=== PATIENT | female | born 1940 | race Caucasian/White ===

== ENCOUNTER 2016-03-12 21:42 | Inpatient (IN) | payer OTHER ==
[2016-03-12] MEDS ORDERED: NS 1,000 ML IV ONE ×2 (22:01→23:28)
[2016-03-12 22:11] LABS: % IMMATURE GRANULYOCYTES 0.3 % (0.0-1.1); ABSOLUTE IMMATURE GRANULOCYTES 0.02 10^3/uL (0.00-0.10); ADD DIFF? NO; ADD MORPH? NO; ADD SCAN? YES; ATYPICAL LYMPHOCYTE FLAG 0 (0-99); FRAGMENT RBC FLAG 0 (0-99); HEMATOCRIT 40.3 % (38.0-47.0); LIPEMIA HEMOLYSIS FLAG 90 (0-99); MEAN CELL HEMOGLOBIN 32.8 pg (27.9-34.1); MEAN CELL HEMOGLOBIN CONCENTR. 34.7 g/dL (32.4-36.7); MEAN CELL VOLUME 94.4 fL (81.5-99.8); MEAN PLATELET VOLUME 10.5 fL (8.7-11.7); PLATELET CLUMPS FLAG 0 (0-99); PLATELET COUNT 136 10^3/uL (150-400); RED BLOOD CELL COUNT 4.27 10^6/uL (4.18-5.33); RED CELL DISTRIBUTION WIDTH 13.3 % (11.5-15.2)
[2016-03-12 22:12] LABS: LEFT SHIFT FLG 300 (0-99)
--- NOTE | 2016-03-12 22:12 | CPEKG ---
Heart Rate: 101 RR Interval: 594 P-R Interval: 168 QRSD Interval: 134 QT Interval: 380 QTC Interval: 493 P [place]: 24 QRS [place]: 1 T Wave [place]: -22 EKG Severity - ABNORMAL ECG - EKG Impression: SINUS TACHYCARDIA EKG Impression: RIGHT BUNDLE BRANCH BLOCK Electronically Signed By: Juarez Sibley 13-Mar-2016 06:00:29
[2016-03-12 22:25] LABS: ANION GAP 18 mEq/L (8-16); CALCIUM 8.1 mg/dL (8.5-10.4); CARBON DIOXIDE 19 mEq/l (22-31); CHLORIDE 93 mEq/L (97-110); CREATININE 1.1 mg/dL (0.6-1.0); GLOMERULAR FILTRATION RATE 48; GLUCOSE 351 mg/dL (70-100); POTASSIUM 4.4 mEq/L (3.5-5.2); SODIUM 130 mEq/L (134-144)
[2016-03-12 22:39] LABS: SCAN POSITIVE
[2016-03-12 22:43] LABS: PLATELET ESTIMATE DECREASED (ADEQ)
--- NOTE | 2016-03-12 23:24 | EDPHY ---
HPI/HX/ROS/PE/MDM Narrative: Chief complaint: Diarrhea, falls HPI: 75-year-old patient with a history of type 2 diabetes presenting with 2-3 days of multiple episodes of profuse watery diarrhea, nausea and vomiting. She had a fall earlier today when she became dizzy after standing up. She also states that she fell about a week ago. states she has been having falls increasing repeat recently. She denies loss of consciousness. States she feels very dehydrated but everything she did drinks goes right through her. No abdominal pain. No fevers or chills. No blood or melena. She has not been on antibiotics recently. She does state that her stool is very foul smelling. No recent travel. Does not have any known sick contacts. Patient states she has not been eating today and has not been able to take her medications. ROS: 10 point Review of Systems is negative except as noted in the HPI. Physical exam: Gen: Awake, Alert, uncomfortable appearing HEENT: Nose: no rhinorrhea Eyes: PERRLA, EOMI Mouth: Dry mucosa Neck: Supple, no JVD Chest: nontender, lungs clear to auscultation Heart: S1, S2 normal, no murmur Abd: Soft, non-tender, no guarding Back: no CVA tenderness, no midline tenderness Ext: no edema, non-tender Skin: no rash Neuro: CN II-XII intact, Sensation grossly intact, Strength 5/5 in bilateral upper and lower extremities ED Course: 75-year-old diabetic with dehydration secondary to 2 days of nausea vomiting and profuse foul-smelling diarrhea. No recent antibiotics to ext suggest C diff however does smell like possible C diff to me. She is mildly tachycardic and very clinically dehydrated. She remains tachycardic after 1 L fluid. She has not been able to keep her medications down. She is hyperglycemic mildly acidotic which I think is secondary mostly to her dehydration. She will require admission. I have paged the hospitalist. - Data Points Laboratory Results: Laboratory Results 03/12/16 21:50 03/12/16 21:50 03/12/16 21:50 WBC 6.74 10^3/uL (3.80-9.50) RBC 4.27 10^6/uL (4.18-5.33) Hgb 14.0 g/dL (12.6-16.3) Hct 40.3 % (38.0-47.0) MCV 94.4 fL (81.5-99.8) MCH 32.8 pg (27.9-34.1) MCHC 34.7 g/dL (32.4-36.7) RDW 13.3 % (11.5-15.2) Plt Count 136 L 10^3/uL (150-400) MPV 10.5 fL (8.7-11.7) Neut % (Auto) 92.9 H % (39.3-74.2) Lymph % (Auto) 2.8 L % (15.0-45.0) [place] % (Auto) 3.4 L % (4.5-13.0) Eos % (Auto) 0.0 L % (0.6-7.6) Baso % (Auto) 0.6 % (0.3-1.7) Nucleat RBC Rel Count 0.0 % (0.0-0.2) Absolute Neuts (auto) 6.26 10^3/uL (1.70-6.50) Absolute Lymphs (auto) 0.19 L 10^3/uL (1.00-3.00) Absolute Monos (auto) 0.23 L 10^3/uL (0.30-0.80) Absolute Eos (auto) 0.00 L 10^3/uL (0.03-0.40) Absolute Basos (auto) 0.04 10^3/uL (0.02-0.10) Absolute Nucleated RBC 0.00 10^3/uL (0-0.01) Immature Gran % 0.3 % (0.0-1.1) Seg Neutrophils % 11 % Band Neutrophils % 79 % Lymphocytes % 3 % Monocytes % 3 % Metamyelocytes % 4 % Immature Gran # 0.02 10^3/uL (0.00-0.10) Absolute Seg Neuts 0.74 L 10^/uL (1.70-6.50) Absolute Band Neuts 5.32 H 10^3/uL (0.00-0.70) Absolute Lymphocytes 0.20 L 10^3/uL (1.00-3.00) Absolute Monocytes 0.20 L 10^3/uL (0.30-0.80) Absolute Metamyelocyte 0.27 H 10^3/mL (0.00-0.00) RBC/WBC/PLT Morphology NORMAL (NORMAL) Platelet Estimate DECREASED L (ADEQ) Sodium 130 L mEq/L (134-144) Potassium 4.4 mEq/L (3.5-5.2) Chloride 93 L mEq/L (97-110) Carbon Dioxide 19 L mEq/l (22-31) Anion Gap 18 mEq/L (8-16) BUN 25 H mg/dL (7-23) Creatinine 1.1 H mg/dL (0.6-1.0) Estimated GFR 48 Glucose 351 H mg/dL (70-100) Calcium 8.1 L mg/dL (8.5-10.4) Medications Given: Discontinued Medications Sodium Chloride (Ns) 1,000 mls @ 0 mls/hr IV ONCE ONE PRN Reason: Wide Open Stop: 03/12/16 22:02 Last Admin: 03/12/16 22:02 Dose: 1,000 mls General Time Seen by Provider: 03/12/16 22:49 Initial Vital Signs: Initial Vital Signs Temperature (C) 37 C 03/12/16 22:00 Heart Rate 104 H 03/12/16 22:00 Respiratory Rate 18 03/12/16 22:00 Blood Pressure 109/57 L 03/12/16 22:00 O2 Sat (%) 92 03/12/16 22:00 O2 Delivery Mode Room Air Allergies/Adverse Reactions: morphine Allergy (Verified 03/26/14 21:51) Vomiting Home Medications: Medication Instructions Recorded Aspirin [Aspir 81] 81 mg PO DAILY 02/07/12 Lisinopril/Hydrochlorothiazide 1 ea PO DAILY 02/07/12 [Lisinopril-Hctz 10-12.5 mg Tab] Acetaminophen [Tylenol ES 500 mg 500 mg PO BID PRN 03/27/14 (*)] Alendronate Sodium [Fosamax 70 MG 70 mg PO MO@0700 03/27/14 (*)] Allopurinol [Allopurinol 300 MG 450 mg PO DAILY 03/27/14 (RX)] Cholecalciferol Vit D3 [Vitamin D3 1,000 units PO BID 03/27/14 (*)] Glimepiride [Amaryl 1 MG (*)] 0.5 mg PO DAILY 03/27/14 Levothyroxine [Synthroid 50 mcg 50 mcg PO DAILY06 03/27/14 (*)] Omeprazole [Prilosec] 40 mg PO DAILY 03/27/14 Sitagliptin Phos/Metformin HCl 1 each PO BIDMEAL 03/27/14 [Janumet 50-500 mg Tablet] Cyanocobalamin [Vitamin B12 (OTC)] 1,000 mcg PO DAILY #0 tab 03/29/14 Departure - Departure Disposition: [facility] Acute Clinical Impression: Dehydration, Gastroenteritis, Diabetes mellitus Condition: Fair
[2016-03-12 23:59] LABS: ALBUMIN 3.5 g/dL (3.5-5.0); BILIRUBIN,TOTAL 1.3 mg/dL (0.1-1.4); BILIRUBIN-CONJUGATED 0.6 mg/dL (0.0-0.5); BILIRUBIN-UNCONJUGATED 0.7 mg/dL (0.0-1.1); TOTAL PROTEIN 6.5 g/dL (6.3-8.2)
--- NOTE | 2016-03-13 00:11 | CT ---
CT Head (Without Contrast) March 12, 2016 Indication: Fall. Facial contusion. Technique: Standard noncontrast head CT protocol utilizing 5 mm thick collimated slices and field of view of 23 cm. Dose reduction techniques were utilized. Comparison: Head CT dated October 14, 2015 Findings: Minimal left periorbital soft tissue swelling. No hematoma. No intracranial hemorrhage, mas s lesion, swelling, or extraaxial fluid collection. The ventricles are normal caliber and midline. Th e sherman and white matter has normal attenuation. No acute skull or facial fracture. The paranasal sinu ses are well-aerated and clear. Impression: 1. Minimal left periorbital soft tissue swelling. 2. No acute fracture or intracranial hemorrhage. Comment: The case was discussed with Dr. Sibley and at 12:05 a.m. March 13, 2016.
[2016-03-13] MEDS ORDERED: ONDANSETRON 4 MG/2 ML VIAL IVP PRN (01:56)
[2016-03-13] MEDS ORDERED: ACETAMINOPHEN 325 MG TAB PO PRN (01:56)
[2016-03-13] MEDS ORDERED: ONDANSETRON DISINTEGRATING 4 MG TAB PO PRN (01:56)
[2016-03-13] MEDS ORDERED: HYDROCODONE/APAP 5/325 TAB PO PRN (01:56)
[2016-03-13] MEDS ORDERED: D50W 25 GM/50 ML SYR IVP PRN (01:59)
[2016-03-13 06:03] LABS: ANION GAP 10 mEq/L (8-16); CALCIUM 7.3 mg/dL (8.5-10.4); CARBON DIOXIDE 21 mEq/l (22-31); CHLORIDE 103 mEq/L (97-110); CREATININE 0.9 mg/dL (0.6-1.0); GLOMERULAR FILTRATION RATE > 60; GLUCOSE 195 mg/dL (70-100); MAGNESIUM 1.2 mg/dL (1.6-2.3); POTASSIUM 3.8 mEq/L (3.5-5.2); SODIUM 134 mEq/L (134-144)
[2016-03-13 06:11] LABS: % IMMATURE GRANULYOCYTES 0.3 % (0.0-1.1); ABSOLUTE IMMATURE GRANULOCYTES 0.01 10^3/uL (0.00-0.10); ADD DIFF? NO; ADD MORPH? NO; ADD SCAN? YES; ATYPICAL LYMPHOCYTE FLAG 0 (0-99); FRAGMENT RBC FLAG 0 (0-99); HEMATOCRIT 34.2 % (38.0-47.0); LIPEMIA HEMOLYSIS FLAG 90 (0-99); MEAN CELL HEMOGLOBIN 33.2 pg (27.9-34.1); MEAN CELL HEMOGLOBIN CONCENTR. 35.1 g/dL (32.4-36.7); MEAN CELL VOLUME 94.7 fL (81.5-99.8); MEAN PLATELET VOLUME 10.5 fL (8.7-11.7); PLATELET CLUMPS FLAG 0 (0-99); PLATELET COUNT 94 10^3/uL (150-400); RED BLOOD CELL COUNT 3.61 10^6/uL (4.18-5.33); RED CELL DISTRIBUTION WIDTH 13.2 % (11.5-15.2)
[2016-03-13 06:14] LABS: LEFT SHIFT FLG 300 (0-99)
[2016-03-13 06:34] LABS: INR 1.51 (0.83-1.16); PROTIME(PATIENT) 18.2 SEC (12.0-15.0)
[2016-03-13 06:35] LABS: APTT 32.6 SEC (23.0-38.0)
[2016-03-13 06:37] LABS: SCAN POSITIVE
[2016-03-13 06:43] LABS: PLATELET ESTIMATE DECREASED (ADEQ)
[2016-03-13 07:37] LABS: FECES RBC NONE SEEN (NONE SEEN); FECES WBC 1+ (NONE SEEN); O/P DESCRIPTION LIQUID BROWN STOOL; O/P DIRECT NONE SEEN (NONE SEEN)
--- NOTE | 2016-03-13 07:39 | PDGENHP ---
History and Physical - Chief Complaint diarrhea - History of Present Illness Pt is 75/F with DM2, HTN, HCV (from transfusion), HLD, gout who presents to the ED complaining of n/v/d x 5 days. She is also reporting frequent falls, reports at least 3 falls in past 2 weeks. One month ago she had a fall that resulted in head trauma, ecchymosis on her L face, but states she did not seek medical care at that time. She describes the falls as mechanical in nature, due to a generalized weakness, with out any focal numbness, weakness or tingling. Over these two weeks she has also had difficulty with memory and word finding. Regarding her GI complaints, she states it started about 5 days ago first with nausea, vomiting, at least 3 times daily, nonbilious/nonbloody. Then she developed diarrhea, which she describes as profuse watery, difficult to control with urgency. She has been having at least 6 BMs daily. She denies any associated abd pain, fevers, chills, sick contacts or recent travel. On arrival to the ED, pt was afebrile and hemodynamically stable. Labs revealed evidence of dehydration, but no significant leukocytosis. She was given IVF hydration and admitted to the hospitalist service for further management. CT head did not show any acute intracranial abnormalities. History Information - Allergies/Home Medication List Allergies/Adverse Reactions: morphine Allergy (Verified 03/26/14 21:51) Vomiting Home Medications: Aspirin [Aspir 81] 81 mg PO DAILY 02/07/12 [Last Taken 03/26/14] Lisinopril/Hydrochlorothiazide [Lisinopril-Hctz 10-12.5 mg Tab] 1 ea PO DAILY [Last Taken 03/26/14] Acetaminophen [Tylenol ES 500 mg (*)] 500 mg PO BID PRN 03/27/14 [Last Taken Unknown] Alendronate Sodium [Fosamax 70 MG (*)] 70 mg PO MO@0700 03/27/14 [Last Taken 02/20] Allopurinol [Allopurinol 300 MG (RX)] 450 mg PO DAILY 03/27/14 [Last Taken 03/26] Cholecalciferol Vit D3 [Vitamin D3 (*)] 1,000 units PO BID 03/27/14 [Last Taken Unknown] Glimepiride [Amaryl 1 MG (*)] 0.5 mg PO DAILY 03/27/14 [Last Taken 03/26/14] Levothyroxine [Synthroid 50 mcg (*)] 50 mcg PO DAILY06 03/27/14 [Last Taken ] Omeprazole [Prilosec] 40 mg PO DAILY 03/27/14 [Last Taken 03/26/14] Sitagliptin Phos/Metformin HCl [Janumet 50-500 mg Tablet] 1 each PO BIDMEAL [Last Taken 03/26/14] I have personally reviewed and updated: family history, medical history, social history, surgical history - Past Medical History Additional medical history: DM2. HTN. Gout. HCV (as reported in MR) - Surgical History Additional surgical history: several R leg orthopedic surgeries. Hysterectomy. multiple abd surgeries for fibroids/adhesions - Family History Positive for: non-pertinent - Social History Smoking Status: Never smoked Alcohol Use: Other (pt reports drinking at least 2 gin drinks daily; no h/o withdrawal) Drug Use: None Additional social history: Pt lives with her , and is his primary caregiver. Is usually independent in ADLs, does not use an assistive device with walking Review of Systems ROS: 10pt was reviewed & negative except for what was stated in HPI & below Physical Exam Temp Pulse Resp BP Pulse Ox 37.5 C 114 H 12 128/59 H 93 03/13/16 04:44 03/13/16 04:44 03/13/16 04:44 03/13/16 04:44 03/13/16 04:44 Constitutional: no apparent distress, not in pain, obese Eyes: PERRL, anicteric sclera, EOMI, other (ecchymosis over L orbit) Ears, Nose, Mouth, Throat: ears appear normal, no oral mucosal ulcers, dry mucous membranes Cardiovascular: regular rate and rhythym, no murmur, rub, or gallop, pulses symmetric bilaterally, No JVD, No edema Peripheral Pulses: 2+: dorsalis-pedis (R), dorsalis-pedis (L) Respiratory: no respiratory distress, no rales or rhonchi, clear to auscultation Gastrointestinal: normoactive bowel sounds, soft, non-tender abdomen, no palpable masses, No hepatosplenomegally, No guarding, No rebound Genitourinary: no bladder fullness, no bladder tenderness Skin: warm, normal color, no rashes or abrasions, no fluctuance, No mottled Musculoskeletal: full muscle strength, no muscle tenderness, normal joint ROM, no joint effusions Neurologic: AAOx3, sensation intact bilaterally, CN II-XII Intact, other ( having word finding difficulties; able to repeat, name, follow all commands without difficulty), No weakness, No numbness Psychiatric: interacting appropriately, not anxious, thought process linear Lab Data & Imaging Review 03/13/16 04:47 03/13/16 04:47 WBC 3.61 10^3/uL (3.80-9.50) L 03/13/16 04:47 RBC 3.61 10^6/uL (4.18-5.33) L 03/13/16 04:47 Hgb 12.0 g/dL (12.6-16.3) L 03/13/16 04:47 Hct 34.2 % (38.0-47.0) L 03/13/16 04:47 MCV 94.7 fL (81.5-99.8) 03/13/16 04:47 MCH 33.2 pg (27.9-34.1) 03/13/16 04:47 MCHC 35.1 g/dL (32.4-36.7) 03/13/16 04:47 RDW 13.2 % (11.5-15.2) 03/13/16 04:47 Plt Count 94 10^3/uL (150-400) L 03/13/16 04:47 MPV 10.5 fL (8.7-11.7) 03/13/16 04:47 Neut % (Auto) 82.2 % (39.3-74.2) H 03/13/16 04:47 Lymph % (Auto) 11.6 % (15.0-45.0) L 03/13/16 04:47 [place] % (Auto) 5.0 % (4.5-13.0) 03/13/16 04:47 Eos % (Auto) 0.3 % (0.6-7.6) L 03/13/16 04:47 Baso % (Auto) 0.6 % (0.3-1.7) 03/13/16 04:47 Nucleat RBC Rel Count 0.0 % (0.0-0.2) 03/13/16 04:47 Absolute Neuts (auto) 2.97 10^3/uL (1.70-6.50) 03/13/16 04:47 Absolute Lymphs (auto) 0.42 10^3/uL (1.00-3.00) L 03/13/16 04:47 Absolute Monos (auto) 0.18 10^3/uL (0.30-0.80) L 03/13/16 04:47 Absolute Eos (auto) 0.01 10^3/uL (0.03-0.40) L 03/13/16 04:47 Absolute Basos (auto) 0.02 10^3/uL (0.02-0.10) 03/13/16 04:47 Absolute Nucleated RBC 0.00 10^3/uL (0-0.01) 03/13/16 04:47 Immature Gran % 0.3 % (0.0-1.1) 03/13/16 04:47 Seg Neutrophils % 25 % 03/13/16 04:47 Band Neutrophils % 55 % 03/13/16 04:47 Lymphocytes % 10 % 03/13/16 04:47 Monocytes % 4 % 03/13/16 04:47 Eosinophils % 1 % 03/13/16 04:47 Metamyelocytes % 5 % 03/13/16 04:47 Immature Gran # 0.01 10^3/uL (0.00-0.10) 03/13/16 04:47 Absolute Seg Neuts 0.90 10^/uL (1.70-6.50) L 03/13/16 04:47 Absolute Band Neuts 1.99 10^3/uL (0.00-0.70) H 03/13/16 04:47 Absolute Lymphocytes 0.36 10^3/uL (1.00-3.00) L 03/13/16 04:47 Absolute Monocytes 0.14 10^3/uL (0.30-0.80) L 03/13/16 04:47 Absolute Eosinophils 0.04 10^3/uL (0.03-0.40) 03/13/16 04:47 Absolute Metamyelocyte 0.18 10^3/mL (0.00-0.00) H 03/13/16 04:47 RBC/WBC/PLT Morphology NORMAL (NORMAL) 03/13/16 04:47 Platelet Estimate DECREASED (ADEQ) L 03/13/16 04:47 PT 18.2 SEC (12.0-15.0) H 03/13/16 04:47 INR 1.51 (0.83-1.16) H 03/13/16 04:47 APTT 32.6 SEC (23.0-38.0) 03/13/16 04:47 Sodium 134 mEq/L (134-144) 03/13/16 04:47 Potassium 3.8 mEq/L (3.5-5.2) 03/13/16 04:47 Chloride 103 mEq/L (97-110) D 03/13/16 04:47 Carbon Dioxide 21 mEq/l (22-31) L 03/13/16 04:47 Anion Gap 10 mEq/L (8-16) 03/13/16 04:47 BUN 27 mg/dL (7-23) H 03/13/16 04:47 Creatinine 0.9 mg/dL (0.6-1.0) 03/13/16 04:47 Estimated GFR > 60 03/13/16 04:47 Glucose 195 mg/dL (70-100) H 03/13/16 04:47 Calcium 7.3 mg/dL (8.5-10.4) L 03/13/16 04:47 Phosphorus 2.6 mg/dL (2.5-4.5) 03/13/16 04:47 Magnesium 1.2 mg/dL (1.6-2.3) L 03/13/16 04:47 Total Bilirubin 1.3 mg/dL (0.1-1.4) 03/12/16 21:50 Conjugated Bilirubin 0.6 mg/dL (0.0-0.5) H 03/12/16 21:50 Unconjugated Bilirubin 0.7 mg/dL (0.0-1.1) 03/12/16 21:50 AST 42 IU/L (14-46) 03/12/16 21:50 ALT 45 IU/L (9-52) 03/12/16 21:50 Alkaline Phosphatase 67 IU/L (38-126) 03/12/16 21:50 Total Protein 6.5 g/dL (6.3-8.2) 03/12/16 21:50 Albumin 3.5 g/dL (3.5-5.0) 03/12/16 21:50 TSH 1.450 uIU/mL (0.465-4.680) 03/13/16 04:47 Visualized and Interpreted imaging results: Yes Interpretation: CT head: no acute intracranial infarct, hemorrhage or mass effect Visualized and Interpreted EKG results: Yes EKG Interpretation: Positive for: normal sinsus rhythm (with RBBB) Assessment & Plan Assessment: Pt is 75/F with HTN, DM2 who presents to the ED with recent frequent falls and new n/v/d x 5 days. ED w/u revealed evidence of acute dehydration. Plan: # nausea/vomiting/diarrhea Consistent with a gastroenteritis, likely viral in etiology, but will also need to r/o c diff, bacterial or parasitic causes. No significant leukocytosis. BMP does show electrolytes loses, likely due to volume loss. Abdomen soft, nontender or distended. - contact precautions - f/u c diff, o/p, stool culture - if above positive, start appropriate antibiotic regimen - monitor and replete electrolytes # falls Sound mechanical in nature due to generalized weakness, likely exacerbated by acute dehydration. CT head neg for acute bleed, infarct. - fall precautions - PT/OT eval # acute encephalopathy Pt aware of some word finding/memory difficulties, which she noticed over past [address] head neg, but will also check MRI brain. Rest of neuro exam is nonfocal. Will also give empiric thiamine as patient describes drinking about 2 gin drinks daily. - f/u MRI brain - thiamine 100 mg po daily - treat acute infection # DM2, uncontrolled Hyperglycemic on presentation, acute infection likely contributing. Will cover with sliding scale lispro and monitor FS. # hyponatremia, hypochloremia Likely related to profuse diarrhea. Pt given 2 L NS in ED and will cont maintenance fluid while diarrhea still present. - NS @ 100 cc/hr - trend BMP, Mg # dispo: admit to inpt service for > 2 mn stay # gen: diabetic diet DVT ppx: lovenox Full code
[2016-03-13] MEDS ORDERED: PROTOCOL POTASSIUM 1 DOSE MISC PRN (08:00)
[2016-03-13] MEDS ORDERED: PROTOCOL MAGNESIUM 1 DOSE IV PRN (08:00)
[2016-03-13] MEDS ORDERED: MAGNESIUM SULF 2 GM/WATER 50 ML IV ONE (08:36)
[2016-03-13] MEDS ORDERED: POTASSIUM CL 10 MEQ TAB PO ONE (08:37)
[2016-03-13] MEDS: INSULIN LISPRO 100 UNIT/ML SC SCH ×3 (08:45→18:38)
[2016-03-13] MEDS: THIAMINE HCL 100 MG TAB PO SCH (08:49)
[2016-03-13] MEDS ORDERED: THIAMINE HCL 100 MG in NS 100 ML IV SCH (09:00)
[2016-03-13] MEDS ORDERED: ENOXAPARIN 40 MG/0.4 ML SYR SC SCH (09:00)
--- NOTE | 2016-03-13 11:34 | MR ---
MRI brain without contrast dated March 13, 2016 Indication: Word finding difficulty. Confabulation. Technique: Sagittal and axial T1, axial T2, FLAIR, susceptibility weighted, and diffusion-weighted im aging. Comparison: CT head dated March 12, 2016. No previous brain MRI. Findings: Diffusion-weighted imaging is normal. No evidence of acute ischemia. No acute intracranial hemorrhage, amyloid, or hemosiderin deposition. FLAIR weighted imaging reveals mild periventricular a nd subcortical hyperintense white matter disease in the frontal, and to a lesser degree, the parietal lobes. No cerebellar or mid brain white matter disease. The ventricular system is normal caliber and midline. The sagittal sinus and distal basivertebral and internal carotid arteries have normal black flow-void on T2-weighted imaging. The pituitary gland is normal size. The cervicooccipital junction is normal. The paranasal sinuses are clear. Impression: 1. No evidence of acute ischemia or acute intracranial hemorrhage. 2. Mild nonspecific periventricular and subcortical white matter disease in the frontal and parietal lobes.
--- NOTE | 2016-03-13 14:14 | HOSPPROG ---
Hospitalist Progress Note Assessment/Plan: Patient is a 75-year-old female who presented the emergency room with frequent falls and now nausea vomiting diarrhea for approximately 5 days she was admitted for further evaluation. I discussed her care with Dr. Overton. Today is my 1st a caring for the patient. Chart reviewed. #. Gait instability with falls CT of head shows minimal left periorbital soft tissue swelling MRI shows nothing acute she may be falling due to dehydration #. nausea, vomiting and diarrhea Clostridium difficile was negative this morning per nursing staff is still having significant amounts of diarrhea/ will recheck again for C diff will continue hydration she was recently treated with 3 antibiotics for a persistent urinary tract infection #. hyponatremia improved with IV hydration #. diabetes type 2 on long acting insulin as well as sliding scale- will follow #. dehydration continue IV fluids #. acute encephalopathy poss r/t alcohol use and to dehydration when I met with the patient she was alert and oriented /conversant #. thrombocytopenia possibly related to alcohol use will hold Lovenox #. alcohol use patient admits to drinking a martini in the evening but does not feel she excessively drinks #. DVT prophylaxis patient ambulating well in the room, will hold Lovenox in the setting of low platelet count and recheck labs in the morning #. plan. Will repeat labs in the morning. Will follow up with 2nd C difficile that was sent. Subjective: Kati has no c/o pain. Objective: Vital Signs Temp Pulse Resp BP Pulse Ox 36.9 C 111 H 18 127/68 H 92 03/13/16 07:54 03/13/16 12:00 03/13/16 12:00 03/13/16 12:00 03/13/16 12:00 Laboratory Results 03/13/16 04:47 03/13/16 04:47 PT 18.2 SEC (12.0-15.0) H 03/13/16 04:47 INR 1.51 (0.83-1.16) H 03/13/16 04:47 - Physical Exam Constitutional: no apparent distress, appears nourished, not in pain Eyes: PERRL Ears, Nose, Mouth, Throat: hearing normal Cardiovascular: regular rate and rhythym Respiratory: no respiratory distress Gastrointestinal: normoactive bowel sounds, distension (slight) Skin: warm, other (left facial area with some ecchymosis) Musculoskeletal: full muscle strength Neurologic: AAOx3 Psychiatric: interacting appropriately, not anxious, not encephalopathic ICD10 Worksheet Patient Problems: Problems Problem Status Diagnosed Dehydration Acute Diabetes Acute Gastroenteritis Acute Fall at home Acute
[2016-03-13 14:43] LABS: O/P CONCENTRATION NONE SEEN (NONE SEEN)
[2016-03-13] MEDS ORDERED: ACETAMINOPHEN 500 MG TAB PO PRN (14:44)
[2016-03-13 18:46] LABS: POTASSIUM 4.3 mEq/L (3.5-5.2)
[2016-03-13] MEDS: CHOLECALCIFEROL VIT D3 1,000 UNITS TAB PO SCH (20:37)
[2016-03-13] MEDS: CHLORHEXIDINE GLUCONATE 15 ML UDL MM SCH (20:52)
[2016-03-13] MEDS ORDERED: INSULIN GLARGINE 100 UNITS/ML SYRINGE SC SCH (21:00)
[2016-03-14] MEDS: NS 1,000 ML IV SCH ×2 (02:05→20:51)
[2016-03-14] MEDS: LEVOTHYROXINE 75 MCG TAB PO SCH (05:03)
[2016-03-14 05:06] LABS: ADD MORPH? NO; ADD SCAN? YES; ATYPICAL LYMPHOCYTE FLAG 0 (0-99); FRAGMENT RBC FLAG 0 (0-99); HEMATOCRIT 34.5 % (38.0-47.0); LEFT SHIFT FLG 80 (0-99); LIPEMIA HEMOLYSIS FLAG 90 (0-99); MEAN CELL HEMOGLOBIN CONCENTR. 34.8 g/dL (32.4-36.7); MEAN CELL VOLUME 94.8 fL (81.5-99.8); PLATELET CLUMPS FLAG 0 (0-99); PLATELET COUNT 91 10^3/uL (150-400); RED BLOOD CELL COUNT 3.64 10^6/uL (4.18-5.33); RED CELL DISTRIBUTION WIDTH 13.3 % (11.5-15.2)
[2016-03-14 05:25] LABS: CALCIUM 7.8 mg/dL (8.5-10.4); CARBON DIOXIDE 17 mEq/l (22-31); CHLORIDE 110 mEq/L (97-110); CREATININE 0.6 mg/dL (0.6-1.0); GLOMERULAR FILTRATION RATE > 60; GLUCOSE 187 mg/dL (70-100); MAGNESIUM 1.6 mg/dL (1.6-2.3); SODIUM 138 mEq/L (134-144)
[2016-03-14 06:04] LABS: ADD DIFF? YES; SCAN POSITIVE
[2016-03-14 06:11] LABS: MACROCYTES 1+; PLATELET ESTIMATE DECREASED (ADEQ); POLYCHROMASIA 1+
[2016-03-14 06:49] LABS: ANION GAP 11 mEq/L (8-16); POTASSIUM 3.6 mEq/L (3.5-5.2)
[2016-03-14] MEDS: ALLOPURINOL 300 MG TAB PO SCH (08:52)
[2016-03-14] MEDS: GLIMEPIRIDE 2 MG TAB PO SCH (08:52)
[2016-03-14] MEDS: INSULIN LISPRO 100 UNIT/ML SC SCH ×3 (08:53→18:05)
[2016-03-14] MEDS: CHLORHEXIDINE GLUCONATE 15 ML UDL MM SCH ×2 (08:53→20:51)
[2016-03-14] MEDS: ASPIRIN 81 MG CHEWABLE TAB PO SCH (08:53)
[2016-03-14] MEDS: CHOLECALCIFEROL VIT D3 1,000 UNITS TAB PO SCH ×2 (08:53→20:50)
[2016-03-14] MEDS ORDERED: POTASSIUM CL 10 MEQ TAB PO ONE ×2 (10:42→20:16)
[2016-03-14] MEDS ORDERED: MAGNESIUM SULF 1 GM/DEXTROSE 100 ML IV ONE (10:43)
[2016-03-14] MEDS: THIAMINE HCL 100 MG TAB PO SCH (10:51)
[2016-03-14 11:02] LABS: O/P TRICHROME NONE SEEN (NONE SEEN)
[2016-03-14] MEDS ORDERED: DIPHENOXYLATE/ATROPINE LOMOTIL 1 TAB PO PRN (11:36)
--- NOTE | 2016-03-14 15:34 | HOSPPROG ---
Hospitalist Progress Note Assessment/Plan: Patient is a 75-year-old female who presented the emergency room with frequent falls and now nausea vomiting diarrhea for approximately 5 days she was admitted for further evaluation. #. Gait instability with falls CT of head shows minimal left periorbital soft tissue swelling MRI shows nothing acute she may be falling due to dehydration PT and OT evaluated/ she would benefit from a front wheeled walker #. nausea, vomiting and diarrhea Clostridium difficile was negative x 2 stool studies do not show any infection will do a trial of Imodium diarrhea continues but the nausea and vomiting have resolved #. hyponatremia improved with IV hydration #. diabetes type 2 on long acting insulin as well as sliding scale- will follow #. dehydration continue IV fluids #. acute encephalopathy poss r/t alcohol use and to dehydration when I met with the patient she was alert and oriented /conversant and appropriate/ reading a book ST noted she needs further treatment in OP setting/needs help with comprehension and attention #. thrombocytopenia possibly related to alcohol use will hold Lovenox #. alcohol use patient admits to drinking a martini in the evening but does not feel she excessively drinks #. DVT prophylaxis patient ambulating well in the room, will hold Lovenox in the setting of low platelet count #. plan. 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 Subjective: Terrence is feeling better today/ has no complaints except for the diarrhea Objective: Vital Signs Temp Pulse Resp BP Pulse Ox 37.1 C 96 16 171/80 H 96 03/14/16 15:17 03/14/16 15:17 03/14/16 15:17 03/14/16 15:17 03/14/16 15:17 Laboratory Results 03/14/16 04:39 03/14/16 04:39 03/13/16 03/14/16 03/15/16 05:59 05:59 05:59 Intake Total 400 Balance 400 PT 18.2 SEC (12.0-15.0) H 03/13/16 04:47 INR 1.51 (0.83-1.16) H 03/13/16 04:47 - Physical Exam Constitutional: no apparent distress Eyes: PERRL Ears, Nose, Mouth, Throat: hearing normal Cardiovascular: regular rate and rhythym Respiratory: no respiratory distress Gastrointestinal: normoactive bowel sounds Skin: warm Musculoskeletal: generalized weakness Neurologic: AAOx3 Psychiatric: interacting appropriately, poor insight ICD10 Worksheet Patient Problems: Problems Problem Status Diagnosed Dehydration Acute Diabetes Acute Gastroenteritis Acute Fall at home Acute
[2016-03-14 19:01] LABS: POTASSIUM 3.7 mEq/L (3.5-5.2)
[2016-03-14] MEDS: INSULIN GLARGINE 100 UNITS/ML SYRINGE SC SCH (20:51)
[2016-03-15 05:40] LABS: COLOR YELLOW; LEUKOCYTE ESTERASE,URINE 3+ (NEGATIVE); NITRITE,URINE POSITIVE (NEGATIVE)
[2016-03-15 05:46] LABS: MAGNESIUM 1.5 mg/dL (1.6-2.3); POTASSIUM 3.8 mEq/L (3.5-5.2)
[2016-03-15 05:53] LABS: BACTERIA 2+ /hpf (NONE SEEN); MUCUS TRACE /lpf (NONE-1+); RBC,URINE 50-182 /hpf (0-3); WBC,URINE 50-182 /hpf (0-3)
[2016-03-15] MEDS ORDERED: POTASSIUM CL 10 MEQ TAB PO ONE ×2 (07:40→21:16)
[2016-03-15] MEDS: INSULIN LISPRO 100 UNIT/ML SC SCH ×3 (09:31→18:40)
[2016-03-15] MEDS: CHLORHEXIDINE GLUCONATE 15 ML UDL MM SCH ×2 (09:33→21:25)
[2016-03-15] MEDS: GLIMEPIRIDE 2 MG TAB PO SCH (09:33)
[2016-03-15] MEDS: CHOLECALCIFEROL VIT D3 1,000 UNITS TAB PO SCH ×2 (09:35→21:20)
[2016-03-15] MEDS: ASPIRIN 81 MG CHEWABLE TAB PO SCH (09:35)
[2016-03-15] MEDS: ALLOPURINOL 300 MG TAB PO SCH (09:35)
[2016-03-15] MEDS: THIAMINE HCL 100 MG TAB PO SCH (09:35)
[2016-03-15] MEDS: LEVOTHYROXINE 75 MCG TAB PO SCH (10:48)
[2016-03-15] MEDS ORDERED: MAGNESIUM SULF 1 GM/DEXTROSE 100 ML IV ONE (11:37)
--- NOTE | 2016-03-15 14:11 | HOSPPROG ---
Hospitalist Progress Note Assessment/Plan: Hospitalist Progress Note Assessment/Plan: Patient is a 75-year-old female who presented the emergency room with frequent falls and now nausea vomiting diarrhea for approximately 5 days she was admitted for further evaluation. My 1st encounter with the patient, chart reviewed. #. Gait instability with falls CT of head shows minimal left periorbital soft tissue swelling MRI shows nothing acute she may be falling due to dehydration PT and OT evaluated/ she would benefit from a front wheeled walker #. nausea, vomiting and diarrhea Clostridium difficile was negative x 2 stool studies do not show any infection Continue Imodium diarrhea lessened and the nausea and vomiting have resolved # urinary tract infection Patient states she has had urinary tract infection within the last 3 months Treated with outpatient oral antibiotic Will initiate Rocephin Await culture sensitivities #. hyponatremia improved with IV hydration #. diabetes type 2 on long acting insulin as well as sliding scale- will follow Lantus increased #. dehydration continue IV fluids #. acute encephalopathy poss r/t alcohol use and to dehydration patient alert and oriented /conversant and appropriate/ reading a book ST noted she needs further treatment in OP setting/needs help with comprehension and attention #. thrombocytopenia possibly related to alcohol use will hold Lovenox #. alcohol use patient admits to drinking a martini in the evening but does not feel she excessively drinks #. DVT prophylaxis patient ambulating well in the room, will hold Lovenox in the setting of low platelet count #. plan. 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 Still having to urinate quite frequently. Still continues to feel weak with concerns of ambulating to the bathroom. Objective: Vital Signs Temp Pulse Resp BP Pulse Ox 36.9 C 81 16 156/77 H 96 03/15/16 11:30 03/15/16 11:30 03/15/16 11:30 03/15/16 11:30 03/15/16 11:30 Microbiology 03/13/16 07:00 Stool Culture - Final Stool Laboratory Results 03/14/16 04:39 03/15/16 04:43 03/14/16 03/15/16 03/16/16 05:59 05:59 05:59 Intake Total 400 3081 350 Balance 400 3081 350 PT 18.2 SEC (12.0-15.0) H 03/13/16 04:47 INR 1.51 (0.83-1.16) H 03/13/16 04:47 - Physical Exam Constitutional: no apparent distress, appears nourished, not in pain Eyes: PERRL, anicteric sclera, EOMI Ears, Nose, Mouth, Throat: moist mucous membranes, hearing normal, ears appear normal Cardiovascular: regular rate and rhythym, No JVD, No edema Respiratory: no respiratory distress, no rales or rhonchi, reduced air movement Gastrointestinal: normoactive bowel sounds, No tenderness, No ascites Skin: warm, normal color, No erythema Musculoskeletal: normal joint ROM, no joint effusions, generalized weakness Neurologic: AAOx3 Psychiatric: interacting appropriately, not anxious, not encephalopathic ICD10 Worksheet Patient Problems: Problems Problem Status Diagnosed Dehydration Acute Diabetes Acute Gastroenteritis Acute Fall at home Acute
[2016-03-15] MEDS ORDERED: POTASSIUM CL 10 MEQ TAB ONE (21:14)
[2016-03-15] MEDS: INSULIN GLARGINE 100 UNITS/ML SYRINGE SC SCH (21:25)
[2016-03-16 05:57] LABS: MAGNESIUM 1.5 mg/dL (1.6-2.3)
[2016-03-16 08:37] VITALS: TEMP 98.2
[2016-03-16] MEDS: GLIMEPIRIDE 2 MG TAB PO SCH (09:00)
[2016-03-16] MEDS: ASPIRIN 81 MG CHEWABLE TAB PO SCH (09:00)
[2016-03-16] MEDS: THIAMINE HCL 100 MG TAB PO SCH (09:00)
[2016-03-16] MEDS: CHOLECALCIFEROL VIT D3 1,000 UNITS TAB PO SCH (09:00)
[2016-03-16] MEDS: ALLOPURINOL 300 MG TAB PO SCH (09:00)
[2016-03-16] MEDS: CHLORHEXIDINE GLUCONATE 15 ML UDL MM SCH (09:01)
[2016-03-16] MEDS: LEVOTHYROXINE 75 MCG TAB PO SCH (09:03)
[2016-03-16] MEDS: INSULIN LISPRO 100 UNIT/ML SC SCH ×2 (09:23→11:47)
[2016-03-16 11:24] VITALS: BP 154/72; PULSE 81; RESP 18; O2SAT 97
[2016-03-16] MEDS ORDERED: MAGNESIUM SULF 1 GM/DEXTROSE 100 ML IV ONE (11:33)
--- NOTE | 2016-03-16 14:40 | GDS ---
[f rep st] DISCHARGE SUMMARY DISCHARGE DIAGNOSES: 1. Gram-negative raven urinary tract infection. 2. Gait instability with falls. 3. Nausea, vomiting and diarrhea. 4. Hyponatremia. 5. Diabetes mellitus type 2. 6. Dehydration. 7. Acute encephalopathy. 8. Thrombocytopenia. 9. Daily alcohol use. STUDIES AND PROCEDURES DONE: 1. CT of the head. 2. MRI of the brain. 3. Urine culture. PHYSICAL EXAM: GENERAL: The patient is alert and oriented, in no acute distress. VITAL SIGNS: Afe brile 36.8, pulse is 81, respiratory rate is 18, blood pressure is 154/72. She is saturating 97% on room air. I have seen and evaluated the patient on the day of discharge. HOSPITAL COURSE: The patient is a 75-year-old female who presented to the emergency room after suffe ring a fall. She was evaluated and diagnosed with. 1. Gait instability with falls. This is likely multifactorial in the setting of acute infectious pr ocess and dehydration. She has been cleared by Physical Therapy as well as Occupational Therapy nell hernandez this hospitalization. 2. Nausea, vomiting and diarrhea. During the hospital course, the patient's symptoms have completel y resolved. It is likely that she had a viral gastroenteritis that has dissipated. 3. Gram-negative raven urinary tract infection. Ms. Young has had multiple urinary tract infections recently. She was treated during this hospital course with Rocephin and is discharged home with Ana mora. She has been instructed to follow up in the outpatient setting with Dr. Liang, a urologist, f or further management and treatment of her urinary tract infection. She is aware that her urine cult ure sensitivities have not resulted yet and that she requires outpatient followup. She is in agreeme nt with this plan. 4. Hyponatremia. This is resolved with IV hydration and was likely secondary to the patient being d ehydrated. 5. Diabetes mellitus type 2. Continue outpatient support and management. 6. Acute encephalopathy. This has resolved. The patient's mentation has returned to baseline. 7. Thrombocytopenia. This is stable at the time of disposition. DISPOSITION: The patient will be discharged home independently. Home health care has been offered t o her at the time of disposition; however, she is refusing. Followup will be in the outpatient too hernandez with Dr. Liang as well as her primary care physician, Dr. Jenny Garcia. She has been instruct ed to follow up final results for her urine culture. DISCHARGE MEDICATIONS: Please refer to EMR form. Prescription for Keflex as well as Norvasc has bee n provided to the patient at the time of disposition. TIME SPENT: I spent greater than 35 minutes in the care, coordination, and management of this patien t's discharge. /[id number]/MODL
[2016-03-18] MEDS ORDERED: ALENDRONATE SODIUM 70 MG TAB PO SCH (07:00)
== END 2016-03-16 16:13 | disposition home or self-care (01) | DRG 391 ==
LOC: EDUNIT# → F3E 03-13 00:18 → OBSVTOIN 03-13 01:56 → F3E 03-15 17:01
PROVIDERS: ADMIT Internal Medicine; ATTEND Student in an Organized Health Care Education/Training Program
DX: A08.4 Viral intestinal infection, unspecified (principal); N39.0 Urinary tract infection, site not specified; G93.40 Encephalopathy, unspecified; E86.0 Dehydration; E87.1 Hypo-osmolality and hyponatremia; D69.6 Thrombocytopenia, unspecified; E11.65 Type 2 diabetes mellitus with hyperglycemia; R26.81 Unsteadiness on feet; R29.6 Repeated falls; Z79.4 Long term (current) use of insulin; Z87.440 Personal history of urinary (tract) infections
CPT/HCPCS: 92507-GN; 92523-GN; 97116-GP; 97161-GP; 97166-GO; 97535-GO; G8978-GP-CJ; G8979-GP-CI; G8980-GP-CI; G8987-GO-CJ; G8988-GO-CI; G8989-GO-CI; G9165-GN-CI; G9165-GN-CK; G9166-GN-CI; G9166-GN-CJ; G9167-GN-CI; J0696; J1650; J1815; J3475

== ENCOUNTER → 2016-05-21 | Outpatient (CLI) | payer OTHER | LOC: BMCIMAGING 08:57 | DX: Z12.31 Encounter for screening mammogram for malignant neoplasm of breast (principal); Z80.3 Family history of malignant neoplasm of breast | CPT/HCPCS: G0202 ==

== ENCOUNTER 2016-12-30 21:25 | Inpatient (IN) | payer OTHER ==
--- NOTE | 2016-12-30 21:26 | EDPHY ---
HPI/HX/ROS/PE/MDM Narrative: CHIEF COMPLAINT: Atrial fibrillation, hyperglycemia, hypertension HPI: The patient is a 76 y/o female with a history of bladder spasms, UTI, leaky bladder,diabetes mellitus type 2, hypertension, hepatitis C from a transfusion, hyperlipidemia, and gout arriving via EMS after falling in her home. She had Botox injections into the bladder last week to help treat her urinary issues. Today she got up to use the restroom and on her way back she tripped and fell and was unable to get up. The fire department originally showed up for a left assist but, on exam she was tachycardic, hypertensive, and hyperglycemic. EMS notes a new onset atrial fibrillation on the EKG in the ambulance. She reports to not taking her insulin shots for the past couple days. She denies loss of consciousness, pain, recent fever, or any other associated symptoms. REVIEW OF SYSTEMS: Aside from elements discussed in the HPI, a comprehensive 10-point review of systems was reviewed and is negative. PMH: Diabetes mellitus type 2, hypertension, hepatitis C from a transfusion, hyperlipidemia, gout SOCIAL HISTORY: Lives in [place], , Dr. Garcia PCP PHYSICAL EXAM: General:Patient is alert, in no acute distress. ENT:Eyes are normal to inspection. ENT inspection normal. Neck: Normal inspection. Full range of motion. Respiratory:No respiratory distress. Breath sounds normal bilaterally. Cardiovascular: Regular rate and rhythm. Strong peripheral pulses. Normal cap refill. Abdomen:The abdomen is nontender to palpation. There are no peritoneal signs. There are normal bowel sounds. Back: Normal to inspection. No tenderness to palpation. Skin: Normal color. No rash. Warm and dry. Extremities: Normal appearance. Full range of motion. Neuro: Oriented x3. Normal motor function. Normal sensory function. MDM: This patient presents with what sounds like mechanical fall, but exam reveals new onset Afib with RVR, hyperglycemia in setting of IDDM and possible lung infiltrate. Despite this, she appears quite well and I do not think she is in DKA. She also has a moderate troponin leak but no signs of ACS by symptoms or ECG. - Data Points Imaging Results: Imaging Impressions Chest X-Ray 12/30/16 21:42 Impression: 1. Mild consolidation of left lower lobe. 2. Mild cardiomegaly. 3. Numerous old fractures. EKG was ordered and interpreted by myself. Please see [employer] system for official reading. I note atrial fibrillation. Study: X-ray of the chest Indication: Hypertension, atrial fibrillation Results: X-ray of the chest was obtained. The results of the study are: Normal. The study was read by the radiologist, Dr. Tinooc. I viewed the images myself on the PACS system. Imaging: Discussed imaging studies w/ hand therapist Radiologist, I viewed and interpreted images myself Laboratory Results: Laboratory Results 12/30/16 21:29 12/30/16 21:29 12/30/16 12/30/16 21:29 21:29 WBC 7.60 10^3/uL 10^3/uL (3.80-9.50) RBC 4.01 10^6/uL L 10^6/uL (4.18-5.33) Hgb 13.3 g/dL g/dL (12.6-16.3) Hct 37.0 % L % (38.0-47.0) MCV 92.3 fL fL (81.5-99.8) MCH 33.2 pg pg (27.9-34.1) MCHC 35.9 g/dL g/dL (32.4-36.7) RDW 13.2 % % (11.5-15.2) Plt Count 179 10^3/uL 10^3/uL (150-400) MPV 10.7 fL fL (8.7-11.7) Neut % (Auto) 79.9 % H % (39.3-74.2) Lymph % (Auto) 9.3 % L % (15.0-45.0) Frederick % (Auto) 8.7 % % (4.5-13.0) Eos % (Auto) 1.2 % % (0.6-7.6) Baso % (Auto) 0.5 % % (0.3-1.7) Nucleat RBC Rel Count 0.0 % % (0.0-0.2) Absolute Neuts (auto) 6.07 10^3/uL 10^3/uL (1.70-6.50) Absolute Lymphs (auto) 0.71 10^3/uL L 10^3/uL (1.00-3.00) Absolute Monos (auto) 0.66 10^3/uL 10^3/uL (0.30-0.80) Absolute Eos (auto) 0.09 10^3/uL 10^3/uL (0.03-0.40) Absolute Basos (auto) 0.04 10^3/uL 10^3/uL (0.02-0.10) Absolute Nucleated RBC 0.00 10^3/uL 10^3/uL (0-0.01) Immature Gran % 0.4 % % (0.0-1.1) Immature Gran # 0.03 10^3/uL 10^3/uL (0.00-0.10) Sodium 126 mEq/L L mEq/L (134-144) Potassium 3.9 mEq/L mEq/L (3.5-5.2) Chloride 90 mEq/L L mEq/L (97-110) Carbon Dioxide 18 mEq/l L mEq/l (22-31) Anion Gap 18 mEq/L H mEq/L (8-16) BUN 18 mg/dL mg/dL (7-23) Creatinine 0.7 mg/dL mg/dL (0.6-1.0) Estimated GFR > 60 Glucose 473 mg/dL H mg/dL (70-100) Calcium 9.0 mg/dL mg/dL (8.5-10.4) Troponin I 0.606 ng/mL H ng/mL (0.000-0.034) Medications Given: Discontinued Medications Diltiazem HCl (Cardizem 25 Mg/5 Ml Vial) 10 mg IVP EDNOW ONE Stop: 12/30/16 22:05 Last Admin: 12/30/16 22:29 Dose: 10 mg Diltiazem HCl (Cardizem 25 Mg/5 Ml Vial) 10 mg IVP EDNOW ONE Stop: 12/30/16 22:50 Last Admin: 12/30/16 22:59 Dose: 10 mg Sodium Chloride (Ns) 500 mls @ 0 mls/hr IV EDNOW ONE; Wide Open PRN Reason: Protocol Stop: 12/30/16 21:43 Last Admin: 12/30/16 22:23 Dose: 500 mls General Initial Vital Signs: Initial Vital Signs Temperature (C) 37.4 C 12/30/16 21:42 Heart Rate 124 H 12/30/16 21:42 Respiratory Rate 18 12/30/16 21:42 Blood Pressure 145/87 H 12/30/16 21:42 O2 Sat (%) 94 12/30/16 21:42 O2 Delivery Mode Room Air Allergies/Adverse Reactions: morphine Allergy (Verified 03/26/14 21:51) Vomiting nitrofurantoin Allergy (Verified 12/30/16 22:17) Home Medications: Medication Instructions Recorded Acetaminophen [Tylenol ES 500 mg 500 mg PO BID PRN 03/27/14 (*)] Alendronate Sodium [Fosamax 70 MG 70 mg PO MO@0700 03/27/14 (*)] Allopurinol [Allopurinol 300 MG 450 mg PO DAILY 03/27/14 (RX)] Cholecalciferol Vit D3 [Vitamin D3 1,000 units PO BID 03/27/14 (*)] Omeprazole [Prilosec] 40 mg PO DAILY PRN 03/27/14 Sitagliptin Phos/Metformin HCl 1 each PO BIDMEAL 03/27/14 [Janumet 50-500 mg Tablet] Aspirin [Aspirin 81mg (*)] 81 mg PO DAILY 03/13/16 Insulin Detemir [Levemir] 30 unit SQ HS 03/13/16 Levothyroxine [Synthroid 75 mcg 75 mcg PO DAILY06 03/13/16 (*)] Lisinopril/Hctz 10/12.5 mg 1 ea PO DAILY 03/13/16 [Zestoretic/Prinzide 10/12.5MG (*)] Glimepiride [Amaryl 1 MG (*)] 0.5 mg PO DAILY 12/31/16 Mirabegron [Myrbetriq] 25 mg PO DAILY 12/31/16 Departure - Departure Disposition: [facility] Inpatient Acute Clinical Impression: Hyperglycemia, Elevated troponin, Fall at home, Hyponatremia Atrial fibrillation Qualifiers: Atrial fibrillation type: unspecified Qualified Code(s): I48.91 - Unspecified atrial fibrillation Hypertension Qualifiers: Hypertension type: unspecified Qualified Code(s): I10 - Essential (primary) hypertension Condition: Fair Report Scribed for: Trenton Genao Report Scribed by: Tianna Aburto Date of Report: 12/30/16 Time of Report: 21:39 Physician Review and Approval Statement: Portions of this note were transcribed by an ED scribe. I personally performed the history, physical exam, and medical decision making; and confirm the accuracy of the information in the transcribed note.
[2016-12-30] MEDS ORDERED: NS 500 ML IV ONE (21:42)
--- NOTE | 2016-12-30 21:58 | CPEKG ---
Heart Rate: 132 RR Interval: 455 QRSD Interval: 146 QT Interval: 356 QTC Interval: 528 QRS [place]: 7 T Wave [place]: -13 EKG Severity - ABNORMAL ECG - EKG Impression: ATRIAL FIBRILLATION, V-RATE 82-179 EKG Impression: RIGHT BUNDLE BRANCH BLOCK Electronically Signed By: Celeste Larson 31-Dec-2016 06:52:26
[2016-12-30 21:59] LABS: CARBON DIOXIDE 18 mEq/l (22-31); CREATININE 0.7 mg/dL (0.6-1.0); GLOMERULAR FILTRATION RATE > 60; GLUCOSE 473 mg/dL (70-100); POTASSIUM 3.9 mEq/L (3.5-5.2); SODIUM 126 mEq/L (134-144)
[2016-12-30 22:00] LABS: % IMMATURE GRANULYOCYTES 0.4 % (0.0-1.1); ABSOLUTE IMMATURE GRANULOCYTES 0.03 10^3/uL (0.00-0.10); ADD DIFF? NO; ADD MORPH? NO; ADD SCAN? NO; ATYPICAL LYMPHOCYTE FLAG 0 (0-99); FRAGMENT RBC FLAG 0 (0-99); HEMOGLOBIN 13.3 g/dL (12.6-16.3); LEFT SHIFT FLG 0 (0-99); LIPEMIA HEMOLYSIS FLAG 90 (0-99); MEAN CELL HEMOGLOBIN 33.2 pg (27.9-34.1); MEAN CELL HEMOGLOBIN CONCENTR. 35.9 g/dL (32.4-36.7); MEAN CELL VOLUME 92.3 fL (81.5-99.8); MEAN PLATELET VOLUME 10.7 fL (8.7-11.7); PLATELET CLUMPS FLAG 30 (0-99); PLATELET COUNT 179 10^3/uL (150-400); RED BLOOD CELL COUNT 4.01 10^6/uL (4.18-5.33); RED CELL DISTRIBUTION WIDTH 13.2 % (11.5-15.2)
[2016-12-30] MEDS ORDERED: DILTIAZEM 25 MG/5 ML VIAL IVP ONE ×2 (22:04→22:49)
[2016-12-30 22:10] LABS: TROPONIN I 0.606 ng/mL (0.000-0.034)
[2016-12-30 23:07] LABS: ANION GAP 18 mEq/L (8-16); CHLORIDE 90 mEq/L (97-110)
[2016-12-30] MEDS ORDERED: diphenhydrAMINE 25 MG CAP PO PRN (23:28)
[2016-12-30] MEDS ORDERED: ONDANSETRON 4 MG/2 ML VIAL IVP PRN (23:28)
[2016-12-30] MEDS ORDERED: LORazepam 0.5 MG TAB PO PRN (23:28)
[2016-12-30] MEDS ORDERED: ENOXAPARIN 80 MG/0.8 ML SYR SC ONE (23:33)
[2016-12-30] MEDS ORDERED: NS 1,000 ML IV ONE (23:40)
[2016-12-30] MEDS ORDERED: DILTIAZEM 125 MG in D5W 125 ML IV SCH (23:45)
[2016-12-31] MEDS ORDERED: D50W 25 GM/50 ML SYR IVP PRN (00:19)
[2016-12-31] MEDS ORDERED: D10W 250 ML PRN HYPOGLYCEMIA IV (00:30)
[2016-12-31 01:13] LABS: PCO2 VENOUS 34 mmHg (40-44); PH VENOUS BLOOD 7.37 (7.31-7.42); PO2 VENOUS 58 mmHg (35-40); TCO2 VENOUS 20 mEq/L (23-27); VEN MEASURED OXYGEN SATURATION 89 % (65-75)
[2016-12-31 01:23] LABS: ANION GAP 17 mEq/L (8-16); CALCIUM 8.4 mg/dL (8.5-10.4); CARBON DIOXIDE 18 mEq/l (22-31); CHLORIDE 94 mEq/L (97-110); CREATININE 0.7 mg/dL (0.6-1.0); GLOMERULAR FILTRATION RATE > 60; GLUCOSE 436 mg/dL (70-100); MAGNESIUM 1.5 mg/dL (1.6-2.3); POTASSIUM 3.8 mEq/L (3.5-5.2); SODIUM 129 mEq/L (134-144)
[2016-12-31] MEDS ORDERED: PROTOCOL MAGNESIUM 1 DOSE IV PRN (01:26)
[2016-12-31] MEDS ORDERED: PROTOCOL POTASSIUM 1 DOSE MISC PRN (01:26)
[2016-12-31 01:35] LABS: TROPONIN I 0.149 ng/mL (0.000-0.034)
[2016-12-31 01:51] LABS: COLOR YELLOW; LEUKOCYTE ESTERASE,URINE 2+ (NEGATIVE); NITRITE,URINE POSITIVE (NEGATIVE)
[2016-12-31 02:00] LABS: BACTERIA 3+ /hpf (NONE SEEN); RBC,URINE 50-182 /hpf (0-3); WBC,URINE 50-182 /hpf (0-3)
[2016-12-31] MEDS: NS 1,000 ML IV SCH ×3 (02:08→17:37)
[2016-12-31 02:24] LABS: B-HYDROXYBUTYRATE 3.99 mmol/L (0.02-0.27)
--- NOTE | 2016-12-31 03:33 | GHP ---
[f rep st] HISTORY AND PHYSICAL DATE OF ADMISSION: 12/30/2016 CHIEF COMPLAINT: Fall. HISTORY OF PRESENT ILLNESS: This is a pleasant 76-year-old female with past medical history signific ant for diabetes (type 2, uncontrolled), hypertension, hyperlipidemia, GERD, hypothyroidism, gout, os teoporosis, and recurrent falls with last hospitalization in 03/2016 following a fall with a viral GI syndrome, who presents to the emergency department today after she had a fall at home. Emergency se rvices were requested to assist patient up. Evaluation noted the patient had an elevated heart rate in the 130s. She was found to be in atrial fibrillation with RVR. Patient was completely asymptomat ic, and she was brought to the emergency department for further evaluation. Patient has a history of falls. She states this is related to feeling slightly unsteady. She does have a history of neuropa thy, does not use a walker or cane. She denies any associated lightheadedness, chest pain, shortness of breath, or palpitations. Patient states that she did fall forward, hitting her head softly on a carpeted floor. She had no loss of consciousness. She denies any acute changes in vision. Denies a ny headache. On Friday, patient states that she fell backwards, hitting her head on the floor. Did not have any s ymptoms. Did not present to the emergency department for evaluation. She denies any recent orthopne a, PND, or lower extremity edema. REVIEW OF SYSTEMS: GENERAL: Patient denies any fevers, chills, or sweats. ENT: No congestion, sor e throat. EYES: Patient denies any acute changes in vision or ocular pain. SKIN: No rashes, or so res. Some bruising on her lower extremities from falls. CV: Patient denies any chest pain palpitat ions. RESPIRATORY: Patient reports that 3 weeks ago, she came back from her travels and developed c ongestion, cough, cold-type symptoms that have since resolved. She denies any shortness of breath, a nd no current cough. GI: No nausea, vomiting, abdominal pain, diarrhea. : No dysuria, but patie elodia does have a history of occasional hematuria, for which she has been evaluated by Urology. Patient reports that she had a Botox injection recently. Has a history of incontinence. More recently, she has been having increased thirst and increased frequency, but denies any dysuria. MUSCULOSKELETAL: Patient denies any joint pain or myalgias. NEURO: Patient does report neuropathy in the balls of h er feet. She is chronically unsteady, but denies any focal weakness. PSYCH: Patient denies anxiety or depression. ALLERGIES: Morphine; patient develops GI upset. Nitrofurantoin; patient cannot recall reaction. HOME MEDICATIONS: As available per MAR. Amlodipine 2.5 mg p.o. daily, thiamine 100 mg p.o. daily, J anumet 50/500 one tab p.o. b.i.d. with meals, omeprazole 40 mg p.o. daily, lisinopril/HCTZ 10/12.5 on e tab p.o. daily, levothyroxine 75 mcg p.o. daily, insulin Levemir 30 units subcu h.s., Amaryl 2 mg p .o. daily, vitamin D3 1000 units p.o. b.i.d., aspirin 81 mg p.o. daily, allopurinol 450 mg p.o. daily , alendronate 70 mg p.o. weekly on Mondays, and Tylenol 500 p.o. b.i.d. p.r.n. PAST MEDICAL HISTORY: Diabetes (type 2), hypertension, hyperlipidemia, GERD, hypothyroidism, gout, o steoporosis, remote history of hepatitis B virus from transfusion, history of falls, hospitalization 03/2016 for GI related issues and dehydration and generalized weakness following a fall. Patient also reports that she has had Botox to her bladder for unclear reasons to her. PAST SURGICAL HISTORY: Significant for right leg surgery with multiple revisions; patient reports 4- 5 surgeries total, hysterectomy with bilateral salpingo-oophorectomy, multiple abdominal and pelvic s urgeries for fibroids and adhesions. FAMILY HISTORY: Significant for grandfather with diabetes (type 2). No family history of hypertensi on. A sister with history of breast cancer. SOCIAL HISTORY: Patient lives with her . They do not have any children. She has a previous history of drinking 2 gin drinks on a daily basis, but at this time, patient reports she denies any a lcohol intake. She denies any history of withdrawals. No tobacco. No alcohol. No drugs. CODE STATUS: DNR/DNI. Patient's is MDPOA with advanced directives in place. PHYSICAL EXAMINATION: VITAL SIGNS: Upon arrival to the emergency department, blood pressure 145/87, heart rate 124, respiratory rate 18, O2 sat 94% on room air with temperature of 37.4. Vitals at florin e of interview: Blood pressure 137/78, heart rate 100, O2 sat 93% on room air with a respiratory rat e of 18 and temperature 36.6. GENERAL: No acute distress. Very pleasant, obese female is lying com fortably in bed. She is awake, alert, and oriented x3. HEAD: Normocephalic, atraumatic. EYES: Ex traocular muscles are intact. Pupils equal, round, slightly decreased reactivity to light bilaterall y but symmetric. No scleral icterus or conjunctival injection. ENT: Mucous membranes appear slight ly dry. No oropharyngeal erythema or exudates. Dentures in place. NECK: Supple. Trachea midline. CV: Tachycardia in the 100s with an irregularly irregular rhythm. No murmur appreciated. RESPIRA TORY: Lungs are clear to auscultation bilaterally. No wheezes, rales, or rhonchi. Breathing is unl abored. ABDOMEN: Obese, soft, nontender to palpation. No rebound, guarding, or masses appreciated. : No Cheng in place. No suprapubic tenderness to palpation. EXTREMITIES: Patient with some tr abelino pretibial edema just above the ankles. She has 1 to 2+ pedal pulses bilaterally. NEURO: Crania l nerves 2-12 are intact, symmetric bilaterally. Patient is awake, alert, and oriented x3. Strength 5/5 in upper and lower extremities bilaterally and symmetric. Grossly nonfocal exam. PSYCHIATRIC: Patient's thought process, content, and questions are appropriate. She is pleasant and cooperative. LABORATORY DATA: WBC 7.6, H and H 13.3 and 37.0, MCV 92.3, platelet count is 179. Initial BMP shows sodium 126, potas sium 3.9, chloride 190, CO2 is 18, BUN 18, creatinine 0.7, GFR greater than 60, glucose 473, calcium 9.0. Troponin 0.606. Repeated labs show sodium 129, potassium 3.8, chloride 94, CO2 is 18, BUN 18, creatinine is 0.7, glucose 436, calcium 8.4, magnesium 1.5. CK is 41, troponin 0.149. Beta hydroxyb utyrate and TSH are still pending. Chest x-ray image report reviewed myself: Mild consolidation of the left lower lobe. Mild cardiomeg harper. Numerous old fractures. EKG reviewed myself: Atrial fibrillation with heart rate in the 130s. QTc is 528. Right bundle bra nch block is present. ASSESSMENT AND PLAN: This is a pleasant 76-year-old female who presents following a fall, found to h ave tachycardia. 1. Atrial fibrillation with rapid ventricular response. Patient is status post Cardizem bolus x2 in the emergency department with improvement in rate to the 1-teens. Patient will be started on Cardiz em drip for improved rate control, as well as given Lovenox therapeutic dosing for now. Echocardiogr am will be ordered for the morning. Patient without previous history of atrial fibrillation. 2. Diabetes, type 2, uncontrolled with hyperglycemia. Patient admits to holding her home medication s including her 30 units of Levemir for the past 3, maybe 4 days. She has had decreased oral intake, but reports that she has been drinking a lot a water and having to urinate often. She denies any po lyphagia. Repeat BMP with a slight decline in patient's anion gap. VBG is negative for any evidence of acidosis with a pH 7.37, bicarb 19, CO2 is 20, O2 saturation 89% with base excess -5.1. Await se rum ketones, and at that point, will make decision regarding insulin. Aggressive IV fluid hydration also ordered. 3. Elevated troponin. Patient is completely asymptomatic. This likely represents some troponin matty k in setting of atrial fibrillation with rapid ventricular response. Plan to continue to monitor. E chocardiogram has been ordered for above problem. 4. Fall. Patient with history of recurrent falls. PT/OT will be consulted for evaluation. Patient may have had a history of multiple falls. May benefit from some assistive devices, which she does n ot use now. 5. Hyponatremia with hyperglycemia. Continue to monitor. IV fluids. 6. Hypochloremia, in the setting of hyponatremia. Continue with plan as above and monitor BMP in th e morning. 7. Benign essential hypertension. Patient's blood pressures are, at this time, acceptable but down- trending status post Cardizem. Will continue to monitor while patient is on the drip for now and nabil n to resume once patient has been transitioned. 8. Hyperlipidemia. Patient is not currently on any statin therapy. 9. Hypothyroidism. Patient reports this was previously well controlled. Continue 75 mcg levothyrox ine in the morning and follow up on TSH. 10. Gastroesophageal reflux disease. Continue PPI. 11. Gout. Continue allopurinol. 12. Fluid, electrolyte, nutrition. Electrolyte replacement protocol has been ordered. ADA diet in place and continue with aggressive IV fluid hydration as noted above. 13. Prophylaxis. SCDs. Patient has received therapeutic Lovenox. 14. Code status is DNR/DNI. Patient desires her to act as proxy if needed. Patient has been admitted to inpatient status, given new onset of atrial fibrillation with RVR with r equirement for drip and further evaluation of patient's hyperglycemia with electrolyte abnormalities. /[id number]/MODL
[2016-12-31 04:41] LABS: % IMMATURE GRANULYOCYTES 0.3 % (0.0-1.1); ABSOLUTE IMMATURE GRANULOCYTES 0.02 10^3/uL (0.00-0.10); ADD DIFF? NO; ADD MORPH? NO; ADD SCAN? NO; ATYPICAL LYMPHOCYTE FLAG 0 (0-99); FRAGMENT RBC FLAG 0 (0-99); HEMATOCRIT 34.2 % (38.0-47.0); HEMOGLOBIN 12.1 g/dL (12.6-16.3); LEFT SHIFT FLG 0 (0-99); LIPEMIA HEMOLYSIS FLAG 90 (0-99); MEAN CELL HEMOGLOBIN 32.4 pg (27.9-34.1); MEAN CELL HEMOGLOBIN CONCENTR. 35.4 g/dL (32.4-36.7); MEAN CELL VOLUME 91.7 fL (81.5-99.8); MEAN PLATELET VOLUME 10.4 fL (8.7-11.7); PLATELET CLUMPS FLAG 0 (0-99); PLATELET COUNT 186 10^3/uL (150-400); RED BLOOD CELL COUNT 3.73 10^6/uL (4.18-5.33); RED CELL DISTRIBUTION WIDTH 13.4 % (11.5-15.2)
[2016-12-31 04:49] LABS: INR 1.28 (0.83-1.16)
[2016-12-31 04:50] LABS: APTT 31.1 SEC (23.0-38.0)
[2016-12-31 04:55] LABS: MAGNESIUM 1.5 mg/dL (1.6-2.3); POTASSIUM 3.9 mEq/L (3.5-5.2)
[2016-12-31 05:06] LABS: TROPONIN I 0.153 ng/mL (0.000-0.034)
[2016-12-31 05:20] LABS: ANION GAP 19 mEq/L (8-16); CALCIUM 8.4 mg/dL (8.5-10.4); CARBON DIOXIDE 18 mEq/l (22-31); CHLORIDE 93 mEq/L (97-110); CREATININE 0.7 mg/dL (0.6-1.0); GLOMERULAR FILTRATION RATE > 60; GLUCOSE 400 mg/dL (70-100); SODIUM 130 mEq/L (134-144)
[2016-12-31] MEDS ORDERED: MAGNESIUM SULF 1 GM/DEXTROSE 100 ML IV ONE (05:29)
[2016-12-31] MEDS ORDERED: POTASSIUM CL 10 MEQ TAB PO ONE (05:30)
[2016-12-31] MEDS ORDERED: INSULIN LISPRO 100 UNIT/ML SC ONE (06:43)
[2016-12-31] MEDS ORDERED: INSULIN LISPRO 100 UNIT/ML SC SCH (08:00)
[2016-12-31] MEDS ORDERED: NON-FORMULARY NEW DRUG (Omeprazole [Prilosec] 40 MG) PO PRN (08:38)
[2016-12-31] MEDS ORDERED: PANTOPRAZOLE SODIUM 40 MG TAB PO PRN (08:42)
[2016-12-31] MEDS ORDERED: NON-FORMULARY NEW DRUG (Mirabegron [Myrbetriq] 25 MG) PO SCH (09:00)
--- NOTE | 2016-12-31 09:54 | PDMN ---
Medical Necessity Medical necessity: est los>2mn for new onset afib with RVR, on Cardizem gtt, uncontrolled DM, elevated troponin, fall, hyponatremia, and hypochloremia; admit for IVF, Cardizem gtt, monitor and replace electrolytes, eval hyperglycemia; multiple comorbidities include HTN, recurrent falls, hx hep B; per order and H&P 12/30/16
[2016-12-31] MEDS: ALLOPURINOL 300 MG TAB PO SCH (10:24)
[2016-12-31] MEDS: DILTIAZEM 30 MG TAB PO SCH ×3 (10:24→17:37)
[2016-12-31] MEDS: ASPIRIN 81 MG CHEWABLE TAB PO SCH (10:24)
[2016-12-31] MEDS: CHOLECALCIFEROL VIT D3 1,000 UNITS TAB PO SCH ×2 (10:24→20:12)
[2016-12-31] MEDS: LEVOTHYROXINE 75 MCG TAB PO SCH (10:37)
[2016-12-31] MEDS: Mirabegron [Myrbetriq] 25 MG PO SCH (10:38)
[2016-12-31 10:39] LABS: ANION GAP 17 mEq/L (8-16); CALCIUM 8.1 mg/dL (8.5-10.4); CARBON DIOXIDE 21 mEq/l (22-31); CHLORIDE 95 mEq/L (97-110); CREATININE 0.6 mg/dL (0.6-1.0); GLOMERULAR FILTRATION RATE > 60; GLUCOSE 375 mg/dL (70-100); POTASSIUM 3.5 mEq/L (3.5-5.2); SODIUM 133 mEq/L (134-144)
[2016-12-31] MEDS: INSULIN LISPRO 100 UNIT/ML SC SCH ×4 (12:27→22:13)
[2016-12-31 14:34] LABS: ANION GAP 16 mEq/L (8-16); CARBON DIOXIDE 22 mEq/l (22-31); CHLORIDE 94 mEq/L (97-110); CREATININE 0.7 mg/dL (0.6-1.0); GLOMERULAR FILTRATION RATE > 60; GLUCOSE 338 mg/dL (70-100); POTASSIUM 3.4 mEq/L (3.5-5.2); SODIUM 132 mEq/L (134-144)
--- NOTE | 2016-12-31 15:13 | ECHO ---
[email or web address] [address] [address] Main: [phone] Fax: Transthoracic Echocardiogram Name: LUPILLO POLANCO MR#: [id number] Study Date: 12/31/2016 Study Time: 08:50 AM Date of : 1940 Age: 76 year(s) Height: 175.3 cm (69 in.) Weight: 87.54 kg (193 lb.) BSA: 2.03 m2 Gender: Female Examination: Echo Indication: arrhythmia Image Quality: Technically Difficult Contrast: Requested by: Sandra Sanchez BP: 131 mmHg/64 mmHg Heart Rate: Rhythm: Normal sinus rhythm with ectopy Indication: arrhythmia Procedure Staff [employer]ior Cutter: Evon Bledsoe Reading Physician: Eliud Garcia Requesting Provider: Conclusions: Mild concentric LV hypertrophy. Normal global systolic LV function. EF is 75 %. The left atrium is moderately dilated. Mild-moderate mitral annular cacification. Mild aortic cusp calcification is noted. Mild tricuspid regurgitation is present. Measurements: Chambers Valvular Assessment AV/MV Valvular Assessment TV/PV Normal Normal Normal Name Value Range Name Value Range Name Value Range Ao Jemma (MM): 3.2 cm (2.2 cm-3.7 AV Vmax: 1.66 m/s (1 m/s-1.7 TR Vmax: 2.73 mm/s ( - ) cm) m/s) TR PGmax: 30 mmHg ( - ) IVSd (2D): 1.1 cm (0.6 cm-1.1 AV maxP mmHg ( - ) syst. PAP: 35 mmHg ( - ) cm) LVOT Vmax: 1.21 m/s (0.7 m/s-1.1 PV Vmax: 1.30 m/s (0.6 m/s-0.9 LVDd (2D): 4.3 cm (3.9 cm-5.3 m/s) m/s) cm) DAQUAN (Vmax): 2.3 cm2 ( - ) PV PGmax: 7 mmHg ( - ) LVDs (2D): 2.6 cm (2.1 cm-4 MV E Vmax: 1.22 m/s ( - ) cm) MV A Vmax: 0.82 m/s ( - ) LVPWd (2D): 1.2 cm ( - ) MV E/A: 1.49 ( - ) LVOTd 2.0 cm 2.0 cm mm LVEF (MOD4): 75 % (>=55 %) RVDd(2D): 3.4 cm (1.9 cm-3.8 cmmm) Continued Measurements: Chambers Valvular Assessment AV/MV Valvular Assessment TV/PV Name Value Name Value Name Value Patient: LUPILLO POLANCO Study Date: 12/31/2016 Page 1 of 2 08:50 AM LADs Lon.4 cm MV DecTime: 236 m/s CVP (est.): 5 mmHg LA Area: 27.0 cm2 MV E' Septal: 0.05 m/s LA Volume: 95 ml MV E/E' Septal: 24.40 LA Volume Index: 46.8 ml/m2 MV E/E' Lateral: 27.00 RA Area: 14.8 cm2 Additional Vessels Name Value Ao Ascendin.1 cm Findings: Left Ventricle: Normal size left ventricle. Mild concentric LV hypertrophy. Normal global systolic LV function. EF is 75 %. No regional wall motion abnormality. Right Ventricle: Normal size right ventricle. Normal RV function. Left Atrium: The left atrium is moderately dilated. Right Atrium: The right atrium is normal in size. Mitral Valve: There is mild thickening of the mitral valve leaflets. Mild-moderate mitral annular cacification. Trivial mitral valve regurgitation. Aortic Valve: The aortic valve is tri-leaflet. Mild aortic cusp calcification is noted. There is no aortic valve regurgitation. No aortic valve stenosis is present. Tricuspid Valve: The tricuspid valve appears normal. Mild tricuspid regurgitation is present. Borderline elevated pumonary artery pressure. Pulmonic Valve: Pulmonary valve not well visualized. Aorta: Normal size aortic root measuring 3.2 cm. Normal size ascending aorta measuring 3.1 cm. Pericardium: No pericardial effusion. (No Signature Object) Patient: LUPILLO POLANCO Study Date: 12/31/2016 Page 2 of 2 08:50 AM [id number]
[2016-12-31] MEDS: ACETAMINOPHEN 325 MG TAB PO PRN (16:14)
--- NOTE | 2016-12-31 16:28 | ASMTCMCOM ---
CM Note CM Note Notes: 12/31/2016 Case Management Note Met w/pt. Pt is to Jeevan ([phone]) who is blind. Family friend staying w/Jeevan while pt in hospital. Son Eliud can be reached at [phone] Pt is retired and still drives. Able to make meals independently and is primary caregiver for . Discussed PT recommendations SNF. Pt in agreement. Pt has prior stay at [facility] and requested referral to [facility] only at this point. Case Management faxed referral, waiting to hear on placement. Case Management d/c poc: To [facility] pending acceptance when medically stable. Case Management to follow. Date Signed: 12/31/2016 04:28 PM Electronically Signed By:Jenny Rodriguez RN
[2016-12-31] MEDS ORDERED: POTASSIUM CL 20 MEQ TAB PO ONE (19:17)
--- NOTE | 2016-12-31 19:28 | HOSPPROG ---
Hospitalist Progress Note Assessment/Plan: Prolonged service in addition to the original time spent by Dr. Sanchez for the H& P, direct patient care, face to face w/ patient, at bedside, from 9:30 - 10:15 a.m. (45 minutes), addressing the following: - patient p/w acute DKA in setting of type I DM, 2/2 non-adherence to home insulin (she has been "focusing" on her urinary issues recently, and not taking home insulin), evidenced by positive betahydroxybutarate, ketones in urine, VBG pH less than expected, anion gap 18 w/ low serum bicarb level, gluc > 400 - stabilized w/ aggressive IVF and SC insulin (high doses), frequent lab monitoring indicating improving gap (16) and normalizing serum bicarb level - repeat BMP at 8 p.m. to ensure gap closing, cont NS w/ K (give some PO K now) , check gluc level o/n and given insulin per ISS - if worsening, transfer to SDU for insulin gtt and DKA protocol - paroxysmal AFib w/ RVR likely provoked by DKA and metabolic acidosis - chemically cardioverted w/ dilt gtt, transitioned to PO 30 q6, transition to daily dosing tomorrow depending on response - discussed systemic anticoagulation w/ patient given her CHADS2-VAsc score, and she has elected for pradaxa, begin tonight - transient myocardial ischemia likely 2/2 supply/demand mismatch from AFib RVR , but may have underlying coronary disease w/ her poorly controlled DM1, and would rec nuc stress test in short-term f/u as outpt, once above stabilized - Echo w/o significant valvular abnl, normal EF - urinary symptoms (urgency, incontinence/dribbling/hematuria) are chronic x at least 1 year, and I suspect that they are not entirely due to UTIs, but rather sphincter or detrusor muscle abnormalities, and her primary urologist (Dr. Liang) has recently trialed botox - that said, patient has extensive Abx exposure due to potential misinterpretation of sx at UTIs, and will order records from PCP (Dr. Garcia) as well as urologist (Dr. Liang) to help further clarify - at this time, patient's only urinary symptoms are her chronic ones, and, in the absence of more objective infxn markers, will not continue Abx, as her UA/ UCx may simply be indicative of normal bacturia Objective: Vital Signs Temp Pulse Resp BP Pulse Ox 36.6 C 85 10 L 128/66 H 88 L 12/31/16 16:00 12/31/16 16:00 12/31/16 16:00 12/31/16 16:00 12/31/16 16:00 Laboratory Results 12/31/16 04:12 12/31/16 13:34 12/30/16 12/31/16 01/01/17 05:59 05:59 05:59 Intake Total 1768 2200 Output Total 100 530 Balance 1668 1670 PT 16.0 SEC (12.0-15.0) H 12/31/16 04:12 INR 1.28 (0.83-1.16) H 12/31/16 04:12 - Physical Exam Constitutional: no apparent distress, appears nourished, not in pain, obese Cardiovascular: systolic murmur (III/ at sternum), diastolic murmur (II/ at sternum), No irregularly irregular, No tachycardia, No edema Respiratory: no respiratory distress, no rales or rhonchi, clear to auscultation Gastrointestinal: normoactive bowel sounds, soft, non-tender abdomen, no palpable masses Neurologic: AAOx3 Psychiatric: interacting appropriately, not anxious, not encephalopathic, thought process linear ICD10 Worksheet Patient Problems: Problems Problem Status Onset Fall at home Acute Diabetes Acute Gastroenteritis Acute Dehydration Acute Atrial fibrillation Acute Hyperglycemia Acute Hypertension Acute Elevated troponin Acute Hyponatremia Acute
[2016-12-31] MEDS ORDERED: NS W/ 20 KCl/L 1,000 ML IV SCH (19:30)
[2016-12-31] MEDS: DABIGATRAN ETEXILATE MESYL 150 MG CAP PO SCH (20:12)
[2016-12-31 20:33] LABS: ANION GAP 12 mEq/L (8-16); CARBON DIOXIDE 21 mEq/l (22-31); CHLORIDE 97 mEq/L (97-110); CREATININE 0.7 mg/dL (0.6-1.0); GLOMERULAR FILTRATION RATE > 60; GLUCOSE 363 mg/dL (70-100); POTASSIUM 3.6 mEq/L (3.5-5.2); SODIUM 130 mEq/L (134-144)
[2016-12-31] MEDS ORDERED: NON-FORMULARY NEW DRUG (Insulin Detemir [Levemir] 30 UNIT) SQ SCH (21:00)
[2016-12-31] MEDS ORDERED: INSULIN GLARGINE 100 UNITS/ML SYRINGE SC SCH (21:00)
[2017-01-01] MEDS: DILTIAZEM 30 MG TAB PO SCH ×5 (00:26→23:05)
[2017-01-01] MEDS ORDERED: INSULIN LISPRO 100 UNIT/ML SC ONE ×2 (00:52→11:48)
[2017-01-01 01:16] LABS: GLUCOSE 352 mg/dL (70-100)
[2017-01-01] MEDS: LEVOTHYROXINE 75 MCG TAB PO SCH (05:48)
[2017-01-01 06:17] LABS: % IMMATURE GRANULYOCYTES 0.2 % (0.0-1.1); ABSOLUTE IMMATURE GRANULOCYTES 0.01 10^3/uL (0.00-0.10); ADD DIFF? NO; ADD MORPH? NO; ADD SCAN? NO; ATYPICAL LYMPHOCYTE FLAG 0 (0-99); FRAGMENT RBC FLAG 0 (0-99); HEMATOCRIT 33.8 % (38.0-47.0); HEMOGLOBIN 11.7 g/dL (12.6-16.3); LEFT SHIFT FLG 0 (0-99); LIPEMIA HEMOLYSIS FLAG 90 (0-99); MEAN CELL HEMOGLOBIN 32.4 pg (27.9-34.1); MEAN CELL HEMOGLOBIN CONCENTR. 34.6 g/dL (32.4-36.7); MEAN CELL VOLUME 93.6 fL (81.5-99.8); MEAN PLATELET VOLUME 10.1 fL (8.7-11.7); PLATELET CLUMPS FLAG 0 (0-99); PLATELET COUNT 177 10^3/uL (150-400); RED BLOOD CELL COUNT 3.61 10^6/uL (4.18-5.33); RED CELL DISTRIBUTION WIDTH 13.4 % (11.5-15.2)
[2017-01-01 06:32] LABS: ANION GAP 9 mEq/L (8-16); CALCIUM 8.1 mg/dL (8.5-10.4); CARBON DIOXIDE 20 mEq/l (22-31); CHLORIDE 105 mEq/L (97-110); CREATININE 0.6 mg/dL (0.6-1.0); GLOMERULAR FILTRATION RATE > 60; GLUCOSE 295 mg/dL (70-100); MAGNESIUM 1.6 mg/dL (1.6-2.3); POTASSIUM 4.3 mEq/L (3.5-5.2); SODIUM 134 mEq/L (134-144)
[2017-01-01 06:44] LABS: TROPONIN I 0.115 ng/mL (0.000-0.034)
[2017-01-01] MEDS: ASPIRIN 81 MG CHEWABLE TAB PO SCH (09:15)
[2017-01-01] MEDS: DABIGATRAN ETEXILATE MESYL 150 MG CAP PO SCH ×2 (09:15→22:17)
[2017-01-01] MEDS: INSULIN LISPRO 100 UNIT/ML SC SCH ×4 (09:15→22:18)
[2017-01-01] MEDS: ALLOPURINOL 300 MG TAB PO SCH (09:16)
[2017-01-01] MEDS: CHOLECALCIFEROL VIT D3 1,000 UNITS TAB PO SCH ×2 (09:16→22:17)
[2017-01-01] MEDS: Mirabegron [Myrbetriq] 25 MG PO SCH (09:16)
--- NOTE | 2017-01-01 12:37 | CPEKG ---
Heart Rate: 125 RR Interval: 480 QRSD Interval: 134 QT Interval: 356 QTC Interval: 514 QRS [place]: 21 T Wave [place]: 5 EKG Severity - ABNORMAL ECG - EKG Impression: ATRIAL FIBRILLATION EKG Impression: RIGHT BUNDLE BRANCH BLOCK EKG Impression: No significant change from December 30, 2016 Electronically Signed By: Ye Montanez 01-Jan-2017 18:05:19
[2017-01-01 13:34] LABS: HEMOGLOBIN A1C 11.8 % (4.0-6.0)
--- NOTE | 2017-01-01 14:05 | HOSPPROG ---
Hospitalist Progress Note Assessment/Plan: Medically complex First encounter 76 yo female with hx of DM p/w Afib, DKA, UTI. #Afib: -She had initially converted but it appears that she is back in Afib per EKG that i ordered and interpreted -Will continue Diltiazem 30mg Q6hrs -Telemetry -Pradaxa -Overall her rate is well controlled. Cards has not seen as she converted back to NSR. Will follow for now. if she is in and out of Afib, may not be a candidate for cardioversion. Should expect some improvement with fluid management and infection mgmt #DKA, resolved. #Hyperglycemia and IDDM. -I ordered her A1C today and it is 11.8 -will increase her Lantus and changed to BID dosing #Slight volume overload. Stop IVF and provide Lasix 20mg PO x 1 #Obesity Dispo: cont inpatient. Subjective: back in Afib. No CP or SOB. + Cough. Trace edema Objective: Vital Signs Temp Pulse Resp BP Pulse Ox 36.6 C 104 H 20 152/95 H 92 01/01/17 11:39 01/01/17 11:39 01/01/17 11:39 01/01/17 11:39 01/01/17 11:39 Laboratory Results 01/01/17 06:05 01/01/17 06:05 12/31/16 01/01/17 01/02/17 05:59 05:59 05:59 Intake Total 1768 6100 Output Total 100 530 Balance 1668 5570 PT 16.0 SEC (12.0-15.0) H 12/31/16 04:12 INR 1.28 (0.83-1.16) H 12/31/16 04:12 - Physical Exam Constitutional: no apparent distress, appears nourished Eyes: PERRL, EOMI Ears, Nose, Mouth, Throat: moist mucous membranes, hearing normal Cardiovascular: regular rate and rhythym, irregularly irregular, edema (trace) Respiratory: reduced air movement Gastrointestinal: normoactive bowel sounds Skin: warm Neurologic: AAOx3 Psychiatric: interacting appropriately, not anxious, not encephalopathic ICD10 Worksheet Patient Problems: Problems Problem Status Onset Atrial fibrillation Acute Elevated troponin Acute Fall at home Acute Hyperglycemia Acute Hypertension Acute Hyponatremia Acute Dehydration Acute Diabetes Acute Gastroenteritis Acute
[2017-01-01] MEDS ORDERED: FUROSEMIDE 20 MG TAB PO ONE (14:07)
[2017-01-01] MEDS: INSULIN GLARGINE 100 UNITS/ML SYRINGE SC SCH (22:21)
[2017-01-01 22:52] LABS: GLUCOSE 422 mg/dL (70-100)
[2017-01-02] MEDS ORDERED: INSULIN LISPRO 100 UNIT/ML SC ONE (00:45)
[2017-01-02 01:43] LABS: ANION GAP 11 mEq/L (8-16); CALCIUM 8.3 mg/dL (8.5-10.4); CARBON DIOXIDE 17 mEq/l (22-31); CHLORIDE 107 mEq/L (97-110); CREATININE 0.6 mg/dL (0.6-1.0); GLOMERULAR FILTRATION RATE > 60; GLUCOSE 346 mg/dL (70-100); POTASSIUM 4.2 mEq/L (3.5-5.2); SODIUM 135 mEq/L (134-144)
[2017-01-02 05:28] LABS: ANION GAP 11 mEq/L (8-16); CALCIUM 8.2 mg/dL (8.5-10.4); CARBON DIOXIDE 17 mEq/l (22-31); CHLORIDE 108 mEq/L (97-110); CREATININE 0.6 mg/dL (0.6-1.0); GLOMERULAR FILTRATION RATE > 60; GLUCOSE 229 mg/dL (70-100); MAGNESIUM 1.5 mg/dL (1.6-2.3); POTASSIUM 4.1 mEq/L (3.5-5.2); SODIUM 136 mEq/L (134-144)
[2017-01-02] MEDS: DILTIAZEM 30 MG TAB PO SCH ×2 (06:31→11:32)
[2017-01-02] MEDS: LEVOTHYROXINE 75 MCG TAB PO SCH (06:32)
[2017-01-02] MEDS: INSULIN LISPRO 100 UNIT/ML SC SCH ×2 (08:08→12:42)
[2017-01-02] MEDS: INSULIN GLARGINE 100 UNITS/ML SYRINGE SC SCH ×2 (09:31→21:10)
[2017-01-02] MEDS: DABIGATRAN ETEXILATE MESYL 150 MG CAP PO SCH ×2 (09:33→20:32)
[2017-01-02] MEDS: ALLOPURINOL 300 MG TAB PO SCH (09:33)
[2017-01-02] MEDS: CHOLECALCIFEROL VIT D3 1,000 UNITS TAB PO SCH ×2 (09:35→20:32)
[2017-01-02] MEDS: ASPIRIN 81 MG CHEWABLE TAB PO SCH (09:36)
[2017-01-02] MEDS: ACETAMINOPHEN 325 MG TAB PO PRN (09:36)
[2017-01-02] MEDS: Mirabegron [Myrbetriq] 25 MG PO SCH (09:37)
[2017-01-02] MEDS ORDERED: NS 1,000 ML IV SCH (11:45)
[2017-01-02] MEDS: METOPROLOL TARTRATE 25 MG TAB PO SCH ×2 (12:40→20:31)
[2017-01-02] MEDS: INSULIN LISPRO 100 UNIT/1 ML VIAL HIGH SC SCH ×3 (12:40→21:10)
--- NOTE | 2017-01-02 12:45 | HOSPPROG ---
Hospitalist Progress Note Assessment/Plan: Medically complex 76 yo female with hx of DM p/w Afib, DKA, UTI. #Afib: -She had initially converted but it appears that she is back in Afib per EKG that i ordered and interpreted -Start Metoprolol 25mg BID. -Hold Diltiazem for now, although may need in addition. -Telemetry -Pradaxa #Volume overload in setting of recent DKA and e/o of slight met acidosis -Will provide Lasix 20g IV x 1, and monitor. Will avoid aggressive diuresis -cont with glucose mgt -expect some self diuresis #DKA, with recurrent met acidosis since stopping IVF. #Hyperglycemia and IDDM. -A1C is 11.8 -Increase lantus today -Restart home meds #Obesity #weakness and deconditioning: PT/OT. Per the pt they are recommending inpatient rehab #Hypomagnesemia: replace per protocol Dispo: cont inpatient. Subjective: Still feels weak. Cough has decreased since stopping IVF. No CP. + leg swelling Objective: Vital Signs Temp Pulse Resp BP Pulse Ox 36.7 C 91 21 H 106/93 H 94 01/02/17 11:48 01/02/17 11:48 01/02/17 11:48 01/02/17 11:48 01/02/17 11:48 Laboratory Results 01/01/17 06:05 01/02/17 04:13 01/01/17 01/02/17 01/03/17 05:59 05:59 05:59 Intake Total 6100 650 Output Total 530 Balance 5570 650 PT 16.0 SEC (12.0-15.0) H 12/31/16 04:12 INR 1.28 (0.83-1.16) H 12/31/16 04:12 - Physical Exam Constitutional: no apparent distress, appears nourished, chronically ill appearing Eyes: PERRL Ears, Nose, Mouth, Throat: moist mucous membranes Cardiovascular: irregularly irregular Respiratory: rhonchi Gastrointestinal: normoactive bowel sounds, soft, non-tender abdomen Skin: warm Neurologic: AAOx3 Psychiatric: interacting appropriately, not anxious, not encephalopathic ICD10 Worksheet Patient Problems: Problems Problem Status Onset Atrial fibrillation Acute Elevated troponin Acute Fall at home Acute Hyperglycemia Acute Hypertension Acute Hyponatremia Acute Dehydration Acute Diabetes Acute Gastroenteritis Acute
[2017-01-02] MEDS ORDERED: PROTOCOL POTASSIUM 1 DOSE MISC PRN (12:47)
[2017-01-02] MEDS ORDERED: PROTOCOL MAGNESIUM 1 DOSE IV PRN (12:47)
--- NOTE | 2017-01-02 13:10 | ASMTCMCOM ---
CM Note CM Note Notes: After eval today, PT recommended that patient may be able to go home with homecare (vs SNF). I spoke with patient who feels that she still might benefit from a short time at [facility]. She is going to speak with her and the hospitalist before making a decision. Patient has been accepted at [facility]. CM to follow. Date Signed: 01/02/2017 01:09 PM Electronically Signed By:Destiny Huber RN
[2017-01-02] MEDS ORDERED: MAGNESIUM SULF 1 GM/DEXTROSE 100 ML IV ONE (16:00)
[2017-01-02] MEDS: metFORMIN HCL 500 MG TAB PO SCH (17:07)
[2017-01-02] MEDS ORDERED: METFORMIN HCL PO SCH (18:00)
[2017-01-02] MEDS ORDERED: SITAGLIPTIN PHOS PO SCH (18:00)
[2017-01-02] MEDS ORDERED: [UNRECOGNIZED DRUG - OTHER] PO SCH (18:00)
[2017-01-02 19:02] LABS: POTASSIUM 4.5 mEq/L (3.5-5.2)
[2017-01-03] MEDS: LEVOTHYROXINE 75 MCG TAB PO SCH (06:39)
[2017-01-03 08:28] LABS: % IMMATURE GRANULYOCYTES 0.4 % (0.0-1.1); ABSOLUTE IMMATURE GRANULOCYTES 0.03 10^3/uL (0.00-0.10); ADD DIFF? NO; ADD MORPH? NO; ADD SCAN? NO; ATYPICAL LYMPHOCYTE FLAG 20 (0-99); FRAGMENT RBC FLAG 0 (0-99); HEMATOCRIT 35.7 % (38.0-47.0); HEMOGLOBIN 12.1 g/dL (12.6-16.3); LEFT SHIFT FLG 0 (0-99); LIPEMIA HEMOLYSIS FLAG 90 (0-99); MEAN CELL HEMOGLOBIN 31.8 pg (27.9-34.1); MEAN CELL HEMOGLOBIN CONCENTR. 33.9 g/dL (32.4-36.7); MEAN CELL VOLUME 93.7 fL (81.5-99.8); MEAN PLATELET VOLUME 10.1 fL (8.7-11.7); PLATELET CLUMPS FLAG 10 (0-99); PLATELET COUNT 226 10^3/uL (150-400); RED BLOOD CELL COUNT 3.81 10^6/uL (4.18-5.33); RED CELL DISTRIBUTION WIDTH 13.7 % (11.5-15.2)
[2017-01-03 08:57] LABS: ANION GAP 12 mEq/L (8-16); CALCIUM 8.8 mg/dL (8.5-10.4); CARBON DIOXIDE 21 mEq/l (22-31); CHLORIDE 105 mEq/L (97-110); CREATININE 0.7 mg/dL (0.6-1.0); GLOMERULAR FILTRATION RATE > 60; GLUCOSE 187 mg/dL (70-100); MAGNESIUM 1.7 mg/dL (1.6-2.3); POTASSIUM 4.6 mEq/L (3.5-5.2); SODIUM 138 mEq/L (134-144)
[2017-01-03] MEDS ORDERED: Mirabegron [Myrbetriq] 25 MG PO SCH (09:00)
[2017-01-03] MEDS: INSULIN LISPRO 100 UNIT/1 ML VIAL HIGH SC SCH ×2 (09:12→12:01)
[2017-01-03] MEDS ORDERED: MAGNESIUM SULF 1 GM/DEXTROSE 100 ML IV ONE (09:13)
[2017-01-03] MEDS: DABIGATRAN ETEXILATE MESYL 150 MG CAP PO SCH (09:20)
[2017-01-03] MEDS: metFORMIN HCL 500 MG TAB PO SCH (09:20)
[2017-01-03] MEDS: ASPIRIN 81 MG CHEWABLE TAB PO SCH (09:21)
[2017-01-03] MEDS: ALLOPURINOL 300 MG TAB PO SCH (09:21)
[2017-01-03] MEDS: CHOLECALCIFEROL VIT D3 1,000 UNITS TAB PO SCH (09:21)
[2017-01-03] MEDS: METOPROLOL TARTRATE 25 MG TAB PO SCH (09:22)
[2017-01-03] MEDS: ACETAMINOPHEN 325 MG TAB PO PRN (09:23)
[2017-01-03] MEDS: INSULIN GLARGINE 100 UNITS/ML SYRINGE SC SCH (10:13)
[2017-01-03] MEDS ORDERED: FUROSEMIDE 20 MG TAB PO ONE (10:43)
--- NOTE | 2017-01-03 10:45 | PDDCSUM ---
Discharge Summary Discharge Summary: HPI and Hospital Course: 76 yo female with hx of DM admitted for Afib, DKA, UTI. #Afib: Rate is well controlled, but still in Afib. She is on Pradaxa. She understands the risk of falling. She will f/u with Cards in 2 weeks. -Started Metoprolol 25mg BID. #Volume overload in setting of recent DKA and e/o of slight met acidosis -improved with Lasix #DKA, resolved #Hyperglycemia and IDDM. -A1C is 11.8 -Lantus started inpatient -Restarted home meds #Obesity #weakness and deconditioning: PT/OT. Ok for home with PT #Hypomagnesemia: replaced per protocol Exam: NAD AAOX3 RRR CTA B S/NT/ND TRACE LE EDEMA MEDS: SEE MED REC F/U: WITH PCP IN ONE WEEK, CARDS 2 WEEKS TOTAL TIME SPENT ON DISCHARGE IS 35 MINUTES
[2017-01-03 11:58] VITALS: BP 121/64; PULSE 88; RESP 17; TEMP 98; O2SAT 98
--- NOTE | 2017-01-03 14:54 | PDIAF ---
- Diagnosis Diagnosis: DKA Code Status: Do Not Resuscitate - Medication Management Discharge Medications: Medications to Continue on Transfer Acetaminophen [Tylenol ES 500 mg (*)] 500 mg PO BID PRN 03/27/14 [Last Taken 3 Days Ago ~12/28/16] Alendronate Sodium [Fosamax 70 MG (*)] 70 mg PO MO@0700 03/27/14 [Last Taken ] Allopurinol [Allopurinol 300 MG (RX)] 450 mg PO DAILY 03/27/14 [Last Taken 12/30] Cholecalciferol Vit D3 [Vitamin D3 (*)] 1,000 units PO BID 03/27/14 [Last Taken 12/30/16 09:00] Omeprazole [Prilosec] 40 mg PO DAILY PRN 03/27/14 [Last Taken 03/12/16] Sitagliptin Phos/Metformin HCl [Janumet 50-500 mg Tablet] 1 each PO BIDMEAL [Last Taken 12/29/16 18:00] Levothyroxine [Synthroid 75 mcg (*)] 75 mcg PO DAILY06 03/13/16 [Last Taken ] Mirabegron [Myrbetriq] 25 mg PO DAILY 12/31/16 [Last Taken 12/29/16] Dabigatran Etexilate Mesyl [Pradaxa 150 MG (*)] 150 mg PO BID #60 cap 01/03/17 [ Last Taken Unknown] Insulin Glargine [Lantus 100 UNITS/ML (*)] 22 units SC BID 30 Days ml 01/03/17 [Last Taken Unknown] levOFLOXACIN [levAQUIN (*)] 500 mg PO DAILY #5 tab 01/03/17 [Last Taken Unknown] Discharge Medications: Refer to the Discharge Home Medication list for PRN reason. - Orders Services needed: Physical Therapy, Occupational Therapy Diet Recommendation: ADA 1800 consistent carb Diet Texture: Regular Texture Diet - Follow Up Care Current Providers and Referrals: Patient,NotPresent [Unknown] - As per Instructions
--- NOTE | 2017-01-03 15:53 | ASMTCMCOM ---
CM Note CM Note Notes: Pt is discharging today w/ [facility], PT and speech. Pt reports that her 's friend can pick her up. CM sent referral and d/c orders to [facility]. CM available for changes. Date Signed: 01/03/2017 03:52 PM Electronically Signed By:ELAYNE Mills
--- NOTE | 2017-01-03 16:54 | ASDISCHSUM ---
Discharge Information Plan Status:Home with Home Health Medically Cleared to Leave:01/03/2017 Discharge Date:01/03/2017 03:50 PM CM D/C Disposition:Retirement Facility ADT D/C [facility] Projected Discharge Date:01/03/2017 11:00 AM Transportation at D/C:Wheelchair Van Discharge Delay Reason: Follow-Up Date:01/03/2017 11:00 AM Discharge Slot: Final Diagnosis: Placement Information Referral Type:*Intermediate/SNF Referral ID:[id number] Provider Name: Address 1: Phone Number: Address 2: Fax Number: City: Selection Factors: State: Referral Type:*Home Health Care Services Referral ID:[id number] Provider Name:[facility] Address 1:[address] [address] Address 2: City:[place] Selection Factors: State:[place] Patient Contact Information Contact Name:KAJALCOLLIN Relationship: Address:[address] City:[place] Alternate Phone: State/Zip Code:[place] [address] Email: Financial Information Financial Class: Primary Plan Desc:MEDICARE INPATIENT Primary Plan Number:[id number] Secondary Plan Desc:[facility] Secondary Plan Number:[id number] Assessment Information [facility] CM Progress Note CM Note CM Note Notes: 12/31/2016 Case Management Note Met w/pt. Pt is to Kajal ([phone]) who is blind. Family friend staying w/Kajal while pt in hospital. Son Eliud can be reached at [phone] Pt is retired and still drives. Able to make meals independently and is primary caregiver for . Discussed PT recommendations SNF. Pt in agreement. Pt has prior stay at [facility] and requested referral to [facility] only at this point. Case Management faxed referral, waiting to hear on placement. Case Management d/c poc: To [facility] pending acceptance when medically stable. Case Management to follow. Date Signed: 12/31/2016 04:28 PM Electronically Signed By:Jenny Rodriguez RN [facility] Progress Note CM Note CM Note Notes: After eval today, PT recommended that patient may be able to go home with homecare (vs SNF). I spoke with patient who feels that she still might benefit from a short time at [facility]. She is going to speak with her and the hospitalist before making a decision. Patient has been accepted at [facility]. CM to follow. Date Signed: 01/02/2017 01:09 PM Electronically Signed By:Destiny Huber RN [facility] Progress Note CM Note CM Note Notes: Pt is discharging today w/ [facility], PT and speech. Pt reports that her 's friend can pick her up. CM sent referral and d/c orders to [facility]. CM available for changes. Date Signed: 01/03/2017 03:52 PM Electronically Signed By:ELAYNE Mills Intervention Information Intervention Type:*IM-Signed Date of Service:01/03/2017 11:19 AM Patient Type:Inpatient Staff Member:Anika Gilliland Hours: Discipline: Severity: Comment:
--- NOTE | 2017-01-03 20:44 | GCON ---
[f rep st] CONSULTATION CARDIAC CONSULTATION. DATE OF CONSULTATION: 01/03/2017 CHIEF COMPLAINT: Paroxysmal atrial fibrillation. HISTORY OF PRESENT ILLNESS: The patient is a 76-year-old female with a history of hypertension, hype rlipidemia, and diabetes who was admitted with a UTI, DKA and paroxysmal atrial fibrillation. She de veloped a urinary tract infection 2 weeks ago and since that time she has not been as compliant with treating her diabetes. On admission to the hospital her blood glucose was 473. She also has a history of frequent falls which have become more frequent over the last 2 weeks. She feels like she takes a step off balance and then is unable to catch herself. The day of admission ida garcia lost her balance and fell. EMS was activated and at that time her heart rate was elevated at 130 be ats per minute. She was found to be in atrial fibrillation and started on diltiazem which converted her to normal sinus rhythm. Unfortunately, she went back into atrial fibrillation during her hospita lization. Diltiazem was discontinued and she was started on metoprolol and her heart rates are curre ntly between 80 and 100 beats per minute. She is currently asymptomatic with atrial fibrillation. W hen her rates are elevated she does note some symptoms including some mild shortness of breath and po unding in her chest when she exerts herself. An echocardiogram revealed normal LV function without any significant wall motion or valvular abnorma lities. On admission, her troponin was slightly elevated at 0.6. She denies any chest discomfort. PAST MEDICAL HISTORY: Diabetes, hypertension, hyperlipidemia, reflux, hypothyroidism, gout, osteoart hritis. FAMILY HISTORY: Noncontributory. SOCIAL HISTORY: She currently lives at home with her who is blind. She leads a very sedenta ry lifestyle. She denies any tobacco or current alcohol or drug use. HOME MEDICATIONS: Allopurinol 450 mg daily, Tylenol p.r.n., vitamin D3 daily, Prilosec 40 mg p.r.n., Janumet 50/500 mg twice daily, Fosamax 70 mg on Mondays, Levemir 30 units at bedtime, aspirin 81 mg daily, lisinopril/HCTZ 10/12.5 mg daily, Synthroid 75 mcg daily, Glimepiride 0.5 mg daily, mirabegron 25 mg daily. ALLERGIES: Morphine and nitrofurantoin. REVIEW OF SYSTEMS: Negative except for what is stated in the H and P. PHYSICAL EXAMINATION: GENERAL: The patient appears in no acute distress. VITALS: Blood pressure 12 1/64, heart rate 88, oxygen saturation of 98% on room air. Afebrile. NECK: No carotid bruits or JV D present. LUNGS: Clear to auscultation. No wheezes, rhonchi, or crackles auscultated. CARDIAC: Regular rate and rhythm without any significant murmurs, rubs or gallops appreciated. ABDOMEN: Soft , nontender. Nondistended. EXTREMITIES: Mild edema bilaterally, right greater than left, with palp able pulses. SKIN: No obvious rashes or ecchymosis identified. NEUROLOGIC: Nonfocal. PSYCHIATRIC : Mood and affect appropriate. LABORATORY: Troponin 0.606, 0.149, 0.153, 0.151. TSH 3.15. Blood glucose 277 but have ranged from 473 to 198. CBC: Hemoglobin 12.1, hematocrit 35.7. REPORTS: Echocardiogram: Normal systolic function with an ejection fraction of 75%. There are no s ignificant valvular or wall motion abnormalities. EKG: Atrial fibrillation at a rate of 125 with a right bundle branch block and diffuse ST-T wave raul nges. Telemetry: Atrial fibrillation with rates of 80 to 100 beats per minute. ASSESSMENT: The patient is a 76-year-old female with a history of diabetes, hypertension, hyperlipid emia, admitted with persistent urinary tract infection, diabetic ketoacidosis, paroxysmal atrial fibr illation and frequent falls. PLAN: The patient has newly diagnosed paroxysmal atrial fibrillation. She is currently under a lot of stress with a persistent urinary tract infection and also being admitted with DKA. Her blood suga rs are improving but still poorly controlled. I suspect that her underlying medical issues are contr ibuting to her atrial fibrillation. I agree with rate control and anticoagulation at this time. Her rates are currently well controlled on metoprolol, ranging from 80 to 100 beats per minute. She is asymptomatic when her rates are adequately controlled. She has a CHADS-VASc score of 5 and therefore should be fully anticoagulated. Of course, there are concerns given her frequent falls. We discuss ed the risks versus benefits of full-dose anticoagulation in the form of Pradaxa. She would like to remain on Pradaxa even with the increased risk with her frequent falls. She understands that she nee ds to slow down and be more careful with ambulation. We will plan to see her in the office in 2 weeks . If she continues to feel unsteady on her feet despite better control of her urinary tract infectio n and diabetes, I would like to place a Holter monitor at that time. It is possible that she is havi ng compensatory pauses or rapid ventricular response contributing to her falls. Her troponin was mildly elevated at 0.6. She has been chest pain free. She does have multiple risk factors for coronary disease and therefore a consideration into a nuclear stress test will be done as an outpatient. I think her mildly elevated troponin can be attributed to atrial fibrillation with a rapid ventricular response but further assessment is warranted. /[id number]/MODL
[2017-01-06] MEDS ORDERED: ALENDRONATE SODIUM 70 MG TAB PO SCH (07:00)
== END 2017-01-03 15:50 | disposition home health service (06) | DRG 638 ==
LOC: EDUNIT# → OBSVTOIN 23:17 → F2W 23:57
PROVIDERS: ADMIT Family Medicine; ATTEND Family Medicine
DX: E11.10 Type 2 diabetes mellitus with ketoacidosis without coma (principal); Z79.4 Long term (current) use of insulin; I48.0 Paroxysmal atrial fibrillation; I24.8 Other forms of acute ischemic heart disease; E87.70 Fluid overload, unspecified; E83.42 Hypomagnesemia; N39.0 Urinary tract infection, site not specified; R35.0 Frequency of micturition; N39.41 Urge incontinence; R39.15 Urgency of urination; I10 Essential (primary) hypertension; E66.09 Other obesity due to excess calories; K21.9 Gastro-esophageal reflux disease without esophagitis; E03.9 Hypothyroidism, unspecified; M10.9 Gout, unspecified; M81.0 Age-related osteoporosis without current pathological fracture
CPT/HCPCS: 82947-QW; 92507-GN; 92523-GN; 96374; 97110-GP; 97116-GP; 97161-GP; 97165-GO; 97530-GO; 97535-GO; G8978-GP-CJ; G8979-GP-CI; G8987-GO-CJ; G8988-GO-CI; G9165-GN-CJ; G9166-GN-CI; J0696; J1650; J1815; J3475

== ENCOUNTER 2017-01-05 08:30 | Inpatient (IN) | payer OTHER ==
[2017-01-05 08:51] LABS: PLATELET COUNT 199 10^3/uL (150-400)
--- NOTE | 2017-01-05 09:08 | CPEKG ---
Heart Rate: 101 RR Interval: 594 P-R Interval: 184 QRSD Interval: 136 QT Interval: 376 QTC Interval: 488 P [place]: 65 QRS [place]: 23 T Wave [place]: -15 EKG Severity - ABNORMAL ECG - EKG Impression: SINUS TACHYCARDIA EKG Impression: ATRIAL PREMATURE COMPLEX EKG Impression: RIGHT BUNDLE BRANCH BLOCK Electronically Signed By: Yo Casanova 13-Jan-2017 12:35:20
--- NOTE | 2017-01-05 09:08 | CPEKG ---
Heart Rate: 101 RR Interval: 594 P-R Interval: 184 QRSD Interval: 136 QT Interval: 376 QTC Interval: 488 P [place]: 65 QRS [place]: 23 T Wave [place]: -15 EKG Severity - ABNORMAL ECG - EKG Impression: SINUS TACHYCARDIA EKG Impression: ATRIAL PREMATURE COMPLEX EKG Impression: RIGHT BUNDLE BRANCH BLOCK Electronically Signed By: Yo Casanova 13-Jan-2017 12:35:20
--- NOTE | 2017-01-05 09:38 | EDPHY ---
H & P Stated Complaint: Mechanical fall. Fell today at home this morning. Time Seen by Provider: 01/05/17 08:31 HPI/ROS: Chief Complaint: Fall HPI: 76-year-old woman with a history of diabetes, atrial fibrillation, on Pradaxa. Patient was discharged from the hospital 2 days ago after an admission for uncontrolled atrial fibrillation and DKA. She had her medications changed. She states she got up this morning over the bathroom. Immediately for sending a bed she fell on her back. States she got dizzy. She did hit her head but had no loss of consciousness. Denies any headache right now. Initially had some back pain but this is improved. Has been taking her medications as prescribed. She was unable to get off the floor. Her is blind was unable to sister to her feet. They called 911. On EMS arrival they noted a blood sugar in the 300. They gave her normal miles of IV fluid. She is currently complaining of some mild back pain. She did not lose consciousness. No palpitations. No chest pain or shortness of breath. She is also currently being treated for a chronic urinary tract infection for the past year and has chronic hematuria. ROS: 10 point Review of Systems is negative except as noted in the HPI. PMH: Chronic urine infection, diabetes, atrial fibrillation Social History: No smoking, no alcohol, no recreational drug use Family History: non-contributory Physical Exam: Gen: Awake, Alert, No Distress HEENT: Nose: no rhinorrhea Eyes: PERRLA, EOMI Mouth: Moist mucosa Neck: Supple, no JVD Chest: nontender, lungs clear to auscultation Heart: S1, S2 normal, no murmur Abd: Soft, non-tender, no guarding Back: no CVA tenderness, no midline tenderness mild right paraspinal tenderness in the lower thoracic without any bony deformity Ext: no edema, non-tender Skin: no rash Neuro: CN II-XII intact, Sensation grossly intact, Strength 5/5 in bilateral upper and lower extremities - Personal History Current Tetanus Diphtheria and Acellular Pertussis (TDAP): Yes Tetanus Vaccine Date: <5 YRS - Medical/Surgical History Hx Asthma: No Hx Chronic Respiratory Disease: No Hx Diabetes: Yes Hx Cardiac Disease: No Hx Renal Disease: No Hx Cirrhosis: No Hx Alcoholism: No Hx HIV/AIDS: No Hx Splenectomy or Spleen Trauma: No Other PMH: DM2, hypothyroid, pelvic fx, 5 surgeries on right leg, broken hand x2 , broken collar bones, Hepatitis C from blood transfusion, urinary leakage- bladder botox to treat. - Social History Smoking Status: Never smoked Constitutional: Initial Vital Signs Temperature (C) 36.7 C 01/05/17 08:33 Heart Rate 103 H 01/05/17 08:33 Respiratory Rate 18 01/05/17 08:33 Blood Pressure 133/76 H 01/05/17 08:33 O2 Sat (%) 92 01/05/17 08:33 O2 Delivery Mode Room Air Allergies/Adverse Reactions: morphine Allergy (Verified 03/26/14 21:51) Vomiting nitrofurantoin Allergy (Verified 12/30/16 22:17) Home Medications: Medication Instructions Recorded Acetaminophen [Tylenol ES 500 mg 500 mg PO BID PRN 03/27/14 (*)] Alendronate Sodium [Fosamax 70 MG 70 mg PO MO@0700 03/27/14 (*)] Allopurinol [Allopurinol 300 MG 450 mg PO DAILY 03/27/14 (RX)] Cholecalciferol Vit D3 [Vitamin D3 1,000 units PO BID 03/27/14 (*)] Omeprazole [Prilosec] 40 mg PO DAILY PRN 03/27/14 Sitagliptin Phos/Metformin HCl 1 each PO BIDMEAL 03/27/14 [Janumet 50-500 mg Tablet] Levothyroxine [Synthroid 75 mcg 75 mcg PO DAILY06 03/13/16 (*)] Mirabegron [Myrbetriq] 25 mg PO DAILY 12/31/16 Dabigatran Etexilate Mesyl 150 mg PO BID #60 cap 01/03/17 [Pradaxa 150 MG (*)] Insulin Detemir [Levemir] 22 unit SQ BID #100 ml 01/03/17 Metoprolol Tartrate [Lopressor 25 25 mg PO BID #0 tab 01/03/17 mg (*)] levOFLOXACIN [levAQUIN (*)] 500 mg PO DAILY #5 tab 01/03/17 Medical Decision Making - Diagnostics EKG Interpretation: ECG time 9:05 a.m.. She has a sinus tachycardia with a rate of 101, normal axis , right bundle branch block, no acute ST or T-wave changes. ED Course/Re-evaluation: 76-year-old woman with recurrent mechanical falls, atrial fibrillation on Pradaxa, diabetes with blood sugars in the 300. Patient's symptoms are certainly not controlled. She is continuing to have falls and unable to get up. She is in extreme risk given her Pradaxa. I have discussed with Dr. Vanessa , hospitalist. [facility] Patient be admitted under Dr. Hansen. - Data Points Laboratory Results: Laboratory Results 01/05/17 08:40 01/05/17 08:40 01/05/17 01/05/17 08:40 08:40 WBC 5.15 10^3/uL 10^3/uL (3.80-9.50) RBC 3.36 10^6/uL L 10^6/uL (4.18-5.33) Hgb 10.6 g/dL L g/dL (12.6-16.3) Hct 31.7 % L % (38.0-47.0) MCV 94.3 fL fL (81.5-99.8) MCH 31.5 pg pg (27.9-34.1) MCHC 33.4 g/dL g/dL (32.4-36.7) RDW 13.5 % % (11.5-15.2) Plt Count 199 10^3/uL 10^3/uL (150-400) MPV 10.0 fL fL (8.7-11.7) Neut % (Auto) 71.2 % % (39.3-74.2) Lymph % (Auto) 15.0 % % (15.0-45.0) [place] % (Auto) 10.3 % % (4.5-13.0) Eos % (Auto) 2.5 % % (0.6-7.6) Baso % (Auto) 0.6 % % (0.3-1.7) Nucleat RBC Rel Count 0.0 % % (0.0-0.2) Absolute Neuts (auto) 3.67 10^3/uL 10^3/uL (1.70-6.50) Absolute Lymphs (auto) 0.77 10^3/uL L 10^3/uL (1.00-3.00) Absolute Monos (auto) 0.53 10^3/uL 10^3/uL (0.30-0.80) Absolute Eos (auto) 0.13 10^3/uL 10^3/uL (0.03-0.40) Absolute Basos (auto) 0.03 10^3/uL 10^3/uL (0.02-0.10) Absolute Nucleated RBC 0.00 10^3/uL 10^3/uL (0-0.01) Immature Gran % 0.4 % % (0.0-1.1) Immature Gran # 0.02 10^3/uL 10^3/uL (0.00-0.10) Sodium 137 mEq/L mEq/L (134-144) Potassium 4.0 mEq/L mEq/L (3.5-5.2) Chloride 105 mEq/L mEq/L (97-110) Carbon Dioxide 22 mEq/l mEq/l (22-31) Anion Gap 10 mEq/L mEq/L (8-16) BUN 16 mg/dL mg/dL (7-23) Creatinine 0.6 mg/dL mg/dL (0.6-1.0) Estimated GFR > 60 Glucose 234 mg/dL H mg/dL (70-100) Calcium 8.6 mg/dL mg/dL (8.5-10.4) Departure - Departure Referrals: Jenny Garcia MD [Primary Care Provider] - As per Instructions
[2017-01-05] MEDS ORDERED: NON-FORMULARY NEW DRUG (Omeprazole [Omeprazole] 40 MG) PO PRN (12:09)
[2017-01-05] MEDS ORDERED: ONDANSETRON 4 MG/2 ML VIAL IVP PRN (12:12)
[2017-01-05] MEDS ORDERED: PANTOPRAZOLE SODIUM 40 MG TAB PO PRN (12:14)
[2017-01-05] MEDS ORDERED: NS 1,000 ML IV SCH (12:15)
[2017-01-05] MEDS: NS 1,000 ML IV SCH ×2 (12:57→23:31)
[2017-01-05] MEDS ORDERED: IOPAMIDOL (ISOVUE-300) 100 ML BTL ONE (13:22)
--- NOTE | 2017-01-05 13:51 | GHP ---
[f rep st] HISTORY AND PHYSICAL DATE OF ADMISSION: 01/05/2017 CHIEF COMPLAINT: Fall. HISTORY: The patient is a 76-year-old female, who was just discharged from the hospital 2 days ago. During that hospitalization, she had a fall as well and was incidentally noted to be in a rapid AFib with a heart rate of 130. She was admitted to telemetry and started on metoprolol and Pradaxa. She was also diagnosed with an Enterobacter urinary tract infection and discharged on Levaquin. She was cleared by Physical Therapy to go home, but has not done well and has been very weak since returning home. She states upon arriving home, she was just extremely tired and fatigued, and could barely stay awake . The home health nurse came out and did a home medication review, and she was there for 3 hours goi ng through her meds. While the nurse was there, she just could not stay awake, fell asleep, and slep t all the way through the night. In the middle of the night, she got up to go to the bathroom in the dark and does not really remember what caused her fall other than she was weak. She had some very m inimal dizziness. She did hit her head a little bit on the back and has a little bit of a residual h eadache. Her is blind. They were unable to get her off the floor, and they called 911. She also complains of significant hematuria, and she has been seeing Dr. Liang at [facility]. She has been getting Botox injections to her bladder. She was promised that these Botox in jections would resolve the hematuria, but instead it has worsened. She has a followup appoint with Neil Liang tomorrow afternoon at which time, she planned to tell him that her Botox treatments were n ot working in terms of resolving the hematuria. She denies ever having a CT of her urinary tract and only has only had an ultrasound. She is unclear whether or not the Pradaxa made her hematuria worse because she does not think she was home long enough to give it a chance. PAST MEDICAL HISTORY: 1. Diabetes type 2. 2. AFib. 3. Hypertension. 4. Hyperlipidemia. 5. Neuropathy. 6. Hepatitis C from a blood transfusion. 7. Gout. 8. Recurrent UTIs. 9. Bladder Botox for unclear indication. PAST SURGICAL HISTORY: 1. Right leg surgery. 2. Hysterectomy. 3. Pelvic adhesions. MEDICATIONS: Please see the computer record for the full detailed list. ALLERGIES: To morphine and nitrofurantoin. SOCIAL HISTORY: No smoking. No alcohol. She lives with her . Her is blind. REVIEW OF SYSTEMS: A complete review of systems was obtained. The review of systems was negative re garding constitutional, HEENT, GI, pulmonary, cardiovascular, , hematology, skin, muscular, endocri ne, and psych except for positives and negatives as otherwise noted in the HPI. FAMILY HISTORY: Reviewed and noncontributory to the presenting complaint. PHYSICAL EXAMINATION: GENERAL: Well-developed, well-nourished female in no acute distress. VITAL S IGNS: Temperature 36.7, pulse 98, blood pressure 141/89, satting 91% on room air. HEENT: Eyes: No rmal conjunctivae. Pupils react to light. ENT: Normal ears and nose. Hearing intact. Normal teet h. Oropharynx moist. Neck: Trachea midline. No thyromegaly. CHEST: Normal respiratory effort. Lungs clear to auscultation bilaterally. CARDIOVASCULAR: Regular rhythm. No murmur. No lower extr emity edema. ABDOMEN: Soft and nontender. No hepatosplenomegaly. SKIN: Warm, dry, and intact, wi thout rash. MUSCULOSKELETAL: No cyanosis or clubbing. Strength 5/5 in the upper and lower extremit ies. NEURO: Cranial nerves intact. Normal sensation to light touch. PSYCH: Alert and oriented x3 . Normal affect. Normal judgment. Normal memory. LABORATORY DATA: White count 5.15, hematocrit 31.7, platelets 199. Sodium 137, potassium 4.0, chlor magda 105, bicarb 22, BUN 16, creatinine 0.6, glucose 234. EKG was reviewed by me. My personal interp retation is sinus rhythm, with a right bundle branch block. MEDICAL RECORD REVIEW: I reviewed the medical records from her recent hospitalization. Her urine cu lture grew Enterobacter, which is sensitive to Levaquin although resistant to quite a few other antib iotics. ASSESSMENT AND PLAN: 1. Hematuria. She is getting Botox injections as an outpatient with Urology, but her hematuria is w orsening. I will hold Pradaxa. We will continue treatment for the urinary tract infection, Levaquin based on recent Enterobacter culture positivity. We will check a CT scan for better evaluation of h er urinary tract. We will continue to follow her H and H. if she has a large amount hematuria, she may need CBI. 2. Atrial fibrillation. We will continue metoprolol and watch on telemetry. Potentially, arrhythmi a could be contributing to her falls. We will hold her anticoagulation. 3. Acute blood loss anemia. We will follow the H and H serially after hydration with IV fluids. 4. Diabetes type 2. Continue insulin and metformin. 5. Hepatitis C by report. We will do not have serologies in the computer to confirm. We will check in the a.m. 6. Code status is DNR. 7. Admission status. We will admit to inpatient, as she is medically complex and has failed recent discharge. Anticipate greater than 2 midnights required for stabilization. 8. DVT prophylaxis. She is low risk, given her recent treatment with Pradaxa. Could start Lovenox if hematuria is minimal. /[id number]/MODL
--- NOTE | 2017-01-05 14:22 | PDMN ---
Medical Necessity Medical necessity: C/M review: est. > 2 MN LOS for eval and TX of acute and persistent hematuria, acute blood loss anemia, generalized weakness requiring ongoing IV fluids, cardiac monitoring, serial Hgb / Hct lab monitoring, acute inpt PT/OT, comorbid -17-01/03/2017 hospitalization for rapid atrial fibrillation, UTI, Pradaxa initiated, patient discharged on Levaquin, failed outpatient therapy, fall just prior to this admission, type 2 diabetes, atrial fibrillation, hypertension, hyperlipidemia, neuropathy, gout, hx hepatitis C from a a blood transfusion, recurrent UTIs, Botox bladder injections per H/P.
--- NOTE | 2017-01-05 17:04 | ASMTCMCOM ---
CM Note CM Note Notes: Pt was admitted after a fall at home with afib and hematuria. She was discharged home 2 days ago with [facility] after hospitalization for a fall. Her is blind. CM will follow for any d/c needs. Date Signed: 01/05/2017 05:04 PM Electronically Signed By:STARR Christensen
[2017-01-05] MEDS: metFORMIN HCL 500 MG TAB PO SCH (17:49)
[2017-01-05] MEDS ORDERED: [UNRECOGNIZED DRUG - OTHER] PO SCH (18:00)
[2017-01-05] MEDS ORDERED: SITAGLIPTIN PHOS PO SCH (18:00)
[2017-01-05] MEDS ORDERED: METFORMIN HCL PO SCH (18:00)
[2017-01-05] MEDS ORDERED: D50W 25 GM/50 ML SYR IVP PRN (18:19)
[2017-01-05] MEDS: INSULIN LISPRO 100 UNIT/ML SC SCH (18:44)
[2017-01-05] MEDS: METOPROLOL TARTRATE 50 MG TAB PO SCH (20:44)
[2017-01-05] MEDS: INSULIN GLARGINE 100 UNITS/ML SYRINGE SC SCH (20:44)
[2017-01-05] MEDS ORDERED: DABIGATRAN ETEXILATE MESYL 150 MG CAP PO SCH (21:00)
[2017-01-05] MEDS ORDERED: INSULIN DETEMIR 22 UNIT SQ SCH (21:00)
[2017-01-06 04:43] LABS: PLATELET COUNT 199 10^3/uL (150-400)
[2017-01-06] MEDS: LEVOTHYROXINE 75 MCG TAB PO SCH (05:27)
[2017-01-06 06:36] LABS: HEPATITIS B SURFACE ANTIGEN NEGATIVE (NEGATIVE)
[2017-01-06 06:42] LABS: HEPATITIS A ANTIBODY IGM (BCH) NEGATIVE (NEGATIVE); HEPATITIS B CORE AB IGM NEGATIVE (NEGATIVE)
[2017-01-06 06:54] LABS: HEPATITIS C ANTIBODY TOTAL REACTIVE (NEGATIVE)
[2017-01-06] MEDS: INSULIN LISPRO 100 UNIT/ML SC SCH ×3 (08:00→17:48)
[2017-01-06] MEDS ORDERED: INSULIN LISPRO 100 UNIT/ML SC SCH (08:00)
[2017-01-06] MEDS: metFORMIN HCL 500 MG TAB PO SCH ×2 (08:01→17:49)
[2017-01-06] MEDS: INSULIN GLARGINE 100 UNITS/ML SYRINGE SC SCH ×2 (08:02→21:14)
[2017-01-06] MEDS: ALLOPURINOL 300 MG TAB PO SCH (08:05)
[2017-01-06] MEDS: METOPROLOL TARTRATE 50 MG TAB PO SCH ×2 (08:06→21:14)
[2017-01-06] MEDS ORDERED: NON-FORMULARY NEW DRUG (Mirabegron [Myrbetriq] 25 MG) PO SCH (09:00)
[2017-01-06] MEDS: (Mirabegron [Myrbetriq] 25 MG) PO SCH (09:10)
[2017-01-06] MEDS: NS 1,000 ML IV SCH (09:50)
[2017-01-06] MEDS ORDERED: D10W 250 ML PRN HYPOGLYCEMIA IV (10:30)
--- NOTE | 2017-01-06 11:07 | ECHO ---
[email or web address] [address] [address] Main: [phone] Fax: Transthoracic Echocardiogram Name: LUPILLO POLANCO MR#: [id number] Study Date: 01/06/2017 Study Time: 09:47 AM Date of : 1940 Age: 76 year(s) Height: 175.3 cm (69 in.) Weight: 89.81 kg (198 lb.) BSA: 2.06 m2 Gender: Female Examination: Limited Echo Indication: pericardial effusion seen on CT; recent echo no effusion; eval pericardial effusion Image Quality: Adequate Contrast: Requested by: Eva Hansen BP: 137 mmHg/83 mmHg Heart Rate: 93 bpm Rhythm: Indication: pericardial effusion seen on CT; recent echo no effusion; eval pericardial effusion Procedure Staff Manager Reporting: Evon Bledsoe Reading Physician: Solo Nunez Requesting Provider: Conclusions: Normal size left ventricle. Normal global systolic LV function. Moderate pericardial effusion (Circumferential). Shaggy echo density noted along the RV free wall and RA. No evidence of tamponade. Consider malignancy as the etiology for the pericardial effusion in light of the organized appearance. Measurements: Chambers Valvular Assessment AV/MV Valvular Assessment TV/PV Normal Normal Normal Name Value Range Name Value Range Name Value Range Continued Measurements: Findings: Left Ventricle: Normal size left ventricle. Normal global systolic LV function. Right Ventricle: Normal size right ventricle. No diastolic RV free wall collapse. Left Atrium: The left atrium is moderately dilated. Right Atrium: The right atrium is normal in size. Mitral Valve: Moderate mitral valve leaflet calcification is present. Mild mitral valve regurgitation is present. IVC: The IVC is dilated. There is no inspiratory collapse of the IVC. Patient: LUPILLO POLANCO Study Date: 01/06/2017 Page 1 of 2 09:47 AM Pericardium: Moderate pericardial effusion (Circumferential). Shaggy echo density noted along the RV free wall and RA. (No Signature Object) Patient: LUPILLO POLANCO Study Date: 01/06/2017 Page 2 of 2 09:47 AM [id number]
--- NOTE | 2017-01-06 11:07 | ECHO ---
[email or web address] [address] [address] Main: [phone] Fax: Transthoracic Echocardiogram Name: LUPILLO POLANCO MR#: [id number] Study Date: 01/06/2017 Study Time: 09:47 AM Date of : 1940 Age: 76 year(s) Height: 175.3 cm (69 in.) Weight: 89.81 kg (198 lb.) BSA: 2.06 m2 Gender: Female Examination: Limited Echo Indication: pericardial effusion seen on CT; recent echo no effusion; eval pericardial effusion Image Quality: Adequate Contrast: Requested by: Eva Hansen BP: 137 mmHg/83 mmHg Heart Rate: 93 bpm Rhythm: Indication: pericardial effusion seen on CT; recent echo no effusion; eval pericardial effusion Procedure Staff Derrick Follower: Evon Bledsoe Reading Physician: Solo Nunez Requesting Provider: Conclusions: Normal size left ventricle. Normal global systolic LV function. Moderate pericardial effusion (Circumferential). Shaggy echo density noted along the RV free wall and RA. No evidence of tamponade. Consider malignancy as the etiology for the pericardial effusion in light of the organized appearance. Measurements: Chambers Valvular Assessment AV/MV Valvular Assessment TV/PV Normal Normal Normal Name Value Range Name Value Range Name Value Range Continued Measurements: Findings: Left Ventricle: Normal size left ventricle. Normal global systolic LV function. Right Ventricle: Normal size right ventricle. No diastolic RV free wall collapse. Left Atrium: The left atrium is moderately dilated. Right Atrium: The right atrium is normal in size. Mitral Valve: Moderate mitral valve leaflet calcification is present. Mild mitral valve regurgitation is present. IVC: The IVC is dilated. There is no inspiratory collapse of the IVC. Patient: LUPILLO POLANCO Study Date: 01/06/2017 Page 1 of 2 09:47 AM Pericardium: Moderate pericardial effusion (Circumferential). Shaggy echo density noted along the RV free wall and RA. (No Signature Object) Patient: LUPILLO POLANCO Study Date: 01/06/2017 Page 2 of 2 09:47 AM [id number]
--- NOTE | 2017-01-06 11:07 | ECHO ---
[email or web address] [address] [address] Main: [phone] Fax: Transthoracic Echocardiogram Name: LUPILLO POLANCO MR#: [id number] Study Date: 01/06/2017 Study Time: 09:47 AM Date of : 1940 Age: 76 year(s) Height: 175.3 cm (69 in.) Weight: 89.81 kg (198 lb.) BSA: 2.06 m2 Gender: Female Examination: Limited Echo Indication: pericardial effusion seen on CT; recent echo no effusion; eval pericardial effusion Image Quality: Adequate Contrast: Requested by: Eva Hansen BP: 137 mmHg/83 mmHg Heart Rate: 93 bpm Rhythm: Indication: pericardial effusion seen on CT; recent echo no effusion; eval pericardial effusion Procedure Staff Netezza Architect: Evon Bledsoe Reading Physician: Solo Nunez Requesting Provider: Conclusions: Normal size left ventricle. Normal global systolic LV function. Moderate pericardial effusion (Circumferential). Shaggy echo density noted along the RV free wall and RA. No evidence of tamponade. Consider malignancy as the etiology for the pericardial effusion in light of the organized appearance. Measurements: Chambers Valvular Assessment AV/MV Valvular Assessment TV/PV Normal Normal Normal Name Value Range Name Value Range Name Value Range Continued Measurements: Findings: Left Ventricle: Normal size left ventricle. Normal global systolic LV function. Right Ventricle: Normal size right ventricle. No diastolic RV free wall collapse. Left Atrium: The left atrium is moderately dilated. Right Atrium: The right atrium is normal in size. Mitral Valve: Moderate mitral valve leaflet calcification is present. Mild mitral valve regurgitation is present. IVC: The IVC is dilated. There is no inspiratory collapse of the IVC. Patient: LUPILLO POLANCO Study Date: 01/06/2017 Page 1 of 2 09:47 AM Pericardium: Moderate pericardial effusion (Circumferential). Shaggy echo density noted along the RV free wall and RA. (No Signature Object) Patient: LUPILLO POLANCO Study Date: 01/06/2017 Page 2 of 2 09:47 AM [id number]
[2017-01-06 15:06] LABS: INR 1.31 (0.83-1.16); PROTIME(PATIENT) 16.3 SEC (12.0-15.0)
[2017-01-06] MEDS ORDERED: LIDOCAINE 1% 300 MG/30 ML SDV ONE (15:20)
--- NOTE | 2017-01-06 16:51 | HOSPPROG ---
Hospitalist Progress Note Assessment/Plan: * Hematuria - d/w Dr. Liang - urology -had cystoscopy as outpatient just 2 weeks ago - no bladder tumor -check MRI kidneys to eval mass seen on CT * New pericardial effusion -d/w Dr. Nunez - suspects inflammatory, with possible conversion to hemorrhagic on Pradaxa -check ESR, CRP, JUANPABLO * New afib, now back NSR -continue metoprolol -DC Pradaxa given bleeding complications * New pleural effusion -thoracentesis today - ? also hemorrhagic * Abnormal sigmoid/bladder connection by CT -? fistula - patient with recurrent UTI -consider surgery consult * UTI - Enterobacter -continue Levaquin * Hep C with evidence of cirrhosis by CT * Urinary incontinence - recent Botox injection with Dr. Liang * Dm II -insulin, metformin Subjective: Hematuria off and on, currently off Objective: Vital Signs Temp Pulse Resp BP Pulse Ox 36.9 C 77 20 135/58 H 94 01/06/17 15:14 01/06/17 15:14 01/06/17 15:14 01/06/17 15:14 01/06/17 15:14 Laboratory Results 01/06/17 04:32 01/06/17 04:32 01/05/17 01/06/17 01/07/17 05:59 05:59 05:59 Intake Total 2422 Output Total 200 420 Balance 2222 -420 PT 16.3 SEC (12.0-15.0) H 01/06/17 14:45 INR 1.31 (0.83-1.16) H 01/06/17 14:45 d/w Dr. Nunez and Dr. Liang ECHO - complicated pleural effusion CXR viewed, my personal interpretation is - moderate left effusion CT abd pelvis - bladder and sigmoid colon abnormally opposed - Physical Exam Constitutional: no apparent distress, appears nourished, not in pain Cardiovascular: regular rate and rhythym, no murmur, rub, or gallop Respiratory: no respiratory distress, no rales or rhonchi, clear to auscultation Gastrointestinal: normoactive bowel sounds, soft, non-tender abdomen, no palpable masses Skin: no rashes or abrasions, no fluctuance, no induration Neurologic: AAOx3, sensation intact bilaterally Psychiatric: interacting appropriately, not anxious, not encephalopathic, thought process linear ICD10 Worksheet Patient Problems: Problems Problem Status Onset Atrial fibrillation Acute Dehydration Acute Diabetes Acute Elevated troponin Acute Fall at home Acute Gastroenteritis Acute Hyperglycemia Acute Hypertension Acute Hyponatremia Acute
--- NOTE | 2017-01-06 17:41 | GCON ---
[f rep st] CONSULTATION CARDIOLOGY CONSULTATION DATE OF CONSULTATION: 01/06/2017 INDICATION: Pericardial effusion. HISTORY OF PRESENT ILLNESS: The patient is 76 years old. She was in the hospital last week after e experienced several falls. During that hospitalization, she was noted to be in atrial fibrillation with a rapid ventricular response, and was subsequently started on metoprolol and Pradaxa. I review ed an echocardiogram that she had done at that time. That demonstrated a trivial pericardial effusio n with evidence of some organization versus fat pad. She was readmitted yesterday afternoon after e once again experienced a mechanical fall. She states that she tripped and fell on a ladder that wa s in her bedroom. She had no loss of consciousness. She specifically states that she has not had an y dizzy spells or episodes of presyncope. She has also been noting episodes of hematuria. She has b een followed by Dr. Liang at [facility]. Apparently, recently had cystoscopy and Bot ox injection in her bladder. This has not resulted in improvement of her hematuria. Because of this condition, she underwent an abdominal CT scan, which incidentally noted the presence of a pericardia l effusion, and resulted in an echocardiogram that I read earlier today. That demonstrated a moderat e-sized circumferential pericardial effusion with evidence of some organization and thickening especi ally around the region of the right ventricle. There was no evidence of tamponade. In talking to e patient, she has not had any symptoms of chest pain or pressure. She denies orthopnea or PND. She has chronic mild pedal edema. She has noted very mild symptoms of exertional dyspnea. She notes no fever, chills or sweats. She has not had any weight loss. She notes no unusual rashes or arthritis . During this hospitalization, she had a chest x-ray. That demonstrates a new left pleural effusion that appears to be small and moderate. Additionally, she has had evidence of progressive anemia. S he has not been febrile since admission. PAST MEDICAL HISTORY: 1. Type 2 diabetes mellitus. 2. Paroxysmal atrial fibrillation as described above. 3. Hypertension. 4. Hyperlipidemia. 5. Peripheral neuropathy. 6. History of hepatitis C from blood transfusion. 7. History of gout. 8. Recurrent urinary tract infection. 9. Hematuria with recent bladder Botox injection. PAST SURGICAL HISTORY: She has had several right leg fractures. She had a hysterectomy and has had a history of pelvic adhesions. MEDICATIONS: Detailed medication list is noted on the chart and not repeated here. SOCIAL HISTORY: She is . Her and her live in [place]. She is the primary caregive r as her is blind. She drives and does most of the housework. Travel history is significant for recent cruise. Apparently, her and her traveled by cruise ship over to [place] and back last month. She developed a slight cough after that cruise. FAMILY HISTORY: At this point is noncontributory. REVIEW OF SYSTEMS: A full 10-point review of systems was performed. Otherwise, negative. PHYSICAL EXAMINATION: VITAL SIGNS: Blood pressure 139/80, with a mean of 99, heart rate is 92, room air saturation 95%. GENERAL: Healthy white female in no acute distress. HEENT: No jugular venous distention. RESPIRATORY: Scant rales in the left base, using no accessory muscles. Speaking in fu ll sentences. CARDIAC: Precordial inspection unremarkable. PMI is nondisplaced. On auscultation, she has a regular rate and rhythm. She has a loud 3 component pericardial friction rub. ABDOMEN: S oft, nontender with normoactive bowel sounds. She has no masses. Her abdominal aorta is nonpalpable . EXTREMITIES: Demonstrate trace by pedal edema. LABORATORY DATA: PERTINENT DIAGNOSTIC TESTS: Her electrocardiogram demonstrates sinus rhythm. She has a right bundle branch block. She had a chest x-ray done yesterday afternoon that demonstrated ev idence of left pleural effusion. Comments were made that she may have associated left lower lobe pne umonia. Her head CT was negative for an acute process or previous stroke. CT scan of the abdomen an d pelvis demonstrated thickening of the sigmoid colon adjacent to the urinary bladder. The question was whether or not there might be adhesions in this distribution or potentially a malignancy. Additi onally, there was a 16 mm right renal lesion. They also noted presence of the pericardial effusion t hat I described previously. Her echocardiogram demonstrates evidence of a circumferential pericardia l effusion, which is moderate in size with evidence of organization. There is no tamponade. LV func tion is normal. Valvular anatomy is normal for age. Her white blood cell count has been 5.14. Her hematocrit today is 30.7. Previously, her hematocrit had been normal. Sodium 139, potassium 4.3, BU N 14, creatinine 0.9. Blood sugars have been in the 200 and 300 range. Liver function tests are nor mal. TSH is normal at 3.02. Albumin is low at 2.5, total protein 5.7. Troponin slightly elevated a t 0.037 and subsequently 0.034. Urinalysis is significant for multiple red and white blood cells, 3+ blood and 2+ protein. Hepatitis C is reactive. IMPRESSION: The patient is a 76-year-old female who was admitted last week after experiencing severa l falls. She was found to be in atrial fibrillation with a rapid ventricular response, and started o n rate control, and placed on Pradaxa for thromboprophylaxis in the setting of an elevated CHADS VASC score of at least 5. She is readmitted now after another mechanical fall, and as part of her workup has been incidentally found to have a moderate-sized pericardial effusion, which has developed since her previous hospitalization. Her pericardial effusion has developed in the setting of a worsening anemia, and an associated left pleural effusion. By exam she has a very loud pericardial friction ru b, indicating active pericardial inflammation. The differential diagnosis currently is fairly broad. First time my differential would be diffuse serositis with associated bleeding in the setting of th e recent addition of Pradaxa. It may be that she had low-grade pericarditis to start with, and subse quently this transformed to hemorrhagic pericarditis in the setting of Pradaxa use. Additionally, sh radha may have had some form of malignant process effecting the pericardium that could of transformed hem orrhagically as described above. It may be that she has both pericardial and pleural effusions that are not hemorrhagic in nature also related to pericarditis. Certainly chronic inflammatory condition s such as lupus are on the differential diagnosis. RECOMMENDATIONS: 1. I did stop her Pradaxa. I think it would be advantageous to hold this medicine pending diagnosti c testing to prove that she is not actively bleeding into her pericardium or pleural space. 2. I have ordered an JUANPABLO, and erythrocyte sedimentation rate, and C-reactive protein. Given her rec ent travel, I think it would be reasonable to place a PPD as well. 3. The case was discussed with Eva Hansen from the hospitalist service. I think we should begin our workup with, in addition to the above tests, a diagnostic thoracentesis. This can be scheduled for later today or tomorrow. 4. We can continue rate controlling agents in light of her history of atrial arrhythmias. /[id number]/MODL
[2017-01-06] MEDS ORDERED: GADOBUTROL 10 ML VIAL IVP ONE (18:25)
[2017-01-07] MEDS: ACETAMINOPHEN 325 MG TAB PO PRN (01:55)
[2017-01-07] MEDS: LEVOTHYROXINE 75 MCG TAB PO SCH (04:35)
[2017-01-07 04:56] LABS: PLATELET COUNT 190 10^3/uL (150-400)
[2017-01-07 05:10] LABS: INR 1.28 (0.83-1.16)
[2017-01-07] MEDS: metFORMIN HCL 500 MG TAB PO SCH ×2 (09:54→18:28)
[2017-01-07] MEDS: INSULIN LISPRO 100 UNIT/ML SC SCH ×3 (09:54→18:28)
[2017-01-07] MEDS: ALLOPURINOL 300 MG TAB PO SCH (09:55)
[2017-01-07] MEDS: METOPROLOL TARTRATE 50 MG TAB PO SCH ×2 (09:55→21:31)
[2017-01-07] MEDS: INSULIN GLARGINE 100 UNITS/ML SYRINGE SC SCH ×2 (09:56→21:31)
[2017-01-07] MEDS: (Mirabegron [Myrbetriq] 25 MG) PO SCH (10:00)
--- NOTE | 2017-01-07 10:09 | ASMTCMCOM ---
CM Note CM Note Notes: CM met w/ pt for dispo planning. PT is recommending HC and OT is recommending home independent. Pt is agreeable to having HC services through [facility]. CM sent updates to [facility]. CM available for changes. Date Signed: 01/07/2017 10:08 AM Electronically Signed By:ELAYNE Mills
--- NOTE | 2017-01-07 11:42 | SOAPPROG ---
SOAP Progress Note Assessment/Plan: Assessment: At this point, she appears to have pericarditis and pleuritis. She has an elevated sed rate associated with both pericardial and pleural effusions. There is no indication of diffuse bleeding. I still think that malignancy is on the differential diagnosis as his tuberculosis. The case was discussed with Dr. Laird. I would recommend a chest CT to evaluate for occult malignancy as well as placement of a PPD. I am not sure if AFB staining is done typically on the pleural fluid although this might be advantageous. Barring any abnormal findings on the studies I think we can treat her conservatively with anti- inflammatory medications. I would recommend colchicine 0.6 mg twice daily. She can take this for 3-6 months. For the 1st 1-2 weeks I would recommend ibuprofen 600 mg 3 times daily with food and a proton pump inhibitor. She can follow up with me as an outpatient. I will plan to repeat her echocardiogram within the next 1-2 weeks. Depending further assessment of her pericardial effusion and clinical course I would hold her systemic anticoagulation. 01/07/17 11:42 Subjective: She underwent a left-sided thoracentesis yesterday. The pleural fluid was noted to be straw-colored. Cytology is currently pending as are cultures. Based on the chemical analysis it is difficult to know whether this is a transudate or exudate. Certainly the color of the fluid and description of fluid suggests more of a transient date. She states she feels well. She is not experiencing any dyspnea or chest discomfort. Her erythrocyte sedimentation rate was noted to be elevated. Objective: Vital Signs Temp Pulse Resp BP Pulse Ox 36.7 C 91 20 112/54 L 91 L 01/07/17 11:32 01/07/17 11:32 01/07/17 11:32 01/07/17 11:32 01/07/17 11:32 Microbiology 01/06/17 14:10 Gram Stain - Final Thoracic Fluid - Aspirate Laboratory Results 01/07/17 04:30 01/07/17 04:30 01/06/17 01/07/17 01/08/17 05:59 05:59 05:59 Intake Total 2422 1100 Output Total 200 420 Balance 2222 680 PT 16.0 SEC (12.0-15.0) H 01/07/17 04:30 INR 1.28 (0.83-1.16) H 01/07/17 04:30 Laboratory Tests 01/06/17 04:32 ESR 53 H Physical Exam - Physical Exam General Appearance: WD/WN, no apparent distress Neck: non-tender, full range of motion Respiratory: lungs clear Cardiac/Chest: regular rate, rhythm, other (3 component pericardial friction rub ) Peripheral Pulses: 2+: carotid (R), carotid (L) ICD10 Worksheet Patient Problems: Problems Problem Status Onset Atrial fibrillation Acute Dehydration Acute Diabetes Acute Elevated troponin Acute Fall at home Acute Gastroenteritis Acute Hyperglycemia Acute Hypertension Acute Hyponatremia Acute
--- NOTE | 2017-01-07 17:14 | HOSPPROG ---
Hospitalist Progress Note Assessment/Plan: # New pericardial and pleural effusion- CXR (personally reviewed and interpreted) with small bilateral effusions -thoracentesis yesterday -d/w Dr. Nunze - agree inflammatory likely (with possible conversion to hemorrhagic on Pradaxa) - oxygen saturations 92% on RA ESR, CRP elevated - JUANPABLO and RF and pleural cytology pending - ordering CT chest to rule out malignancy # Hematuria - Dr. Liang - urology -had cystoscopy as outpatient just 2 weeks ago - no bladder tumor -check MRI kidneys to eval mass seen on CT # New afib, now back NSR -continue metoprolol -DC Pradaxa given bleeding complications # Abnormal sigmoid/bladder connection by CT -? fistula - patient with recurrent UTI -consider surgery consult # UTI - Enterobacter -continue Levaquin * Hep C with evidence of cirrhosis by CT * Urinary incontinence - recent Botox injection with Dr. Liang * Dm II -insulin, metformin # proph - holding Pradaxa - SCDs # dispo - > 2MN as work up underway I have discussed the case with Cardiology and suspicion for underlying inflammatory process high - work up pending CT chest today Subjective: feeling ok Objective: Vital Signs Temp Pulse Resp BP Pulse Ox 36.7 C 93 14 116/66 92 01/07/17 16:00 01/07/17 16:00 01/07/17 16:00 01/07/17 16:00 01/07/17 16:00 Microbiology 01/05/17 14:28 Urine Culture - Final Urine,Clean Catch Two [place] Types 01/06/17 14:10 Gram Stain - Final Thoracic Fluid - Aspirate Laboratory Results 01/07/17 04:30 01/07/17 04:30 01/06/17 01/07/17 01/08/17 05:59 05:59 05:59 Intake Total 2422 1100 Output Total 200 420 Balance 2222 680 PT 16.0 SEC (12.0-15.0) H 01/07/17 04:30 INR 1.28 (0.83-1.16) H 01/07/17 04:30 - Physical Exam Constitutional: appears nourished Eyes: anicteric sclera Ears, Nose, Mouth, Throat: moist mucous membranes Cardiovascular: regular rate and rhythym Respiratory: no respiratory distress, no rales or rhonchi Gastrointestinal: normoactive bowel sounds Genitourinary: no bladder fullness Skin: warm Musculoskeletal: No asymmetric calves Neurologic: AAOx3 Psychiatric: interacting appropriately, not anxious Lymph, Heme, Immunologic: no cervical LAD ICD10 Worksheet Patient Problems: Problems Problem Status Onset Atrial fibrillation Acute Dehydration Acute Diabetes Acute Elevated troponin Acute Fall at home Acute Gastroenteritis Acute Hyperglycemia Acute Hypertension Acute Hyponatremia Acute
[2017-01-07] MEDS ORDERED: IOPAMIDOL (ISOVUE-300) 100 ML BTL ONE (17:18)
[2017-01-08] MEDS: LEVOTHYROXINE 75 MCG TAB PO SCH (05:08)
[2017-01-08] MEDS: INSULIN LISPRO 100 UNIT/ML SC SCH ×3 (08:32→17:58)
[2017-01-08] MEDS: ALLOPURINOL 300 MG TAB PO SCH (08:39)
[2017-01-08] MEDS: METOPROLOL TARTRATE 50 MG TAB PO SCH ×2 (08:40→20:13)
[2017-01-08] MEDS: metFORMIN HCL 500 MG TAB PO SCH ×2 (08:41→18:18)
[2017-01-08] MEDS: INSULIN GLARGINE 100 UNITS/ML SYRINGE SC SCH ×2 (08:43→21:10)
[2017-01-08] MEDS: (Mirabegron [Myrbetriq] 25 MG) PO SCH (08:46)
[2017-01-08] MEDS ORDERED: FUROSEMIDE 20 MG/2 ML VIAL IVP ONE ×2 (09:17→12:30)
--- NOTE | 2017-01-08 09:40 | SOAPPROG ---
KARMA Progress Note Assessment/Plan: Assessment: 76-year-old female with a recent diagnosis of paroxysmal atrial fibrillation. She now has evidence of pericarditis. She has a moderate-sized pericardial effusion associated with an obvious friction rub and elevated inflammatory markers. Additionally, she has small bilateral pleural effusions and a P recently drained moderate size left pleural effusion. Based on the fluid analysis these are consistent with exudates. The appearance is more consistent with a transudate therefore I think it is difficult to really know. There is no indication of bleeding either in the pericardium or in the pleural space. This was initially a concern given the fact that she was started on systemic anticoagulation. Plan: 1. At this point, I do not think she requires any further cardiac workup. 2. I did write for her to start colchicine 0.6 mg twice daily. 3. I also gave her a dose of IV Lasix today. She can start on oral Lasix 20 mg daily tomorrow. 4. I would like to hold her systemic anticoagulation for the short term, likely for another week. At that time, I would like to repeat her echocardiogram to assure that her pericardial effusion is resolving. 5. I would like her to follow up with me in clinic in the next week to 2 weeks. I would like her to have an echocardiogram immediately prior to that office visit. 6. At this point we will sign off. Please re-consult if there are questions. Subjective: She states that she is feeling well. She denies symptoms of dyspnea. She has not had any chest discomfort. She does have moderate lower extremity edema. On telemetry she looks like she is back in atrial fibrillation with controlled heart rate of about 70 beats per minute. She had a chest CT done yesterday. There was no indication of malignancy. She did have small bilateral pleural effusions. I reviewed this with radiology. Based on the Hounsfield units there is no indication of intrapericardial blood. Objective: Vital Signs Temp Pulse Resp BP Pulse Ox 36.8 C 76 18 117/63 95 01/08/17 07:37 01/08/17 08:40 01/08/17 07:37 01/08/17 08:40 01/08/17 07:37 Microbiology 01/05/17 14:28 Urine Culture - Final Urine,Clean Catch Two [place] Types 01/06/17 14:10 Gram Stain - Final Thoracic Fluid - Aspirate Laboratory Results 01/07/17 04:30 01/07/17 04:30 01/07/17 01/08/17 01/09/17 05:59 05:59 05:59 Intake Total 1100 480 Output Total 420 Balance 680 480 PT 16.0 SEC (12.0-15.0) H 01/07/17 04:30 INR 1.28 (0.83-1.16) H 01/07/17 04:30 Physical Exam - Physical Exam General Appearance: WD/WN, no apparent distress Neck: non-tender, full range of motion Respiratory: rales (In the right base) Cardiac/Chest: edema (1/2 inch pitting edema to the mid-hill), irregularly irregular, No gallop, No JVD Peripheral Pulses: 2+: carotid (R), carotid (L) Abdomen: non-tender, soft Pelvic Exam: deferred Rectal: deferred Neuro/Psych: alert, oriented x 3 ICD10 Worksheet Patient Problems: Problems Problem Status Onset Fall at home Acute Diabetes Acute Gastroenteritis Acute Dehydration Acute Atrial fibrillation Acute Hyperglycemia Acute Hypertension Acute Elevated troponin Acute Hyponatremia Acute
--- NOTE | 2017-01-08 18:15 | HOSPPROG ---
Hospitalist Progress Note Assessment/Plan: Assessment: 76-year-old female presents with acute mechanical fall in the setting of new onset pericardial effusion and pleural effusion Plan: # Acute pericardial and pleural effusions. Present on chest CT (personally interpreted), thoracentesis appeared transudative, but was exudative by Light's Criteria - elevated inflammatory markers, possibly reactive effusions, but no known underlying auto-immune process - pleural effusions certainly could be iatrogenic from most recent hospitalization, and will continue on IV diuretics - recommend outpt Cards and Rheum f/u, JUANPABLO pending - Echo w/o tamponade # Atelectasis. Acute, 2/2 above, cont IS # Hematuria. 2/2 systemic anticoagulation and hemorrhagic cyst on MRI, no malignancy - no bladder cancer on recent cysto # Paroxysmal afib. Maintaining NSR w/ metoprolol, off pradaxa given bleeding - recommend ASA, will d/w patient # Abnormal sigmoid/bladder connection by CT. Unclear if patient has fistula which could be causing either recurrent UTIs or bladder colonization w/ GI malaika - most recent colonoscopy 2 years ago, recommend repeat as outpt # Possible recurrent UTI. Positive UA, 100,000 Enterobacter on 12/31 UCx, complete 10 days Abx # Hep C with evidence of cirrhosis by CT. May be cause of underlying inflammation - get liver synthetic fxn labs in AM # Chronic Urinary incontinence. Unlikely that she is having recurrent UTIs, more likely sphincter or detrusor muscle issue, s/p botox inj w/o success - f/u as outpt w/ Dr. Liang # DM II. Cont lantus/ISS/metformin Diet. Diabetic PPx. High risk, lovenox 40 Code. DNR Dispo. ADD 01/09 w/ home care, d/w case mgmt regarding evals High level of medical complexity, high risk of worsening morbidity/mortality 2/ 2 issues outlined above. Subjective: reports SOB w/ exertion Objective: Vital Signs Temp Pulse Resp BP Pulse Ox 36.7 C 84 14 116/62 92 01/08/17 16:00 01/08/17 16:00 01/08/17 16:00 01/08/17 16:00 01/08/17 16:00 Microbiology 01/06/17 14:10 Gram Stain - Final Thoracic Fluid - Aspirate 01/05/17 14:28 Urine Culture - Final Urine,Clean Catch Two [place] Types Laboratory Results 01/07/17 04:30 01/07/17 04:30 01/07/17 01/08/17 01/09/17 05:59 05:59 05:59 Intake Total 1100 480 Output Total 420 Balance 680 480 PT 16.0 SEC (12.0-15.0) H 01/07/17 04:30 INR 1.28 (0.83-1.16) H 01/07/17 04:30 - Pending Discharge Pending Discharge Within 24 Hours: Yes Pending Discharge Date: 01/09/17 Pending Discharge Time: 11:00 - Physical Exam Constitutional: no apparent distress, not in pain, chronically ill appearing, No uncomfortable Cardiovascular: regular rate and rhythym, no murmur, rub, or gallop, edema ( trace bilat LE), No irregularly irregular Respiratory: reduced air movement (bilat bases), No expiratory wheeze, No inspiratory crackles, No bronchial breath sounds, No respiratory distress Gastrointestinal: normoactive bowel sounds, soft, non-tender abdomen, no palpable masses Neurologic: AAOx3, sensation intact bilaterally, No weakness Psychiatric: interacting appropriately, not anxious, not encephalopathic, thought process linear ICD10 Worksheet Patient Problems: Problems Problem Status Onset Fall at home Acute Diabetes Acute Gastroenteritis Acute Dehydration Acute Atrial fibrillation Acute Hyperglycemia Acute Hypertension Acute Elevated troponin Acute Hyponatremia Acute
[2017-01-08] MEDS: COLCHICINE 0.6 MG CAP/TAB PO SCH (20:12)
[2017-01-08] MEDS: ENOXAPARIN 40 MG/0.4 ML SYR SC SCH (20:14)
[2017-01-09] MEDS: ACETAMINOPHEN 325 MG TAB PO PRN (04:49)
[2017-01-09] MEDS: LEVOTHYROXINE 75 MCG TAB PO SCH (04:49)
[2017-01-09 06:01] LABS: PLATELET COUNT 268 10^3/uL (150-400)
[2017-01-09 06:05] LABS: INR 1.25 (0.83-1.16); PROTIME(PATIENT) 15.7 SEC (12.0-15.0)
[2017-01-09 07:46] VITALS: BP 120/70; RESP 18
[2017-01-09] MEDS: INSULIN LISPRO 100 UNIT/ML SC SCH ×2 (08:34→14:04)
[2017-01-09] MEDS: INSULIN GLARGINE 100 UNITS/ML SYRINGE SC SCH (08:53)
[2017-01-09] MEDS: ENOXAPARIN 40 MG/0.4 ML SYR SC SCH (08:54)
[2017-01-09] MEDS: metFORMIN HCL 500 MG TAB PO SCH (08:55)
[2017-01-09] MEDS: COLCHICINE 0.6 MG CAP/TAB PO SCH (08:56)
[2017-01-09] MEDS: METOPROLOL TARTRATE 50 MG TAB PO SCH (08:56)
[2017-01-09] MEDS: ALLOPURINOL 300 MG TAB PO SCH (08:57)
[2017-01-09] MEDS ORDERED: FUROSEMIDE 20 MG/2 ML VIAL IVP SCH (09:00)
[2017-01-09] MEDS: (Mirabegron [Myrbetriq] 25 MG) PO SCH (09:03)
[2017-01-09 12:16] VITALS: PULSE 71; TEMP 97.8; O2SAT 91
--- NOTE | 2017-01-09 13:08 | PDIAF ---
- Diagnosis Diagnosis: Acute pericardial/pleural effusions Code Status: Do Not Resuscitate - Medication Management Discharge Medications: Medications to Continue on Transfer Acetaminophen [Tylenol ES 500 mg (*)] 500 mg PO BID PRN 03/27/14 [Last Taken 3 Days Ago ~12/28/16] Alendronate Sodium [Fosamax 70 MG (*)] 70 mg PO MO@0700 03/27/14 [Last Taken ] Allopurinol [Allopurinol 300 MG (RX)] 450 mg PO DAILY 03/27/14 [Last Taken 12/30] Cholecalciferol Vit D3 [Vitamin D3 (*)] 1,000 units PO BID 03/27/14 [Last Taken 12/30/16 09:00] Sitagliptin Phos/Metformin HCl [Janumet 50-500 mg Tablet] 1 each PO BIDMEAL [Last Taken 12/29/16 18:00] Levothyroxine [Synthroid 75 mcg (*)] 75 mcg PO DAILY06 03/13/16 [Last Taken ] Insulin Detemir [Levemir] 22 unit SQ BID #100 ml 01/03/17 [Last Taken Unknown] Metoprolol Tartrate [Lopressor 50 mg (*)] 25 mg PO BID 01/05/17 [Last Taken Unknown] Mirabegron [Myrbetriq] 25 mg PO DAILY 01/05/17 [Last Taken Unknown] Omeprazole 40 mg PO DAILY PRN 01/05/17 [Last Taken Unknown] Colchicine [Colchicine (*)] 0.6 mg PO BID #60 ea 01/09/17 [Last Taken Unknown] Furosemide 20 mg PO DAILY #30 tablet 01/09/17 [Last Taken Unknown] Potassium Cl [Klor-Con 10 meq (RX)] 10 meq PO DAILY #30 tab 01/09/17 [Last Taken Unknown] metFORMIN HCL [Glucophage 500 mg (*)] 500 mg PO BIDMEAL #60 tab 01/09/17 [Last Taken Unknown] Cost Estimator Antibiotics: NA Discharge Medications: Refer to the Discharge Home Medication list for PRN reason. PICC Care - Routine: N/A - Orders Services needed: Home Care, Registered Nurse, Physical Therapy, Occupational Therapy Home Care Face to Face: I certify that this patient was under my care and that I had the required [id number] encounter meeting the encounter requirements on the discharge day. My findings support the fact that the patient is homebound as defined in Home Care Face to Face Continued: CMS Chapter 7 Medicare Benefits Manual 30.1.1 , The condition of the patient is such that there exists a normal inability to leave home and consequently, leaving home would require a considerable and taxing effort. Oxygen: NA Diet Recommendation: cardiac -low fat low salt Weigh Patient: daily Cheng: Not applicable Adelso Stockings Discontinue Date: while edema lasts - Labs/Radiology BMP Date: 01/13/17 Call or Fax Lab and Imaging Results to: Dr. Bola Nunez - Follow Up Care Current Providers and Referrals: Jenny Garcia MD [Primary Care Provider] - As per Instructions Eliud Liang MD [Medical Doctor] - (please follow-up as scheduled 01/23) Gurwinder Wiggins MD [[facility] Primary Care Provider] - (please schedule outpatient consultation in 1-2 weeks) Solo Nunez MD [Medical Doctor] - (please follow-up as scheduled 01/14)
--- NOTE | 2017-01-09 13:08 | PDIAF ---
- Diagnosis Diagnosis: Acute pericardial/pleural effusions Code Status: Do Not Resuscitate - Medication Management Discharge Medications: Medications to Continue on Transfer Acetaminophen [Tylenol ES 500 mg (*)] 500 mg PO BID PRN 03/27/14 [Last Taken 3 Days Ago ~12/28/16] Alendronate Sodium [Fosamax 70 MG (*)] 70 mg PO MO@0700 03/27/14 [Last Taken ] Allopurinol [Allopurinol 300 MG (RX)] 450 mg PO DAILY 03/27/14 [Last Taken 12/30] Cholecalciferol Vit D3 [Vitamin D3 (*)] 1,000 units PO BID 03/27/14 [Last Taken 12/30/16 09:00] Sitagliptin Phos/Metformin HCl [Janumet 50-500 mg Tablet] 1 each PO BIDMEAL [Last Taken 12/29/16 18:00] Levothyroxine [Synthroid 75 mcg (*)] 75 mcg PO DAILY06 03/13/16 [Last Taken ] Insulin Detemir [Levemir] 22 unit SQ BID #100 ml 01/03/17 [Last Taken Unknown] Metoprolol Tartrate [Lopressor 50 mg (*)] 25 mg PO BID 01/05/17 [Last Taken Unknown] Mirabegron [Myrbetriq] 25 mg PO DAILY 01/05/17 [Last Taken Unknown] Omeprazole 40 mg PO DAILY PRN 01/05/17 [Last Taken Unknown] Colchicine [Colchicine (*)] 0.6 mg PO BID #60 ea 01/09/17 [Last Taken Unknown] Furosemide 20 mg PO DAILY #30 tablet 01/09/17 [Last Taken Unknown] Potassium Cl [Klor-Con 10 meq (RX)] 10 meq PO DAILY #30 tab 01/09/17 [Last Taken Unknown] metFORMIN HCL [Glucophage 500 mg (*)] 500 mg PO BIDMEAL #60 tab 01/09/17 [Last Taken Unknown] Audience Development Manager Antibiotics: NA Discharge Medications: Refer to the Discharge Home Medication list for PRN reason. PICC Care - Routine: N/A - Orders Services needed: Home Care, Registered Nurse, Physical Therapy, Occupational Therapy Home Care Face to Face: I certify that this patient was under my care and that I had the required [id number] encounter meeting the encounter requirements on the discharge day. My findings support the fact that the patient is homebound as defined in Home Care Face to Face Continued: CMS Chapter 7 Medicare Benefits Manual 30.1.1 , The condition of the patient is such that there exists a normal inability to leave home and consequently, leaving home would require a considerable and taxing effort. Oxygen: NA Diet Recommendation: cardiac -low fat low salt Weigh Patient: daily Cheng: Not applicable Adelso Stockings Discontinue Date: while edema lasts - Labs/Radiology BMP Date: 01/13/17 Call or Fax Lab and Imaging Results to: Dr. Bola Nunez - Follow Up Care Current Providers and Referrals: Jenny Garcia MD [Primary Care Provider] - As per Instructions Eliud Liang MD [Medical Doctor] - (please follow-up as scheduled 01/23) Gurwinder Wiggins MD [[facility] Primary Care Provider] - (please schedule outpatient consultation in 1-2 weeks) Solo Nunez MD [Medical Doctor] - (please follow-up as scheduled 01/14)
--- NOTE | 2017-01-09 15:14 | PDIAF ---
- Diagnosis Diagnosis: Acute pericardial/pleural effusions Code Status: Do Not Resuscitate - Medication Management Discharge Medications: Medications to Continue on Transfer Acetaminophen [Tylenol ES 500 mg (*)] 500 mg PO BID PRN 03/27/14 [Last Taken 3 Days Ago ~12/28/16] Alendronate Sodium [Fosamax 70 MG (*)] 70 mg PO MO@0700 03/27/14 [Last Taken ] Allopurinol [Allopurinol 300 MG (RX)] 450 mg PO DAILY 03/27/14 [Last Taken 12/30] Cholecalciferol Vit D3 [Vitamin D3 (*)] 1,000 units PO BID 03/27/14 [Last Taken 12/30/16 09:00] Sitagliptin Phos/Metformin HCl [Janumet 50-500 mg Tablet] 1 each PO BIDMEAL [Last Taken 12/29/16 18:00] Levothyroxine [Synthroid 75 mcg (*)] 75 mcg PO DAILY06 03/13/16 [Last Taken ] Insulin Detemir [Levemir] 22 unit SQ BID #100 ml 01/03/17 [Last Taken Unknown] Metoprolol Tartrate [Lopressor 50 mg (*)] 25 mg PO BID 01/05/17 [Last Taken Unknown] Mirabegron [Myrbetriq] 25 mg PO DAILY 01/05/17 [Last Taken Unknown] Omeprazole 40 mg PO DAILY PRN 01/05/17 [Last Taken Unknown] Colchicine [Colchicine (*)] 0.6 mg PO BID #60 ea 01/09/17 [Last Taken Unknown] Furosemide 20 mg PO DAILY #30 tablet 01/09/17 [Last Taken Unknown] Potassium Cl [Klor-Con 10 meq (RX)] 10 meq PO DAILY #30 tab 01/09/17 [Last Taken Unknown] metFORMIN HCL [Glucophage 500 mg (*)] 500 mg PO BIDMEAL #60 tab 01/09/17 [Last Taken Unknown] Construction Technology Instructor Antibiotics: NA Discharge Medications: Refer to the Discharge Home Medication list for PRN reason. PICC Care - Routine: N/A - Orders Services needed: Home Care, Registered Nurse, Master System Software Developer, Physical Therapy, Occupational Therapy Home Care Face to Face: I certify that this patient was under my care and that I had the required [id number] encounter meeting the encounter requirements on the discharge day. My findings support the fact that the patient is homebound as defined in Home Care Face to Face Continued: CMS Chapter 7 Medicare Benefits Manual 30.1.1 , The condition of the patient is such that there exists a normal inability to leave home and consequently, leaving home would require a considerable and taxing effort. Oxygen: NA Diet Recommendation: cardiac -low fat low salt Weigh Patient: daily Cheng: Not applicable Adelso Stockings Discontinue Date: while edema lasts - Labs/Radiology BMP Date: 01/13/17 Call or Fax Lab and Imaging Results to: Dr. Bola Nunez - Follow Up Care Current Providers and Referrals: Jenny Garcia MD [Primary Care Provider] - As per Instructions Eliud Liang MD [Medical Doctor] - (please follow-up as scheduled 01/23) Gurwinder Wiggins MD [[facility] Primary Care Provider] - (please schedule outpatient consultation in 1-2 weeks) Solo Nunez MD [Medical Doctor] - (please follow-up as scheduled 01/14)
--- NOTE | 2017-01-09 15:14 | PDIAF ---
- Diagnosis Diagnosis: Acute pericardial/pleural effusions Code Status: Do Not Resuscitate - Medication Management Discharge Medications: Medications to Continue on Transfer Acetaminophen [Tylenol ES 500 mg (*)] 500 mg PO BID PRN 03/27/14 [Last Taken 3 Days Ago ~12/28/16] Alendronate Sodium [Fosamax 70 MG (*)] 70 mg PO MO@0700 03/27/14 [Last Taken ] Allopurinol [Allopurinol 300 MG (RX)] 450 mg PO DAILY 03/27/14 [Last Taken 12/30] Cholecalciferol Vit D3 [Vitamin D3 (*)] 1,000 units PO BID 03/27/14 [Last Taken 12/30/16 09:00] Sitagliptin Phos/Metformin HCl [Janumet 50-500 mg Tablet] 1 each PO BIDMEAL [Last Taken 12/29/16 18:00] Levothyroxine [Synthroid 75 mcg (*)] 75 mcg PO DAILY06 03/13/16 [Last Taken ] Insulin Detemir [Levemir] 22 unit SQ BID #100 ml 01/03/17 [Last Taken Unknown] Metoprolol Tartrate [Lopressor 50 mg (*)] 25 mg PO BID 01/05/17 [Last Taken Unknown] Mirabegron [Myrbetriq] 25 mg PO DAILY 01/05/17 [Last Taken Unknown] Omeprazole 40 mg PO DAILY PRN 01/05/17 [Last Taken Unknown] Colchicine [Colchicine (*)] 0.6 mg PO BID #60 ea 01/09/17 [Last Taken Unknown] Furosemide 20 mg PO DAILY #30 tablet 01/09/17 [Last Taken Unknown] Potassium Cl [Klor-Con 10 meq (RX)] 10 meq PO DAILY #30 tab 01/09/17 [Last Taken Unknown] metFORMIN HCL [Glucophage 500 mg (*)] 500 mg PO BIDMEAL #60 tab 01/09/17 [Last Taken Unknown] Entry Specialist Antibiotics: NA Discharge Medications: Refer to the Discharge Home Medication list for PRN reason. PICC Care - Routine: N/A - Orders Services needed: Home Care, Registered Nurse, Master Tracer Bullet Section Supervisor, Physical Therapy, Occupational Therapy Home Care Face to Face: I certify that this patient was under my care and that I had the required [id number] encounter meeting the encounter requirements on the discharge day. My findings support the fact that the patient is homebound as defined in Home Care Face to Face Continued: CMS Chapter 7 Medicare Benefits Manual 30.1.1 , The condition of the patient is such that there exists a normal inability to leave home and consequently, leaving home would require a considerable and taxing effort. Oxygen: NA Diet Recommendation: cardiac -low fat low salt Weigh Patient: daily Cheng: Not applicable Adelso Stockings Discontinue Date: while edema lasts - Labs/Radiology BMP Date: 01/13/17 Call or Fax Lab and Imaging Results to: Dr. Bola Nunez - Follow Up Care Current Providers and Referrals: Jenny Garcia MD [Primary Care Provider] - As per Instructions Eliud Liang MD [Medical Doctor] - (please follow-up as scheduled 01/23) Gurwinder Wiggins MD [[facility] [place] Primary Care Provider] - (please schedule outpatient consultation in 1-2 weeks) Solo Nunez MD [Medical Doctor] - (please follow-up as scheduled 01/14)
--- NOTE | 2017-01-09 15:28 | PDDCSUM ---
Discharge Summary Discharge Summary: DISCHARGE SUMMARY FOLLOW-UP ITEMS: 1. Creatinine BUN and lytes next Friday to be followed up by Dr. Solo Nunez 2. Outpatient echocardiogram next Friday to be followed up by Dr. Solo Nunez 3. Outpatient colonoscopy DATE OF ADMISSION: 01/05/2017 DATE OF DISCHARGE: 01/09/2017 DISCHARGE DIAGNOSES: 1. Acute pericardial effusion 2. Acute pleural effusion 3. Acute atelectasis 4. Acute hematuria 5. Paroxysmal atrial fibrillation 6. 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 Possible recurrent urinary tract infection with Enterobacter 8. 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 Chronic urinary incontinence 10. Diabetes mellitus type 2 with hyperglycemia 7. Acute mechanical fall CONSULTATIONS: Cardiology PROCEDURES / IMAGING: MRI of the abdomen demonstrating right-sided hemorrhagic renal cyst with possible cirrhosis, diagnostic thoracentesis, echocardiogram demonstrating pericardial effusion and pleural effusions comma chest CT demonstrating no evidence of malignancy CHIEF COMPLAINT: Acute mechanical fall SUBJECTIVE: Patient is feeling well at time of discharge, she has no complaints PHYSICAL EXAM ON DISCHARGE: Systolic blood pressure is 110, heart rate 70, afebrile overnight, satting well on room air, alert awake oriented x3, chronically ill-appearing, 1+ bilateral lower extremity edema, diffuse scattered ecchymoses, reduced air movement in the bilateral bases, without any inspiratory rhonchi, she has an audible rub on her sternum, reduced cardiac sounds laterally, no evidence of tachypnea LABS ON DISCHARGE: Liver panel unremarkable, INR 1.3, creatinine 0.9, potassium 3.7, white blood count 7000, hemoglobin 11.4, platelets 271009, an 8.8, rheumatoid factor 16, CRP 56, ESR 53 HOSPITAL COURSE BY PROBLEM: 1. Acute mechanical fall. The patient presented with acute mechanical fall potentially secondary to systemic weakness from the conditions which will be outlined below. The patient was ambulating safely time of discharge and she will resume home care with therapy services. 2. Acute pericardial and pleural effusions. The patient had notable bilateral pleural effusions as well as pericardial effusion, a evaluated on echocardiogram , a listing a cardiology consultation as well as a diagnostic thoracentesis. Patient's pleural fluid studies demonstrated an exudate of effusion by light's criteria, but the overall appearance was transudative, and I believe this likely cause of her pleural effusions are a combination of volume received during her most recent hospitalization for new onset atrial fibrillation and diabetic ketoacidosis, as well as reduced cardiac output in the setting of paroxysmal atrial fibrillation. Is unclear whether the pericardial effusion is related to either of these etiologies, or whether she experienced an isolated pericarditis resulting in the effusion. Her inflammatory markers are elevated, and she may warrant an outpatient rheumatologic evaluation, but she will follow up with Dr. Solo Nunez in the short term to repeat her echocardiogram and ensure that she is diuresing effectively. She did receive several doses of IV Lasix during this hospitalization, with good urine output, and she will be continued on 20 mg of oral Lasix daily as well as supplemental potassium, with follow-up labs on Friday. 3. Acute atelectasis. Secondary to compression from the above effusions, the patient had been weaned from supplemental oxygen at time of discharge. 4. Possible Enterobacter urinary tract infection. The patient has been experiencing which she believes has been recurrent urinary tract infections for at least the past year, with symptoms consisting of urinary frequency, incontinence, but very rarely has she experienced any dysuria or other systemic symptoms of infection. On 12/31, she did have a urinalysis which was interpreted as positive, and she was growing 100,000 Enterobacter, initiated on levofloxacin appropriately. She received 10 days of treatment for possible complicated urinary tract infection in the setting of frequent recurrence. She will not be continued on further antibiotics at this time. Abdominal imaging did demonstrate a possible sigmoid cystic fistula, and this could be the source of her current GI malaika in her urinary system. Consequently, I have recommended a repeat outpatient colonoscopy, which should be arranged the patient's primary care provider office after she has stabilized her cardiopulmonary and other genitourinary issues. 5. Paroxysmal atrial fibrillation. Patient has recently diagnosed paroxysmal atrial fibrillation and she fluctuated in out of sinus rhythm during this hospitalization. She has been maintained on metoprolol which seems to be providing adequate rate and rhythm control, but she should have an outpatient ZIO patch or linq recorder to gauge her total AFib burden. This can be arranged through Dr. Solo Nunez office. Her systemic anticoagulation was discontinued secondary to her gross hematuria, and Dr. Nunez will reassess her situation next week, and consider whether to initiate aspirin or systemic anticoagulation for CVA prevention. 6. Acute hematuria. Secondary to systemic anticoagulation, she had been on Pradaxa for approximately for 5 days, this was discontinued and her hematuria resolved. She will be following up with her primary urologist Dr. Surjit Liang on 01/23, to address her chronic urinary issues. 7. Hepatitis-C virus with possible cirrhosis. Based on imaging and hepatitis C virus lab result, would recommend that the patient's primary care provider perform quantitative evaluation of the virus, as well as regular hepatic function screening labs. 8. Diabetes mellitus type 2 with hyperglycemia. The patient has recently been lacks on her diabetic control, she has been focusing on her urologic issues. We encouraged the patient to utilize of a combination of long-acting insulin as well as Januvia and metformin. DISCHARGE MEDICATIONS: Please see official discharge medication reconciliation sheet in chart, continue all home medications with the discontinuation of levofloxacin, initiation of Lasix 20 mg daily, potassium chloride 10 mEq daily, discontinuation of Pradaxa. DISCHARGE INSTRUCTIONS: Please follow up with Dr. Solo Nunez on Friday next week, with echo and labs prior to that encounter; follow up with Dr. Surjit Liang on January 23 as scheduled; follow up with Dr. Roslyn Garcia thereafter. TIME SPENT: Greater than 30 minutes were spent on direct patient care, as well as discharge planning and preparation.
--- NOTE | 2017-01-09 15:42 | ASMTCMCOM ---
CM Note CM Note Notes: Spoke w/pt re; dc poc. Pt is current with [facility], will continue RN/PT/OT. CM received call from Eugenia at [facility], she had concerns for pt as is blind and pt has been falling at home. Requests home safety eval and addition of SW. CM notified [facility] at [facility] and she will have PT/OT safety evals done. Friend to pick pt up at 3:30, CM also offerred MOW but pt declined, CM available for any changes. Current dc Plan: Dc with [facility] RN/OT/PT/SW + home safety eval Date Signed: 01/09/2017 03:41 PM Electronically Signed By:Eve Fletcher RN
--- NOTE | 2017-01-09 15:42 | ASMTCMCOM ---
CM Note CM Note Notes: Spoke w/pt re; dc poc. Pt is current with [facility], will continue RN/PT/OT. CM received call from Eugenia at [facility], she had concerns for pt as is blind and pt has been falling at home. Requests home safety eval and addition of SW. CM notified [facility] at [facility] and she will have PT/OT safety evals done. Friend to pick pt up at 3:30, CM also offerred MOW but pt declined, CM available for any changes. Current dc Plan: Dc with [facility] RN/OT/PT/SW + home safety eval Date Signed: 01/09/2017 03:41 PM Electronically Signed By:Eve Fletcher RN
--- NOTE | 2017-01-09 15:42 | ASMTCMCOM ---
CM Note CM Note Notes: Spoke w/pt re; dc poc. Pt is current with [facility], will continue RN/PT/OT. CM received call from Eugenia at [facility], she had concerns for pt as is blind and pt has been falling at home. Requests home safety eval and addition of SW. CM notified [facility] at [facility] and she will have PT/OT safety evals done. Friend to pick pt up at 3:30, CM also offerred MOW but pt declined, CM available for any changes. Current dc Plan: Dc with [facility] RN/OT/PT/SW + home safety eval Date Signed: 01/09/2017 03:41 PM Electronically Signed By:Eve Fletcher RN
--- NOTE | 2017-01-10 09:38 | ASDISCHSUM ---
Discharge Information Plan Status:Home with Home Health Medically Cleared to Leave:01/08/2017 Discharge Date:01/09/2017 03:35 PM D/C Disposition:Home Health Service [facility] D/C Disposition:Home, Routine, Self-Care Projected Discharge Date:01/09/2017 12:00 AM Transportation at D/C:Friend Discharge Delay Reason: Follow-Up Date:01/09/2017 12:00 AM Discharge Slot: Final Diagnosis: Placement Information Referral Type:*Home Health Care Services Referral ID:[id number] Provider Name:[facility] Address 1:[address] [address] Address 2: City:[place] Selection Factors: State:[place] Patient Contact Information Contact Name:KAJALHILTONELOY Relationship: Address:[address] [facility] City:[place] Alternate Phone: State/Zip Code:[place] [address] Email: Financial Information Financial Class: Primary Plan Desc:MEDICARE INPATIENT Primary Plan Number:[id number] Secondary Plan Desc:[facility] Secondary Plan Number:[id number] Assessment Information [facility] CM Progress Note CM Stephanie LANDON Note Notes: Pt was admitted after a fall at home with afib and hematuria. She was discharged home 2 days ago with [facility] after hospitalization for a fall. Her is blind. CM will follow for any d/c needs. Date Signed: 01/05/2017 05:04 PM Electronically Signed By:STARR Christensen [facility] CM Progress Note CM Note CM Note Notes: CM met w/ pt for dispo planning. PT is recommending HC and OT is recommending home independent. Pt is agreeable to having HC services through [facility]. CM sent updates to [facility]. CM available for changes. Date Signed: 01/07/2017 10:08 AM Electronically Signed By:ELAYNE Mills [facility] Progress Note CM Note CM Note Notes: Spoke w/pt re; dc poc. Pt is current with [facility], will continue RN/PT/OT. CM received call from Eugenia at [facility], she had concerns for pt as is blind and pt has been falling at home. Requests home safety eval and addition of SW. CM notified Alexandra at [facility] and she will have PT/OT safety evals done. Friend to pick pt up at 3:30, CM also offerred MOW but pt declined, CM available for any changes. Current dc Plan: Dc with [facility] RN/OT/PT/SW + home safety eval Date Signed: 01/09/2017 03:41 PM Electronically Signed By:Eve Fletcher RN Intervention Information Intervention Type:*IM-Signed Date of Service:01/09/2017 02:19 PM Patient Type:Inpatient Staff Member:Anika Gilliland Hours: Discipline: Severity: Comment:
--- NOTE | 2017-01-10 09:38 | ASDISCHSUM ---
Discharge Information Plan Status:Home with Home Health Medically Cleared to Leave:01/08/2017 Discharge Date:01/09/2017 03:35 PM D/C Disposition:Home Health Service [facility] D/C Disposition:Home, Routine, Self-Care Projected Discharge Date:01/09/2017 12:00 AM Transportation at D/C:Friend Discharge Delay Reason: Follow-Up Date:01/09/2017 12:00 AM Discharge Slot: Final Diagnosis: Placement Information Referral Type:*Home Health Care Services Referral ID:[id number] Provider Name:[facility] Address 1:[address] [address] Address 2: City:[place] Selection Factors: State:[place] Patient Contact Information Contact Name:KAJALHILTONELOY Relationship: Address:[address] [facility] City:[place] Alternate Phone: State/Zip Code:[place] [address] Email: Financial Information Financial Class: Primary Plan Desc:MEDICARE INPATIENT Primary Plan Number:[id number] Secondary Plan Desc:[facility] Secondary Plan Number:[id number] Assessment Information [facility] CM Progress Note CM Stephanie LANDON Note Notes: Pt was admitted after a fall at home with afib and hematuria. She was discharged home 2 days ago with [facility] after hospitalization for a fall. Her is blind. CM will follow for any d/c needs. Date Signed: 01/05/2017 05:04 PM Electronically Signed By:STARR Christensen [facility] CM Progress Note CM Note CM Note Notes: CM met w/ pt for dispo planning. PT is recommending HC and OT is recommending home independent. Pt is agreeable to having HC services through [facility]. CM sent updates to [facility]. CM available for changes. Date Signed: 01/07/2017 10:08 AM Electronically Signed By:ELAYNE Mills [facility] Progress Note CM Note CM Note Notes: Spoke w/pt re; dc poc. Pt is current with [facility], will continue RN/PT/OT. CM received call from Eugenia at [facility], she had concerns for pt as is blind and pt has been falling at home. Requests home safety eval and addition of SW. CM notified Alexandra at [facility] and she will have PT/OT safety evals done. Friend to pick pt up at 3:30, CM also offerred MOW but pt declined, CM available for any changes. Current dc Plan: Dc with [facility] RN/OT/PT/SW + home safety eval Date Signed: 01/09/2017 03:41 PM Electronically Signed By:Eve Fletcher RN Intervention Information Intervention Type:*IM-Signed Date of Service:01/09/2017 02:19 PM Patient Type:Inpatient Staff Member:Anika Gilliland Hours: Discipline: Severity: Comment:
--- NOTE | 2017-01-10 09:38 | ASDISCHSUM ---
Discharge Information Plan Status:Home with Home Health Medically Cleared to Leave:01/08/2017 Discharge Date:01/09/2017 03:35 PM D/C Disposition:Home Health Service [facility] D/C Disposition:Home, Routine, Self-Care Projected Discharge Date:01/09/2017 12:00 AM Transportation at D/C:Friend Discharge Delay Reason: Follow-Up Date:01/09/2017 12:00 AM Discharge Slot: Final Diagnosis: Placement Information Referral Type:*Home Health Care Services Referral ID:[id number] Provider Name:[facility] Address 1:[address] [address] Address 2: City:[place] Selection Factors: State:[place] Patient Contact Information Contact Name:KAJALHILTONELYO Relationship: Address:[address] [facility] City:[place] Alternate Phone: State/Zip Code:[place] [address] Email: Financial Information Financial Class: Primary Plan Desc:MEDICARE INPATIENT Primary Plan Number:[id number] Secondary Plan Desc[facility] Secondary Plan Number:[id number] Assessment Information [facility] CM Progress Note CM Stephanie LANDON Note Notes: Pt was admitted after a fall at home with afib and hematuria. She was discharged home 2 days ago with [facility] after hospitalization for a fall. Her is blind. CM will follow for any d/c needs. Date Signed: 01/05/2017 05:04 PM Electronically Signed By:STARR Christensen [facility] CM Progress Note CM Note CM Note Notes: CM met w/ pt for dispo planning. PT is recommending HC and OT is recommending home independent. Pt is agreeable to having HC services through [facility]. CM sent updates to [facility]. CM available for changes. Date Signed: 01/07/2017 10:08 AM Electronically Signed By:ELAYNE Mills [facility] Progress Note CM Note CM Note Notes: Spoke w/pt re; dc poc. Pt is current with [facility], will continue RN/PT/OT. CM received call from Eugenia at [facility], she had concerns for pt as is blind and pt has been falling at home. Requests home safety eval and addition of SW. CM notified Alexandra at [facility] and she will have PT/OT safety evals done. Friend to pick pt up at 3:30, CM also offerred MOW but pt declined, CM available for any changes. Current dc Plan: Dc with [facility] RN/OT/PT/SW + home safety eval Date Signed: 01/09/2017 03:41 PM Electronically Signed By:Eve Fletcher RN Intervention Information Intervention Type:*IM-Signed Date of Service:01/09/2017 02:19 PM Patient Type:Inpatient Staff Member:Anika Gilliland Hours: Discipline: Severity: Comment:
== END 2017-01-09 15:35 | disposition home or self-care (01) | DRG 187 ==
LOC: EDUNIT# → F3E 11:23
PROVIDERS: ADMIT Internal Medicine; ATTEND Internal Medicine
DX: J90 Pleural effusion, not elsewhere classified (principal); I31.3 Pericardial effusion (noninflammatory); J98.11 Atelectasis; E11.65 Type 2 diabetes mellitus with hyperglycemia; K63.2 Fistula of intestine; I48.0 Paroxysmal atrial fibrillation; N39.0 Urinary tract infection, site not specified; B96.89 Other specified bacterial agents as the cause of diseases classified elsewhere; R31.9 Hematuria, unspecified; T45.515A Adverse effect of anticoagulants, initial encounter; R32 Unspecified urinary incontinence; M10.9 Gout, unspecified; E03.9 Hypothyroidism, unspecified; I10 Essential (primary) hypertension; E78.5 Hyperlipidemia, unspecified; Z86.19 Personal history of other infectious and parasitic diseases; Z79.01 Long term (current) use of anticoagulants; Z91.81 History of falling; Z79.4 Long term (current) use of insulin
CPT/HCPCS: 97116-GP; 97162-GP; 97165-GO; 97530-GP; A9585; G0472; G8978-GP-CJ; G8979-GP-CI; G8987-GO-CI; G8988-GO-CI; G8989-GO-CI; J1650; J1815; J1940; Q9967

== ENCOUNTER → 2017-01-14 | Outpatient (CLI) | payer OTHER | LOC: BHLMT 13:15 | PROVIDERS: ATTEND Internal Medicine Cardiovascular Disease | DX: I31.3 Pericardial effusion (noninflammatory) (principal) | CPT/HCPCS: 93306-PO ==

== ENCOUNTER 2017-02-10 17:37 | Inpatient (IN) | payer OTHER ==
--- NOTE | 2017-02-10 17:33 | EDPHY ---
HPI/HX/ROS/PE/MDM Narrative: CHIEF COMPLAINT: Fell down 4 stairs HPI: This patient is an anticoagulated 76 y/o female with history of diabetes, atrial fibrillation, hypertension arriving via EMS following a fall at home shortly prior to arrival. She was walking up a flight of stairs and lost her balance, falling backwards down four stairs. She sustained an injury to the back of her head and to her right hand. She denies loss of consciousness. She denies neck or back pain. Per EMS report, she has had several EMS calls recently , usually associated with high blood glucose and falls. BGL in transport today was 426. The patient was recently admitted 12/30/16 and 01/05/17 for a mechanical falls associated with UTI and hyperglycemia. She states she does not remember what anticoagulant she was switched to. She currently denies complaints other than her head injury. REVIEW OF SYSTEMS: Aside from elements discussed in the HPI, a comprehensive 10-point review of systems was reviewed and is negative. PMH: 1. Diabetes mellitus type II 2. Atrial fibrillation 3. Hypertension 4. Hyperlipidemia 5. Neuropathy 6. Hepatitis C from blood transfusion 7. Gout 8. Recurrent UTIs 9. Hysterectomy 10. Orthopedic surgery (right leg) 11. Pelvic adhesions. Past medical records reviewed including admission 01/05/17 for fall, UTI, atrial fibrillation. SOCIAL HISTORY: . at bedside who is blind. Nonsmoker. No alcohol use. PHYSICAL EXAM: General:Patient is alert, in no acute distress. Head: 2cm stellate laceration to right occiput. ENT:Eyes are normal to inspection. ENT inspection normal. Neck: Normal inspection. Full range of motion. Respiratory:No respiratory distress. Breath sounds normal bilaterally. Cardiovascular: Regular rate and rhythm. Strong peripheral pulses. Normal cap refill. Abdomen:The abdomen is nontender to palpation. There are no peritoneal signs. There are normal bowel sounds. Back: Normal to inspection. No tenderness to palpation. Skin: Normal color. No rash. Warm and dry. Extremities: Bandage is present on right hand, which was removed, revealing skin tear with mild bleeding - no suturable laceration. Normal appearance. Full range of motion. Neuro: Oriented x3. Normal motor function. Normal sensory function. ED Course: 17:35 Met EMS at bedside. Anticoagulated 76 year old female presents following a fall this afternoon. Exam reveals 2cm stellate laceration to right occiput. Plan for CT head. IV established. Plan for EKG, chest x-ray, labs including CBC, BMP, troponin, UA. 18:[address] Vela, radiologist. CT head negative for acute processes. 19:[address] Raymundo, radiologist. Chest x-ray positive for old rib fractures, no acute fractures. Verbal consent was obtained from the patient. The stellate, macerated 2cm laceration on the right occipital area was anesthetized using lidocaine. The wound was cleaned with standard ED protocol. The wound was repaired in single layer technique with Dermabond. The wound repair was simple. The procedure was performed by myself, Dr. Genao. UA positive for UTI. Plan to administer 1gm ceftriaxone. Patient is hyperglycemic, BGL 472. 20:[address] Sharp, hospitalist. She accepts admission. MDM: This is an elderly patient who presents with recurrent fall and weakness. The etiology of her fall is likely multi-factorial including some degree of deconditioning, but she also has a UTI and hyperglycemia which are no doubt contributing. Evaluation in the ED reveals no severe injuries - CTH and CXR are both negative for serious trauma. Saclp laceration was repaired. On re- evaluation, the patient is asymptomatic. I discussed options with the patient, who is reluctant to be admitted to the hospital as she helps take care of her . Ultimately, I explained that she is at high risk for yet another fall and given her co-morbidities and active UTI, that it would be unsafe to discharge her. She agrees to admission. - Data Points Imaging Results: Imaging Impressions Head CT 02/10/17 17:46 Impression: 1. Negative for hemorrhage or other acute posttraumatic sequela. 2. Elderly brain with atrophy and probable white matter small vessel disease. Results called and discussed with Trenton Genao MD on 02/10/2017 at 18:56 Chest X-Ray 02/10/17 17:47 Impression: Improvement of the atelectasis and pleural effusion seen at both lung bases previously, with some residual atelectasis at the left lung base. Heart size is now normal and the prior visualized pericardial effusion is resolved. Imaging: Discussed imaging studies w/ industrial machine assembler Radiologist Laboratory Results: Laboratory Results 02/10/17 18:00 02/10/17 18:00 02/10/17 02/10/1702/10/17 19:35 18:00 18:00 WBC 6.76 10^3/uL 10^3/uL (3.80-9.50) RBC 4.32 10^6/uL 10^6/uL (4.18-5.33) Hgb 13.3 g/dL g/dL (12.6-16.3) Hct 39.1 % % (38.0-47.0) MCV 90.5 fL fL (81.5-99.8) MCH 30.8 pg pg (27.9-34.1) MCHC 34.0 g/dL g/dL (32.4-36.7) RDW 12.7 % % (11.5-15.2) Plt Count 162 10^3/uL 10^3/uL (150-400) MPV 10.3 fL fL (8.7-11.7) Neut % (Auto) 81.4 % H % (39.3-74.2) Lymph % (Auto) 9.2 % L % (15.0-45.0) Warrick % (Auto) 6.2 % % (4.5-13.0) Eos % (Auto) 2.2 % % (0.6-7.6) Baso % (Auto) 0.6 % % (0.3-1.7) Nucleat RBC Rel Count 0.0 % % (0.0-0.2) Absolute Neuts (auto) 5.50 10^3/uL 10^3/uL (1.70-6.50) Absolute Lymphs (auto) 0.62 10^3/uL L 10^3/uL (1.00-3.00) Absolute Monos (auto) 0.42 10^3/uL 10^3/uL (0.30-0.80) Absolute Eos (auto) 0.15 10^3/uL 10^3/uL (0.03-0.40) Absolute Basos (auto) 0.04 10^3/uL 10^3/uL (0.02-0.10) Absolute Nucleated RBC 0.00 10^3/uL 10^3/uL (0-0.01) Immature Gran % 0.4 % % (0.0-1.1) Immature Gran # 0.03 10^3/uL 10^3/uL (0.00-0.10) Sodium 138 mEq/L mEq/L (134-144) Potassium 4.4 mEq/L mEq/L (3.5-5.2) Chloride 96 mEq/L L mEq/L (97-110) Carbon Dioxide 26 mEq/l mEq/l (22-31) Anion Gap 16 mEq/L mEq/L (8-16) BUN 26 mg/dL H mg/dL (7-23) Creatinine 1.1 mg/dL H mg/dL (0.6-1.0) Estimated GFR 48 Glucose 472 mg/dL H mg/dL (70-100) Calcium 10.0 mg/dL mg/dL (8.5-10.4) Troponin I < 0.012 ng/mL ng/mL (0.000-0.034) Urine Color YELLOW Urine Appearance MODERATELY TURBID Urine pH 6.0 (5.0-7.5) Ur Specific Benson 1.027 (1.002-1.030) Urine Protein 2+ H (NEGATIVE) Urine Ketones 1+ H (NEGATIVE) Urine Blood 2+ H (NEGATIVE) Urine Nitrate POSITIVE H (NEGATIVE) Urine Bilirubin NEGATIVE (NEGATIVE) Urine Urobilinogen NEGATIVE EU EU (0.2-1.0) Ur Leukocyte Esterase 3+ H (NEGATIVE) Urine RBC 25-50 /hpf H /hpf (0-3) Urine WBC 50-182 /hpf H /hpf (0-3) Ur Epithelial Cells NONE SEEN /lpf /lpf (NONE-1+) Urine Bacteria 1+ /hpf H /hpf (NONE SEEN) Urine Glucose 3+ H (NEGATIVE) Medications Given: Discontinued Medications Ceftriaxone Sodium/Dextrose (Rocephin 1 Gm (Premix)) 50 mls @ 100 mls/hr IV EDNOW ONE PRN Reason: Protocol Stop: 02/10/17 20:46 Last Admin: 02/10/17 20:51 Dose: 50 mls General Initial Vital Signs: Initial Vital Signs Temperature (C) 36.5 C 02/10/17 17:47 Heart Rate 101 H 02/10/17 17:47 Respiratory Rate 16 02/10/17 17:47 Blood Pressure 137/73 H 02/10/17 17:47 O2 Sat (%) 94 02/10/17 17:47 O2 Delivery Mode Room Air Allergies/Adverse Reactions: morphine Allergy (Verified 03/26/14 21:51) Vomiting nitrofurantoin Allergy (Verified 12/30/16 22:17) Home Medications: Medication Instructions Recorded Acetaminophen [Tylenol ES 500 mg 500 mg PO BID PRN 03/27/14 (*)] Alendronate Sodium [Fosamax 70 MG 70 mg PO MO@0700 03/27/14 (*)] Allopurinol [Allopurinol 300 MG 450 mg PO DAILY 03/27/14 (RX)] Cholecalciferol Vit D3 [Vitamin D3 1,000 units PO BID 03/27/14 (*)] Sitagliptin Phos/Metformin HCl 1 each PO DAILY@1700 03/27/14 [Janumet 50-500 mg Tablet] Levothyroxine [Synthroid 75 mcg 75 mcg PO DAILY06 03/13/16 (*)] Insulin Detemir [Levemir] 22 unit SQ BID #100 ml 01/03/17 Metoprolol Tartrate [Lopressor 50 25 mg PO BID 01/05/17 mg (*)] Omeprazole 40 mg PO DAILY PRN 01/05/17 Colchicine [Colchicine (*)] 0.6 mg PO BID #60 ea 01/09/17 metFORMIN HCL [Glucophage 500 mg 500 mg PO DAILY@0800 02/10/17 (*)] Departure - Departure Disposition: [facility] Inpatient Acute Clinical Impression: Fall at home Qualifiers: Encounter type: initial encounter Qualified Code(s): W19.XXXA - Unspecified fall, initial encounter UTI (urinary tract infection) Qualifiers: Urinary tract infection type: acute cystitis Hematuria presence: with hematuria Qualified Code(s): N30.01 - Acute cystitis with hematuria Condition: Fair Report Scribed for: Trenton Genao Report Scribed by: Abbi Resendiz Date of Report: 02/10/17 Time of Report: 17:33 Physician Review and Approval Statement: Portions of this note were transcribed by an ED scribe. I personally performed the history, physical exam, and medical decision making; and confirm the accuracy of the information in the transcribed note.
[2017-02-10 18:37] LABS: % IMMATURE GRANULYOCYTES 0.4 % (0.0-1.1); ABSOLUTE IMMATURE GRANULOCYTES 0.03 10^3/uL (0.00-0.10); ADD DIFF? NO; ADD MORPH? NO; ADD SCAN? NO; ATYPICAL LYMPHOCYTE FLAG 10 (0-99); FRAGMENT RBC FLAG 0 (0-99); HEMATOCRIT 39.1 % (38.0-47.0); HEMOGLOBIN 13.3 g/dL (12.6-16.3); LEFT SHIFT FLG 0 (0-99); LIPEMIA HEMOLYSIS FLAG 90 (0-99); MEAN CELL HEMOGLOBIN 30.8 pg (27.9-34.1); MEAN CELL VOLUME 90.5 fL (81.5-99.8); MEAN PLATELET VOLUME 10.3 fL (8.7-11.7); PLATELET CLUMPS FLAG 10 (0-99); PLATELET COUNT 162 10^3/uL (150-400); RED BLOOD CELL COUNT 4.32 10^6/uL (4.18-5.33); RED CELL DISTRIBUTION WIDTH 12.7 % (11.5-15.2)
[2017-02-10 18:47] LABS: ANION GAP 16 mEq/L (8-16); CARBON DIOXIDE 26 mEq/l (22-31); CHLORIDE 96 mEq/L (97-110); CREATININE 1.1 mg/dL (0.6-1.0); GLOMERULAR FILTRATION RATE 48; GLUCOSE 472 mg/dL (70-100); POTASSIUM 4.4 mEq/L (3.5-5.2); SODIUM 138 mEq/L (134-144)
[2017-02-10 18:59] LABS: TROPONIN I < 0.012 ng/mL (0.000-0.034)
[2017-02-10 19:58] LABS: COLOR YELLOW; LEUKOCYTE ESTERASE,URINE 3+ (NEGATIVE); NITRITE,URINE POSITIVE (NEGATIVE)
[2017-02-10 20:15] LABS: BACTERIA 1+ /hpf (NONE SEEN); RBC,URINE 25-50 /hpf (0-3); WBC,URINE 50-182 /hpf (0-3)
[2017-02-10] MEDS ORDERED: SKIN ADHESIVE (DERMABOND) 1 EACH TP ONE (20:17)
[2017-02-10] MEDS ORDERED: ONDANSETRON 4 MG/2 ML VIAL IVP PRN (22:24)
[2017-02-10] MEDS ORDERED: D50W 25 GM/50 ML SYR IVP PRN (22:35)
[2017-02-10] MEDS ORDERED: NS 1,000 ML IV SCH (22:45)
[2017-02-11] MEDS: INSULIN GLARGINE 100 UNITS/ML SYRINGE SC SCH ×3 (00:40→21:00)
[2017-02-11] MEDS: COLCHICINE 0.6 MG CAP/TAB PO SCH ×3 (03:12→20:58)
[2017-02-11] MEDS: ACETAMINOPHEN 325 MG TAB PO PRN ×3 (03:12→18:23)
[2017-02-11] MEDS: LEVOTHYROXINE 75 MCG TAB PO SCH (04:55)
[2017-02-11 05:15] LABS: % IMMATURE GRANULYOCYTES 0.4 % (0.0-1.1); ABSOLUTE IMMATURE GRANULOCYTES 0.02 10^3/uL (0.00-0.10); ADD DIFF? NO; ADD MORPH? NO; ADD SCAN? NO; ATYPICAL LYMPHOCYTE FLAG 20 (0-99); FRAGMENT RBC FLAG 0 (0-99); HEMATOCRIT 34.3 % (38.0-47.0); HEMOGLOBIN 12.1 g/dL (12.6-16.3); LEFT SHIFT FLG 0 (0-99); LIPEMIA HEMOLYSIS FLAG 90 (0-99); MEAN CELL HEMOGLOBIN 31.8 pg (27.9-34.1); MEAN CELL HEMOGLOBIN CONCENTR. 35.3 g/dL (32.4-36.7); PLATELET CLUMPS FLAG 0 (0-99); PLATELET COUNT 133 10^3/uL (150-400); RED BLOOD CELL COUNT 3.81 10^6/uL (4.18-5.33); RED CELL DISTRIBUTION WIDTH 12.8 % (11.5-15.2)
[2017-02-11 05:45] LABS: ANION GAP 15 mEq/L (8-16); CALCIUM 8.8 mg/dL (8.5-10.4); CARBON DIOXIDE 21 mEq/l (22-31); CHLORIDE 101 mEq/L (97-110); CREATININE 0.7 mg/dL (0.6-1.0); GLOMERULAR FILTRATION RATE > 60; GLUCOSE 343 mg/dL (70-100); POTASSIUM 4.2 mEq/L (3.5-5.2); SODIUM 137 mEq/L (134-144)
[2017-02-11] MEDS ORDERED: INSULIN REGULAR HUMAN 100 UNIT/ML SC SCH (07:30)
--- NOTE | 2017-02-11 07:51 | GHP ---
[f rep st] HISTORY AND PHYSICAL DATE OF ADMISSION: 02/10/2017 SOURCE: Patient provides history, appears reliable. Her EMR was reviewed and case discussed with radha accepting provider. CHIEF COMPLAINT: Fall. HISTORY OF PRESENT ILLNESS: This is a very pleasant 76-year-old female with past medical history sig nificant for diabetes type 2 uncontrolled, benign essential hypertension, GERD, CKD stage 3, gout, os teoporosis, history of recurrent falls, history of recurrent UTI, history of urinary incontinence, he patitis C secondary to transfusion and lower extremity peripheral neuropathy who presents to the [facility] department today following a mechanical fall. The patient reports that she was going up stairs . She was using her cane, somehow lost balance. She is not able to provide any additional informati on as she reports the next thing she knew she was falling and on the ground. The patient did hit the back of her head. She denies any loss of consciousness. She did develop a scalp laceration with "b leeding everywhere." She does complain of a headache post fall but prior to the fall she denies any lightheadedness, changes in vision, neck or back pain, dyspnea, chest pain, or lower extremity weakne ss. The patient does report that during the daytime, she had been increasingly fatigued. She has cifuentes d increased frequency, which is relatively unchanged. She denies any dysuria. No gross hematuria re cently. The patient does live at home with her who is blind. She was recently admitted to [facility] for similarly fall and UTI. The patient did recently have home health assigned to assist patient with her medications, insulin and diabetes management which she reports she is increasingly having more difficulty doing so. The patient states that she is interested in consideration for [facility] or even independent living facilities. Following patient's fall, in the emergency department patient also reports that she has been having s ome right lateral chest wall pain, worse with movement or inspiration. She also is complaining that her right wrist is sore and that it has increasingly been swollen. In the emergency department, patient was noted to have a scalp laceration which was repaired. She cifuentes d a small abrasion to her right hand which was wrapped. REVIEW OF SYSTEMS: Negative except as noted above. ALLERGIES: Morphine and nitrofurantoin. HOME MEDICATIONS: 1. Omeprazole 40 mg p.o. daily p.r.n. 2. Metoprolol tartrate 25 mg p.o. b.i.d. 3. Levothyroxine 75 mcg p.o. daily. 4. Levemir 22 units subcu b.i.d. 5. Colchicine 0.6 mg p.o. b.i.d. 6. Vitamin D3 1000 units p.o. b.i.d. 7. Allopurinol 450 mg p.o. daily. 8. Fosamax 70 mg p.o. weekly on Mondays. 9. Tylenol 500 mg p.o. b.i.d. p.r.n. for pain. 10. Janumet 50/500 one tab p.o. daily at 5. 11. Metformin 500 mg p.o. daily at 8 in the morning. PAST MEDICAL HISTORY: Significant for diabetes type 2, hypertension, GERD, CKD stage 3, gout, osteop orosis, history of recurrent falls, history of UTI, hepatitis C from transfusion, neuropathy in both feet, atrial fibrillation, hematuria, and urinary incontinence. 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 FAMILY HISTORY: Significant for father with diabetes type 2. Sister with breast cancer. SOCIAL HISTORY: Patient lives in a home with her . She has been multiple years. Pauline beltrán's is legally blind. Patient does utilize a cane. She does not wear any home oxygen. Patient quit smoking approximately 30 years ago. She drinks 1 cocktail on a daily basis in the [employer] ng before dinner. CODE STATUS: DNR/DNI. PHYSICAL EXAMINATION: VITAL SIGNS: Upon arrival to the ED, blood pressure 137/73, heart rate is 101 , respiratory rate 16, O2 saturation 94% on room air with a temperature 36.5. Bedside blood pressure 199/100. GENERAL: No acute distress, pleasant, elderly, frail-appearing female who is lying quietl y in bed, awake, pleasant, oriented x4 and reactive. HEENT: Head normocephalic, anteriorly atraumat ic. Patient with closure on the posterior scalp. Eyes: Extraocular muscles are intact. Pupils equ al, round, slightly decreased reactivity to light bilaterally but symmetric. No scleral icterus or c onjunctival injection. ENT: Mucous membranes appear slightly dry. No oropharyngeal erythema or exu dates. Dentition is fair. NECK: Supple. Trachea midline. CV: Regular rate and rhythm. No murmu rs, rubs, or gallops. Slightly distant heart sounds. RESPIRATORY: Lungs are clear to auscultation bilaterally. No wheezes, rales, or rhonchi appreciated. Patient has slightly decreased movement in the bases, but also with decreased inspiratory effort. ABDOMEN: Positive bowel sounds. Soft, nonte nder to palpation. No rebound, guarding, or masses appreciated. : No suprapubic tenderness to pa lpation. No Cheng in place. EXTREMITIES: No cyanosis, clubbing, or edema appreciated. Strength gr ossly normal. The patient moves all extremities while lying in bed. NEURO: Cranial nerves 2-12 int act, symmetric bilaterally. Patient is awake, alert, and oriented x4. Moves all extremities. Sensa tion intact to upper and lower extremities. PSYCH: Does appear slightly anxious, but she is pleasan t and cooperative. Thought process, content, and questions are appropriate. LABORATORY STUDIES: WBC 6.76, H and H 13.3 and 39.1, MCV 90.5, platelet count is 162, neutrophil per cent 81.4, no bands. Sodium is 138, potassium 4.4, chloride 96, CO2 26, BUN is 26, creatinine 1.1, G FR of 48. Previous creatinine is 0.9. Glucose 472, calcium 10.0. Troponin less than 0.012. UA wit h a specific gravity 1.027, pH of 6.0, moderately turbid, 2+ protein, 1+ ketone, 2+ blood, positive n itrites, 3+ leukocyte esterase, rbc's 25-50, wbc's 50-182. Epithelial cells, none seen. Bacteria 1+ , glucose 3+. IMAGING STUDIES: CT head negative for hemorrhage or other acute posttraumatic sequelae. Elderly bra in with atrophy, probable white matter small-vessel disease. Chest x-ray: Improvement of atelectasis and pleural effusion seen in both lung bases previously with some residual atelectasis in the left base. Heart size now normal with prior visualized pericardial effusion resolved. Old humerus fracture. Diffuse demineralization. Old healed right lateral rib f racture, stable. ASSESSMENT AND PLAN: Pleasant 76-year-old female who presents with fall. 1. Patient with what she feels to be a mechanical fall versus related to generalized deconditioning or in setting of hyperglycemia or recurrent urinary tract infection. Patient is not septic at this t augustin. Heart rate is acceptable in the 90s to 100s. She has a previous history of admissions for atri al fibrillation with rapid ventricular response. She also appears to be slightly dehydrated with a m ild acute kidney injury. Patient will receive intravenous fluid hydration overnight. Physical Thera py, occupational Therapy will be consulted. Additionally, case management will also be consulted for resources of either assisted living or independent living facilities. 2. The patient's urinary tract infection with persistent symptoms of frequency and incontinence will be treated at this time with Rocephin. Patient's most recent UA in the system had multiple organism s on smear, but no growth. Prior to that, patient had a history of Enterobacter and was treated appr opriately with Levaquin. There were multiple resistances on that culture but previously Escherichia coli, additional Enterobacter, Proteus mirabilis organisms were sensitive to Rocephin. Patient is af ebrile. If she develops signs of sepsis or fever, will need to transition to Levaquin. The patient states that she has plans to follow up closely with Urology and would prefer not to have additional t reatment for any suspected urinary tract infection. Again, she did receive a single dose of Rocephin in the emergency department already. Will await cultures and then further discuss with the patient. 3. Right rib pain. The patient with an old rib fracture in place, but she is complaining of pain wi th recent fall and has history of osteoporosis. We will plan to obtain a rib series in the morning. 4. Diabetes type 2, uncontrolled with neuropathy. The patient currently with acute kidney injury, s o will hold her metformin pending repeat BMP after fluids. Will continue with Lantus 22 units twice daily for long-acting formulary option. Also, we will place patient on a regular insulin sliding sca le and be placed on ADA diet. 5. Scalp laceration status post closure. 6. Benign essential hypertension. Patient with some asymptomatic elevated blood pressures on the fl oor. Repeated have been slightly elevated into the 160s. Will plan to resume patient's home medicat ions and make hydralazine available as needed. We will need to hold her losartan until patient's brenda al function improves. 7. Gastroesophageal reflux disease. Continue proton pump inhibitor per formulary. 8. Chronic kidney disease, stage 3 with acute kidney injury. Intravenous fluids and repeat BMP as n oted above. 9. Gout. Continue colchicine and allopurinol. 10. Osteoporosis. The patient may resume her Fosamax once she is discharged. 11. Hepatitis C. 12. Neuropathy. 13. Atrial fibrillation. Rate is acceptable at this time. Resume patient's beta kimberly. 14. Anemia is improved from her last hospitalization at discharge 01/09/2017. She does have a histo ry of hematuria and was previously on Pradaxa, which was discontinued. The patient without any compl aints of symptoms of hematuria and so we will continue to monitor CBC. 15. Right wrist pain. The patient noting increasing swelling and stable pain in her right wrist. W e will plan for imaging to evaluate for any possible fracture. 16. Fluid, electrolyte, nutrition. Patient will be receiving intravenous fluids overnight as she do es appear dry and has acute kidney insufficiency. Electrolyte replacement as needed. 17. Prophylaxis: Sequential compression devices and Lovenox. 18. Disposition: Patient will be admitted observation at this time on the medical floor. Current p lans are to return home with home health, however, patient is in process of trying to create a plan w here she will be able to sell her home and move into an assisted or independent living style situatio n with her . Case Management has been consulted to assist. 19. Code status is do not resuscitate/do not intubate. /[id number]/MODL
[2017-02-11] MEDS: INSULIN REGULAR HUMAN 100 UNIT/ML SC SCH ×4 (08:32→20:59)
[2017-02-11] MEDS: ALLOPURINOL 300 MG TAB PO SCH (08:34)
[2017-02-11] MEDS: ENOXAPARIN 40 MG/0.4 ML SYR SC SCH (08:35)
[2017-02-11] MEDS ORDERED: PANTOPRAZOLE SODIUM 40 MG TAB PO PRN (09:00)
[2017-02-11] MEDS ORDERED: METOPROLOL TARTRATE 25 MG TAB PO SCH (09:00)
[2017-02-11] MEDS ORDERED: Insulin Detemir [Levemir] 22 UNIT SQ SCH (09:00)
[2017-02-11 10:24] LABS: HEMOGLOBIN A1C 11.2 % (4.0-6.0)
[2017-02-11] MEDS: metFORMIN HCL 500 MG TAB PO SCH (11:14)
--- NOTE | 2017-02-11 11:54 | ASMTCASEMG ---
Living Arrangements What is your living Answers: With Spouse arrangement? Who do you live with? Type Of Residence What kind of residence do Answers: House you live in? Discharge Plan Comments Coordination Status Comments Notes: Patient is a 76yo female who was admitted for a mechanical fall which left her with a scalp laceration. The patient also has a persistant UTI which was treated with Rocephin in the emergency room and Diabetes Type 2, with uncontrolled neuropathy. H and P states patient plans to return home with home health care but is also interested in exploring assisted living for the future. Patient is DNR. OT/PT have been ordered. D/C needs TBD. CM will follow. Date Signed: 02/11/2017 11:54 AM Electronically Signed By:Belen Rocha LCSW
[2017-02-11] MEDS ORDERED: BISACODYL 10 MG SUPP PR PRN (17:57)
[2017-02-11] MEDS ORDERED: MAGNESIUM HYDROXIDE 30 ML UDCUP PO PRN (17:57)
[2017-02-11] MEDS ORDERED: POLYETHYLENE GLYCOL 3350 17 GM PKT PO PRN (17:57)
[2017-02-11] MEDS ORDERED: LACTULOSE 20 GM/30 ML UDCUP PO PRN (17:57)
--- NOTE | 2017-02-11 18:12 | HOSPPROG ---
Hospitalist Progress Note Assessment/Plan: Assessment: 76-year-old female presents with acute mechanical fall resulting in right hip pain, right wrist pain, acute rib fracture Plan: 1. Rib fracture. Acute, right-sided, nondisplaced with possible hemo thorax on rib scan, resulting in atelectasis on chest x-ray, personally interpreted -pulmonary hygiene with respiratory therapy -pain control as needed with oxycodone immediate release -may significantly affect mobility, may require long term facility for safe discharge plan 2. Mechanical fall. Acute, new problem this provider, further workup indicated. Patient experienced a traumatic fall, with retropulsion down 4 stairs in her home, striking the posterior aspect of her right scalp, requiring laceration repair in the emergency department, with concomitant right leg pain, right wrist pain -x-ray of the right wrist demonstrates a healing cold fracture, likely exacerbated with the current fall, but no acute fracture, apply ice, pain control as needed -x-ray of the right hip demonstrates intact hardware, no dislocation, Lidoderm patch and heat pad as needed -discussed extensively with team coordinator, will hold on former trauma evaluation given that we have essentially performed a trauma evaluation at this time, and there did not appear to be any other issues warranting workup -patient remains a fall risk, physical therapy will continue to evaluate and reassess tomorrow 3. Scalp laceration. Treated with cecily, head CT without any intracranial hemorrhage 4. Paroxysmal atrial fibrillation. Currently under the care of Dr. Solo Nunez , continue metoprolol, systemic anticoagulation has previously been discontinued secondary to gross hematuria, will not continue systemic anticoagulation at this time given her recurrent falls and recent bleed -aspirin 81 mg for prophylaxis -up titrate metoprolol, monitor on telemetry 5. Acute kidney injury. Patient does not have a history of chronic kidney disease, her serum creatinine level has improved with IV fluids suggesting hypovolemic component prior to her presentation -continue monitor renal function and urine output 6. Atelectasis. Acute, secondary to rib fracture, present on chest x-ray, incentive spirometer and pulmonary hygiene 7. Pleural effusion. Left-sided, resolving from previous presentation, reviewed outside records including 01/09/[address] Eliud Weber, reporting the patient had a pericardial effusion and pleural effusion requiring aggressive diuresis -monitor volume status closely, hold on Lasix at this time given her acute kidney injury, but may reinitiate tomorrow depending on volume status 8. Diabetes mellitus type 2 with hyperglycemia. Patient has poorly controlled diabetes given her recent neglect while she focuses on her urologic issues, we have re-initiated her long acting insulin, metformin, insulin sliding scale, and will up titrate the long-acting insulin as needed -no evidence of DKA 9. Possible urinary tract infection. Evidenced by positive urinalysis, ongoing urinary symptoms, patient has long history of bacteriuria with question of recurrent urinary tract infections verses sigmoid vesicular fistula -patient sees Dr. Surjit Liang as an outpatient -reviewed outside records including organism sensitivities, patient's Enterobacter and E coli are sensitive to ceftriaxone, will give IV ceftriaxone x5 days and continue to reassess symptoms Diet. Diabetic Prophylaxis. High risk patient, Lovenox 40 Code. Do not resuscitate Disposition. Anticipated discharge uncertain this time, and upgraded to inpatient admission status given that anticipated length stay is greater than 48 hr for reasonable medical necessity including acute mechanical fall requiring further trauma workup, acute rib fractures requiring pulmonary hygiene , high risk comorbid conditions including acute kidney injury, pleural effusion , atelectasis, uncontrolled diabetes mellitus type 2 with hyperglycemia. Subjective: Patient with ongoing pain in her right lower extremity, right wrist Objective: Vital Signs Temp Pulse Resp BP Pulse Ox 36.7 C 97 18 142/79 H 93 02/11/17 16:19 02/11/17 16:19 02/11/17 16:19 02/11/17 16:19 02/11/17 16:19 Laboratory Results 02/11/17 04:54 02/11/17 04:54 02/10/17 02/11/17 02/12/17 05:59 05:59 05:59 Intake Total 50 Balance 50 - Physical Exam Constitutional: no apparent distress, chronically ill appearing, uncomfortable, No not in pain (Mild and right hand) Cardiovascular: irregularly irregular, tachycardia, No systolic murmur (Distant heart sounds), No edema Respiratory: inspiratory crackles, No reduced air movement, No expiratory wheeze , No bronchial breath sounds Gastrointestinal: normoactive bowel sounds, soft, non-tender abdomen, no palpable masses, No distension Genitourinary: no bladder fullness, no bladder tenderness Skin: other (Laceration right posterior scalp, soft tissue edema over the dorsum of the right hand with ecchymoses, mild tenderness, ecchymoses over the left knee without any tenderness) Musculoskeletal: other (Mild pain with external rotation of the right hip in the flexed position, tenderness over the right trochanteric bursa, full range of motion of the right wrist with flexion and extension, painful full flexion and extension of the right 5th digit) Neurologic: AAOx3, sensation intact bilaterally, No weakness Psychiatric: interacting appropriately, not anxious, not encephalopathic, thought process linear ICD10 Worksheet Patient Problems: Problems Problem Status Onset Fall at home Acute UTI (urinary tract infection) Acute Atrial fibrillation Acute Dehydration Acute Diabetes Acute Elevated troponin Acute Gastroenteritis Acute Hyperglycemia Acute Hypertension Acute Hyponatremia Acute
[2017-02-11] MEDS: LIDOCAINE 5% 1 EA PATCH TD SCH (18:47)
[2017-02-11] MEDS: METOPROLOL TARTRATE 25 MG TAB PO SCH (21:00)
[2017-02-11] MEDS: SENNOSIDES/DOCUSATE SODIUM TAB PO SCH (21:09)
[2017-02-11] MEDS: oxyCODONE IR 5 MG TAB PO PRN (22:29)
[2017-02-12] MEDS: oxyCODONE IR 5 MG TAB PO PRN ×3 (03:14→22:24)
[2017-02-12] MEDS: LEVOTHYROXINE 75 MCG TAB PO SCH (04:25)
[2017-02-12] MEDS: PATCH REMOVAL 1 EA PATCH TD SCH ×2 (04:32→22:22)
[2017-02-12 05:55] LABS: ANION GAP 15 mEq/L (8-16); CALCIUM 9.1 mg/dL (8.5-10.4); CARBON DIOXIDE 21 mEq/l (22-31); CHLORIDE 101 mEq/L (97-110); CREATININE 0.7 mg/dL (0.6-1.0); GLOMERULAR FILTRATION RATE > 60; GLUCOSE 241 mg/dL (70-100); POTASSIUM 3.9 mEq/L (3.5-5.2); SODIUM 137 mEq/L (134-144)
[2017-02-12] MEDS: INSULIN REGULAR HUMAN 100 UNIT/ML SC SCH ×4 (07:35→22:08)
[2017-02-12] MEDS: METOPROLOL TARTRATE 25 MG TAB PO SCH ×2 (08:14→22:05)
[2017-02-12] MEDS: COLCHICINE 0.6 MG CAP/TAB PO SCH ×2 (08:14→22:07)
[2017-02-12] MEDS: metFORMIN HCL 500 MG TAB PO SCH (08:14)
[2017-02-12] MEDS: LIDOCAINE 5% 1 EA PATCH TD SCH (08:15)
[2017-02-12] MEDS: INSULIN GLARGINE 100 UNITS/ML SYRINGE SC SCH ×2 (08:16→22:08)
[2017-02-12] MEDS: ALLOPURINOL 300 MG TAB PO SCH (08:16)
[2017-02-12] MEDS: ENOXAPARIN 40 MG/0.4 ML SYR SC SCH (08:17)
[2017-02-12] MEDS: SENNOSIDES/DOCUSATE SODIUM TAB PO SCH ×2 (08:17→22:17)
--- NOTE | 2017-02-12 09:04 | PDMN ---
Medical Necessity Medical necessity: change to IP; los>2mn for rib fx s/p mechanical fall, with possible hemothorax, possible UTI; requires further trauma w/u, pulmonary hygiene; high risk comorbid NICHELLE, pleural effusion, atelectasis, and uncontrolled DM2 with hyperglycemia; per order and progress note 02/11/17
--- NOTE | 2017-02-12 15:43 | ASMTCMCOM ---
CM Note CM Note Notes: Spoke w/MD, states pt is ammenable to snf and getting private pay care for . CM went to speak with pt but she was asleep, w/f in am. Date Signed: 02/12/2017 03:43 PM Electronically Signed By:Eve Fletcher RN
--- NOTE | 2017-02-12 16:43 | HOSPPROG ---
Hospitalist Progress Note Assessment/Plan: Assessment: 76-year-old female presents with acute mechanical fall resulting in right hip pain, right wrist pain, acute rib fracture Plan: 1. Rib fracture. Acute, right-sided, nondisplaced with possible small hemothorax on rib scan, resulting in atelectasis on chest x-ray -pulmonary hygiene with respiratory therapy -pain control as needed with oxycodone immediate release -significantly affects mobility, will require SNF 2. Mechanical fall. Acute, patient experienced a traumatic fall, with retropulsion down 4 stairs in her home, striking the posterior aspect of her right scalp, requiring laceration repair in the emergency department, with concomitant right leg pain, right wrist pain -counseled patient extensively regarding fall risk, she agrees that SNF is best short term option, she will attempt to arrange home 24/ care for , then transition into a safer home environment s/p SNF (sell house, then rent or buy single-level) 3. Scalp laceration. Treated with cecily, head CT without any intracranial hemorrhage 4. Paroxysmal atrial fibrillation. Currently under the care of Dr. Solo Nunez , continue metoprolol, systemic anticoagulation has previously been discontinued secondary to gross hematuria, will not continue systemic anticoagulation at this time given her recurrent falls and recent bleed -aspirin 81 mg for prophylaxis -up titrated metoprolol, monitor on telemetry, may increase to 50mg bid tomorrow 5. Acute kidney injury. Patient does not have a history of chronic kidney disease, her serum creatinine level has improved with IV fluids suggesting hypovolemic component prior to her presentation -continue monitor renal function and urine output 6. Atelectasis. Acute, secondary to rib fracture, present on chest x-ray, incentive spirometer and pulmonary hygiene 7. Pleural effusion. Left-sided, resolving from previous presentation -monitor volume status closely, reinitiate lasix tomorrow AM 8. Diabetes mellitus type 2 with hyperglycemia. Patient has poorly controlled diabetes given her recent neglect while she focuses on her urologic issues, we have re-initiated her long acting insulin, metformin, insulin sliding scale, and will up titrate the long-acting insulin as needed -no evidence of DKA 9. Possible urinary tract infection. Evidenced by positive urinalysis, ongoing urinary symptoms, patient has long history of bacteriuria with question of recurrent urinary tract infections verses sigmoid vesicular fistula -patient sees Dr. Surjit Liang as an outpatient -reviewed outside records including organism sensitivities, patient's Enterobacter and E coli are sensitive to ceftriaxone, will give IV ceftriaxone x5 days and continue to reassess symptoms Diet. Diabetic Prophylaxis. High risk patient, Lovenox 40 Code. Do not resuscitate Disposition. Anticipated discharge dependent on ambulatory abilities, SNF authorization, and ability to safely discharge to lower level of care. Subjective: ongoing pain right chest Objective: Vital Signs Temp Pulse Resp BP Pulse Ox 36.7 C 72 16 130/64 H 91 L 02/12/17 15:50 02/12/17 15:50 02/12/17 15:50 02/12/17 15:50 02/12/17 15:50 Laboratory Results 02/12/17 04:14 02/11/17 02/12/17 02/13/17 05:59 05:59 05:59 Intake Total 350 Balance 350 - Time Spent With Patient Time Spent with Patient: greater than 35 minutes Time Spent with Patient: Greater than 35 minutes spent on this patients care, greater than 50% of time spent counseling, educating, and coordinating care regarding the above mentioned plan. - Physical Exam Constitutional: no apparent distress, chronically ill appearing, uncomfortable, No not in pain (mild) Cardiovascular: irregularly irregular, No tachycardia, No edema Respiratory: reduced air movement (bilat bases), No expiratory wheeze, No inspiratory crackles, No bronchial breath sounds Neurologic: AAOx3 Psychiatric: interacting appropriately, not anxious, not encephalopathic, thought process linear ICD10 Worksheet Patient Problems: Problems Problem Status Onset Fall at home Acute Diabetes Acute Gastroenteritis Acute Dehydration Acute Atrial fibrillation Acute Hyperglycemia Acute Hypertension Acute Elevated troponin Acute Hyponatremia Acute UTI (urinary tract infection) Acute
[2017-02-13 05:09] LABS: ANION GAP 17 mEq/L (8-16); CALCIUM 9.4 mg/dL (8.5-10.4); CARBON DIOXIDE 19 mEq/l (22-31); CHLORIDE 101 mEq/L (97-110); CREATININE 0.8 mg/dL (0.6-1.0); GLOMERULAR FILTRATION RATE > 60; GLUCOSE 275 mg/dL (70-100); SODIUM 137 mEq/L (134-144)
[2017-02-13] MEDS: LEVOTHYROXINE 75 MCG TAB PO SCH (06:26)
[2017-02-13] MEDS: SENNOSIDES/DOCUSATE SODIUM TAB PO SCH ×2 (07:59→21:59)
[2017-02-13] MEDS: COLCHICINE 0.6 MG CAP/TAB PO SCH ×2 (07:59→21:57)
[2017-02-13] MEDS: ALLOPURINOL 300 MG TAB PO SCH (08:00)
[2017-02-13] MEDS: METOPROLOL TARTRATE 25 MG TAB PO SCH ×2 (08:01→21:54)
[2017-02-13] MEDS: metFORMIN HCL 500 MG TAB PO SCH (08:01)
[2017-02-13] MEDS: oxyCODONE IR 5 MG TAB PO PRN ×3 (08:02→23:32)
[2017-02-13] MEDS: INSULIN REGULAR HUMAN 100 UNIT/ML SC SCH ×4 (08:02→21:58)
[2017-02-13] MEDS: INSULIN GLARGINE 100 UNITS/ML SYRINGE SC SCH ×3 (08:03→21:58)
[2017-02-13] MEDS: ENOXAPARIN 40 MG/0.4 ML SYR SC SCH (08:03)
[2017-02-13] MEDS: LIDOCAINE 5% 1 EA PATCH TD SCH (08:04)
--- NOTE | 2017-02-13 16:40 | ASMTCMCOM ---
CM Note CM Note Notes: Spoke w/pt re; dc snf. Would like [facility], referral faxed and pt accepted. 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 There is some concern from family that pt and need more assistance as this is her fourth admission in a short period of time. CM spoke w/stepdaughter Joanne regarding pt's staying at with her (paying privately) while she is in rehab. CM did confirm with Omaira at , that they can accomodate . Omaira will call Joanne to discuss. Of note, there was a call put into [facility] about pt and prior to this admission. Nathaniel Kline from [facility] will come to see pt at 10:30 tomorrow. DC Plan: [facility] Date Signed: 02/13/2017 04:39 PM Electronically Signed By:Eve Fletcher RN
--- NOTE | 2017-02-13 18:07 | HOSPPROG ---
Hospitalist Progress Note Assessment/Plan: Assessment: 76-year-old female presents with acute mechanical fall resulting in right hip pain, right wrist pain, acute rib fracture Plan: 1. Rib fracture. Acute, right-sided, nondisplaced with possible small hemothorax on rib scan, resulting in atelectasis on chest x-ray -pulmonary hygiene with respiratory therapy -pain control as needed with oxycodone immediate release and lidoderm patch -significantly effects mobility, will require SNF 2. Mechanical fall. Acute, patient experienced a traumatic fall, with retropulsion down 4 stairs in her home, striking the posterior aspect of her right scalp, requiring laceration repair in the emergency department, with concomitant right leg pain, right wrist pain -continued to activities counselor patient extensively regarding fall risk, she agrees that SNF is best short term option, she will attempt to arrange home 24/7 care for , then transition into a safer home environment s/p SNF (sell house, then rent or buy single-level) 3. Scalp laceration. Treated with cecily, head CT without any intracranial hemorrhage 4. Paroxysmal atrial fibrillation. Currently under the care of Dr. Solo Nunez , systemic anticoagulation has previously been discontinued secondary to gross hematuria, will not continue systemic anticoagulation at this time given her recurrent falls and recent bleed -aspirin 81 mg for prophylaxis -cont metoprolol 37.5 bid, monitor on telemetry 5. Acute kidney injury. Patient does not have a history of chronic kidney disease, her serum creatinine level has improved with IV fluids suggesting hypovolemic component prior to her presentation -continue monitor renal function and urine output 6. Atelectasis. Acute, secondary to rib fracture, present on chest x-ray, counseled patient regarding incentive spirometer and pulmonary hygiene 7. Pleural effusion. Left-sided, resolving from previous presentation -monitor volume status closely, off lasix 8. Diabetes mellitus type 2 with hyperglycemia. Patient has poorly controlled diabetes given her recent neglect while she focuses on her urologic issues, we have re-initiated her long acting insulin, metformin, insulin sliding scale -no evidence of DKA -uptitrated lantus to 30u bid 9. Possible urinary tract infection. Evidenced by positive urinalysis, ongoing urinary symptoms, patient has long history of bacteriuria with question of recurrent urinary tract infections verses sigmoid vesicular fistula -patient sees Dr. Surjit Liang as an outpatient -reviewed outside records including organism sensitivities, patient's Enterobacter and E coli are sensitive to ceftriaxone, will give IV ceftriaxone x5 days and continue to reassess symptoms Diet. Diabetic Prophylaxis. High risk patient, Lovenox 40 Code. Do not resuscitate Disposition. Anticipated discharge 02/14, pending SNF authorization, and ability to safely discharge to lower level of care. Subjective: patient w/ ongoing R chest pain, poor mobility Objective: Vital Signs Temp Pulse Resp BP Pulse Ox 36.7 C 89 18 129/64 H 93 02/13/17 15:21 02/13/17 15:21 02/13/17 15:21 02/13/17 15:21 02/13/17 15:21 Laboratory Results 02/13/17 04:14 02/12/17 02/13/17 02/14/17 05:59 05:59 05:59 Intake Total 350 1065 Balance 350 1065 - Time Spent With Patient Time Spent with Patient: greater than 35 minutes Time Spent with Patient: Greater than 35 minutes spent on this patients care, greater than 50% of time spent counseling, educating, and coordinating care regarding the above mentioned plan. - Physical Exam Constitutional: chronically ill appearing, uncomfortable Cardiovascular: regular rate and rhythym, no murmur, rub, or gallop, No edema Respiratory: reduced air movement (bilat bases), inspiratory crackles (bilat bases), No expiratory wheeze, No bronchial breath sounds Gastrointestinal: normoactive bowel sounds, soft, non-tender abdomen, no palpable masses Musculoskeletal: other (R dorsum hand effusion w/ tenderness, full ROM R wrist, pain limiting flexion/ext R 5th digit) Neurologic: AAOx3 Psychiatric: interacting appropriately, not anxious, not encephalopathic, thought process linear ICD10 Worksheet Patient Problems: Problems Problem Status Onset Fall at home Acute Diabetes Acute Gastroenteritis Acute Dehydration Acute Atrial fibrillation Acute Hyperglycemia Acute Hypertension Acute Elevated troponin Acute Hyponatremia Acute UTI (urinary tract infection) Acute
[2017-02-13] MEDS: PATCH REMOVAL 1 EA PATCH TD SCH (21:59)
[2017-02-14 05:44] LABS: ANION GAP 14 mEq/L (8-16); CALCIUM 9.5 mg/dL (8.5-10.4); CARBON DIOXIDE 21 mEq/l (22-31); CHLORIDE 104 mEq/L (97-110); CREATININE 0.7 mg/dL (0.6-1.0); GLOMERULAR FILTRATION RATE > 60; GLUCOSE 152 mg/dL (70-100); POTASSIUM 3.8 mEq/L (3.5-5.2); SODIUM 139 mEq/L (134-144)
[2017-02-14] MEDS: LEVOTHYROXINE 75 MCG TAB PO SCH (05:57)
[2017-02-14 07:15] VITALS: RESP 20; TEMP 97.7
[2017-02-14] MEDS: metFORMIN HCL 500 MG TAB PO SCH (08:03)
[2017-02-14] MEDS: INSULIN REGULAR HUMAN 100 UNIT/ML SC SCH ×2 (08:03→11:57)
[2017-02-14] MEDS: LIDOCAINE 5% 1 EA PATCH TD SCH (09:50)
[2017-02-14] MEDS: ALLOPURINOL 300 MG TAB PO SCH (09:51)
[2017-02-14] MEDS: COLCHICINE 0.6 MG CAP/TAB PO SCH (09:52)
[2017-02-14] MEDS: METOPROLOL TARTRATE 25 MG TAB PO SCH (09:54)
[2017-02-14] MEDS: INSULIN GLARGINE 100 UNITS/ML SYRINGE SC SCH (09:55)
[2017-02-14] MEDS: SENNOSIDES/DOCUSATE SODIUM TAB PO SCH (09:55)
[2017-02-14] MEDS: ENOXAPARIN 40 MG/0.4 ML SYR SC SCH (09:55)
[2017-02-14 11:41] VITALS: BP 107/54; PULSE 64; O2SAT 93
--- NOTE | 2017-02-14 13:19 | ASMTCMCOM ---
DIPESH Note DIPESH Note Notes: DIPESH and met with pt re dc to [facility] today. Pt at times focusing on snf problems of selling the house and potentially moving to [place] or [place]. DIPESH and redirecting pt to focus on rehab and private pay care for while she's in rehab. Pt has scheduled an appt with a realator at 1pm today but MD stressed to pt she is medically ready for discharge. Pt states she farhan talk with when he comes at 1pm. CM did notice late yesterday that pt seemed to be more confused after , possible . Nathaniel Kline from [facility] here to speak with pt regarding pt and husbands ability to function at home. DIPESH also spoke with Omaira today, she did speak with step dtr Joanne that can stay with pt. Joanne to call [facility] for private pay care. DC Plan: [facility] Date Signed: 02/14/2017 01:19 PM Electronically Signed By:Eve Fletcher RN
--- NOTE | 2017-02-14 15:07 | PDIAF ---
- Diagnosis Diagnosis: Rib fracture, traumatic fall, uncontrolled DM2 Code Status: Do Not Resuscitate - Medication Management Discharge Medications: Medications to Continue on Transfer Acetaminophen [Tylenol ES 500 mg (*)] 500 mg PO BID PRN 03/27/14 [Last Taken 3 Days Ago ~12/28/16] Alendronate Sodium [Fosamax 70 MG (*)] 70 mg PO MO@0700 03/27/14 [Last Taken 06/24] Allopurinol [Allopurinol 300 MG (RX)] 450 mg PO DAILY 03/27/14 [Last Taken 02/10] Cholecalciferol Vit D3 [Vitamin D3 (*)] 1,000 units PO BID 03/27/14 [Last Taken 12/30/16 09:00] Sitagliptin Phos/Metformin HCl [Janumet 50-500 mg Tablet] 1 each PO DAILY@1700 03/27/14 [Last Taken 02/09/17] Levothyroxine [Synthroid 75 mcg (*)] 75 mcg PO DAILY06 03/13/16 [Last Taken 06/24] Omeprazole 40 mg PO DAILY PRN 01/05/17 [Last Taken Unknown] Colchicine [Colchicine (*)] 0.6 mg PO BID #60 ea 01/09/17 [Last Taken Unknown] metFORMIN HCL [Glucophage 500 mg (*)] 500 mg PO DAILY@0800 02/10/17 [Last Taken 02/10/17] Insulin Detemir [Levemir] 30 unit SQ BID #100 ml 02/14/17 [Last Taken 02/10/17 08:00] Lidocaine 5% [Lidoderm 5% Patch (*)] 1 ea TD DAILY patch 02/14/17 [Last Taken Unknown] Metoprolol Tartrate [Lopressor 25 mg (*)] 37.5 mg PO BID tab 02/14/17 [Last Taken Unknown] Patch Removal 1 ea TD DAILY21 patch 02/14/17 [Last Taken Unknown] Polyethylene Glycol 3350 [Miralax 17 gm (*)] 17 gm PO DAILY PRN pkt 02/14/17 [ Last Taken Unknown] Sennosides/Docusate Sodium [Senokot-S] 1 - 2 tab PO BID tab 02/14/17 [Last Taken Unknown] oxyCODONE IR [Oxycodone Ir (*)] 5 mg PO Q4HRS PRN tab 02/14/17 [Last Taken Unknown] Canine Service Instructor Trainer Antibiotics: NA Discharge Medications: Refer to the Discharge Home Medication list for PRN reason. PICC Care - Routine: N/A - Orders Services needed: Registered Nurse, Physical Therapy, Occupational Therapy Isolation Type: None Oxygen: NA Diet Recommendation: ADA 2000 consistent carb Weigh Patient: weekly Cheng: Not applicable Additional: use incentive spirometer regularly - Follow Up Care Current Providers and Referrals: Patient,NotPresent [Unknown] - As per Instructions Jenny Garcia MD [Primary Care Provider] - 3 days of d/c SNF/Rehab Eliud Liang MD [Medical Doctor] - follow up in 1 week Solo Nunez MD [Medical Doctor] -
--- NOTE | 2017-02-14 16:05 | PDIAF ---
- Diagnosis Diagnosis: Rib fracture, traumatic fall, uncontrolled DM2 Code Status: Do Not Resuscitate - Medication Management Discharge Medications: Medications to Continue on Transfer Acetaminophen [Tylenol ES 500 mg (*)] 500 mg PO BID PRN 03/27/14 [Last Taken 3 Days Ago ~12/28/16] Alendronate Sodium [Fosamax 70 MG (*)] 70 mg PO MO@0700 03/27/14 [Last Taken 06/24] Allopurinol [Allopurinol 300 MG (RX)] 450 mg PO DAILY 03/27/14 [Last Taken 02/10] Cholecalciferol Vit D3 [Vitamin D3 (*)] 1,000 units PO BID 03/27/14 [Last Taken 12/30/16 09:00] Sitagliptin Phos/Metformin HCl [Janumet 50-500 mg Tablet] 1 each PO DAILY@1700 03/27/14 [Last Taken 02/09/17] Levothyroxine [Synthroid 75 mcg (*)] 75 mcg PO DAILY06 03/13/16 [Last Taken 06/24] Omeprazole 40 mg PO DAILY PRN 01/05/17 [Last Taken Unknown] Colchicine [Colchicine (*)] 0.6 mg PO BID #60 ea 01/09/17 [Last Taken Unknown] metFORMIN HCL [Glucophage 500 mg (*)] 500 mg PO DAILY@0800 02/10/17 [Last Taken 02/10/17] Aspirin EC [Aspirin EC 81 mg (*)] 81 mg PO DAILY #30 tab 02/14/17 [Last Taken Unknown] Insulin Detemir [Levemir] 30 unit SQ BID #100 ml 02/14/17 [Last Taken 02/10/17 08:00] Lidocaine 5% [Lidoderm 5% Patch (*)] 1 ea TD DAILY patch 02/14/17 [Last Taken Unknown] Metoprolol Tartrate [Lopressor 25 mg (*)] 37.5 mg PO BID tab 02/14/17 [Last Taken Unknown] Patch Removal 1 ea TD DAILY21 patch 02/14/17 [Last Taken Unknown] Polyethylene Glycol 3350 [Miralax 17 gm (*)] 17 gm PO DAILY PRN pkt 02/14/17 [ Last Taken Unknown] Sennosides/Docusate Sodium [Senokot-S] 1 - 2 tab PO BID tab 02/14/17 [Last Taken Unknown] oxyCODONE IR [Oxycodone Ir (*)] 5 mg PO Q4HRS PRN tab 02/14/17 [Last Taken Unknown] Director Of Casino Antibiotics: NA Discharge Medications: Refer to the Discharge Home Medication list for PRN reason. PICC Care - Routine: N/A - Orders Services needed: Registered Nurse, Physical Therapy, Occupational Therapy Isolation Type: None Oxygen: NA Diet Recommendation: ADA 2000 consistent carb Weigh Patient: weekly Cheng: Not applicable Additional: use incentive spirometer regularly - Follow Up Care Current Providers and Referrals: Jenny Garcia MD [Primary Care Provider] - 3 days of d/c SNF/Rehab Patient,NotPresent [Unknown] - As per Instructions Eliud Liang MD [Medical Doctor] - follow up in 1 week Solo Nunez MD [Medical Doctor] -
--- NOTE | 2017-02-14 16:55 | ASMTCMCOM ---
CM Note CM Note Notes: Spoke w/pt, will dc to . Per friend, pt's husbad will not stay at tonight but will go tomorrow. CM notified pt's stepdaughter Joanne to let her know of plan and to encourage family to get more involved with pt and father regarding their ability to function at home alone as a couple. CM noitified Nathaniel Kline from [facility] ([phone]) that pt is discharging and she will f/u with them. Date Signed: 02/14/2017 04:55 PM Electronically Signed By:Eve Fletcher RN
--- NOTE | 2017-02-14 17:09 | PDDCSUM ---
Discharge Summary Discharge Summary: DISCHARGE SUMMARY FOLLOW-UP ITEMS: Reassess home needs for both patient and her DATE OF ADMISSION: 02/10/2017 DATE OF DISCHARGE: 02/14/2017 DISCHARGE DIAGNOSES: 1. Acute right-sided rib fracture 2. Acute mechanical fall 3. Acute scalp laceration 4. Paroxysmal atrial fibrillation 5. Acute kidney injury 6. Acute atelectasis 7. Chronic left-sided pleural effusion 8. Diabetes mellitus type 2 with hyperglycemia 9. Possible urinary tract infection CONSULTATIONS: None PROCEDURES / IMAGING: X-ray of ribs demonstrates right-sided rib fracture, x-ray of hip demonstrates no fracture, x-ray of right wrist demonstrates an old right 5th metacarpal fracture CHIEF COMPLAINT: Acute fall SUBJECTIVE: Patient continues to experience some right-sided chest discomfort time of discharge PHYSICAL EXAM ON DISCHARGE: Systolic blood pressure is 110-130, heart rate 70, afebrile overnight, satting well on room air, alert awake oriented x3, mild amount of distress and frustration, patient is aged and chronically ill-appearing LABS ON DISCHARGE: Creatinine 0.7, glucose 152, potassium 3.8 HOSPITAL COURSE BY PROBLEM: 1. Acute rib fracture. Right-sided, secondary to trauma, nondisplaced with possible small hemothorax on rib scan, resulting in atelectasis on chest x-ray. The patient was treated supportively with pulmonary hygiene and respiratory therapy, incentive spirometer, oxycodone immediate release and Lidoderm patch. Although the patient continued to experience some discomfort at discharge, her pain is well managed. The pain has limited her overall mobility and functional status, and she will require alf facility for additional rehab and healing. 2. Acute mechanical fall. The patient experienced an acute traumatic fall with retropulsion down 4 stairs at her home, striking the posterior aspect of her right scalp, requiring laceration repair in the emergency department. She received a trauma evaluation by this provider, with x-rays of her hips, legs, wrist, with demonstrating no acute fractures. The patient is a high fall risk at home, and she will continue to receive physical therapy at alf facility. The patient was evaluated by Adult protective Services secondary to an outpatient final in, and patient is safe to be discharged to alf facility at this time. 3. Acute scalp laceration. Treated with cecily, head CT without any intracranial hemorrhage, stable to be removed removed in the outpatient setting. 4. Paroxysmal atrial fibrillation. Patient is currently under the care of Dr. Solo Nunez, systemic anticoagulation has previously been discontinued secondary to gross hematuria and the patient was subsequently initiated on aspirin 81 mg for CVA prevention. Her metoprolol tartrate was up titrated during this hospitalization at 37.5 mg twice daily, and her heart rate was maintained between 70 and 100. 5. Acute kidney injury. Patient's serum creatinine level was elevated on presentation secondary to hypovolemia, and this has improved with IV fluids. 6. Acute atelectasis. Secondary to rib fracture, she will continue to receive incentive spirometer. 7. Chronic left-sided pleural effusion. Present during last hospitalization, patient's volume status was considered euvolemic, she is not currently on Lasix. 8. Diabetes mellitus type 2 with hyperglycemia, uncontrolled. Patient's diabetes is uncontrolled with a hemoglobin A1c around 11%, this is secondary to recent neglect while she had focused on her urologic issues. She had recently been re-initiated on long-acting insulin, metformin and received insulin sliding scale during this hospitalization. I up titrated her Levemir to 30 U twice daily, and her fasting blood glucose level was 152 at time of discharge. She should receive outpatient up titration of her Levemir, as tolerated. 9. Possible urinary tract infection. Evidenced by positive urinalysis, ongoing urinary symptoms, and long history of bacteriuria with question of recurrent urinary tract infections. The patient received a total 5 days of ceftriaxone therapy and she was symptom free at time of discharge. She should follow up with Dr. Surjit Liang in the outpatient setting DISCHARGE MEDICATIONS: Please see official discharge medication reconciliation sheet in chart , continue all home medications with the only adjustment being up titration of metoprolol tartrate to 37.5 mg twice daily, addition of aspirin 81 mg daily. DISCHARGE INSTRUCTIONS: Patient and her should receive ongoing social work assistance at alf facility to determine their best level of care moving forward. TIME SPENT: Greater than 30 minutes were spent on direct patient care, as well as discharge planning and preparation.
--- NOTE | 2017-02-15 13:46 | ASDISCHSUM ---
Discharge Information Plan Status:SNF Medically Cleared to Leave: Discharge Date:02/14/2017 04:29 PM D/C Disposition:Nursing Home Facility ADT D/C Disposition:Nursing Home Facility Projected Discharge Date:02/14/2017 11:00 AM Transportation at D/C:Wheelchair Van Discharge Delay Reason: Follow-Up Date:02/14/2017 11:00 AM Discharge Slot: Final Diagnosis: Placement Information Referral Type:*Mcc/SNF Referral ID:[id number] Provider Name:[facility] Address 1:[address] Address 2: City:[place] Selection Factors: State:[place] Patient Contact Information Contact Name:MANJEET Relationship: Address:[address] City:[place] Alternate Phone: State/Zip Code:[place] [address] Email: Financial Information Financial Class: Primary Plan Desc:MEDICARE INPATIENT Primary Plan Number:[id number] Secondary Plan Desc:[facility] Secondary Plan Number:[id number] Assessment Information [facility] Initial CM Assessment Living Arrangements What is your living Answers: With Spouse arrangement? Who do you live with? Type Of Residence What kind of residence do Answers: House you live in? Discharge Plan Comments Coordination Status Comments Notes: Patient is a 76yo female who was admitted for a mechanical fall which left her with a scalp laceration. The patient also has a persistant UTI which was treated with Rocephin in the emergency room and Diabetes Type 2, with uncontrolled neuropathy. H and P states patient plans to return home with home health care but is also interested in exploring assisted living for the future. Patient is DNR. OT/PT have been ordered. D/C needs TBD. CM will follow. Date Signed: 02/11/2017 11:54 AM Electronically Signed By:Belen Rocha LCSW [facility] DIPESH Progress Note CM Note CM Note Notes: Spoke w/, states pt is ammenable to snf and getting private pay care for . DIPESH went to speak with pt but she was asleep, w/f in am. Date Signed: 02/12/2017 03:43 PM Electronically Signed By:Eve Fletcher RN [facility] DIPESH Progress Note CM Note CM Note Notes: Spoke w/pt re; dc snf. Would like [facility], referral faxed and pt accepted. 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 There is some concern from family that pt and need more assistance as this is her fourth admission in a short period of time. DIPESH spoke w/obinna Joanne regarding pt's staying at with her (paying privately) while she is in rehab. DIPESH did confirm with Omaira at , that they can accomodate . Omaira will call Joanne to discuss. Of note, there was a call put into [facility] about pt and prior to this admission. Nathaniel Kline from [facility] will come to see pt at 10:30 tomorrow. DC Plan: [facility] Date Signed: 02/13/2017 04:39 PM Electronically Signed By:Eve Fletcher RN [facility] Progress Note CM Note DIPESH Note Notes: DIPESH and met with pt re dc to [facility] today. Pt at times focusing on long-term problems of selling the house and potentially moving to [place] or [place]. DIPESH and redirecting pt to focus on rehab and private pay care for while she's in rehab. Pt has scheduled an appt with a realator at 1pm today but MD stressed to pt she is medically ready for discharge. Pt states she farhan talk with when he comes at 1pm. CM did notice late yesterday that pt seemed to be more confused after , possible . Nathaniel Kline from [facility] here to speak with pt regarding pt and husbands ability to function at home. DIPESH also spoke with Omaira today, she did speak with step dtr Joanne that can stay with pt. Joanne to call [facility] for private pay care. DC Plan: [facility] Date Signed: 02/14/2017 01:19 PM Electronically Signed By:Eve Fletcher RN Case Management Discharge Plan Note Case Management Discharge Discharge Order Complete? Answers: Yes Patient to Obtain Answers: Other Notes: [facility] Medications Transportation Arranged Answers: Other Notes: [facility] Transport will Pick (Date 02/14/2017 04:30 AM & Time) Faxed Final Orders Answers: Yes Family Notified Answers: Yes Discharge Comments Notes: D/w , final orders faxed. Omaira from notified, RN to call report. Date Signed: 02/14/2017 04:39 PM Electronically Signed By:Eve Fletcher RN [facility] Progress Note CM Note CM Note Notes: Spoke w/pt, will dc to . Per friend, pt's husbad will not stay at [facility] but will go tomorrow. CM notified pt's stepdaughter Joanne to let her know of plan and to encourage family to get more involved with pt and father regarding their ability to function at home alone as a couple. DIPESH noitified Nathaniel Kline from [facility] ([phone]) that pt is discharging and she will f/u with them. Date Signed: 02/14/2017 04:55 PM Electronically Signed By:Eve Fletcher RN Intervention Information Intervention Type:*JANIE-Signed Date of Service:02/11/2017 09:44 AM Patient Type:Observation Staff Member:Anika Gilliland Hours: Discipline: Severity: Comment: Intervention Type:*IM-Signed Date of Service:02/14/2017 04:10 PM Patient Type:Inpatient Staff Member:Anika Gilliland Hours: Discipline: Severity: Comment:
== END 2017-02-14 16:29 | DRG 206 ==
LOC: EDUNIT# → F3E 22:50 → OBSVTOIN 02-11 17:35
PROVIDERS: ADMIT Internal Medicine; ATTEND Internal Medicine
PROC: 0HQ0XZZ Repair Scalp Skin, External Approach (ICD-10-PCS; principal; 2017-02-11)
DX: S22.31XA Fracture of one rib, right side, initial encounter for closed fracture (principal); J98.11 Atelectasis; S01.01XA Laceration without foreign body of scalp, initial encounter; W10.8XXA Fall (on) (from) other stairs and steps, initial encounter; Y92.018 Other place in single-family (private) house as the place of occurrence of the external cause; Y99.8 Other external cause status; I48.0 Paroxysmal atrial fibrillation; Z79.82 Long term (current) use of aspirin; N17.9 Acute kidney failure, unspecified; E86.1 Hypovolemia; E11.65 Type 2 diabetes mellitus with hyperglycemia; Z79.4 Long term (current) use of insulin; N39.0 Urinary tract infection, site not specified; J90 Pleural effusion, not elsewhere classified; I10 Essential (primary) hypertension; E78.5 Hyperlipidemia, unspecified
CPT/HCPCS: 92507-GN; 92523-GN; 96365; 97116-GP; 97162-GP; 97165-GO; 97530-GO; 97535-GO; G0378; G8978-GP-CL; G8979-GP-CI; G8987-GO-CK; G8988-GO-CI; G9168-GO-CI; G9169-GN-CH; J0696; J1650; J1815

== ENCOUNTER 2017-03-17 14:51 | Inpatient (IN) | payer OTHER ==
--- NOTE | 2017-03-17 15:12 | EDPHY ---
HPI/HX/ROS/PE/MDM Narrative: CHIEF COMPLAINT: Head injury secondary to fall HISTORY OF PRESENT ILLNESS: The patient is a 76 y/o female with a history of Type II Diabetes, atrial fibrillation, hypertension, and frequent falls arriving as an LTA+ with EMS, complaining of neck and rib pain, as well as a head injury secondary to a fall in her bathroom this afternoon. Patient reports being in the bathroom, and falling backwards. Sounds like it was a mechanical type fall. She denies having any chest pain, palpitations, lightheadedness, dizziness, or fainting. Unclear if the fall itself resulted in any loss of consciousness. Her family was unable to get the patient off of the floor, and so they called 911. While en route to the ED, the patient's BGL was in the 400's. Patient reports she did not take her insulin yesterday as she received the wrong medication from the pharmacy. Patient does take aspirin daily. That his her only anticoagulant. Of note, on 02/13/17 the patient had a similar fall which resulted in multiple rib fractures. No fever, chills, chest pain, shortness of breath, palpitations, vomiting, diarrhea, urinary complaints, lightheadedness. REVIEW OF SYSTEMS: Aside from elements discussed in the HPI, a comprehensive 10-point review of systems was reviewed and is negative. PAST MEDICAL HISTORY: Type II Diabetes, atrial fibrillation, hypertension, hyperlipidemia, neuropathy, hepatitis C, gout, hysterectomy, pelvic adhesions SOCIAL HISTORY: Daughter at bedside, lives at [facility] and uses a walker, . 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 VITAL SIGNS: HR: 119, BP: 184/106. Others reviewed by me GENERAL: Well-developed, well-nourished, resting comfortably in no respiratory distress. HEENT: Bleeding from posterior scalp, 2 abrasions, no laceration. Eyes: No icterus, no injection. Mouth: moist mucous membranes. No erythema or lesions. Neck: supple with no adenopathy. Midline tenderness to palpation. LUNGS: Clear to auscultation bilaterally, no wheezes, rhonchi or rales. Bilateral thoracic tenderness that is worse on the right, no crepitus. CARDIAC: Tachycardic, no rubs, murmurs or gallops. ABDOMEN: Soft, nontender, nondistended, bowel sounds normal. BACK: Midline thoracic tenderness, No CVA tenderness. EXTREMITIES: No trauma. No edema. Range of motion is normal throughout. NEURO: Alert and oriented, grossly nonfocal. SKIN: Warm and dry, no rash. PSYCHIATRIC: Normal mentation. Somewhat agitated and combative. Portions of this note were transcribed by a medical aides teacher. I personally performed a history, physical exam, medical decision making, and confirmed accuracy of information the transcribed note. ED Course: The patient is a 76 y/o female with a history of Type II Diabetes, atrial fibrillation, hypertension, and frequent falls arriving as an LTA+ with EMS presenting with a head injury. She is bleeding from her posterior scalp. On exam she has cervical spine and midline thoracic tenderness, bilateral rib tenderness that is worse on the right, but there is no crepitus. EKG, CBC, and BMP ordered. CT head, cervical spine, and chest also ordered. 1457: Patient placed in c-collar by emergency room tech. Head, c-spine and chest CT ordered. Chest x-ray ordered. 1500: Dr. Beaver, general surgeon, at bedside. 1513: 12-LEAD EKG: Please see the full report in [facility]. My interpretation: Sinus tachycardia with RBBB; There are no acute changes from prior EKG's. [address] reports: 1645: Spoke with radiologist, he reports there is a C5 facet non-displaced fracture 1704: Spoke with radiologist, he reports that the patient has many subacute rib fractures. There are no acute findings. 1715: Reassessed patient and discussed imaging findings. On exam she has 2 abrasions on her head that are not suturable. 1740: Consulted with Dr. Tam, neurosurgeon, regarding this patient. Patient will be placed in a [place] collar. 1748: Reassessed patient and discussed follow up with Dr. Tam. Patient is comfortable with this plan. Patient very anxious to be discharged. 1750: Patient fell while trying to use the bedside commode. Family members express serious concerns regarding her safety at home. Patient will be admitted for pain control, frequent falls, gait instability, and a cervical fracture. Patient and her family are comfortable with this plan. 0.5mg IV Ativan administered as patient is quite agitated regarding plan for admission. 1756: Consulted with Dr. Beaver regarding the patient's most recent fall. See his consultation note. 182: Patient admitted to hospitalist service; single system traumatic finding, seen by trauma surgery in ED. Consulted with neurosurgery as well. Dr. Ojeda accepts admission of this patient. Of note, patient remains tachycardic. 1933: While awaiting bed placement, patient seems more and more confused. Noted to have a temperature of 39 degrees axillary. Unable to obtain oral temperature due to patient confusion. Sepsis protocol started. 2030: Sepsis note: Severe Sepsis/Septic Shock Care NoteThe patient developed a fever with the emergency department. Urinary tract infection identified. No evidence of severe sepsis. Patient received tylenol and ceftriaxone prior to transfer to floor. MDM: Differential diagnosis of this patients fall was considered including but not limited to intracranial injury, long bone and pelvic bone fracture, spinal injury, intrathoracic injury, extremity injury, intra-abdominal injury, lacerations, abrasions, and contusions. Differential diagnosis for fever in adults was considered including but not limited to pneumonia, urinary tract infection, viral syndrome, and influenza. - Data Points Imaging Results: Imaging Impressions Cervical Spine CT 03/17/17 15:12 Impression: 1. Probable nondisplaced right C5 facet fracture. If symptoms persist and clinical suspicion warrants, consider MRI. 2. 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 Findings discussed with Hiwot Hamilton MD, on 03/17/2017 at 16:47. Chest CT 03/17/17 15:12 Impression: 1. No definite acute posttraumatic findings in the chest. 2. Multiple subacute right rib fractures, including multisite fractures involving the 5th through 8th ribs. 3. Nondisplaced subacute right T5 transverse process fracture. 4. Additional findings as above. Findings discussed with Hiwot Hamilton MD, on 03/17/2017 at 17:05. Chest X-Ray 03/17/17 15:12 Impression: 1. Chest negative for acute posttraumatic sequela. 2. Suspect bronchitis/airways disease. 3. See above report for additional findings. Head CT 03/17/17 15:12 Impression: 1. No acute intracranial findings. 2. Diffuse cerebral atrophy, with periventricular and subcortical low attenuation, consistent with chronic microvascular ischemic gliosis. Findings discussed with Hiwot Hamilton MD, on 03/17/2017 at 17:05. Imaging: Discussed imaging studies w/ call manager Radiologist, I viewed and interpreted images myself Laboratory Results: Laboratory Results 03/17/17 15:07 03/17/17 15:07 03/17/17 03/17/17 03/17/17 15:07 15:07 15:07 WBC RBC Hgb Hct MCV MCH MCHC RDW Plt Count MPV Neut % (Auto) Lymph % (Auto) [place] % (Auto) Eos % (Auto) Baso % (Auto) Nucleat RBC Rel Count Absolute Neuts (auto) Absolute Lymphs (auto) Absolute Monos (auto) Absolute Eos (auto) Absolute Basos (auto) Absolute Nucleated RBC Immature Gran % Immature Gran # PT 15.9 SEC H SEC (12.0-15.0) INR 1.25 H (0.83-1.16) APTT 25.8 SEC SEC (23.0-38.0) Sodium 132 mEq/L L mEq/L (134-144) Potassium 4.1 mEq/L mEq/L (3.5-5.2) Chloride 99 mEq/L mEq/L (97-110) Carbon Dioxide 20 mEq/l L mEq/l (22-31) Anion Gap 13 mEq/L mEq/L (8-16) BUN 15 mg/dL mg/dL (7-23) Creatinine 0.7 mg/dL mg/dL (0.6-1.0) Estimated GFR > 60 Glucose 459 mg/dL H mg/dL (70-100) Calcium 9.2 mg/dL mg/dL (8.5-10.4) Total Bilirubin 1.1 mg/dL mg/dL (0.1-1.4) 03/17/17 15:07 WBC 4.08 10^3/uL 10^3/uL (3.80-9.50) RBC 4.07 10^6/uL L 10^6/uL (4.18-5.33) Hgb 12.8 g/dL g/dL (12.6-16.3) Hct 36.2 % L % (38.0-47.0) MCV 88.9 fL fL (81.5-99.8) MCH 31.4 pg pg (27.9-34.1) MCHC 35.4 g/dL g/dL (32.4-36.7) RDW 13.6 % % (11.5-15.2) Plt Count 152 10^3/uL 10^3/uL (150-400) MPV 10.2 fL fL (8.7-11.7) Neut % (Auto) 76.8 % H % (39.3-74.2) Lymph % (Auto) 8.1 % L % (15.0-45.0) [place] % (Auto) 13.7 % H % (4.5-13.0) Eos % (Auto) 0.5 % L % (0.6-7.6) Baso % (Auto) 0.7 % % (0.3-1.7) Nucleat RBC Rel Count 0.0 % % (0.0-0.2) Absolute Neuts (auto) 3.13 10^3/uL 10^3/uL (1.70-6.50) Absolute Lymphs (auto) 0.33 10^3/uL L 10^3/uL (1.00-3.00) Absolute Monos (auto) 0.56 10^3/uL 10^3/uL (0.30-0.80) Absolute Eos (auto) 0.02 10^3/uL L 10^3/uL (0.03-0.40) Absolute Basos (auto) 0.03 10^3/uL 10^3/uL (0.02-0.10) Absolute Nucleated RBC 0.00 10^3/uL 10^3/uL (0-0.01) Immature Gran % 0.2 % % (0.0-1.1) Immature Gran # 0.01 10^3/uL 10^3/uL (0.00-0.10) PT INR APTT Sodium Potassium Chloride Carbon Dioxide Anion Gap BUN Creatinine Estimated GFR Glucose Calcium Total Bilirubin Medications Given: Acetaminophen (Tylenol Rectal) 650 mg OK Q4HRS PRN PRN Reason: Pain, Mild/Fever,Can't Take PO Stop: 09/13/17 20:27 Last Admin: 03/17/17 20:32 Dose: 650 mg Discontinued Medications Sodium Chloride (Ns) 2,500 mls @ 5,000 mls/hr 30 ml/kg infuse over 30 min ( 2500 ml) IV EDNOW ONE PRN Reason: Protocol Stop: 03/17/17 20:07 Last Admin: 03/17/17 20:05 Dose: 2,500 mls Ceftriaxone Sodium/Dextrose (Rocephin 1 Gm (Premix)) 50 mls @ 100 mls/hr IV EDNOW ONE PRN Reason: Protocol Stop: 03/17/17 20:51 Last Admin: 03/17/17 20:31 Dose: 50 mls Insulin Human Regular (Humulin R) 10 unit IVP EDNOW ONE Stop: 03/17/17 16:55 Last Admin: 03/17/17 17:24 Dose: 10 units Lorazepam (Ativan Injection) 0.5 mg IVP EDNOW ONE Stop: 03/17/17 18:20 Last Admin: 03/17/17 18:25 Dose: 0.5 mg General Time Seen by Provider: 03/17/17 14:58 Initial Vital Signs: Initial Vital Signs Temperature (C) 36.9 C 03/17/17 14:59 Heart Rate 119 H 03/17/17 14:59 Respiratory Rate 16 03/17/17 14:59 Blood Pressure 184/106 H 03/17/17 14:59 O2 Sat (%) 94 03/17/17 14:59 O2 Delivery Mode Nasal Cannula O2 (L/minute) 2 Allergies/Adverse Reactions: morphine Allergy (Verified 03/26/14 21:51) Vomiting nitrofurantoin Allergy (Verified 12/30/16 22:17) Home Medications: Medication Instructions Recorded Acetaminophen [Tylenol ES 500 mg 500 mg PO BID PRN 03/27/14 (*)] Alendronate Sodium [Fosamax 70 MG 70 mg PO MO@0700 03/27/14 (*)] Allopurinol [Allopurinol 300 MG 450 mg PO DAILY 03/27/14 (RX)] Cholecalciferol Vit D3 [Vitamin D3 1,000 units PO BID 03/27/14 (*)] Sitagliptin Phos/Metformin HCl 1 each PO DAILY@1700 03/27/14 [Janumet 50-500 mg Tablet] Levothyroxine [Synthroid 75 mcg 75 mcg PO DAILY06 03/13/16 (*)] Omeprazole 40 mg PO DAILY PRN 01/05/17 Colchicine [Colchicine (*)] 0.6 mg PO BID #60 ea 01/09/17 metFORMIN HCL [Glucophage 500 mg 500 mg PO DAILY@0800 02/10/17 (*)] Aspirin EC [Aspirin EC 81 mg (*)] 81 mg PO DAILY #30 tab 02/14/17 Insulin Detemir [Levemir] 30 unit SQ BID #100 ml 02/14/17 Metoprolol Tartrate [Lopressor 25 37.5 mg PO BID tab 02/14/17 mg (*)] Polyethylene Glycol 3350 [Miralax 17 gm PO DAILY PRN pkt 02/14/17 17 gm (*)] Sennosides/Docusate Sodium 1 - 2 tab PO BID tab 02/14/17 [Senokot-S] oxyCODONE IR [Oxycodone Ir (*)] 5 mg PO Q4HRS PRN tab 02/14/17 Departure - Departure Disposition: [facility] Inpatient Acute Clinical Impression: Frequent falls, Gait instability, Pain management, Sepsis secondary to UTI Cervical spine fracture Qualifiers: Encounter type: initial encounter Cervical vertebra fracture level: C5 Fracture type: closed Fracture morphology: other fracture Fracture alignment: nondisplaced Qualified Code(s): S12.491A - Other nondisplaced fracture of fifth cervical vertebra, initial encounter for closed fracture Condition: Fair Report Scribed for: Hiwot Hamilton Report Scribed by: Marisol Tirado Date of Report: 03/17/17 Time of Report: 15:15
--- NOTE | 2017-03-17 15:14 | CPEKG ---
Heart Rate: 124 RR Interval: 484 P-R Interval: 124 QRSD Interval: 134 QT Interval: 352 QTC Interval: 506 P [place]: 0 QRS [place]: 24 T Wave [place]: -3 EKG Severity - ABNORMAL ECG - EKG Impression: SINUS TACHYCARDIA EKG Impression: ATRIAL PREMATURE COMPLEX EKG Impression: RIGHT BUNDLE BRANCH BLOCK Electronically Signed By: Hiwot Hamilton 17-Mar-2017 22:39:15
[2017-03-17 15:20] LABS: PLATELET COUNT 152 10^3/uL (150-400)
[2017-03-17 15:49] LABS: INR 1.25 (0.83-1.16); PROTIME(PATIENT) 15.9 SEC (12.0-15.0)
[2017-03-17] MEDS ORDERED: IOPAMIDOL (ISOVUE-300) 100 ML BTL ONE (15:53)
[2017-03-17] MEDS ORDERED: INSULIN REGULAR HUMAN 100 UNIT/ML IVP ONE (16:54)
[2017-03-17] MEDS ORDERED: LORazepam 2 MG/ML INJ IVP ONE (18:19)
[2017-03-17] MEDS ORDERED: NS 2,500 ML IV ONE (19:38)
--- NOTE | 2017-03-17 19:43 | GHP ---
[f rep st] HISTORY AND PHYSICAL DATE OF ADMISSION: 03/17/2017 Asked to see the patient is part of a limited plus trauma activation. This 76-year-old female fell at home. She is accompanied by her [id number]. Most of the histor y obtained from the [id number] and the primary care physicians. She has had numerous falls. She was in the hospital February 13 with multiple right rib fractures, and in fact, initially the plan was to send her home from the emergency department, but she fell agai n. It is felt she will need either rehab placement or half-way placement because of multiple agnes quent falls. While in the emergency department, she had numerous diagnostic tests, including CT of the head showin g diffuse atrophy. No acute injury. CT of C-spine showing a probable C5 facet fracture. CT chest s howing healed right rib fractures, old femoral head fracture. A variety of laboratory tests were don e, which were fairly unremarkable. PAST MEDICAL HISTORY: Includes type 2 diabetes. She has been on insulin and metformin. She also cifuentes s atrial fibrillation, hypertension, and dementia. PHYSICAL EXAM: GENERAL: A somewhat somnolent elderly woman having recently received narcotic pain m edicine. She was alert and responsive on arrival, however. A C-collar is in place. LYMPHATICS: Th ere is no supraclavicular or axillary crepitance. CLAVICLES: Intact. LUNGS: Clear. ABDOMEN: Sof t, protuberant, benign, nontender. PELVIS: Stable to compression. UPPER EXTREMITIES AND LOWER EXTR EMITIES: Show no signs of trauma. I reviewed all of her scans and agree with the documented findings. ASSESS: Failure to thrive in a 76-year-old woman with multiple falls and some degree of dementia. She is admitted for assessment of her fall risk, consideration of rehab placement and consultation by Neurosurgery in regard to optimal management of the likely C5 facet fracture. The only anticoagulant she is on is aspirin. Other medications, which were unlikely to have contribu dang to this, include allopurinol, colchicine, insulin, levothyroxine, metformin, and Prilosec and sit agliptin. Given that this is an isolated cervical spine injury and her other issues are all medical, I feel she can be best managed by the Medical service with consultation by Neurosurgery, and the [facility] Trauma team has little to offer at this time. /[id number]/MODL
[2017-03-17] MEDS ORDERED: ACETAMINOPHEN 650 MG SUPP PR PRN (20:28)
[2017-03-17] MEDS ORDERED: ACETAMINOPHEN 650 MG SUPP PR ONE (20:30)
[2017-03-17] MEDS ORDERED: METOPROLOL TARTRATE 5 MG/5 ML INJ IVP ONE (21:39)
[2017-03-17] MEDS ORDERED: ONDANSETRON DISINTEGRATING 4 MG TAB PO PRN (21:55)
[2017-03-17] MEDS ORDERED: ONDANSETRON 4 MG/2 ML VIAL IVP PRN (21:55)
[2017-03-17] MEDS ORDERED: POLYETHYLENE GLYCOL 3350 17 GM PKT PO PRN (21:57)
[2017-03-17] MEDS ORDERED: ACETAMINOPHEN 500 MG TAB PO PRN (21:57)
[2017-03-17] MEDS ORDERED: oxyCODONE IR 5 MG TAB PO PRN (21:57)
--- NOTE | 2017-03-17 21:58 | CPEKG ---
Heart Rate: 153 RR Interval: 392 QRSD Interval: 138 QT Interval: 352 QTC Interval: 562 P [place]: 0 QRS [place]: 48 T Wave [place]: -15 EKG Severity - ABNORMAL ECG - EKG Impression: WIDE COMPLEX TACHYCARDIA - APPEARS TO BE AN SVT EKG Impression: RIGHT BUNDLE BRANCH BLOCK Electronically Signed By: Eliud Garcia 18-Mar-2017 14:33:36
[2017-03-17] MEDS ORDERED: NS 1,000 ML IV SCH (22:00)
--- NOTE | 2017-03-17 22:28 | GHP ---
[f rep st] HISTORY AND PHYSICAL DATE OF ADMISSION: 03/17/2017 CHIEF COMPLAINT: Fall. HISTORY OF PRESENT ILLNESS: This is a 76-year-old female with a history of type 2 diabetes, atrial f ibrillation, as well as frequent falls. She was admitted in early February with a fall that resulted in multiple rib fractures. She was in the bathroom and she fell backwards, which seemed to be a mec hanical fall. However this is unclear. Her blood sugars were noted to be 400 by the EMS. She came in as a limited trauma. General surgery has seen the patient. She was reassessed and she was quite unsteady and thus admitted. Patient is not really that cooperative with exam. She did receive some Ativan. She has a urinary tract infection. Appears confused. REVIEW OF SYSTEMS: Limited review of systems obtained and stated above was negative. PAST MEDICAL HISTORY: 1. Type 2 diabetes. 2. Atrial fibrillation. Appears to have been on anticoagulation several months ago but is now not o n anticoagulation. 3. Multiple falls. 4. Multiple urinary tract infections. 5. Hematuria for which she was getting Botox injections late last year. 6. Neuropathy. 7. Hepatitis C. 8. Chronic kidney disease stage III. 9. Gout. 10. Osteoporosis. FAMILY HISTORY: Father had type 2 diabetes, sister with breast cancer. SOCIAL HISTORY: Patient lives with her whom she is the crna for because he is blind. PHYSICAL EXAM: VITAL SIGNS: Afebrile. Blood pressure is 143/93, heart rate was in the 60s, has nikki e up to 120s-150s, temperature actually became 38.5 later this afternoon. GENERAL: Patient is well developed, no apparent distress. HEENT: Nonicteric sclerae. Slightly dry mucous membranes. NECK: Supple. LUNGS: Poor effort. Clear to auscultation anteriorly. CARDIOVASCULAR: Tachycardic. No m urmurs, rubs, or gallops. ABDOMEN: Positive bowel sounds. Soft, nontender, nondistended. No hepat osplenomegaly. EXTREMITIES: No clubbing, cyanosis, or edema. The right neck is in a [place] J collar . NEURO: Seems to be a little bit sedated. Does answer some questions, but not very consistent. LABS: White blood cell count 4, hemoglobin 12, INR is 1.25. Sodium 132, potassium 4.1, BUN 16, crea tinine 0.7, glucose is 459. UA shows urinary tract infection. Head CT is no acute findings. Chest CT, multiple rib fractures. Cervical spine CT, right C5 facet fracture. EKG on admission, personall y reviewed and interpreted, shows a sinus tachycardia, heart rate of 124. Tele at this point, shows alteration between sinus tach and SVT with a rate of 160. ASSESSMENT: A 76-year-old female, presenting with a history of multiple falls, presented with anothe r fall sustaining rib fractures and cervical facet fracture. PLAN: 1. Status post fall. This is probably multifactorial including urinary tract infection and possible atrial fibrillation and whatever chronic weakness that she may be having. We will treat the above i ssues and continue with physical therapy. She may need rehab. 2. C5 facet fracture. Neurosurgery has been consulted and she is in a [place] J collar. 3. Multiple rib fractures. Continue pain control. 4. Atrial fibrillation/probable atrial flutter/supraventricular tachycardia. The patient has been g amandang in and out of this while I am seeing her currently. We will give a dose of IV metoprolol right now as her pressure looks like she can handle it. She is on 37.5 mg of metoprolol twice daily. We w ill continue this. Also give a lot of fluid. 5. Urinary tract infection. We will treat with ceftriaxone and get a urine culture. 6. Type 2 diabetes, uncontrolled. We will use sliding scale insulin and restart her Lantus. CODE STATUS: The patient is a DNR. /[id number]/MODL
[2017-03-18] MEDS ORDERED: HALOPERIDOL 0.5 MG TAB PO PRN (00:25)
[2017-03-18] MEDS: INSULIN GLARGINE 100 UNITS/ML SYRINGE SC SCH ×4 (00:54→22:54)
[2017-03-18] MEDS: ACETAMINOPHEN 325 MG TAB PO PRN ×2 (00:55→11:56)
[2017-03-18 06:11] LABS: PLATELET COUNT 145 10^3/uL (150-400)
[2017-03-18] MEDS: LEVOTHYROXINE 75 MCG TAB PO SCH (06:59)
[2017-03-18] MEDS ORDERED: LIDOCAINE 5% 1 EA PATCH TD SCH (09:00)
[2017-03-18] MEDS: ENOXAPARIN 40 MG/0.4 ML SYR SC SCH (10:05)
[2017-03-18] MEDS: ALLOPURINOL 300 MG TAB PO SCH (10:07)
[2017-03-18] MEDS: PANTOPRAZOLE SODIUM 40 MG TAB PO SCH (10:08)
[2017-03-18] MEDS: METOPROLOL TARTRATE 25 MG TAB PO SCH ×2 (10:08→21:30)
[2017-03-18] MEDS: COLCHICINE 0.6 MG CAP/TAB PO SCH ×2 (10:10→21:31)
[2017-03-18] MEDS: ASPIRIN EC 81 MG TAB PO SCH (10:10)
[2017-03-18] MEDS: SENNOSIDES/DOCUSATE SODIUM TAB PO SCH ×2 (10:10→21:28)
--- NOTE | 2017-03-18 12:07 | PDMN ---
Medical Necessity Medical necessity: Pt meets IP criteria per MD; est los >2 mn for eval/tx s/p fall w/C5 facet fx, multiple rib fxs, UTI, AFIB/probable Aflutter/SVT, unsteady gait & confusion; admit for further workup/monitoring, cxs, IV abx, IVFs, pain management & therapies; hx diabetes, AFIB, frequent falls, hematuria, neuropathy & CKD; per H&P & order 03/17/17
[2017-03-18] MEDS ORDERED: D50W 25 GM/50 ML SYR IVP PRN (12:47)
--- NOTE | 2017-03-18 12:50 | HOSPPROG ---
Hospitalist Progress Note Assessment/Plan: 76 yo F w dm a/w fall, uti, gnr bacteremia, sepsis sepsis: fever, tachycardia, infection, bacteremia lactate OK not hypotensive UTI w bacteremia: ceftriaxone dc schroeder c5 transverse process fx : shaka calderon meurosurgery has seen, await note rib fx: ad IS encephalopathy: multifactorial limit pain meds dm: quite hyperglycemic add high dose lispro ss proph: lmwh dispo: inpt Subjective: case d/w dr foy. blood cx + for ecoli (04/13) Objective: Vital Signs Temp Pulse Resp BP Pulse Ox 37.8 C 86 20 130/75 H 99 03/18/17 12:37 03/18/17 11:37 03/18/17 11:37 03/18/17 11:37 03/18/17 11:37 Laboratory Results 03/18/17 05:38 03/18/17 05:38 03/17/17 03/18/17 03/19/17 05:59 05:59 05:59 Intake Total 800 Output Total 1450 350 Balance -1450 450 PT 15.9 SEC (12.0-15.0) H 03/17/17 15:07 INR 1.25 (0.83-1.16) H 03/17/17 15:07 - Physical Exam Constitutional: no apparent distress, appears nourished Eyes: PERRL, anicteric sclera Ears, Nose, Mouth, Throat: moist mucous membranes, hearing normal Cardiovascular: regular rate and rhythym, no murmur, rub, or gallop, No systolic murmur Respiratory: no respiratory distress, no rales or rhonchi Gastrointestinal: normoactive bowel sounds, soft, non-tender abdomen Genitourinary: no bladder fullness, schroeder in urethra Skin: warm, normal color Musculoskeletal: full muscle strength Neurologic: No AAOx3 Psychiatric: interacting appropriately ICD10 Worksheet Patient Problems: Problems Problem Status Onset Cervical spine fracture Acute Frequent falls Acute Gait instability Acute Pain management Acute Sepsis secondary to UTI Acute Atrial fibrillation Acute Dehydration Acute Diabetes Acute Elevated troponin Acute Fall at home Acute Gastroenteritis Acute Hyperglycemia Acute Hypertension Acute Hyponatremia Acute UTI (urinary tract infection) Acute
[2017-03-18] MEDS ORDERED: ACETAMINOPHEN 325 MG TAB PO SCH (14:00)
[2017-03-18] MEDS: ACETAMINOPHEN 500 MG TAB PO SCH ×2 (14:44→20:03)
--- NOTE | 2017-03-18 15:01 | ASMTCMCOM ---
CM Note CM Note Notes: 03/18/2017 Case Management Note Attempted to meet with pt who is febrile and not feeling well enough to have a lengthy conversation. Pt has no children of her own. Spoke w/step son Eliud [phone]. Juhi, her sister lives in [place]. There is a step daughter Joanne who is caring for of pt during this admission. Jeevan ([phone]) is blind. The couple have recently moved into the [facility]. Family is increasing services at the [facility] to include med reminders, meals, housekeeping and multiple well checks a day. Pt is well known to case management with muliple admissions in the last 6 months. Pt has a recent stay at [facility] in February for 14 days per Eliud. While at [facility], family contracted with [facility] to care for Jeevan. Pt has utilized [facility] in the past for home care services. In past records there is a notation that APS casework supervisor Nathaniel Kline ([phone]) is involved with pt and her . Case Management did not contact Nathaniel Kline to notify of admission. Case Management d/c poc: TBD Case Management to follow. Date Signed: 03/18/2017 03:01 PM Electronically Signed By:Jenny Rodriguez RN
--- NOTE | 2017-03-18 16:52 | GCON ---
[f rep st] CONSULTATION DATE OF CONSULTATION: 03/18/2017 REASON FOR CONSULTATION: New facet fracture, neck pain, status post fall. HOSPITAL COURSE/HISTORY/MAJOR MEDICAL FINDINGS: The patient is a 76-year-old female, who was standing in her bathroom at home where she fell backwards. She had pain at the time and was brought to the emergency room via EMS for further evaluation. She was noted to have blood sugars in the 400s by EMS on arrival. She did come in as a limited trauma activation and was seen by Trauma Surgery, as well as Medicine at that time. Upon discussion with the patient today, she is complaining of neck pain. She denies any arm numbness, tingling, pain, or weakness. Denies any leg numbness, tingling, pain, or weakness. Denies any loss of bowel or bladder control. REVIEW OF SYSTEMS: Review of systems is negative other than what is stated in the HPI. Please see pertinent negatives and pertinent positives. PAST MEDICAL HISTORY: Significant for type 2 diabetes, atrial fibrillation, multiple falls, multiple UTIs, history of hematuria, history of neuropathy, history of hepatitis C, chronic kidney disease, stage 3, history of gout, and history of osteoporosis. FAMILY HISTORY: She has a family history that is positive for type 2 diabetes and a sister with breast cancer. She denies any history of heart disease. SOCIAL HISTORY: Patient lives with her at home. She does primarily takes care of him because he is blind. ALLERGIES: Morphine and nitrofurantoin. HOME MEDICATIONS: Include alendronate 70 mg 1 p.o. q. day; vitamin D3, 1000 mg 1 p.o. q. day; acetaminophen 500 mg p.o. b.i.d. p.r.n.; allopurinol 300 mg 1 p.o. q. day; aspirin 81 mg 1 p.o. q. day; colchicine 0.6 mg 1 p.o. q. day; Levemir insulin 30 units subcu b.i.d.; levothyroxine 75 mcg 1 p.o. q. day; metformin 500 mg p.o. q. day; metoprolol 37.5 mg 1 p.o. q. day; omeprazole 40 mg 1 p.o. q. day; oxycodone 5 mg 1 p.o. q.4 hours p.r.n. pain; MiraLAX daily as needed; and Senokot as needed 1-2 tabs p.o. b.i.d. PHYSICAL EXAMINATION: VITAL SIGNS: BP 130/75, heart rate is 86. She is 99% on 2 L nasal cannula. Temp is 38.5. GENERAL: Patient is in no acute distress. NEUROLOGIC: She is alert and oriented but is unable to completely recall her full past medical history at this time. She is 5/5 and equal in bilateral upper and bilateral lower extremities, including her deltoids, triceps , biceps, wrist flexors, wrist extensors, interossei, intrinsic banana loader, iliopsoas , hamstrings, quadriceps, plantar flexion, dorsiflexion, and EHL. Sensation is intact in bilateral upper and bilateral lower extremities. IMAGING DATA: Patient underwent a cervical spine CT, which demonstrated a right -sided facet fracture at C5. There is associated spondylolisthesis with degeneration from C3-C7, and there are multiple levels with degeneration. Patient underwent a head CT, which demonstrated no acute intracranial abnormalities with diffuse cerebral atrophy. ASSESSMENT AND PLAN: The patient is a 76-year-old female, status post fall, who did sustain a unilateral C5 facet fracture. She is currently in a Sutter J cervical collar. We would recommend continuing this at this time. Optimize pain management. PT/OT as tolerated, and then she should follow up with our clinic in approximately 6 weeks with repeat x-rays of her cervical spine. Patient was seen both by Dr. Olsen and me. If there are any further questions or concerns regarding this patient, please do not hesitate to call our office, or if there is any change in neurologic or motor exam, please notify Neurosurgery. /[id number]/MODL MTDD
--- NOTE | 2017-03-18 17:03 | ASMTCMCOM ---
CM Note CM Note Notes: 03/18/2017 Case Management Note Met w/ Jeevan ([phone]) and stepdaughter Joanne ([phone]) who is visiting from [place] until Friday. Family requests a palliative care consult to discuss frequency of hospitalizations. Notified RN. Encouraged family to contact local agencies on the blind to help assist Jeevan with orientation to his new residence at the [facility]. Joanne reported that family has increased the services pt is utilizing at the [facility] in preparation for her return. Case Management d/c poc: TBD. Case Management to follow. Date Signed: 03/18/2017 05:03 PM Electronically Signed By:Jenny Rodriguez RN
[2017-03-18] MEDS: INSULIN LISPRO 100 UNIT/ML SC SCH (18:08)
[2017-03-19] MEDS: LEVOTHYROXINE 75 MCG TAB PO SCH (05:50)
[2017-03-19] MEDS: ACETAMINOPHEN 500 MG TAB PO SCH ×3 (05:50→21:10)
--- NOTE | 2017-03-19 07:16 | NEUSURGPN ---
Assessment/Plan: Assessment: 76 yo female admitted to with confusion and fall with a C5 facet fracture Plan: -C5 facet fracture: pt with collar in place and tolerating well -pt with baseline confusion-no acute changes -PT/OT -collar at all time -recommend collar and follow up in 6 weeks for a recheck -warning signs given -call with any questions or concerns Subjective: No new changes or issues. No new events Objective: awake and alert NAD KATJA x 4 +cms/nv intact x 4 Neuro Check Frequency: per routine Urinary Catheter in Place: No Catheter Insertion Date: 03/17/17 - Physician Discussed Patient with : [facility] Physical Exam - Vitals, I&O, Labs I and O 03/18/17 03/19/17 03/20/17 05:59 05:59 05:59 Intake Total 3400 Output Total 1450 525 Balance -1450 2875 Intake: Oral (ml) 1200 IV Infused (ml) 2200 Ns 1,000 ml @ 100 mls/hr 2200 IV CONT LB Rx#: [id number] Output: Urine (ml) 1450 525 Bedside Commode 25 Catheter 1450 500 Other: Number of Voids Incontinence 6 Number of Stools Incontinence 2 1 Vital Signs Temp Pulse Resp BP Pulse Ox 37.0 C 104 H 22 H 164/88 H 94 03/19/17 02:10 03/19/17 02:10 03/19/17 02:10 03/19/17 02:10 03/19/17 02:10 Laboratory Results 03/18/17 05:38 03/18/17 05:38 ICD10 Worksheet Patient Problems: Problems Problem Status Onset Cervical spine fracture Acute Frequent falls Acute Gait instability Acute Pain management Acute Sepsis secondary to UTI Acute Atrial fibrillation Acute Dehydration Acute Diabetes Acute Elevated troponin Acute Fall at home Acute Gastroenteritis Acute Hyperglycemia Acute Hypertension Acute Hyponatremia Acute UTI (urinary tract infection) Acute
[2017-03-19] MEDS: INSULIN LISPRO 100 UNIT/ML SC SCH ×3 (08:35→18:20)
[2017-03-19] MEDS: INSULIN GLARGINE 100 UNITS/ML SYRINGE SC SCH ×2 (08:54→21:10)
[2017-03-19] MEDS: SENNOSIDES/DOCUSATE SODIUM TAB PO SCH ×2 (09:54→21:11)
[2017-03-19] MEDS: ALLOPURINOL 300 MG TAB PO SCH (10:22)
[2017-03-19] MEDS: COLCHICINE 0.6 MG CAP/TAB PO SCH ×2 (10:23→21:09)
[2017-03-19] MEDS: ASPIRIN EC 81 MG TAB PO SCH (10:23)
[2017-03-19] MEDS: ENOXAPARIN 40 MG/0.4 ML SYR SC SCH (10:23)
[2017-03-19] MEDS: METOPROLOL TARTRATE 25 MG TAB PO SCH ×2 (10:23→21:13)
[2017-03-19] MEDS: PANTOPRAZOLE SODIUM 40 MG TAB PO SCH (10:24)
--- NOTE | 2017-03-19 15:42 | ASMTCMCOM ---
CM Note CM Note Notes: CM spoke w/ Anu, RN regarding d/c POC. Pt continues with confusion. Palliative meeting today at 1:30PM. CM spoke w/ Eleanor in palliative after meeting. Pt is agreeable to rehab. First choice is at [facility] and second choice is at [facility]. Referrals made to both faciltiies. CM completed non triggering PASRR. Pts Jeevan is currently being taken care of by [facility]. Pts step daughter, Joanne would be notified of acceptence to SNF and of date of d/c. CM to follow. Plan: SNF Date Signed: 03/19/2017 03:41 PM Electronically Signed By:ELAYNE Mills
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
--- NOTE | 2017-03-19 16:28 | HOSPPROG ---
Hospitalist Progress Note Assessment/Plan: 76 yo F w dm a/w fall, uti, gnr bacteremia, sepsis sepsis: fever, tachycardia, infection, bacteremia lactate OK not hypotensive UTI w bacteremia: ceftriaxone dc schroeder febrile overnight rec blood cx w next spike c5 transverse process fx : platinum J collar neurosurgery has seen, await note rib fx: ad IS encephalopathy: multifactorial limit pain meds considerably more alert today says she recalls meeting me yesterday although I suspect confabulation dm: quite hyperglycemic add high dose lispro ss improved today proph: lmwh dispo: inpt Subjective: case d/w palliative care CPR AMBULANCE DRIVER and neurosurgery PA. more alert Objective: Vital Signs Temp Pulse Resp BP Pulse Ox 37.4 C 81 20 123/63 H 96 03/19/17 12:00 03/19/17 12:00 03/19/17 12:00 03/19/17 12:00 03/19/17 12:00 Laboratory Results 03/18/17 05:38 03/18/17 05:38 03/18/17 03/19/17 03/20/17 05:59 05:59 05:59 Intake Total 3400 600 Output Total 1450 525 Balance -1450 2875 600 PT 15.9 SEC (12.0-15.0) H 03/17/17 15:07 INR 1.25 (0.83-1.16) H 03/17/17 15:07 - Physical Exam Constitutional: no apparent distress, appears nourished Eyes: PERRL, anicteric sclera Ears, Nose, Mouth, Throat: moist mucous membranes, hearing normal Cardiovascular: regular rate and rhythym, no murmur, rub, or gallop Respiratory: no respiratory distress, no rales or rhonchi Gastrointestinal: normoactive bowel sounds Genitourinary: no bladder fullness, No schroeder in urethra Skin: warm, normal color Musculoskeletal: full muscle strength, no muscle tenderness, other (neck hard collar) Neurologic: sensation intact bilaterally Psychiatric: interacting appropriately Lymph, Heme, Immunologic: no cervical LAD ICD10 Worksheet Patient Problems: Problems Problem Status Onset Cervical spine fracture Acute Frequent falls Acute Gait instability Acute Pain management Acute Palliative care encounter Acute Sepsis secondary to UTI Acute Atrial fibrillation Acute Dehydration Acute Diabetes Acute Elevated troponin Acute Fall at home Acute Gastroenteritis Acute Hyperglycemia Acute Hypertension Acute Hyponatremia Acute UTI (urinary tract infection) Acute
[2017-03-20] MEDS: ACETAMINOPHEN 500 MG TAB PO SCH ×3 (05:27→23:26)
[2017-03-20] MEDS: LEVOTHYROXINE 75 MCG TAB PO SCH (05:27)
[2017-03-20] MEDS ORDERED: metFORMIN HCL 500 MG TAB PO SCH (08:00)
[2017-03-20] MEDS: INSULIN GLARGINE 100 UNITS/ML SYRINGE SC SCH (09:09)
[2017-03-20] MEDS: ENOXAPARIN 40 MG/0.4 ML SYR SC SCH (09:10)
[2017-03-20] MEDS: INSULIN LISPRO 100 UNIT/ML SC SCH ×3 (09:10→18:13)
[2017-03-20] MEDS: ALLOPURINOL 300 MG TAB PO SCH (09:11)
[2017-03-20] MEDS: ASPIRIN EC 81 MG TAB PO SCH (09:11)
[2017-03-20] MEDS: PANTOPRAZOLE SODIUM 40 MG TAB PO SCH (09:12)
[2017-03-20] MEDS: METOPROLOL TARTRATE 25 MG TAB PO SCH ×2 (09:12→23:27)
[2017-03-20] MEDS: COLCHICINE 0.6 MG CAP/TAB PO SCH ×2 (09:12→23:28)
[2017-03-20] MEDS: SENNOSIDES/DOCUSATE SODIUM TAB PO SCH ×2 (09:12→23:27)
--- NOTE | 2017-03-20 15:30 | HOSPPROG ---
Hospitalist Progress Note Assessment/Plan: 76 yo F w dm a/w fall, uti, gnr bacteremia, sepsis sepsis: fever, tachycardia, infection, bacteremia lactate OK not hypotensive UTI w bacteremia: ceftriaxone dc schroeder afebrile overnight rec blood cx w next spike c5 transverse process fx : [facility] neurosurgery has seen, await note rib fx: ad IS encephalopathy: multifactorial limit pain meds considerably more alert today says she recalls meeting me yesterday although I suspect confabulation dm: quite hyperglycemic add high dose lispro ss improved today proph: lmwh dispo: inpt Subjective: more alert today Objective: Vital Signs Temp Pulse Resp BP Pulse Ox 36.9 C 75 16 135/70 H 95 03/20/17 13:32 03/20/17 13:32 03/20/17 13:32 03/20/17 13:32 03/20/17 13:32 Laboratory Results 03/18/17 05:38 03/18/17 05:38 03/19/17 03/20/17 03/21/17 05:59 05:59 05:59 Intake Total 3400 1600 430 Output Total 525 5 Balance 2875 1600 425 PT 15.9 SEC (12.0-15.0) H 03/17/17 15:07 INR 1.25 (0.83-1.16) H 03/17/17 15:07 - Physical Exam Constitutional: no apparent distress, appears nourished Eyes: PERRL, anicteric sclera Ears, Nose, Mouth, Throat: moist mucous membranes, hearing normal Cardiovascular: regular rate and rhythym, no murmur, rub, or gallop Respiratory: no respiratory distress, no rales or rhonchi Gastrointestinal: normoactive bowel sounds, soft, non-tender abdomen Genitourinary: no bladder fullness, No schroeder in urethra Skin: warm, normal color Musculoskeletal: full muscle strength, no muscle tenderness Neurologic: AAOx3 Psychiatric: interacting appropriately ICD10 Worksheet Patient Problems: Problems Problem Status Onset Cervical spine fracture Acute Frequent falls Acute Gait instability Acute Pain management Acute Palliative care encounter Acute Sepsis secondary to UTI Acute Atrial fibrillation Acute Dehydration Acute Diabetes Acute Elevated troponin Acute Fall at home Acute Gastroenteritis Acute Hyperglycemia Acute Hypertension Acute Hyponatremia Acute UTI (urinary tract infection) Acute
--- NOTE | 2017-03-20 16:17 | ASMTCMCOM ---
CM Note CM Note Notes: Pt and family chose [facility], likely d/c tomorrow if medically stable. Pt step-dghtr Joanne [phone] requests a call tomorrow w update. Joanne visiting from [place] and leaves Friday. Plan for pt while pt is in SNF is support of Kandis KANG CM to follow. Date Signed: 03/20/2017 04:16 PM Electronically Signed By:STARR Snell
--- NOTE | 2017-03-20 23:03 | HOSPPROG ---
Hospitalist Progress Note Assessment/Plan: Called to bedside after mechanical fall. Hit head. No LOC. On aspirin. PE: posterior scalp trauma [place] J collar in place CN 2-12 intact motor 5/5 UE and LE sensation to light touch intact UE and LE CTH neg no further diagnostic w/u at this time Objective: Vital Signs Temp Pulse Resp BP Pulse Ox 36.5 C 62 22 H 131/65 H 95 03/20/17 20:00 03/20/17 20:00 03/20/17 20:00 03/20/17 20:00 03/20/17 20:00 Laboratory Results 03/18/17 05:38 03/18/17 05:38 03/19/17 03/20/17 03/21/17 05:59 05:59 05:59 Intake Total 3400 1600 930 Output Total 525 5 Balance 2875 1600 925 PT 15.9 SEC (12.0-15.0) H 03/17/17 15:07 INR 1.25 (0.83-1.16) H 03/17/17 15:07 ICD10 Worksheet Patient Problems: Problems Problem Status Onset Fall at home Acute Diabetes Acute Gastroenteritis Acute Dehydration Acute Atrial fibrillation Acute Hyperglycemia Acute Hypertension Acute Elevated troponin Acute Hyponatremia Acute UTI (urinary tract infection) Acute Cervical spine fracture Acute Frequent falls Acute Gait instability Acute Pain management Acute Sepsis secondary to UTI Acute Palliative care encounter Acute
[2017-03-20] MEDS ORDERED: INSULIN GLARGINE 100 UNITS/ML SYRINGE SC ONE (23:45)
[2017-03-21] MEDS: ACETAMINOPHEN 500 MG TAB PO SCH ×2 (06:10→13:41)
[2017-03-21] MEDS: LEVOTHYROXINE 75 MCG TAB PO SCH (06:10)
[2017-03-21 07:45] VITALS: O2SAT 95
[2017-03-21] MEDS: INSULIN LISPRO 100 UNIT/ML SC SCH (08:49)
[2017-03-21] MEDS: ALLOPURINOL 300 MG TAB PO SCH (08:49)
[2017-03-21] MEDS: COLCHICINE 0.6 MG CAP/TAB PO SCH (08:50)
[2017-03-21] MEDS: ASPIRIN EC 81 MG TAB PO SCH (08:50)
[2017-03-21] MEDS: PANTOPRAZOLE SODIUM 40 MG TAB PO SCH (08:50)
[2017-03-21] MEDS: SENNOSIDES/DOCUSATE SODIUM TAB PO SCH (08:51)
[2017-03-21] MEDS: ENOXAPARIN 40 MG/0.4 ML SYR SC SCH (08:52)
[2017-03-21 11:25] VITALS: RESP 18; TEMP 98.4
--- NOTE | 2017-03-21 11:31 | PDIAF ---
- Diagnosis Diagnosis: UTI w bacteremia and sepsis Code Status: Do Not Resuscitate - Medication Management Discharge Medications: Medications to Continue on Transfer Acetaminophen [Tylenol ES 500 mg (*)] 500 mg PO BID PRN 03/27/14 [Last Taken 3 Days Ago ~12/28/16] Alendronate Sodium [Fosamax 70 MG (*)] 70 mg PO MO@0700 03/27/14 [Last Taken 06/24] Allopurinol [Allopurinol 300 MG (RX)] 450 mg PO DAILY 03/27/14 [Last Taken 02/10] Cholecalciferol Vit D3 [Vitamin D3 (*)] 1,000 units PO BID 03/27/14 [Last Taken 12/30/16 09:00] Sitagliptin Phos/Metformin HCl [Janumet 50-500 mg Tablet] 1 each PO DAILY@1700 03/27/14 [Last Taken 02/09/17] Levothyroxine [Synthroid 75 mcg (*)] 75 mcg PO DAILY06 03/13/16 [Last Taken 06/24] Omeprazole 40 mg PO DAILY PRN 01/05/17 [Last Taken Unknown] Colchicine [Colchicine (*)] 0.6 mg PO BID #60 ea 01/09/17 [Last Taken Unknown] metFORMIN HCL [Glucophage 500 mg (*)] 500 mg PO DAILY@0800 02/10/17 [Last Taken 02/10/17] Aspirin EC [Aspirin EC 81 mg (*)] 81 mg PO DAILY #30 tab 02/14/17 [Last Taken Unknown] Insulin Detemir [Levemir] 30 unit SQ BID #100 ml 02/14/17 [Last Taken 03/15/17] Metoprolol Tartrate [Lopressor 25 mg (*)] 37.5 mg PO BID tab 02/14/17 [Last Taken Unknown] Polyethylene Glycol 3350 [Miralax 17 gm (*)] 17 gm PO DAILY PRN pkt 02/14/17 [ Last Taken Unknown] Sennosides/Docusate Sodium [Senokot-S] 1 - 2 tab PO BID tab 02/14/17 [Last Taken Unknown] oxyCODONE IR [Oxycodone Ir (*)] 5 mg PO Q4HRS PRN tab 02/14/17 [Last Taken Unknown] Ondansetron HCl Pf [Zofran 4 mg Inj (*)] 4 mg IVP Q4HRS PRN vial 03/21/17 [ Last Taken Unknown] Ondansetron Odt [Zofran Odt 4 mg (*)] 4 mg PO Q4HRS PRN tab 03/21/17 [Last Taken Unknown] levOFLOXACIN [Levofloxacin] 750 mg PO DAILY #11 tablet 03/21/17 [Last Taken Unknown] Nursing Home Antibiotic Stop Date: 04/01/17 (levofloxacin 750 mg po daily) Discharge Medications: Refer to the Discharge Home Medication list for PRN reason. - Orders Services needed: Registered Nurse, Certified Pear Picker, Master Telephone Answerer , Physical Therapy, Occupational Therapy, Speech Language Pathologist Isolation Type: None - Follow Up Care Current Providers and Referrals: Alvina Tam DO [Doctor of Osteopathy] - As per Instructions Moises Olsen MD [Medical Doctor] - (follow up in 6 weeks with xrays-call the office for imaging rx)
--- NOTE | 2017-03-21 11:32 | HOSPPROG ---
Hospitalist Progress Note Assessment/Plan: 76 yo F w dm a/w fall, uti, gnr bacteremia, sepsis sepsis: fever, tachycardia, infection, bacteremia lactate OK not hypotensive UTI w bacteremia: ceftriaxone dc schroeder afebrile overnight rec blood cx w next spike c5 transverse process fx : [place] J collar neurosurgery has seen, await note rib fx: ad IS encephalopathy: multifactorial limit pain meds considerably more alert today says she recalls meeting me yesterday although I suspect confabulation dm: quite hyperglycemic add high dose lispro ss improved today proph: lmwh dispo: to snf today > 30 minutes on dc Subjective: fall overnight. head and neck CT unchanged. NEURO EXAM ok Objective: Vital Signs Temp Pulse Resp BP Pulse Ox 36.9 C 65 18 126/70 H 95 03/21/17 11:25 03/21/17 11:25 03/21/17 11:25 03/21/17 11:25 03/21/17 11:25 Laboratory Results 03/18/17 05:38 03/18/17 05:38 03/20/17 03/21/17 03/22/17 05:59 05:59 05:59 Intake Total 1600 930 Output Total 5 Balance 1600 925 PT 15.9 SEC (12.0-15.0) H 03/17/17 15:07 INR 1.25 (0.83-1.16) H 03/17/17 15:07 ICD10 Worksheet Patient Problems: Problems Problem Status Onset Cervical spine fracture Acute Frequent falls Acute Gait instability Acute Pain management Acute Palliative care encounter Acute Sepsis secondary to UTI Acute Atrial fibrillation Acute Dehydration Acute Diabetes Acute Elevated troponin Acute Fall at home Acute Gastroenteritis Acute Hyperglycemia Acute Hypertension Acute Hyponatremia Acute UTI (urinary tract infection) Acute
[2017-03-21] MEDS: METOPROLOL TARTRATE 25 MG TAB PO SCH (11:43)
[2017-03-21 11:44] VITALS: BP 106/71; PULSE 58
--- NOTE | 2017-03-21 15:04 | ASMTCMCOM ---
CM Note CM Note Notes: Pt medically stable for d/c to [facility] (First choice [facility] is full). Orders sent in Allscripts. [facility] set up wc transport for 13:45. Pt husb and dghtr in law updated. Date Signed: 03/21/2017 03:03 PM Electronically Signed By:STARR Snell
--- NOTE | 2017-03-21 15:07 | ASDISCHSUM ---
Discharge Information Plan Status:SNF Medically Cleared to Leave: Discharge Date:03/21/2017 01:44 PM D/C Disposition:Fdc Facility ADT D/C Disposition:Fdc Facility Projected Discharge Date:03/22/2017 11:00 AM Transportation at D/C:Wheelchair Van Discharge Delay Reason: Follow-Up Date:03/22/2017 11:00 AM Discharge Slot: Final Diagnosis: Placement Information Referral Type:*Fdc/SNF Referral ID:[id number] Provider Name:[facility] Address 1:[address] Address 2: City:[place] Selection Factors: State:[place] Patient Contact Information Contact Name:MANJEET Relationship: Address:[address] [facility] City:[place] Alternate Phone: State/Zip Code:[place] [address] Email: Financial Information Financial Class: Primary Plan Desc:MEDICARE INPATIENT Primary Plan Number:[id number] Secondary Plan Desc:[facility] Secondary Plan Number:[id number] Assessment Information [facility] Progress Note CM Note CM Note Notes: 03/18/2017 Case Management Note Attempted to meet with pt who is febrile and not feeling well enough to have a lengthy conversation. Pt has no children of her own. Spoke w/step son Eliud [phone]. Juhi, her sister lives in [place]. There is a step daughter Joanne who is caring for of pt during this admission. Jeevan ([phone]) is blind. The couple have recently moved into the [facility]. Family is increasing services at the [facility] to include med reminders, meals, housekeeping and multiple well checks a day. Pt is well known to case management with muliple admissions in the last 6 months. Pt has a recent stay at [facility] in February for 14 days per Eliud. While at [facility], family contracted with [facility] to care for Jeevan. Pt has utilized [facility] in the past for home care services. In past records there is a notation that [facility] case repairer Nathaniel Kline ([phone]) is involved with pt and her . Case Management did not contact Nathaniel Eliud to notify of admission. Case Management d/c poc: TBD Case Management to follow. Date Signed: 03/18/2017 03:01 PM Electronically Signed By:Jenny Rodriguez RN [facility] Progress Note CM Note CM Note Notes: 03/18/2017 Case Management Note Met w/ Jeevan ([phone]) and stepdadidier Rubio ([phone]) who is visiting from [place] until Friday. Family requests a palliative care consult to discuss frequency of hospitalizations. Notified RN. Encouraged family to contact local agencies on the [facility] to help assist Jeevan with orientation to his new residence at the [facility]. Joanne reported that family has increased the services pt is utilizing at the [facility] in preparation for her return. Case Management d/c poc: TBD. Case Management to follow. Date Signed: 03/18/2017 05:03 PM Electronically Signed By:Jenny Rodriguez RN [facility] Progress Note CM Note CM Note Notes: DIPESH spoke w/ SHYANN Brennan regarding d/c POC. Pt continues with confusion. Palliative meeting today at 1:30PM. CM spoke w/ Eleanor in palliative after meeting. Pt is agreeable to rehab. First choice is at [facility] and second choice is at [facility]. Referrals made to both faciltiies. CM completed non triggering PASRR. Pts Jeevan is currently being taken care of by [facility]. Pts step daughter, Joanne would be notified of acceptence to SNF and of date of d/c. CM to follow. Plan: SNF Date Signed: 03/19/2017 03:41 PM Electronically Signed By:ELAYNE Mills [facility] CM Progress Note CM Note CM Note Notes: Pt and family chose [facility], likely d/c tomorrow if medically stable. Pt step-dghtr Joanne [phone] requests a call tomorrow w update. Joanne visiting from [place] and leaves Friday. Plan for pt while pt is in SNF is support of [facility] VALERO. CM to follow. Date Signed: 03/20/2017 04:16 PM Electronically Signed By:STARR Snell [facility] CM Progress Note CM Note CM Note Notes: Pt medically stable for d/c to [facility] ([facility] choice [facility] is full). Orders sent in Allscripts. [facility] set up wc transport for 13:45. Pt husb and dghtr in law updated. Date Signed: 03/21/2017 03:03 PM Electronically Signed By:STARR Snell Intervention Information Intervention Type:*Incorrect Registration Date of Service:03/18/2017 11:57 AM Patient Type:Observation Staff Member:SHYANN Pyle Courtney Hours: Discipline: Severity: Comment: Intervention Type:*IM-Signed Date of Service:03/21/2017 12:01 PM Patient Type:Inpatient Staff Member:Anika Gilliland Hours: Discipline: Severity: Comment:
--- NOTE | 2017-03-21 17:34 | GDS ---
[f rep st] DISCHARGE SUMMARY DISCHARGE DIAGNOSES: 1. Frequent falls. 2. Sepsis, now resolved. 3. Urinary tract infection. 4. Gram-negative bacteremia. 5. Type 2 diabetes. 6. Atrial fibrillation, not on anticoagulation secondary to falls. 7. C5 facet fracture with hard collar recommended for 6 weeks. 8. Encephalopathy. 9. Palliative Care consult resulting in decision for rehabilitation. HOSPITAL COURSE: The patient presented with a fall. She was found to be tachycardic. She was febri le. Blood cultures were drawn, grew gram-negative rods. She had a positive UA, was started on ceftr iaxone, ultimately grew out pansensitive E coli. Her neck CT showed a C5 transverse fracture. She w as seen by Neurosurgery, placed in a hard collar which should be kept at all times. They followed he r during her hospital stay. She had no neurologic symptoms. Her hospital course was complicated by a 2nd fall. She had a negative head CT, negative C-spine film and again, no neurologic deficits. The patient was confused on the first hospital day, and steadily improved. She is discharged to [facility] for rehabilitation. I discussed the plan with her family. /[id number]/MODL
== END 2017-03-21 13:44 | DRG 871 ==
LOC: EDUNIT# → F3N 20:40 → OBSVTOIN 21:55 → F2W 23:29 → F3N 03-19 19:45
PROVIDERS: ADMIT Internal Medicine; ATTEND Internal Medicine
DX: A41.51 Sepsis due to Escherichia coli [E. coli] (principal); G93.49 Other encephalopathy; S12.491A Other nondisplaced fracture of fifth cervical vertebra, initial encounter for closed fracture; N39.0 Urinary tract infection, site not specified; S22.31XA Fracture of one rib, right side, initial encounter for closed fracture; W18.39XA Other fall on same level, initial encounter; Y92.012 Bathroom of single-family (private) house as the place of occurrence of the external cause; S09.90XA Unspecified injury of head, initial encounter; W19.XXXA Unspecified fall, initial encounter; Y92.230 Patient room in hospital as the place of occurrence of the external cause; I48.91 Unspecified atrial fibrillation; E11.65 Type 2 diabetes mellitus with hyperglycemia; E78.5 Hyperlipidemia, unspecified; I10 Essential (primary) hypertension; R29.6 Repeated falls; Z79.82 Long term (current) use of aspirin
CPT/HCPCS: 92507-GN; 92523-GN; 96365; 97116-GP; 97161-GP; 97166-GO; 97535-GO; G0390; G8978-GP-CK; G8979-GP-CI; G8987-GO-CL; G8988-GO-CJ; G9165-GN-CK; G9166-GN-CJ; J0696; J1650; J1815; J2060; L0174; Q9967

== ENCOUNTER → 2017-04-24 | Outpatient (CLI) | payer OTHER | LOC: FIMAGING 11:32 | PROVIDERS: ATTEND Nurse Practitioner | DX: M43.12 Spondylolisthesis, cervical region (principal) ==

== ENCOUNTER 2017-05-04 08:46 | Inpatient (IN) | payer OTHER ==
--- NOTE | 2017-05-04 09:13 | EDPHY ---
H & P Stated Complaint: Bleeding from vagina vs bladder Time Seen by Provider: 05/04/17 08:58 HPI/ROS: Chief Complaint: Possible vaginal bleeding HPI: 76-year-old woman with a history of chronic urinary tract infections started having bleeding from her vaginal area last night. Patient states she has been passing about a quarter-sized clot every couple hours and soaking multiple pads. No lightheadedness or fainting. She does have a history of a hysterectomy 40 years ago. Was having chronic urinary tract infections and had a which she is describing as a urethral Botox injection by Urology. Was admitted last month for urosepsis. No recent falls. No nausea or vomiting. No fevers or chills. Is having some low abdominal pain. ROS: 10 point Review of Systems is negative except as noted in the HPI. PMH: Diabetes, chronic UTI Social History: No smoking, no alcohol, no recreational drug use Family History: non-contributory Physical Exam: Gen: Awake, Alert, No Distress HEENT: Nose: no rhinorrhea Eyes: PERRLA, EOMI Mouth: Moist mucosa Neck: Supple, no JVD Chest: nontender, lungs clear to auscultation Heart: S1, S2 normal, no murmur Abd: Soft, non-tender, no guarding Back: no CVA tenderness, no midline tenderness Ext: no edema, non-tender Skin: no rash Neuro: CN II-XII intact, Sensation grossly intact, Strength 5/5 in bilateral upper and lower extremities - Personal History Current Tetanus Diphtheria and Acellular Pertussis (TDAP): Yes Tetanus Vaccine Date: 2011 - Medical/Surgical History Hx Asthma: No Hx Chronic Respiratory Disease: No Hx Diabetes: Yes Hx Cardiac Disease: No Hx Renal Disease: No Hx Cirrhosis: No Hx Alcoholism: No Hx HIV/AIDS: No Hx Splenectomy or Spleen Trauma: No Other PMH: DM2, hypothyroid, pelvic fx, 5 surgeries on right leg, broken hand x2 , broken collar bones, Hepatitis C from blood transfusion, urinary leakage, rib fx's, chronic hematuria - Social History Smoking Status: Never smoked Constitutional: Initial Vital Signs Temperature (C) 36.7 C 05/04/17 08:51 Heart Rate 96 05/04/17 08:51 Respiratory Rate 18 05/04/17 08:51 Blood Pressure 126/60 H 05/04/17 08:51 O2 Sat (%) 95 05/04/17 08:51 O2 Delivery Mode Room Air Allergies/Adverse Reactions: morphine Allergy (Mild, Verified 05/04/17 08:55) Vomiting nitrofurantoin Allergy (Mild, Verified 05/04/17 08:55) Rash Home Medications: Medication Instructions Recorded Alendronate Sodium [Fosamax 70 MG 70 mg PO MO@0700 03/27/14 (*)] Allopurinol [Allopurinol 300 MG 450 mg PO DAILY 03/27/14 (RX)] Levothyroxine [Synthroid 75 mcg 75 mcg PO DAILY06 03/13/16 (*)] Colchicine [Colchicine (*)] 0.6 mg PO BID #60 ea 01/09/17 metFORMIN HCL [Glucophage 500 mg 500 mg PO DAILY@0800 02/10/17 (*)] Aspirin EC [Aspirin EC 81 mg (*)] 81 mg PO DAILY #30 tab 02/14/17 Insulin Detemir [Levemir] 30 unit SQ BID #100 ml 02/14/17 oxyCODONE IR [Oxycodone Ir (*)] 5 mg PO Q4HRS PRN tab 02/14/17 levOFLOXACIN [Levofloxacin] 750 mg PO DAILY #11 tablet 03/21/17 Acetaminophen [Tylenol ES 500 mg 500 mg PO BID PRN 05/04/17 (*)] Cholecalciferol Vit D3 [Vitamin D3 1,000 units PO BID 05/04/17 (*)] Omeprazole 40 mg PO DAILY 05/04/17 Ondansetron Odt [Zofran Odt 4 mg 4 mg PO Q4 PRN 05/04/17 (*)] Polyethylene Glycol 3350 [Miralax 1 pkt PO DAILY 05/04/17 17 gm (*)] Polyethylene Glycol 3350 [Miralax 17 gm PO DAILY PRN 05/04/17 17 gm (*)] Sennosides/Docusate Sodium 1 - 2 tab PO BID PRN 05/04/17 [Senokot-S] Sitagliptin Phos/Metformin HCl 1 tab PO DAILY@1700 05/04/17 [Janumet 50-500 mg Tablet] Medical Decision Making ED Course/Re-evaluation: Patient has gross hematuria. Discussed with Dr. Magdaleno, urology. He is recommending placement of the [address] catheter irrigation. If he continues to have bleeding patient will be admitted for continuous irrigation further evaluation. Patient is continuing to have blood tinged urine after 2 L of irrigation with pain caring get. Occasional clots. Patient will be admitted per Dr. Magdaleno plan. I have discussed with Dr. Donaldson, hospitalist. She will admit to her service for further care. - Data Points Laboratory Results: Laboratory Results 05/04/17 09:20 05/04/17 09:20 05/04/17 05/04/17 05/04/17 09:20 09:20 09:20 WBC 7.18 10^3/uL 10^3/uL (3.80-9.50) RBC 3.62 10^6/uL L 10^6/uL (4.18-5.33) Hgb 11.2 g/dL L g/dL (12.6-16.3) Hct 32.9 % L % (38.0-47.0) MCV 90.9 fL fL (81.5-99.8) MCH 30.9 pg pg (27.9-34.1) MCHC 34.0 g/dL g/dL (32.4-36.7) RDW 14.2 % % (11.5-15.2) Plt Count 252 10^3/uL 10^3/uL (150-400) MPV 9.6 fL fL (8.7-11.7) Neut % (Auto) 79.0 % H % (39.3-74.2) Lymph % (Auto) 10.4 % L % (15.0-45.0) [place] % (Auto) 7.2 % % (4.5-13.0) Eos % (Auto) 2.5 % % (0.6-7.6) Baso % (Auto) 0.6 % % (0.3-1.7) Nucleat RBC Rel Count 0.0 % % (0.0-0.2) Absolute Neuts (auto) 5.67 10^3/uL 10^3/uL (1.70-6.50) Absolute Lymphs (auto) 0.75 10^3/uL L 10^3/uL (1.00-3.00) Absolute Monos (auto) 0.52 10^3/uL 10^3/uL (0.30-0.80) Absolute Eos (auto) 0.18 10^3/uL 10^3/uL (0.03-0.40) Absolute Basos (auto) 0.04 10^3/uL 10^3/uL (0.02-0.10) Absolute Nucleated RBC 0.00 10^3/uL 10^3/uL (0-0.01) Immature Gran % 0.3 % % (0.0-1.1) Immature Gran # 0.02 10^3/uL 10^3/uL (0.00-0.10) Sodium 133 mEq/L L mEq/L (135-145) Potassium 4.2 mEq/L mEq/L (3.5-5.2) Chloride 102 mEq/L mEq/L (97-110) Carbon Dioxide 19 mEq/l L mEq/l (22-31) Anion Gap 12 mEq/L mEq/L (8-16) BUN 33 mg/dL H mg/dL (7-23) Creatinine 1.0 mg/dL mg/dL (0.6-1.0) Estimated GFR 54 Glucose 374 mg/dL H mg/dL (70-100) Calcium 9.5 mg/dL mg/dL (8.5-10.4) Urine Color RED Urine Appearance CLOUDY Urine pH TNP Ur Specific [place] TNP Urine Protein TNP Urine Ketones TNP Urine Blood TNP Urine Nitrate TNP Urine Bilirubin TNP Urine Urobilinogen TNP Ur Leukocyte Esterase TNP Urine RBC 50-182 /hpf H /hpf (0-3) Urine WBC 50-182 /hpf H /hpf (0-3) Ur Epithelial Cells NONE SEEN /lpf /lpf (NONE-1+) Urine Glucose TNP Medications Given: Discontinued Medications Cefepime HCl 1 gm/ Sterile (Water) 11.3 mls @ 135.6 mls/hr IV EDNOW ONE PRN Reason: Protocol Stop: 05/04/17 13:27 Last Admin: 05/04/17 14:13 Dose: 11.3 mls Departure - Departure Disposition: [facility] Inpatient Acute Clinical Impression: UTI (urinary tract infection), Hematuria
[2017-05-04 09:30] LABS: PLATELET COUNT 252 10^3/uL (150-400)
[2017-05-04] MEDS ORDERED: CEFEPIME HCL 1 GM in STERILE WATER INJ 11.3 ML IV ONE (13:23)
[2017-05-04] MEDS ORDERED: ACETAMINOPHEN 325 MG TAB PO PRN (14:11)
[2017-05-04] MEDS ORDERED: ONDANSETRON 4 MG/2 ML VIAL IVP PRN (14:11)
[2017-05-04] MEDS ORDERED: ONDANSETRON DISINTEGRATING 4 MG TAB PO PRN (14:11)
[2017-05-04] MEDS ORDERED: D50W 25 GM/50 ML SYR IVP PRN (14:29)
--- NOTE | 2017-05-04 14:58 | GHP ---
[f rep st] HISTORY AND PHYSICAL DATE OF ADMISSION: 05/04/2017 CHIEF COMPLAINT: Hematuria. HISTORY OF PRESENT ILLNESS: Ms. Young is a 76-year-old female with history of recurrent urinary tract infections complicated by hematuria. She is followed by Urology and has recently been treated with Botox injections. Presents to the emergency department with recurrent hematuria. She denies fevers or chills. She has not complained of dysuria, but does note ongoing urinary frequency and urgency. She denies flank pain, nausea, or vomiting. She was recently hospitalized 1 month ago after a fall, which was thought to be provoked by yet another urinary tract infection. She has since moved to the [facility] with her . She had been doing fairly well until she awoke this morning noting the passage of golf ball-size clots when she tried to urinate. The bleeding persisted, and she states she was saturating a pad an hour. She denies dizziness or lightheadedness. In the emergency department, hemoglobin was 11.2. This is down from 12.8 six weeks ago. Urology consult was obtained in the ED. She was started on continuous bladder irrigation and given IV cefepime. She was admitted to the hospital for further management. PAST MEDICAL HISTORY: 1. Recurrent urinary tract infections with hematuria. 2. Type 2 diabetes mellitus. 3. Atrial fibrillation. 4. Multiple falls. 5. Neuropathy. 6. Hepatitis C. 7. Chronic kidney disease. 8. Gout. 9. Osteoporosis. PAST SURGICAL HISTORY: 1. Hysterectomy 40 years ago. 2. Multiple orthopedic surgeries on the right leg. MEDICATIONS: Please see [facility] for completed outpatient medication list. ALLERGIES: Morphine and nitrofurantoin. SOCIAL HISTORY: The patient is . She states her is blind and requires significant assistance. They have recently moved to the [facility]. She denies alcohol or tobacco use. FAMILY HISTORY: Her father had type 2 diabetes. Her sister had breast cancer. REVIEW OF SYSTEMS: A 10-point review of systems was performed and is negative except as per HPI. OBJECTIVE: VITAL SIGNS: Temperature is 36.4, blood pressure 119/58, heart rate 100, respiratory rate 16. She is 93% on room air. GENERAL: Patient is awake, alert, and oriented, in no acute distress. HEENT: Head is atraumatic, normocephalic. Pupils equal, round, and reactive to light. Extraocular muscles are intact. Oropharynx is clear. Mucous membranes are moist. NECK: Supple. There is no JVD. HEART: Regular rate and rhythm. LUNGS: Clear to auscultation bilaterally. ABDOMEN: Soft, obese, nondistended. She has suprapubic tenderness to palpation. EXTREMITIES: Without cyanosis, clubbing, or edema. NEUROLOGIC: Exam is grossly nonfocal. LABORATORY DATA: CBC reveals a white blood cell count of 7.18, hemoglobin 11.2 , down from 12.8, platelets 252. Basic metabolic panel showed sodium 133, CO2 19, BUN 33, creatinine 1.0, blood sugar 374. Urinalysis showed 50-182 red cells , 50-182 white cells. Nitrates and leukocyte esterase are not reported on this UA. A urine culture is pending. ASSESSMENT AND PLAN: Ms. Young is a 76-year-old female with history of recurrent urinary tract infections and hematuria, who presents to the emergency department with recurrent hematuria. 1. Hematuria. The case was discussed with Urology who suspects this is an ongoing recurrent urinary tract infection. She does have significant pyuria and hematuria on her urinalysis, as well as dysuria and frequency. I reviewed her prior culture data. She has had pansensitive Escherichia coli but has also had Escherichia coli resistant to ceftriaxone, as well as Zosyn. These recent cultures show organisms sensitive to cefepime, so will treat with cefepime for now while awaiting her urine culture and tailor antibiotics as indicated. Dr. Magdaleno will see the patient. She is currently on continuous bladder irrigation , which we will continue, as well as trend her hemoglobin and hematocrit. She currently has no clots in her Cheng bag and the urine is red tinged. 2. Type 2 diabetes mellitus. Her recent hemoglobin A1c was 10.2. She takes just Levemir at home without any mealtime coverage. Her presenting blood sugar is 374. I will continue her outpatient Levemir dose and add sliding scale insulin for mealtime coverage. May need to up titrate both her basal and bolus insulin for the glycemic control, especially in the setting of recurrent infection. 3. Hyponatremia. This is mild. I suspect there may be some hypovolemic component. We will give her some normal saline and recheck this in the morning. 4. Azotemia. She presents with BUN of 33, again suspected prerenal state. We will give some gentle IV fluids and follow. 5. History of atrial fibrillation. She is currently rate controlled. She is now on anticoagulation, which will continue to defer, given her active bleeding event. 6. Deep venous thrombosis prophylaxis. Patient is a medium risk, though will defer pharmacologic therapy, given bleeding and give SCDs for now. CODE STATUS: Patient is full code. DISPOSITION: Patient admitted to the hospital as inpatient. I anticipate greater than 48 hours of hospitalization for ongoing management of her hematuria and recurrent UTIs requiring inpatient urologic consultation. /[id number]/MODL MTDD
--- NOTE | 2017-05-04 15:12 | PDMN ---
Medical Necessity Medical necessity: C/M review: est. > 2 [place] LOS for eval and TX of acute and persistent hematuria, Urology suspects ongoing recurrent urinary tract infection , pyuria on urinalysis, dysuria and urinary frequency, hyponatremia, azotemia requiring Cheng catheter placement with continuous bladder irrigation initiated in ED, planned urology consult, ongoing IV Cefepime, IV fluids comorbid type2 diabetes, history of atrial fibrillation, recurrent urinary tract infections with hematuria, multiple falls, neuropathy, hepatitis C, chronic kidney disease , gout, osteoporosis per H/P.
[2017-05-04] MEDS ORDERED: SENNOSIDES/DOCUSATE SODIUM TAB PO PRN (16:02)
[2017-05-04] MEDS ORDERED: POLYETHYLENE GLYCOL 3350 17 GM PKT PO PRN (16:02)
[2017-05-04] MEDS ORDERED: NON-FORMULARY NEW DRUG (Omeprazole [Omeprazole] 40 MG) PO SCH (16:30)
[2017-05-04] MEDS: INSULIN LISPRO 100 UNIT/ML SC SCH ×2 (16:48→22:02)
[2017-05-04] MEDS: NS 1,000 ML IV SCH (16:49)
[2017-05-04] MEDS: PANTOPRAZOLE SODIUM 40 MG TAB PO SCH (16:56)
--- NOTE | 2017-05-04 17:42 | ASMTCMCOM ---
CM Note CM Note Notes: Pt presented to the ED for hematuria related to a recurrent UTI. Pt lives in Assisted Living at [facility] ([phone]) with her , Jeevan ([phone];c:[phone]), who is blind. The [facility] was notified and they said pt's Johnny danielle ([phone]) called [facility] and spoke with their nursing care team about increasing homecare assistance services for the while the pt is in the hospital. Please refer to CM Discharge Summary on 03/21/17 (pt's last admission related to a fall and UTI) for further information including homecare services ([facility]), other family members involved (stepdaughter, Joanne in [place]), and palliative care consult. Pt has been to [facility] and [facility] in the past. There is also mention of an [facility] hospice case manager Nathaniel Kline ([phone]) being involved with pt and her . Exact DC needs unknown, CM to follow. Date Signed: 05/04/2017 05:41 PM Electronically Signed By:Pepper Garcia RN
[2017-05-04] MEDS: CEFEPIME HCL 2 GM in STERILE WATER INJ 12.5 ML IV SCH (19:52)
[2017-05-04] MEDS: METOPROLOL TARTRATE 25 MG TAB PO SCH (19:54)
[2017-05-04] MEDS: COLCHICINE 0.6 MG CAP/TAB PO SCH (19:54)
[2017-05-04] MEDS: CHOLECALCIFEROL VIT D3 1,000 UNITS TAB PO SCH (19:54)
[2017-05-04] MEDS ORDERED: NON-FORMULARY NEW DRUG (Insulin Detemir [Levemir] 30 UNIT) SQ SCH (21:00)
[2017-05-04] MEDS: INSULIN GLARGINE 100 UNITS/ML UNIT SC SCH (22:01)
[2017-05-05] MEDS ORDERED: diphenhydrAMINE 25 MG CAP PO PRN (00:28)
[2017-05-05] MEDS ORDERED: MELATONIN 3 MG TAB PO PRN (00:29)
[2017-05-05] MEDS ORDERED: LEVOTHYROXINE 75 MCG TAB PO SCH (06:00)
[2017-05-05] MEDS: NS 1,000 ML IV SCH (08:43)
[2017-05-05] MEDS: CEFEPIME HCL 2 GM in STERILE WATER INJ 12.5 ML IV SCH (08:45)
[2017-05-05] MEDS: INSULIN LISPRO 100 UNIT/ML SC SCH ×2 (08:47→13:41)
[2017-05-05] MEDS: METOPROLOL TARTRATE 25 MG TAB PO SCH (08:48)
[2017-05-05] MEDS: INSULIN GLARGINE 100 UNITS/ML UNIT SC SCH (08:48)
[2017-05-05] MEDS: CHOLECALCIFEROL VIT D3 1,000 UNITS TAB PO SCH (08:49)
[2017-05-05] MEDS: COLCHICINE 0.6 MG CAP/TAB PO SCH (08:50)
[2017-05-05] MEDS: PANTOPRAZOLE SODIUM 40 MG TAB PO SCH (08:50)
[2017-05-05] MEDS ORDERED: ALLOPURINOL 300 MG TAB PO SCH (09:00)
[2017-05-05 11:39] VITALS: PULSE 77
[2017-05-05] MEDS ORDERED: ONDANSETRON DISINTEGRATING 4 MG TAB PO PRN (14:25)
[2017-05-05] MEDS ORDERED: oxyCODONE IR 5 MG TAB PO PRN (14:25)
--- NOTE | 2017-05-05 14:26 | HOSPPROG ---
Hospitalist Progress Note Assessment/Plan: Assessment: 76-year-old female presents with acute gross hematuria in the setting of uncontrolled diabetes mellitus with hyperglycemia Plan: 1. Hematuria. Acute, new problem this provider, further workup indicated. Unclear etiology, present on urinalysis, grossly visible by the patient, passed blood clots with concomitant dysuria and hesitancy at home -urinalysis positive for red blood cells and white blood cells, urine culture currently pending -outside records of previous micro results reviewed, the patient has previously had resistant E coli organisms, currently day 1 of cefepime, continue -continue on CBI, urine has currently cleared -appreciate Urology consultation, will be at their discretion how long to continue the CBI and whether to perform cystoscopy determine the etiology of the hematuria cause it seems somewhat less likely that it is from a severe UTI with a normal procalcitonin level and normal white blood cell count 2. Uncontrolled diabetes mellitus. Most recent hemoglobin A1c around 10%, patient has had all kinds of changes in her insulin between [facility] facility to assisted living, most recently settling back into her home dosage of Levemir -counseled the patient that it would be more consistent to continue Levemir at home, given her issues with dosing the Lantus, and I will attempt to discharge her on an equivalent dosage of Levemir from the Lantus we are using here in the hospital -continue Lantus at current dosing, continue on insulin sliding scale -reintroduce her home metformin 3. Chronic pain with continuous opiate dependency. Continue home pain medication, bowel regiment 4. Suspected mild cognitive impairment. Nurses reporting that the patient seems cognitively impaired, she is currently interacting at a high level with me but she does demonstrate some signs of cognitive fatigue during our evaluation -placed on scheduled melatonin to help regulate sleep-wake cycle in the hospital -recommend outpatient cog eval with her primary care provider -get PT/OT/cog eval is here to determine whether she is safe to return to assisted living after this hospitalization 5. Acute hyponatremia. Most likely secondary to mild hypovolemia prior to presentation, resolved with IV fluids 6. Acute metabolic acidosis. Most likely secondary to hypovolemia, resolved with IV fluids 7. Paroxysmal atrial fibrillation. Continue beta-kimberly, continue aspirin for CVA prevention, currently no evidence of acute rapid ventricular response -continue to monitor on telemetry, given her history of acute rapid ventricular response Diet. Diabetic Prophylaxis. High risk patient, Sesarx 40 Code. Full at present Dispo. Anticipated discharge uncertain this time, requiring further urologic evaluation. Subjective: reports discomfort at being in the hospital Objective: Vital Signs Temp Pulse Resp BP Pulse Ox 36.4 C 77 16 118/57 L 96 05/05/17 11:39 05/05/17 11:39 05/05/17 11:39 05/05/17 11:39 05/05/17 11:39 Laboratory Results 05/05/17 05:11 05/05/17 05:11 05/04/17 05/05/17 05/06/17 05:59 05:59 05:59 Intake Total 932 500 Output Total 2800 2350 Balance -1868 -1850 - Physical Exam Constitutional: no apparent distress, not in pain, chronically ill appearing, uncomfortable Cardiovascular: regular rate and rhythym, no murmur, rub, or gallop, No edema Respiratory: no respiratory distress, no rales or rhonchi, clear to auscultation Gastrointestinal: normoactive bowel sounds, soft, non-tender abdomen, no palpable masses Neurologic: AAOx3 Psychiatric: interacting appropriately, not anxious, flat affect, No agitated ICD10 Worksheet Patient Problems: Problems Problem Status Onset Hematuria Acute UTI (urinary tract infection) Acute Atrial fibrillation Acute Cervical spine fracture Acute Dehydration Acute Diabetes Acute Elevated troponin Acute Fall at home Acute Frequent falls Acute Gait instability Acute Gastroenteritis Acute Hyperglycemia Acute Hypertension Acute Hyponatremia Acute Pain management Acute Palliative care encounter Acute Sepsis secondary to UTI Acute
--- NOTE | 2017-05-05 14:52 | ASMTCMCOM ---
CM Note CM Note Notes: CM spoke w/ Janell regarding d/c POC. Therapies have been ordered and awaiting recommendations. Needs are TBD at this time. CM to follow. Plan: TBD Date Signed: 05/05/2017 02:51 PM Electronically Signed By:ELAYNE Mills
[2017-05-05 16:06] VITALS: BP 124/46; RESP 17; TEMP 97.7; O2SAT 93
--- NOTE | 2017-05-05 16:53 | PDIAF ---
- Diagnosis Diagnosis: Hematuria, DM2 w/ hyperglycemia Code Status: Full Code - Medication Management Discharge Medications: Medications to Continue on Transfer Alendronate Sodium [Fosamax 70 MG (*)] 70 mg PO MO@0700 03/27/14 [Last Taken 06/24] Allopurinol [Allopurinol 300 MG (RX)] 450 mg PO DAILY 03/27/14 [Last Taken 05/03] Levothyroxine [Synthroid 75 mcg (*)] 75 mcg PO DAILY06 03/13/16 [Last Taken ] Colchicine [Colchicine (*)] 0.6 mg PO BID #60 ea 01/09/17 [Last Taken 05/02/17] metFORMIN HCL [Glucophage 500 mg (*)] 500 mg PO DAILY@0800 02/10/17 [Last Taken 05/03/17] oxyCODONE IR [Oxycodone Ir (*)] 5 mg PO Q4HRS PRN tab 02/14/17 [Last Taken Unknown] Acetaminophen [Tylenol ES 500 mg (*)] 500 mg PO BID PRN 05/04/17 [Last Taken Unknown] Cholecalciferol Vit D3 [Vitamin D3 (*)] 1,000 units PO BID 05/04/17 [Last Taken 05/03/17] Omeprazole 40 mg PO DAILY 05/04/17 [Last Taken 05/03/17] Ondansetron Odt [Zofran Odt 4 mg (*)] 4 mg PO Q4 PRN 05/04/17 [Last Taken Unknown] Polyethylene Glycol 3350 [Miralax 17 gm (*)] 1 pkt PO DAILY 05/04/17 [Last Taken 05/02/17] Polyethylene Glycol 3350 [Miralax 17 gm (*)] 17 gm PO DAILY PRN 05/04/17 [Last Taken Unknown] Sennosides/Docusate Sodium [Senokot-S] 1 - 2 tab PO BID PRN 05/04/17 [Last Taken Unknown] Sitagliptin Phos/Metformin HCl [Janumet 50-500 mg Tablet] 1 tab PO DAILY@1700 [Last Taken Unknown] Aspirin EC [Aspirin EC 81 mg (*)] 81 mg PO DAILY #30 tab 05/05/17 [Last Taken ] Insulin Detemir [Levemir] 35 unit SQ BID #100 ml 05/05/17 [Last Taken 05/03/17 21:00] Metoprolol Tartrate [Lopressor 25 mg (*)] 25 mg PO BID #60 tab 05/05/17 [Last Taken Unknown] Senior Front End Developer Antibiotics: NA Discharge Medications: Refer to the Discharge Home Medication list for PRN reason. PICC Care - Routine: N/A - Orders Services needed: Home Care, Registered Nurse (med mgmt), Physical Therapy, Occupational Therapy Home Care Face to Face: I certify that this patient was under my care and that I had the required [id number] encounter meeting the encounter requirements on the discharge day. My findings support the fact that the patient is homebound as defined in Home Care Face to Face Continued: CMS Chapter 7 Medicare Benefits Manual 30.1.1 , The condition of the patient is such that there exists a normal inability to leave home and consequently, leaving home would require a considerable and taxing effort. Isolation Type: None Oxygen: RA Diet Recommendation: ADA 2000 consistent carb Weigh Patient: weekly Cheng: Not applicable - Labs/Radiology BMP Date: 05/08/17 Other Lab Name, Date and Time: morning fasting blood glucose levels Call or Fax Lab and Imaging Results to: Dr. Clemente, Dr. Magdaleno - Follow Up Care Current Providers and Referrals: Jenny Garcia MD [Primary Care Provider] - 3-5 days Vasyl Magdaleno MD [Medical Doctor] - (please follow-up as scheduled the first week of June; contact his office sooner if symptoms reoccur )
--- NOTE | 2017-05-05 20:23 | PDDCSUM ---
Discharge Summary Discharge Summary: DISCHARGE SUMMARY FOLLOW-UP ITEMS: Urine culture to be followed up by Dr. Ian Magdaleno DATE OF ADMISSION: 05/04/2017 DATE OF DISCHARGE: 05/05/2017 DISCHARGE DIAGNOSES: 1. Acute hematuria 2. Uncontrolled diabetes mellitus with hyperglycemia 3. Chronic pain with continuous opiate dependency 4. Suspected mild cognitive impairment 5. Acute hyponatremia 6. Acute metabolic acidosis 7. Paroxysmal atrial fibrillation CONSULTATIONS: Curbside with Urology PROCEDURES / IMAGING: CBI CHIEF COMPLAINT: Acute hematuria SUBJECTIVE: Patient is feeling well at time discharge, she is requesting to be discharged, she has no subsequent hematuria and she is able to void after CBI has been removed PHYSICAL EXAM ON DISCHARGE: Systolic blood pressure is 140, heart rate 80, afebrile overnight, satting well on room air, alert awake oriented x3, patient does have some evidence of thought blocking but she is not encephalopathic, abdomen is soft nontender nondistended, urine has changed to a yellow/ivanna color, heart rhythm is regular without any inspiratory crackles LABS ON DISCHARGE: Serum bicarbonate 122, serum sodium 140, creatinine 0.8, white blood cell count 5400, hemoglobin 10.1, procalcitonin normal, ESR 59, urinalysis with red blood cells and white blood cells HOSPITAL COURSE BY PROBLEM: The patient presented with acute hematuria of unclear etiology, but she did not have overt evidence infectious cystitis, as her white blood cell count was normal, her procalcitonin level normal, and her other urinary symptoms of hesitancy and dysuria could be completely attributable to blood clots which had formed and were causing intermittent urethra neck obstruction. A CBI was placed and the patient's blood clots cleared. Her hemoglobin did not demonstrate any substantial decline. She was initiated on cefepime for empiric coverage of possible resistant E coli organisms, which she has had in the past, but after conversation with Urology, the decision was made to discharge her not on any antibiotics, and simply monitor her culture data. If her culture comes back positive, the patient will be contacted by Dr. Magdaleno and initiated on antibiotics. The patient's home dosage of aspirin has been temporarily held for a couple days to allow the irritant causing her hematuria to completely resolved. I recommended that she reinitiate her aspirin on 05/08 and that she also he initiate a beta-kimberly given some evidence of rapid AFib early in her hospitalization. She has otherwise been continued on all of her home medications, but recommended increasing her Levemir up to 35 U twice daily given her ongoing hyperglycemia during this hospitalization. It is theorized that her hyperglycemia is contributed to her polyuria as well as her recurrent historic urinary tract infections. I had a conversation with the patient regarding use of Lantus verses Levemir as well as mealtime insulin. The present time, the patient only feels like she is able to physically manage the Levemir and I recommend that she continue up titrating this as an outpatient to accomplish as good of control as possible. We have recommended home care PT OT and RN, to assist the patient and I would recommend the patient begin learning how to monitor fasting blood glucose levels daily. She should follow up with her primary care provider with these levels, to continue the conversation regarding dosing of Levemir as well as consider the possibility of mealtime boluses. I believe that better glucose management may result in better management of her urinary symptoms. He was also suspected that the patient may be developing some mild cognitive impairment, she did demonstrate some evidence of sundowning and thought blocking. It is possible this may have been secondary to impaired sleep cycle during this hospitalization, and I would recommend that she have an outpatient cognitive evaluation at her primary care provider office to determine her overall capacity of caring for her at assisted living. DISCHARGE MEDICATIONS: Please see official discharge medication reconciliation sheet in chart , continue home medications with the temporary discontinuation of aspirin for 3 total days, initiation of metoprolol tartrate 25 mg twice daily, discontinuation of levofloxacin and up titration of Levemir to 35 U twice daily. DISCHARGE INSTRUCTIONS: Please follow up with primary care provider this week, then follow up with Dr. Magdaleno thereafter as scheduled. Please contact Dr. Magdaleno's office if you experience worsening urinary symptoms. TIME SPENT: Greater than 30 minutes were spent on direct patient care, as well as discharge planning and preparation. The patient experienced unanticipated rapid recovery of her hematuria as well as reconsideration of her possible urinary tract infection initially requiring IV antibiotics. This occurred much more rapidly than originally anticipated by the admitting provider, Dr. Madrid. The patient's condition stabilized in this fashion secondary to the highly efficient and expeditious care provided by the patient's hospitalist and nursing staff providers.
[2017-05-05] MEDS ORDERED: MELATONIN 3 MG TAB PO SCH (21:00)
[2017-05-06] MEDS ORDERED: metFORMIN HCL 500 MG TAB PO SCH (08:00)
[2017-05-06] MEDS ORDERED: POLYETHYLENE GLYCOL 3350 17 GM PKT PO SCH (09:00)
--- NOTE | 2017-05-06 10:11 | ASDISCHSUM ---
Discharge Information Plan Status:Home with Home Health Medically Cleared to Leave:05/04/2017 Discharge Date:05/05/2017 05:54 PM CM D/C Disposition: ADT D/C Disposition:Home Health Service Projected Discharge Date:05/05/2017 11:00 AM Transportation at D/C: Discharge Delay Reason: Follow-Up Date:05/05/2017 11:00 AM Discharge Slot: Final Diagnosis: Placement Information Referral Type:*Home Health Care Services Referral ID:[id number] Provider Name:[facility] Address 1:[address] Address 2: City:[place] Selection Factors: State:[place] Patient Contact Information Contact Name:MANJEET Relationship: Address:[address] City:[place] Alternate Phone: State/Zip Code:[place] [address] Email: Financial Information Financial Class:Medicare Primary Plan Desc:MEDICARE INPATIENT Primary Plan Number:[id number] [facility] Secondary Plan Number:[id number] Assessment Information [facility] Progress Note CM Note CM Note Notes: Pt presented to the ED for hematuria related to a recurrent UTI. Pt lives in Assisted Living at [facility] ([phone]) with her , Jeevan ([phone];c:[phone]), who is blind. The [facility] was notified and they said pt's Johnny danielle ([phone]) called [facility] and spoke with their nursing care team about increasing homecare assistance services for the while the pt is in the hospital. Please refer to Discharge Summary on 03/21/17 (pt's last admission related to a fall and UTI) for further information including homecare services ([facility]), other family members involved (stepdadidier, Joanne in [place]), and palliative care consult. Pt has been to [facility] and [facility] in the past. There is also mention of an [facility] special education case manager Nathaniel Kline ([phone]) being involved with pt and her . Exact DC needs unknown, CM to follow. Date Signed: 05/04/2017 05:41 PM Electronically Signed By:Pepper Garcia RN [facility] CM Progress Note CM Note CM Note Notes: CM spoke w/ Janell regarding d/c POC. Therapies have been ordered and awaiting recommendations. Needs are TBD at this time. CM to follow. Plan: TBD Date Signed: 05/05/2017 02:51 PM Electronically Signed By:ELAYNE Mills Case Management Discharge Plan Note Case Management Discharge Discharge Order Complete? Answers: Yes Patient to Obtain Answers: Other Notes: [facility] Medications Transportation Arranged Answers: Other Notes: [facility] Transport will Pick (Date 05/05/2017 05:30 PM & Time) EMTALA Complete Answers: No Case Management Transport Answers: Yes Form Complete Faxed Final Orders Answers: Yes Agency/Facility Transfer Answers: Yes Report Printed & Faxed to Receiving Agency Family Notified Answers: No Discharge Comments Notes: CM spoke w/ Dr. Weber and SHYANN Maciel regarding d/c POC. Pt is being discharged today. Pt is current w/ [facility]. DC orders sent there. DC orders also sent to [facility], per their request. CM met w/ pt for dispo planning. Pt reports that she is able to arrange her own transporation home. CM provided SHYANN Maciel w/ phone number to give report to the [facility]. CM available for changes. Plan: [facility]; PT, OT, RN Date Signed: 05/05/2017 05:03 PM Electronically Signed By:ELAYNE Mills Intervention Information
== END 2017-05-05 17:54 | disposition home health service (06) | DRG 696 ==
LOC: OBSVTOIN 13:36 → F3E 14:44
PROVIDERS: ADMIT Hospitalist; ATTEND Hospitalist
DX: R31.9 Hematuria, unspecified (principal); E11.65 Type 2 diabetes mellitus with hyperglycemia; N39.0 Urinary tract infection, site not specified; E11.22 Type 2 diabetes mellitus with diabetic chronic kidney disease; E87.1 Hypo-osmolality and hyponatremia; N18.9 Chronic kidney disease, unspecified; G31.84 Mild cognitive impairment of uncertain or unknown etiology; E87.2 Acidosis; G89.29 Other chronic pain; F11.20 Opioid dependence, uncomplicated; E03.9 Hypothyroidism, unspecified; I48.0 Paroxysmal atrial fibrillation; M10.9 Gout, unspecified; B19.20 Unspecified viral hepatitis C without hepatic coma; Z91.81 History of falling; Z79.82 Long term (current) use of aspirin; Z79.4 Long term (current) use of insulin
CPT/HCPCS: 82947-QW; J0692; J1815

== ENCOUNTER 2017-05-07 14:17 | Emergency (ER) | payer OTHER ==
[2017-05-07 15:11] LABS: PLATELET COUNT 201 10^3/uL (150-400)
--- NOTE | 2017-05-07 15:32 | EDPHY ---
H & P Stated Complaint: blood clots in urine/dc from hospital yesterday for same Time Seen by Provider: 05/07/17 14:38 HPI/ROS: CHIEF COMPLAINT: Hematuria HISTORY OF PRESENT ILLNESS: The patient presents to the ED with recurrent hematuria. The patient was hospitalized earlier in the week with hematuria and mild urinary retention. She underwent continuous bladder irrigation and had resolution of her symptoms. She developed recurrent symptoms today. She reports passing small clots but denies significant abdominal pain, flank pain, vomiting or fever. The patient was referred to Urology for further evaluation. REVIEW OF SYSTEMS: A comprehensive 10 point review of systems is otherwise negative aside from elements mentioned in the history of present illness. Source: Patient Exam Limitations: No limitations - Personal History Current Tetanus/Diphtheria Vaccine: Yes Tetanus Vaccine Date: 2011 - Medical/Surgical History Hx Asthma: No Hx Chronic Respiratory Disease: No Hx Diabetes: Yes Hx Cardiac Disease: No Hx Renal Disease: No Hx Cirrhosis: No Hx Alcoholism: No Hx HIV/AIDS: No Hx Splenectomy or Spleen Trauma: No Other PMH: DM2, hypothyroid, pelvic fx, 5 surgeries on right leg, broken hand x2 , broken collar bones, Hepatitis C from blood transfusion, urinary leakage, rib fx's, chronic hematuria - Social History Smoking Status: Never smoked - Physical Exam Exam: General Appearance: Alert, no distress Eyes: Pupils equal and round no pallor or injection ENT, Mouth: Mucous membranes moist Respiratory: There are no retractions, lungs are clear to auscultation Cardiovascular: Regular rate and rhythm Gastrointestinal: Abdomen is soft and nontender, no masses, bowel sounds normal Neurological: A&O, normal motor function, normal sensory exam, normal cranial nerves Skin: Warm and dry, no rashes Musculoskeletal: Neck is supple nontender Extremities: symmetrical, full range of motion Constitutional: Initial Vital Signs Temperature (C) 36.6 C 05/07/17 14:22 Heart Rate 112 H 05/07/17 14:22 Respiratory Rate 18 05/07/17 14:22 Blood Pressure 120/68 05/07/17 14:22 O2 Sat (%) 97 05/07/17 14:22 O2 Delivery Mode Room Air Allergies/Adverse Reactions: morphine Allergy (Mild, Verified 05/07/17 14:18) Vomiting nitrofurantoin Allergy (Mild, Verified 05/07/17 14:18) Rash Home Medications: Medication Instructions Recorded Alendronate Sodium [Fosamax 70 MG 70 mg PO MO@0700 03/27/14 (*)] Allopurinol [Allopurinol 300 MG 450 mg PO DAILY 03/27/14 (RX)] Levothyroxine [Synthroid 75 mcg 75 mcg PO DAILY06 03/13/16 (*)] Colchicine [Colchicine (*)] 0.6 mg PO BID #60 ea 01/09/17 metFORMIN HCL [Glucophage 500 mg 500 mg PO DAILY@0800 02/10/17 (*)] oxyCODONE IR [Oxycodone Ir (*)] 5 mg PO Q4HRS PRN tab 02/14/17 Acetaminophen [Tylenol ES 500 mg 500 mg PO BID PRN 05/04/17 (*)] Cholecalciferol Vit D3 [Vitamin D3 1,000 units PO BID 05/04/17 (*)] Omeprazole 40 mg PO DAILY 05/04/17 Ondansetron Odt [Zofran Odt 4 mg 4 mg PO Q4 PRN 05/04/17 (*)] Polyethylene Glycol 3350 [Miralax 1 pkt PO DAILY 05/04/17 17 gm (*)] Polyethylene Glycol 3350 [Miralax 17 gm PO DAILY PRN 05/04/17 17 gm (*)] Sennosides/Docusate Sodium 1 - 2 tab PO BID PRN 05/04/17 [Senokot-S] Sitagliptin Phos/Metformin HCl 1 tab PO DAILY@1700 05/04/17 [Janumet 50-500 mg Tablet] Aspirin EC [Aspirin EC 81 mg (*)] 81 mg PO DAILY #30 tab 05/05/17 Insulin Detemir [Levemir] 35 unit SQ BID #100 ml 05/05/17 Metoprolol Tartrate [Lopressor 25 25 mg PO BID #60 tab 05/05/17 mg (*)] Medical Decision Making ED Course/Re-evaluation: I reviewed the patient's past medical records. The patient's postvoid residual is 100 mL. She has no evidence of urinary retention. She recently had a urine culture which demonstrates no evidence of infection. It has been recommended that she follow up with Urology for further outpatient evaluation of her gross hematuria. The patient is advised to return to the ED immediately for signs of urinary retention, fever, vomiting or other concerns. Differential Diagnosis: Differential diagnosis considered includes cystitis, urinary tract infection, dehydration, metabolic abnormality - Data Points Laboratory Results: Laboratory Results 05/07/17 15:02 05/07/17 15:02 05/07/17 05/07/17 15:02 15:02 WBC 6.81 10^3/uL 10^3/uL (3.80-9.50) RBC 3.24 10^6/uL L 10^6/uL (4.18-5.33) Hgb 10.4 g/dL L g/dL (12.6-16.3) Hct 30.0 % L % (38.0-47.0) MCV 92.6 fL fL (81.5-99.8) MCH 32.1 pg pg (27.9-34.1) MCHC 34.7 g/dL g/dL (32.4-36.7) RDW 14.7 % % (11.5-15.2) Plt Count 201 10^3/uL 10^3/uL (150-400) MPV 9.5 fL fL (8.7-11.7) Neut % (Auto) 80.5 % H % (39.3-74.2) Lymph % (Auto) 10.6 % L % (15.0-45.0) [place] % (Auto) 5.0 % % (4.5-13.0) Eos % (Auto) 2.9 % % (0.6-7.6) Baso % (Auto) 0.6 % % (0.3-1.7) Nucleat RBC Rel Count 0.0 % % (0.0-0.2) Absolute Neuts (auto) 5.48 10^3/uL 10^3/uL (1.70-6.50) Absolute Lymphs (auto) 0.72 10^3/uL L 10^3/uL (1.00-3.00) Absolute Monos (auto) 0.34 10^3/uL 10^3/uL (0.30-0.80) Absolute Eos (auto) 0.20 10^3/uL 10^3/uL (0.03-0.40) Absolute Basos (auto) 0.04 10^3/uL 10^3/uL (0.02-0.10) Absolute Nucleated RBC 0.00 10^3/uL 10^3/uL (0-0.01) Immature Gran % 0.4 % % (0.0-1.1) Immature Gran # 0.03 10^3/uL 10^3/uL (0.00-0.10) Sodium 139 mEq/L mEq/L (135-145) Potassium 4.4 mEq/L mEq/L (3.5-5.2) Chloride 111 mEq/L H mEq/L (97-110) Carbon Dioxide 15 mEq/l L D mEq/l (22-31) Anion Gap 13 mEq/L mEq/L (8-16) BUN 22 mg/dL mg/dL (7-23) Creatinine 1.1 mg/dL H mg/dL (0.6-1.0) Estimated GFR 48 Glucose 167 mg/dL H mg/dL (70-100) Calcium 9.5 mg/dL mg/dL (8.5-10.4) Departure - Departure Disposition: Home, Routine, Self-Care Clinical Impression: Hematuria Condition: Good Instructions: Hematuria (ED) Additional Instructions: 1. You have no evidence of urinary retention. 2. You will need to see the urologist for further evaluation of your symptoms. Please contact their office to schedule a follow-up visit. If your having difficulty arranging a follow-up visit please contact your primary care provider for assistance in this. 3. Return to the ED for severe abdominal pain, vomiting, inability to urinate, back pain or other concerns. Referrals: Jenny Garcia MD [Primary Care Provider] - As per Instructions Vasyl Magdaleno MD [Medical Doctor] - As per Instructions
[2017-05-07 16:01] VITALS: RESP 16
[2017-05-07] MEDS ORDERED: IOPAMIDOL (ISOVUE-300) 100 ML BTL ONE (16:11)
[2017-05-07 17:38] VITALS: BP 131/87; PULSE 90; TEMP 97.7; O2SAT 97
== END 2017-05-07 17:55 | disposition home or self-care (01) ==
DX: R31.9 Hematuria, unspecified (principal); E11.9 Type 2 diabetes mellitus without complications; Z79.4 Long term (current) use of insulin; Z79.82 Long term (current) use of aspirin
CPT/HCPCS: 74177; 99285; Q9967

== ENCOUNTER → 2017-05-27 | Outpatient (CLI) | payer OTHER | LOC: FIMAGING 11:07 | PROVIDERS: ATTEND Nurse Practitioner | DX: S12.491A Other nondisplaced fracture of fifth cervical vertebra, initial encounter for closed fracture (principal) ==

== ENCOUNTER 2017-06-07 11:04 | Emergency (ER) | payer OTHER ==
[2017-06-07] MEDS ORDERED: NS 500 ML IV ONE (11:43)
--- NOTE | 2017-06-07 11:43 | EDPHY ---
H & P Time Seen by Provider: 06/07/17 11:33 HPI/ROS: CHIEF COMPLAINT: Hematuria HISTORY OF PRESENT ILLNESS: Patient is a 76-year-old female who presents emergency department with worsening hematuria. The patient states that she has had hematuria for the past 4 weeks. She has been followed by urologist. He told her that would ultimately resolved. However, over the past few days it has worsened. She has a significant amount of blood in her underwear and she feels she is incontinent of urine. She also states that there is bright red blood in the toilet after she urinates. She does not feel this blood is coming from her vagina or rectum. She has no pain with bowel movement. She is not lightheaded or dizzy. No chest pain or shortness of breath. Of note, the triage note states the patient has had vaginal bleeding x4 weeks. The patient denies this as stated above. Again, she does not think she has vaginal bleeding. Patient is not on blood thinners REVIEW OF SYSTEMS: My complete review of systems is negative except as mentioned in the HPI. Past Medical/Surgical History: Includes chronic hematuria, urinary incontinence, hepatitis-C, hypothyroidism, diabetes type 2, pelvic fracture, clavicle fracture, rib fracture Past surgical history: Includes right leg surgery Social history: Patient denies drugs or alcohol Smoking Status: Never smoked Physical Exam: Vitals noted GENERAL: Well-appearing, in no acute distress, alert. HEENT: Eyes normal to inspection, normal pharynx, no signs of dehydration. NECK: No thyromegaly, no lymphadenopathy, supple. RESPIRATORY: Clear to auscultation bilaterally, no rales, rhonchi or wheezing. CVS: Regular rate and rhythm, no rubs, murmurs, or gallops. ABDOMEN: Soft, nontender, nondistended, no organomegaly. BACK: Normal to inspection, no CVA tenderness. Old abrasion on right posterior ribs. No tenderness to palpation. No crepitus. SKIN: Normal color, no rash, warm, dry. No pallor. EXTREMITIES: No pedal edema, no calf tenderness, no Homans sign or cords, no joint swelling. NEURO/PSYCH: Alert and oriented x3, normal mood and affect, normal motor sensory exam. Constitutional: Initial Vital Signs Temperature (C) 36.5 C 06/07/17 11:13 Heart Rate 89 06/07/17 11:13 Respiratory Rate 18 06/07/17 11:13 Blood Pressure 132/69 H 06/07/17 11:13 O2 Sat (%) 93 06/07/17 11:13 O2 Delivery Mode Room Air Allergies/Adverse Reactions: morphine Allergy (Mild, Verified 05/07/17 14:18) Vomiting nitrofurantoin Allergy (Mild, Verified 05/07/17 14:18) Rash Home Medications: Medication Instructions Recorded Alendronate Sodium [Fosamax 70 MG 70 mg PO MO@0700 03/27/14 (*)] Allopurinol [Allopurinol 300 MG 450 mg PO DAILY 03/27/14 (RX)] Levothyroxine [Synthroid 75 mcg 75 mcg PO DAILY06 03/13/16 (*)] Colchicine [Colchicine (*)] 0.6 mg PO BID #60 ea 01/09/17 metFORMIN HCL [Glucophage 500 mg 500 mg PO DAILY@0800 02/10/17 (*)] oxyCODONE IR [Oxycodone Ir (*)] 5 mg PO Q4HRS PRN tab 02/14/17 Acetaminophen [Tylenol ES 500 mg 500 mg PO BID PRN 05/04/17 (*)] Cholecalciferol Vit D3 [Vitamin D3 1,000 units PO BID 05/04/17 (*)] Omeprazole 40 mg PO DAILY 05/04/17 Ondansetron Odt [Zofran Odt 4 mg 4 mg PO Q4 PRN 05/04/17 (*)] Polyethylene Glycol 3350 [Miralax 1 pkt PO DAILY 05/04/17 17 gm (*)] Polyethylene Glycol 3350 [Miralax 17 gm PO DAILY PRN 05/04/17 17 gm (*)] Sennosides/Docusate Sodium 1 - 2 tab PO BID PRN 05/04/17 [Senokot-S] Sitagliptin Phos/Metformin HCl 1 tab PO DAILY@1700 05/04/17 [Janumet 50-500 mg Tablet] Aspirin EC [Aspirin EC 81 mg (*)] 81 mg PO DAILY #30 tab 05/05/17 Insulin Detemir [Levemir] 35 unit SQ BID #100 ml 05/05/17 Metoprolol Tartrate [Lopressor 25 25 mg PO BID #60 tab 05/05/17 mg (*)] Cephalexin [Keflex (*)] 500 mg PO QID 10 Days cap 06/07/17 Medical Decision Making ED Course/Re-evaluation: In the emergency department I discussed possible etiologies with the patient. I answered all her questions. IV was placed. Laboratory studies and urine were obtained. The patient was having difficulty giving a urine sample. Both times when she went to the bathroom she had a bowel movement and did not collect any urine. She subsequently had a urine catheterization performed. Due the patient's CBC. White count was minimally elevated at 10.2. Hematocrit was 29.9. I compared this with previous value of 30. Her platelet count was 274. Patient's chemistry panel is unremarkable. Her urine was positive. 3+ blood. 3+ leuk esterase. 5182 red cells. 5182 white cells. I discussed the results with the patient. She is given Keflex 500 mg orally. She will follow up with Urology for her ongoing hematuria. She will take her entire course of antibiotics. She was given warnings prior to leaving. She will return with worsening symptoms. Differential Diagnosis: My differential includes but is not limited to hematuria, malignancy, mass, urinary tract infection, pyelonephritis, renal stones, vaginal bleeding, atrophy - Data Points Laboratory Results: Laboratory Results 06/07/17 12:12 06/07/17 12:12 06/07/17 06/07/17 06/07/17 13:47 12:12 12:12 WBC RBC Hgb Hct MCV MCH MCHC RDW Plt Count MPV Neut % (Auto) Lymph % (Auto) [place] % (Auto) Eos % (Auto) Baso % (Auto) Nucleat RBC Rel Count Absolute Neuts (auto) Absolute Lymphs (auto) Absolute Monos (auto) Absolute Eos (auto) Absolute Basos (auto) Absolute Nucleated RBC Immature Gran % Immature Gran # PT 15.0 SEC SEC (12.0-15.0) INR 1.16 (0.83-1.16) APTT 27.9 SEC SEC (23.0-38.0) Sodium 138 mEq/L mEq/L (135-145) Potassium 4.0 mEq/L mEq/L (3.5-5.2) Chloride 103 mEq/L mEq/L (97-110) Carbon Dioxide 23 mEq/l mEq/l (22-31) Anion Gap 12 mEq/L mEq/L (8-16) BUN 19 mg/dL mg/dL (7-23) Creatinine 0.7 mg/dL mg/dL (0.6-1.0) Estimated GFR > 60 Glucose 149 mg/dL H mg/dL (70-100) Calcium 8.6 mg/dL mg/dL (8.5-10.4) Urine Color YELLOW Urine Appearance MODERATELY TURBID Urine pH 6.0 (5.0-7.5) Ur Specific [place] 1.009 (1.002-1.030) Urine Protein 2+ H (NEGATIVE) Urine Ketones NEGATIVE (NEGATIVE) Urine Blood 3+ H (NEGATIVE) Urine Nitrate NEGATIVE (NEGATIVE) Urine Bilirubin NEGATIVE (NEGATIVE) Urine Urobilinogen NEGATIVE EU EU (0.2-1.0) Ur Leukocyte Esterase 3+ H (NEGATIVE) Urine RBC 50-182 /hpf H /hpf (0-3) Urine WBC 50-182 /hpf H /hpf (0-3) Ur Epithelial Cells NONE SEEN /lpf /lpf (NONE-1+) Urine Bacteria 2+ /hpf H /hpf (NONE SEEN) Urine Glucose NEGATIVE (NEGATIVE) 06/07/17 12:12 WBC 10.22 10^3/uL H 10^3/uL (3.80-9.50) RBC 3.32 10^6/uL L 10^6/uL (4.18-5.33) Hgb 9.8 g/dL L g/dL (12.6-16.3) Hct 29.9 % L % (38.0-47.0) MCV 90.1 fL fL (81.5-99.8) MCH 29.5 pg pg (27.9-34.1) MCHC 32.8 g/dL g/dL (32.4-36.7) RDW 13.6 % % (11.5-15.2) Plt Count 274 10^3/uL 10^3/uL (150-400) MPV 9.5 fL fL (8.7-11.7) Neut % (Auto) 82.5 % H % (39.3-74.2) Lymph % (Auto) 7.8 % L % (15.0-45.0) [place] % (Auto) 6.7 % % (4.5-13.0) Eos % (Auto) 1.9 % % (0.6-7.6) Baso % (Auto) 0.5 % % (0.3-1.7) Nucleat RBC Rel Count 0.0 % % (0.0-0.2) Absolute Neuts (auto) 8.44 10^3/uL H 10^3/uL (1.70-6.50) Absolute Lymphs (auto) 0.80 10^3/uL L 10^3/uL (1.00-3.00) Absolute Monos (auto) 0.68 10^3/uL 10^3/uL (0.30-0.80) Absolute Eos (auto) 0.19 10^3/uL 10^3/uL (0.03-0.40) Absolute Basos (auto) 0.05 10^3/uL 10^3/uL (0.02-0.10) Absolute Nucleated RBC 0.00 10^3/uL 10^3/uL (0-0.01) Immature Gran % 0.6 % % (0.0-1.1) Immature Gran # 0.06 10^3/uL 10^3/uL (0.00-0.10) PT INR APTT Sodium Potassium Chloride Carbon Dioxide Anion Gap BUN Creatinine Estimated GFR Glucose Calcium Urine Color Urine Appearance Urine pH Ur Specific [place] Urine Protein Urine Ketones Urine Blood Urine Nitrate Urine Bilirubin Urine Urobilinogen Ur Leukocyte Esterase Urine RBC Urine WBC Ur Epithelial Cells Urine Bacteria Urine Glucose Medications Given: Discontinued Medications Sodium Chloride (Ns) 500 mls @ 0 mls/hr IV EDNOW ONE; Wide Open PRN Reason: Protocol Stop: 06/07/17 11:44 Last Admin: 06/07/17 12:17 Dose: 500 mls Departure - Departure Clinical Impression: Hematuria Qualifiers: Hematuria type: unspecified type Qualified Code(s): R31.9 - Hematuria, unspecified Urinary tract infection Qualifiers: Urinary tract infection type: acute cystitis Hematuria presence: with hematuria Qualified Code(s): N30.01 - Acute cystitis with hematuria Condition: Good Instructions: Hematuria (ED), Urinary Tract Infection in Women (ED) Additional Instructions: Take your entire course of antibiotics. You need close follow-up with urologist as well as your primary care physician. Call to make an appointment. Referrals: Jenny Garcia MD [Primary Care Provider] - 2-3 days without fail Prescriptions: Cephalexin [Keflex (*)] 500 mg PO QID 10 Days cap
[2017-06-07 12:28] LABS: PLATELET COUNT 274 10^3/uL (150-400)
[2017-06-07 12:36] LABS: INR 1.16 (0.83-1.16)
[2017-06-07] MEDS ORDERED: CEPHALEXIN 500MG PREPACK#4 BTL TAKEHOME ONE (14:27)
[2017-06-07 14:53] VITALS: BP 131/94
== END 2017-06-07 14:52 | disposition home or self-care (01) ==
PROC: 0T9B70Z Drainage of Bladder with Drainage Device, Via Natural or Artificial Opening (ICD-10-PCS; principal; 2017-06-07)
DX: N30.01 Acute cystitis with hematuria (principal); E11.9 Type 2 diabetes mellitus without complications; E86.9 Volume depletion, unspecified; Z79.4 Long term (current) use of insulin; Z79.82 Long term (current) use of aspirin; Z79.84 Long term (current) use of oral hypoglycemic drugs

== ENCOUNTER 2017-06-29 16:51 | Inpatient (IN) | payer OTHER ==
[2017-06-29] MEDS ORDERED: NS 1,000 ML IV ONE (17:13)
[2017-06-29 17:23] LABS: PLATELET COUNT 196 10^3/uL (150-400)
--- NOTE | 2017-06-29 17:27 | EDPHY ---
H & P Smoking Status: Never smoked Time Seen by Provider: 06/29/17 16:57 HPI/ROS: CHIEF COMPLAINT: Weakness HISTORY OF PRESENT ILLNESS: 76-year-old female presents to the emergency department by ambulance with 1 week history of weakness. Patient states"I am just tired." The patient was recently admitted to with hematuria and anemia. She has a history of chronic hematuria that has been worked up over the last 1 year. She is a patient of Dr. Magdaleno. She states that her appetite has been normal. She has had no vomiting or diarrhea. She denies pain in her chest or difficulty breathing. She has had occasional cough. She has also has some mild rhinorrhea. Unknown fevers or chills. Patient denies abdominal pain. Denies diarrhea. REVIEW OF SYSTEMS: Constitutional: Unknown fevers or chills. Eyes: No double or blurry vision. ENT: Nasal congestion, rhinorrhea. No sore throat. Respiratory: Cough. no shortness of breath. Cardiac: No chest pain. Gastrointestinal: No abdominal pain, vomiting or diarrhea. Genitourinary: "I go to the bathroom all the time" Musculoskeletal: No neck or back pain. Skin: No rashes. Neurological: No headache. (Evon Rodriguez) Past Medical/Surgical History: Chronic hematuria admitted 06/12/2017, diabetes, atrial fibrillation, hepatitis-C , cirrhosis, chronic kidney disease, gout, osteoporosis, cognitive impairment, cervical spine fracture, orthopedic surgeries Primary care provider is Dr. Jenny Garcia Urologist is Dr. Magdaleno ([facility] ) Social History: and lives independently with her at [facility] ([facility] ) Physical Exam: General Appearance: Lethargic, no distress. 37.6 temp, 182/75 Eyes: Pupils equal and round. Extraocular motions are all intact. ENT: Mouth: Mucous membranes very dry Respiratory: No wheezing, rhonchi, or rales, lungs are clear to auscultation. Cardiovascular: Regular rate and rhythm with 3/6 systolic murmur Gastrointestinal: Abdomen is soft and nontender, no masses, no rebound or guarding, bowel sounds normal. Rectal exam: Normal sphincter tone. No evidence of hemorrhoids. Brown- colored stool. Neurological: Alert and oriented x 2, and confused on date and time, cranial nerves II through XII grossly intact Skin: Warm and dry, no rashes. Musculoskeletal: Nontender to palpate along the cervical, thoracic or lumbar spine. Neck is supple. Extremities: Full range of motion and no peripheral edema. Psychiatric: Patient is oriented X 3, there is no agitation. (Evon Rodriguez) Constitutional: Initial Vital Signs Temperature (C) 37.3 C 06/29/17 16:54 Heart Rate 80 06/29/17 16:54 Respiratory Rate 14 06/29/17 16:54 Blood Pressure 182/75 H 06/29/17 16:54 O2 Sat (%) 93 06/29/17 16:54 O2 Delivery Mode Room Air O2 (L/minute) 2 Allergies/Adverse Reactions: morphine Allergy (Mild, Verified 06/12/17 14:37) Vomiting nitrofurantoin Allergy (Mild, Verified 06/12/17 14:37) Rash Home Medications: Medication Instructions Recorded Allopurinol [Allopurinol 300 MG 450 mg PO DAILY 03/27/14 (RX)] Levothyroxine [Synthroid 75 mcg 75 mcg PO DAILY06 03/13/16 (*)] Colchicine [Colchicine (*)] 0.6 mg PO BID #60 ea 01/09/17 metFORMIN HCL [Glucophage 500 mg 500 mg PO DAILY@0800 02/10/17 (*)] oxyCODONE IR [Oxycodone Ir (*)] 5 mg PO Q4HRS PRN tab 02/14/17 Cholecalciferol Vit D3 [Vitamin D3 1,000 units PO BID 05/04/17 (*)] Omeprazole 40 mg PO DAILY 05/04/17 Ondansetron Odt [Zofran Odt 4 mg 4 mg PO Q4 PRN 05/04/17 (*)] Polyethylene Glycol 3350 [Miralax 1 pkt PO DAILY 05/04/17 17 gm (*)] Polyethylene Glycol 3350 [Miralax 17 gm PO DAILY PRN 05/04/17 17 gm (*)] Sennosides/Docusate Sodium 1 - 2 tab PO BID PRN 05/04/17 [Senokot-S] Sitagliptin Phos/Metformin HCl 1 tab PO DAILY@1700 05/04/17 [Janumet 50-500 mg Tablet] Insulin Detemir [Levemir] 35 unit SQ BID #100 ml 05/05/17 Metoprolol Tartrate [Lopressor 25 25 mg PO BID #60 tab 05/05/17 mg (*)] Acetaminophen [Tylenol 325mg (*)] 650 mg PO Q4HRS PRN tab 06/13/17 Atenolol [Tenormin 50 mg (*)] 50 mg PO DAILY 06/29/17 Medical Decision Making - Diagnostics EKG Interpretation: EKG: Complete interpretation has been separately recorded in the [email or web address] archive. Summary impression: Sinus rhythm, rate 81 (Darien Burrell) ED Course/Re-evaluation: 76-year-old female presents to the emergency department with weakness. The patient has a history of chronic hematuria. She was recently admitted to the hospital with hematuria and anemia. Today her hemoglobin is 5.8 and her hematocrit is 18.6. Urinalysis reveals large amount of blood and large amount of white blood cells. Urine cultures pending. Dr. Weebr elected to hold antibiotics for now. The patient will be admitted to Dr. Eliud Weber to medical-surgical floor inpatient status for hematuria and anemia. (Evon Rodriguez) Differential Diagnosis: Weakness including but not limited to anemia, electrolyte abnormality, depression, anxiety, CVA, spinal cord abnormality, and infectious causes. (Evon Rodriguez) Other Provider: I evaluated and participated in the management of the patient. I also evaluated the patient independently. My co-signature indicates that I have reviewed this chart and I agree with the findings and plan of care as documented. My personal H&P findings include: The patient presents to the ED with generalized weakness, dehydration and failure to thrive. The patient has a history of chronic hematuria. The patient has chronic pyuria. Her last urine culture earlier this month demonstrated no urinary pathogen. In the ED today she has no fever or septic physiology. She does have a hemoglobin in the mid 5 range which is likely contributing to her weakness. The patient will be admitted to the hospital for resuscitation and likely transfusion. (Darien Burrell) - Data Points Laboratory Results: Laboratory Results 06/29/17 17:10 06/29/17 17:10 06/29/17 06/29/17 06/29/17 17:20 17:10 17:10 WBC RBC Hgb Hct MCV MCH MCHC RDW Plt Count MPV Neut % (Auto) Lymph % (Auto) [place] % (Auto) Eos % (Auto) Baso % (Auto) Nucleat RBC Rel Count Absolute Neuts (auto) Absolute Lymphs (auto) Absolute Monos (auto) Absolute Eos (auto) Absolute Basos (auto) Absolute Nucleated RBC Immature Gran % Immature Gran # RBC/WBC/PLT Morphology Platelet Estimate Polychromasia Hypochromasia Microcytic Cells Oval Macrocytes Smear Review By Absolute Retic Percent Retic PT 16.7 SEC H SEC (12.0-15.0) INR 1.33 H (0.83-1.16) APTT 30.6 SEC SEC (23.0-38.0) Sodium Potassium Chloride Carbon Dioxide Anion Gap BUN Creatinine Estimated GFR Glucose Calcium Lactate Dehydrogenase 432 IU/L IU/L (313-618) Troponin I Urine Color YELLOW Urine Appearance TURBID Urine pH 6.0 (5.0-7.5) Ur Specific [place] 1.010 (1.002-1.030) Urine Protein 2+ H (NEGATIVE) Urine Ketones NEGATIVE (NEGATIVE) Urine Blood 2+ H (NEGATIVE) Urine Nitrate NEGATIVE (NEGATIVE) Urine Bilirubin NEGATIVE (NEGATIVE) Urine Urobilinogen NEGATIVE EU EU (0.2-1.0) Ur Leukocyte Esterase 2+ H (NEGATIVE) Urine RBC 50-182 /hpf H /hpf (0-3) Urine WBC 50-182 /hpf H /hpf (0-3) Ur Epithelial Cells 1+ /lpf /lpf (NONE-1+) Urine Mucus 2+ /lpf H /lpf (NONE-1+) Urine Glucose 1+ H (NEGATIVE) Stool Occult Bld Scrn 06/29/17 06/29/17 06/29/17 17:10 17:10 17:10 WBC RBC Hgb Hct Cancelled MCV MCH MCHC RDW Plt Count MPV Neut % (Auto) Lymph % (Auto) [place] % (Auto) Eos % (Auto) Baso % (Auto) Nucleat RBC Rel Count Absolute Neuts (auto) Absolute Lymphs (auto) Absolute Monos (auto) Absolute Eos (auto) Absolute Basos (auto) Absolute Nucleated RBC Immature Gran % Immature Gran # RBC/WBC/PLT Morphology Platelet Estimate Polychromasia Hypochromasia Microcytic Cells Oval Macrocytes Smear Review By Absolute Retic Cancelled Percent Retic Cancelled PT INR APTT Sodium 139 mEq/L mEq/L (135-145) Potassium 4.2 mEq/L mEq/L (3.5-5.2) Chloride 111 mEq/L H mEq/L (97-110) Carbon Dioxide 18 mEq/l L mEq/l (22-31) Anion Gap 10 mEq/L mEq/L (8-16) BUN 22 mg/dL mg/dL (7-23) Creatinine 1.0 mg/dL mg/dL (0.6-1.0) Estimated GFR 54 Glucose 241 mg/dL H mg/dL (70-100) Calcium 8.7 mg/dL mg/dL (8.5-10.4) Lactate Dehydrogenase Troponin I 0.015 ng/mL ng/mL (0.000-0.034) Urine Color Urine Appearance Urine pH Ur Specific [place] Urine Protein Urine Ketones Urine Blood Urine Nitrate Urine Bilirubin Urine Urobilinogen Ur Leukocyte Esterase Urine RBC Urine WBC Ur Epithelial Cells Urine Mucus Urine Glucose Stool Occult Bld Scrn NEGATIVE (NEGATIVE) 06/29/17 17:10 WBC 7.54 10^3/uL 10^3/uL (3.80-9.50) RBC 2.20 10^6/uL L 10^6/uL (4.18-5.33) Hgb 5.8 g/dL L* g/dL (12.6-16.3) Hct 18.6 % L % (38.0-47.0) MCV 84.5 fL fL (81.5-99.8) MCH 26.4 pg L pg (27.9-34.1) MCHC 31.2 g/dL L g/dL (32.4-36.7) RDW 14.5 % % (11.5-15.2) Plt Count 196 10^3/uL 10^3/uL (150-400) MPV 10.1 fL fL (8.7-11.7) Neut % (Auto) 88.2 % H % (39.3-74.2) Lymph % (Auto) 5.4 % L % (15.0-45.0) [place] % (Auto) 5.2 % % (4.5-13.0) Eos % (Auto) 0.4 % L % (0.6-7.6) Baso % (Auto) 0.5 % % (0.3-1.7) Nucleat RBC Rel Count 0.0 % % (0.0-0.2) Absolute Neuts (auto) 6.65 10^3/uL H 10^3/uL (1.70-6.50) Absolute Lymphs (auto) 0.41 10^3/uL L 10^3/uL (1.00-3.00) Absolute Monos (auto) 0.39 10^3/uL 10^3/uL (0.30-0.80) Absolute Eos (auto) 0.03 10^3/uL 10^3/uL (0.03-0.40) Absolute Basos (auto) 0.04 10^3/uL 10^3/uL (0.02-0.10) Absolute Nucleated RBC 0.00 10^3/uL 10^3/uL (0-0.01) Immature Gran % 0.3 % % (0.0-1.1) Immature Gran # 0.02 10^3/uL 10^3/uL (0.00-0.10) RBC/WBC/PLT Morphology NORMAL (NORMAL) Platelet Estimate ADEQUATE (ADEQ) Polychromasia 1+ H Hypochromasia 1+ H Microcytic Cells 2+ H Oval Macrocytes 2+ H Smear Review By Pending Absolute Retic 0.051 10^6/uL 10^6/uL (0.050-0.117) Percent Retic 2.35 % % (0.98-2.67) PT INR APTT Sodium Potassium Chloride Carbon Dioxide Anion Gap BUN Creatinine Estimated GFR Glucose Calcium Lactate Dehydrogenase Troponin I Urine Color Urine Appearance Urine pH Ur Specific [place] Urine Protein Urine Ketones Urine Blood Urine Nitrate Urine Bilirubin Urine Urobilinogen Ur Leukocyte Esterase Urine RBC Urine WBC Ur Epithelial Cells Urine Mucus Urine Glucose Stool Occult Bld Scrn Medications Given: Discontinued Medications Sodium Chloride (Ns) 1,000 mls @ 0 mls/hr IV ONCE ONE PRN Reason: Wide Open Stop: 06/29/17 17:14 Last Admin: 06/29/17 17:23 Dose: 1,000 mls Departure - Departure Disposition: [facility] Inpatient Acute Clinical Impression: Anemia Qualifiers: Anemia type: unspecified type Qualified Code(s): D64.9 - Anemia, unspecified Hematuria Qualifiers: Hematuria type: unspecified type Qualified Code(s): R31.9 - Hematuria, unspecified Condition: Fair
--- NOTE | 2017-06-29 17:28 | CPEKG ---
Heart Rate: 81 RR Interval: 741 P-R Interval: 184 QRSD Interval: 138 QT Interval: 412 QTC Interval: 479 P [place]: 14 QRS [place]: 32 T Wave [place]: 27 EKG Severity - ABNORMAL ECG - EKG Impression: SINUS RHYTHM EKG Impression: ATRIAL PREMATURE COMPLEX EKG Impression: RIGHT BUNDLE BRANCH BLOCK Electronically Signed By: Darien Burrell 29-Jun-2017 17:48:05
[2017-06-29] MEDS ORDERED: ACETAMINOPHEN 325 MG TAB PO PRN (18:03)
[2017-06-29] MEDS ORDERED: ONDANSETRON DISINTEGRATING 4 MG TAB PO PRN (18:03)
[2017-06-29] MEDS ORDERED: ONDANSETRON 4 MG/2 ML VIAL IVP PRN (18:03)
[2017-06-29 18:15] LABS: INR 1.33 (0.83-1.16); PROTIME(PATIENT) 16.7 SEC (12.0-15.0)
[2017-06-29] MEDS ORDERED: D50W 25 GM/50 ML VIAL IVP PRN (19:21)
--- NOTE | 2017-06-29 20:10 | PDGENHP ---
History and Physical - Chief Complaint Acute weakness - History of Present Illness Primary care provider: Dr. Jenny Garcia Primary urologist: Dr. Ian Magdaleno HPI: 76-year-old female presenting with acute weakness characterized as feeling generally "tired" with associated urinary frequency, passing blood clots regularly, occasional cough and rhinorrhea. The patient reports that her symptom of weakness had an onset of several days after her most recent hospital discharge 3 weeks ago, and duration has been persistent worsening thereafter. She is otherwise unable to further clarify whether she has been taking aspirin regularly or whether she has had any recent medication changes. She reports that she did see Dr. Magdaleno on 06/16, and she did undergo cystoscopy, but she is unclear as to what procedure was actually performed and what follow-up plan was prescribed. The patient just keeps repeating "I thought it was all going to be done". History Information - Allergies/Home Medication List Allergies/Adverse Reactions: morphine Allergy (Mild, Verified 06/12/17 14:37) Vomiting nitrofurantoin Allergy (Mild, Verified 06/12/17 14:37) Rash Home Medications: Allopurinol [Allopurinol 300 MG (RX)] 450 mg PO DAILY 03/27/14 [Last Taken 06/12] Levothyroxine [Synthroid 75 mcg (*)] 75 mcg PO DAILY06 03/13/16 [Last Taken 07/25] metFORMIN HCL [Glucophage 500 mg (*)] 500 mg PO DAILY@0800 02/10/17 [Last Taken 06/12/17] Cholecalciferol Vit D3 [Vitamin D3 (*)] 1,000 units PO BID 05/04/17 [Last Taken 06/12/17] Omeprazole 40 mg PO DAILY 05/04/17 [Last Taken 06/12/17] Ondansetron Odt [Zofran Odt 4 mg (*)] 4 mg PO Q4 PRN 05/04/17 [Last Taken ] Polyethylene Glycol 3350 [Miralax 17 gm (*)] 1 pkt PO DAILY 05/04/17 [Last Taken 06/12/17] Polyethylene Glycol 3350 [Miralax 17 gm (*)] 17 gm PO DAILY PRN 05/04/17 [Last Taken 06/12/17] Sennosides/Docusate Sodium [Senokot-S] 1 - 2 tab PO BID PRN 05/04/17 [Last Taken 06/12/17] Sitagliptin Phos/Metformin HCl [Janumet 50-500 mg Tablet] 1 tab PO DAILY@1700 [Last Taken 06/12/17] Atenolol [Tenormin 50 mg (*)] 50 mg PO DAILY 06/29/17 [Last Taken Unknown] I have personally reviewed and updated: family history, medical history, social history, surgical history - Past Medical History Additional medical history: DM2 with most recent hemoglobin A1c 9%. Mild cognitive impairment. C-spine injury. Osteoporosis. Chronic pain with continuous opiate dependency. HTN. Gout. HCV. Chronic hematuria and urinary frequency, unclear cause, has resulted in hydronephrosis in past as well as acute kidney injury. Chronic kidney disease stage 3. Possible cirrhosis on abdominal CT. Paroxysmal atrial fibrillation - Surgical History Additional surgical history: several R leg orthopedic surgeries. Hysterectomy. multiple abd surgeries for fibroids/adhesions. Cystoscopy 06/16 - Family History Positive for: non-pertinent Additional family history: Father with diabetes, sister with breast cancer - Social History Smoking Status: Never smoked Alcohol Use: Occasionally (She has not been drinking recently) Drug Use: None Additional social history: Pt lives with her , and is his primary caregiver, currently living at [facility], is usually independent in ADLs, does not use an assistive device with walking Review of Systems Review of Systems: ROS: 10pt was reviewed & negative except for what was stated in HPI & below Constitutional: Reports: weakness, other (Fatigue) EENMT: Reports: other (Rhinorrhea, sore throat) Genitourinary: Reports: frequency, hematuria Physical Exam Physical Exam: Temp Pulse Resp BP Pulse Ox 37.2 C 81 16 142/79 H 94 06/29/17 19:40 06/29/17 19:40 06/29/17 19:40 06/29/17 19:40 06/29/17 19:40 O2 (L/minute) 2 Constitutional: no apparent distress, not in pain, chronically ill appearing, No uncomfortable Eyes: PERRL, anicteric sclera, EOMI Ears, Nose, Mouth, Throat: moist mucous membranes, hearing normal, ears appear normal, no oral mucosal ulcers Cardiovascular: regular rate and rhythym, systolic murmur (2/6 at all valve location), No irregularly irregular, No tachycardia, No edema Respiratory: no respiratory distress, no rales or rhonchi, clear to auscultation Gastrointestinal: normoactive bowel sounds, soft, non-tender abdomen, no palpable masses, No distension Genitourinary: no bladder fullness, no bladder tenderness, other (No CVA tenderness) Skin: other (Pale), No rash Neurologic: other (Alert awake oriented x2 to person and place not to time), No weakness (Motor strength 5/5 bilateral upper and lower extremities), No facial droop Psychiatric: not anxious, encephalopathic, flat affect, poor memory, other ( Concentration 3/7), No agitated Lab Data & Imaging Review 06/29/17 17:10 06/29/17 17:10 WBC 7.54 10^3/uL (3.80-9.50) 06/29/17 17:10 RBC 2.20 10^6/uL (4.18-5.33) L 06/29/17 17:10 Hgb 5.8 g/dL (12.6-16.3) L* 06/29/17 17:10 Hct 18.6 % (38.0-47.0) L 06/29/17 17:10 MCV 84.5 fL (81.5-99.8) 06/29/17 17:10 MCH 26.4 pg (27.9-34.1) L 06/29/17 17:10 MCHC 31.2 g/dL (32.4-36.7) L 06/29/17 17:10 RDW 14.5 % (11.5-15.2) 06/29/17 17:10 Plt Count 196 10^3/uL (150-400) 06/29/17 17:10 MPV 10.1 fL (8.7-11.7) 06/29/17 17:10 Neut % (Auto) 88.2 % (39.3-74.2) H 06/29/17 17:10 Lymph % (Auto) 5.4 % (15.0-45.0) L 06/29/17 17:10 [place] % (Auto) 5.2 % (4.5-13.0) 06/29/17 17:10 Eos % (Auto) 0.4 % (0.6-7.6) L 06/29/17 17:10 Baso % (Auto) 0.5 % (0.3-1.7) 06/29/17 17:10 Nucleat RBC Rel Count 0.0 % (0.0-0.2) 06/29/17 17:10 Absolute Neuts (auto) 6.65 10^3/uL (1.70-6.50) H 06/29/17 17:10 Absolute Lymphs (auto) 0.41 10^3/uL (1.00-3.00) L 06/29/17 17:10 Absolute Monos (auto) 0.39 10^3/uL (0.30-0.80) 06/29/17 17:10 Absolute Eos (auto) 0.03 10^3/uL (0.03-0.40) 06/29/17 17:10 Absolute Basos (auto) 0.04 10^3/uL (0.02-0.10) 06/29/17 17:10 Absolute Nucleated RBC 0.00 10^3/uL (0-0.01) 06/29/17 17:10 Immature Gran % 0.3 % (0.0-1.1) 06/29/17 17:10 Immature Gran # 0.02 10^3/uL (0.00-0.10) 06/29/17 17:10 RBC/WBC/PLT Morphology NORMAL (NORMAL) 06/29/17 17:10 Platelet Estimate ADEQUATE (ADEQ) 06/29/17 17:10 Polychromasia 1+ H 06/29/17 17:10 Hypochromasia 1+ H 06/29/17 17:10 Microcytic Cells 2+ H 06/29/17 17:10 Oval Macrocytes 2+ H 06/29/17 17:10 Absolute Retic 0.051 10^6/uL (0.050-0.117) 06/29/17 17:10 Percent Retic 2.35 % (0.98-2.67) 06/29/17 17:10 PT 16.7 SEC (12.0-15.0) H 06/29/17 17:10 INR 1.33 (0.83-1.16) H 06/29/17 17:10 APTT 30.6 SEC (23.0-38.0) 06/29/17 17:10 Sodium 139 mEq/L (135-145) 06/29/17 17:10 Potassium 4.2 mEq/L (3.5-5.2) 06/29/17 17:10 Chloride 111 mEq/L (97-110) H 06/29/17 17:10 Carbon Dioxide 18 mEq/l (22-31) L 06/29/17 17:10 Anion Gap 10 mEq/L (8-16) 06/29/17 17:10 BUN 22 mg/dL (7-23) 06/29/17 17:10 Creatinine 1.0 mg/dL (0.6-1.0) 06/29/17 17:10 Estimated GFR 54 06/29/17 17:10 Glucose 241 mg/dL (70-100) H 06/29/17 17:10 Calcium 8.7 mg/dL (8.5-10.4) 06/29/17 17:10 Lactate Dehydrogenase 432 IU/L (313-618) 06/29/17 17:10 Troponin I 0.015 ng/mL (0.000-0.034) 06/29/17 17:10 Urine Color YELLOW 06/29/17 17:20 Urine Appearance TURBID 06/29/17 17:20 Urine pH 6.0 (5.0-7.5) 06/29/17 17:20 Ur Specific [place] 1.010 (1.002-1.030) 06/29/17 17:20 Urine Protein 2+ (NEGATIVE) H 06/29/17 17:20 Urine Ketones NEGATIVE (NEGATIVE) 06/29/17 17:20 Urine Blood 2+ (NEGATIVE) H 06/29/17 17:20 Urine Nitrate NEGATIVE (NEGATIVE) 06/29/17 17:20 Urine Bilirubin NEGATIVE (NEGATIVE) 06/29/17 17:20 Urine Urobilinogen NEGATIVE EU (0.2-1.0) 06/29/17 17:20 Ur Leukocyte Esterase 2+ (NEGATIVE) H 06/29/17 17:20 Urine RBC 50-182 /hpf (0-3) H 06/29/17 17:20 Urine WBC 50-182 /hpf (0-3) H 06/29/17 17:20 Ur Epithelial Cells 1+ /lpf (NONE-1+) 06/29/17 17:20 Urine Mucus 2+ /lpf (NONE-1+) H 06/29/17 17:20 Urine Glucose 1+ (NEGATIVE) H 06/29/17 17:20 Stool Occult Bld Scrn NEGATIVE (NEGATIVE) 06/29/17 17:10 Patient ABO/Rh O POSITIVE 06/29/17 17:55 Crossmatch IS Only See Detail 06/29/17 17:55 Visualized and Interpreted EKG results: Yes EKG Interpretation: Positive for: other (Sinus arrhythmia with right bundle branch block, PACs) Assessment & Plan Assessment: 76-year-old female presents with acute blood loss anemia in the setting of chronic hematuria complicated by acute on chronic encephalopathy Plan: 1. Acute blood loss anemia. New problem this provider, further workup indicated. Secondary to chronic hematuria with reports of blood clots passing for the last 3 weeks and resultant hemoglobin level 5.8 which is symptomatic with generalized fatigue as well as cognitive changes -discussed with Evon Rodriguez, emergency department provider, she has reported to me that fecal occult blood test negative -typed and screen, transfuse 2 units PRBCs, currently hemodynamically stable -continue monitor hemoglobin level in a.m. And transfuse if less than 7 or rapid blood loss 2. Hematuria. Chronic, given the passage of clots and her risk for obstruction and hydronephrosis, place Cheng catheter with continuous bladder irrigation -will consult with Dr. Magdaleno in a.m. -reviewed outside records including 06/13/2017 discharge summary by Deirdre Vanessa, recounts patient's most recent hospitalization for hematuria resulting in hydronephrosis and bladder wall thickening on CT, Urology was consulted, did not recommend intervention at that time, she was scheduled for cystoscopy on , her discharge creatinine level was 0.9 discharge hemoglobin was 7.9 -RBCs on urinalysis, normal white blood cell count, I do not believe the patient has infectious cystitis 3. Acute on chronic encephalopathy. Evidenced by global brain dysfunction characterized as disorientation, poor concentration, fatigue, repetitive speech , all of which are acute changes from her baseline which is normally fully oriented with some baseline deficits in memory and insight, most likely secondary to the physical effects of blood loss as well as metabolic effects of acidosis -she is at high risk of worsening, give melatonin this evening to help regulate sleep-wake cycle 4. Diabetes mellitus type 2 with hyperglycemia. Patient has a long history of uncontrolled diabetes and is previously been hypothesized that her hyperglycemia may be contributing to some of her polyuria, patient has been hesitant to use more than sustained release insulin given her challenges with complicated medical management at home -would recommend continuing home dosage of Levemir 35 units twice daily once reconciled, placed on insulin sliding scale -most recent hemoglobin A1c 9% 5. Chronic pain with continuous opiate dependency. Continue home pain medications once reconciled 6. Chronic kidney disease stage 3. Baseline creatinine is between 1.0 and 1.1, continue monitor 7. Acute metabolic acidosis. Potentially secondary to chronic kidney disease with some acute hypovolemia in the setting of blood loss anemia, giving a blood and repeat chemistry in a.m. 8. Paroxysmal atrial fibrillation. Currently in normal sinus mechanism, the patient goes into rapid AFib, placed on telemetry Diet. Diabetic Prophylaxis. High risk patient, farm contraindicated given bleeding, SCDs Code. Full, per patient, her is MD POA Disposition. Anticipated discharge uncertain this time, anticipated length stay is greater than 48 hr for reasonable medical necessity including acute blood loss anemia secondary to hematuria with high risk comorbid acute on chronic encephalopathy and metabolic acidosis.
[2017-06-29] MEDS ORDERED: POLYETHYLENE GLYCOL 3350 17 GM PKT PO PRN (20:18)
[2017-06-29] MEDS ORDERED: SENNOSIDES/DOCUSATE SODIUM TAB PO PRN (20:18)
[2017-06-29] MEDS ORDERED: oxyCODONE IR 5 MG TAB PO PRN (20:18)
[2017-06-29] MEDS: COLCHICINE 0.6 MG CAP/TAB PO SCH (23:43)
[2017-06-29] MEDS: INSULIN REGULAR HUMAN 100 UNIT/ML UNIT SC SCH (23:43)
[2017-06-29] MEDS: CHOLECALCIFEROL VIT D3 1,000 UNITS TAB PO SCH (23:43)
[2017-06-29] MEDS: METOPROLOL TARTRATE 25 MG TAB PO SCH (23:45)
[2017-06-29] MEDS: INSULIN GLARGINE 100 UNITS/ML UNIT SC SCH (23:57)
[2017-06-29] MEDS: MELATONIN 3 MG TAB PO SCH (23:57)
[2017-06-30] MEDS: LEVOTHYROXINE 75 MCG TAB PO SCH (08:06)
[2017-06-30] MEDS: METOPROLOL TARTRATE 25 MG TAB PO SCH ×2 (08:07→21:26)
[2017-06-30] MEDS: metFORMIN HCL 500 MG TAB PO SCH ×2 (08:09→18:10)
[2017-06-30] MEDS: CHOLECALCIFEROL VIT D3 1,000 UNITS TAB PO SCH ×2 (08:09→21:26)
[2017-06-30] MEDS: ALLOPURINOL 300 MG TAB PO SCH (08:10)
[2017-06-30] MEDS: INSULIN REGULAR HUMAN 100 UNIT/ML UNIT SC SCH ×4 (08:12→21:27)
[2017-06-30] MEDS: PANTOPRAZOLE SODIUM 40 MG TAB PO SCH (08:16)
[2017-06-30] MEDS: INSULIN GLARGINE 100 UNITS/ML UNIT SC SCH ×2 (08:17→21:27)
[2017-06-30] MEDS: COLCHICINE 0.6 MG CAP/TAB PO SCH ×2 (08:21→21:26)
[2017-06-30] MEDS ORDERED: POTASSIUM CL 20 MEQ TAB PO ONE (08:46)
[2017-06-30] MEDS ORDERED: MAGNESIUM SULF 1 GM/DEXTROSE 100 ML IV ONE (08:46)
[2017-06-30] MEDS ORDERED: POLYETHYLENE GLYCOL 3350 17 GM PKT PO SCH (09:00)
--- NOTE | 2017-06-30 09:18 | PDMN ---
Medical Necessity Medical necessity: est los>2mn for acute blood loss anemia r/t hematuria w/ blood clots x 3 weeks, w/high risk for obstruction and hydronephrosis, and high risk comorbid acute on chronic encephalopathy and metabolic acidosis; hx CKD, AFIB, DM, and chronic pain; per order and H&P 06/29/17
[2017-06-30] MEDS: SULFAMETHOX/TMP 800/160 MG 1 TAB PO SCH ×2 (12:06→21:26)
--- NOTE | 2017-06-30 17:53 | HOSPPROG ---
Hospitalist Progress Note Assessment/Plan: Assessment: 76-year-old female presents with acute blood loss anemia in the setting of chronic hematuria complicated by acute on chronic encephalopathy, possible UTI Plan: 1. Acute blood loss anemia. 2/2 hematuria, Hgb 7.2 this AM, transfuse 3rd unit , repeat Hgb in AM 2. Hematuria. Chronic, intermittent, unclear etiology -d/w Dr. Magdaleno, he reports that 06/16 cysto non-diagnostic and recommends OR bladder biopsy under general anesthesia s/p resolution of acute stay -cont CBI additional 24hrs 3. Acute on chronic encephalopathy. Evidenced by global brain dysfunction characterized as disorientation, poor concentration, fatigue, repetitive speech , all of which are acute changes from her baseline which is normally fully oriented with some baseline deficits in memory and insight, most likely secondary to the physical effects of blood loss as well as metabolic effects of acidosis -stabilizing today 4. Diabetes mellitus type 2 with hyperglycemia. Patient has a long history of uncontrolled diabetes and is previously been hypothesized that her hyperglycemia may be contributing to some of her polyuria, patient has been hesitant to use more than sustained release insulin given her challenges with complicated medical management at home -cont on lantus 35u bid, metformin, januvia, ISS -most recent hemoglobin A1c 9% 5. Chronic pain with continuous opiate dependency. Continue home pain medications 6. Chronic kidney disease stage 3. Baseline creatinine is between 1.0 and 1.1, continue monitor 7. Acute metabolic acidosis. Potentially secondary to chronic kidney disease with some acute hypovolemia in the setting of blood loss anemia, giving a blood and repeat chemistry in a.m. 8. Paroxysmal atrial fibrillation. Currently in normal sinus mechanism, the patient goes into rapid AFib, placed on telemetry 9. Possible hemorrhagic cystitis/UTI. POA, new problem to this provider, further w/u indicated. D/w Dr. Magdaleno, he recommends bactrim ds bid given patient's past UCx -send UCx off schroeder -send CDiff PCR given onset of diarrhea Diet. Diabetic Prophylaxis. High risk patient, farm contraindicated given bleeding, SCDs Code. Full, per patient, her is POA Disposition. Anticipated discharge uncertain this time, monitor UOP over next 24hrs Subjective: less fatigue, loose BMs Objective: Vital Signs Temp Pulse Resp BP Pulse Ox 37.1 C 81 16 148/69 H 96 06/30/17 16:00 06/30/17 16:00 06/30/17 16:00 06/30/17 16:00 06/30/17 16:00 Laboratory Results 06/30/17 06:23 06/30/17 06:23 06/29/17 06/30/17 07/01/17 05:59 05:59 05:59 Intake Total 200 Output Total 405 1800 Balance -205 -1800 PT 16.7 SEC (12.0-15.0) H 06/29/17 17:10 INR 1.33 (0.83-1.16) H 06/29/17 17:10 - Pending Discharge Pending Discharge Within 24 Hours: Yes Pending Discharge Date: 07/01/17 Pending Discharge Time: 11:00 - Physical Exam Constitutional: no apparent distress, not in pain, chronically ill appearing, uncomfortable Cardiovascular: regular rate and rhythym, no murmur, rub, or gallop, No edema Respiratory: no respiratory distress, no rales or rhonchi, clear to auscultation Gastrointestinal: normoactive bowel sounds, soft, non-tender abdomen, no palpable masses, No distension Genitourinary: schroeder in urethra (clear urine, cloudy) Neurologic: sensation intact bilaterally, other (AAOx2 (person and place)), No weakness, No facial droop Psychiatric: not anxious, flat affect, poor insight, poor memory, No agitated ICD10 Worksheet Patient Problems: Problems Problem Status Onset Fall at home Acute Diabetes Acute Gastroenteritis Acute Dehydration Acute Atrial fibrillation Acute Hyperglycemia Acute Hypertension Acute Elevated troponin Acute Hyponatremia Acute UTI (urinary tract infection) Acute Cervical spine fracture Acute Frequent falls Acute Gait instability Acute Pain management Acute Sepsis secondary to UTI Acute Palliative care encounter Acute Hematuria Acute Anemia Acute
[2017-06-30] MEDS: MELATONIN 3 MG TAB PO SCH (21:26)
[2017-07-01] MEDS: LEVOTHYROXINE 75 MCG TAB PO SCH (06:12)
[2017-07-01] MEDS ORDERED: MAGNESIUM SULF 2 GM/WATER 50 ML IV ONE (08:39)
[2017-07-01] MEDS: INSULIN REGULAR HUMAN 100 UNIT/ML UNIT SC SCH (09:05)
[2017-07-01] MEDS: ALLOPURINOL 300 MG TAB PO SCH (10:22)
[2017-07-01] MEDS: COLCHICINE 0.6 MG CAP/TAB PO SCH (10:23)
[2017-07-01] MEDS: METOPROLOL TARTRATE 25 MG TAB PO SCH (10:23)
[2017-07-01] MEDS: SULFAMETHOX/TMP 800/160 MG 1 TAB PO SCH (10:24)
[2017-07-01] MEDS: CHOLECALCIFEROL VIT D3 1,000 UNITS TAB PO SCH (10:25)
[2017-07-01] MEDS: INSULIN GLARGINE 100 UNITS/ML UNIT SC SCH (10:46)
[2017-07-01] MEDS: metFORMIN HCL 500 MG TAB PO SCH (10:46)
[2017-07-01] MEDS: PANTOPRAZOLE SODIUM 40 MG TAB PO SCH (10:47)
[2017-07-01 11:40] VITALS: BP 113/53
--- NOTE | 2017-07-01 12:24 | PDIAF ---
- Diagnosis Diagnosis: Hematuria and blood loss anemia Code Status: Full Code - Medication Management Discharge Medications: Medications to Continue on Transfer Allopurinol [Allopurinol 300 MG (RX)] 450 mg PO DAILY 03/27/14 [Last Taken 06/12] Levothyroxine [Synthroid 75 mcg (*)] 75 mcg PO DAILY06 03/13/16 [Last Taken 07/25] Colchicine [Colchicine (*)] 0.6 mg PO BID #60 ea 01/09/17 [Last Taken 06/12/17] metFORMIN HCL [Glucophage 500 mg (*)] 500 mg PO DAILY@0800 02/10/17 [Last Taken 06/12/17] oxyCODONE IR [Oxycodone Ir (*)] 5 mg PO Q4HRS PRN tab 02/14/17 [Last Taken 07/25] Cholecalciferol Vit D3 [Vitamin D3 (*)] 1,000 units PO BID 05/04/17 [Last Taken 06/12/17] Omeprazole 40 mg PO DAILY 05/04/17 [Last Taken 06/12/17] Ondansetron Odt [Zofran Odt 4 mg (*)] 4 mg PO Q4 PRN 05/04/17 [Last Taken ] Polyethylene Glycol 3350 [Miralax 17 gm (*)] 1 pkt PO DAILY 05/04/17 [Last Taken 06/12/17] Polyethylene Glycol 3350 [Miralax 17 gm (*)] 17 gm PO DAILY PRN 05/04/17 [Last Taken 06/12/17] Sennosides/Docusate Sodium [Senokot-S] 1 - 2 tab PO BID PRN 05/04/17 [Last Taken 06/12/17] Sitagliptin Phos/Metformin HCl [Janumet 50-500 mg Tablet] 1 tab PO DAILY@1700 [Last Taken 06/12/17] Insulin Detemir [Levemir] 35 unit SQ BID #100 ml 05/05/17 [Last Taken 06/12/17] Metoprolol Tartrate [Lopressor 25 mg (*)] 25 mg PO BID #60 tab 05/05/17 [Last Taken 06/12/17] Acetaminophen [Tylenol 325mg (*)] 650 mg PO Q4HRS PRN tab 06/13/17 [Last Taken Unknown] Sulfamethox/Tmp 800/160 mg [Bactrim DS] 1 ea PO BID #60 tab 07/01/17 [Last Taken Unknown] 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 PICC Care - Routine: N/A - Orders Services needed: Home Care, Registered Nurse, Physical Therapy, Occupational Therapy Home Care Face to Face: I certify that this patient was under my care and that I had the required [id number] encounter meeting the encounter requirements on the discharge day. My findings support the fact that the patient is homebound as defined in Home Care Face to Face Continued: CMS Chapter 7 Medicare Benefits Manual 30.1.1 , The condition of the patient is such that there exists a normal inability to leave home and consequently, leaving home would require a considerable and taxing effort. Isolation Type: Contact Isolation Oxygen: NA Diet Recommendation: ADA 2000 consistent carb Weigh Patient: weekly Cheng: Not applicable - Labs/Radiology HCT/HGB Date: 07/07/17 Call or Fax Lab and Imaging Results to: Dr. Jenny Garcia, Dr. Vasyl Magdaleno - Follow Up Care Current Providers and Referrals: Patient,NotPresent [Unknown] - As per Instructions Jenny Garcia MD [Primary Care Provider] - 3-5 days Vasyl Magdaleno MD [Medical Doctor] - (Please call his office to schedule your OR procedure for bladder biopsy)
--- NOTE | 2017-07-01 15:26 | PDDCSUM ---
Discharge Summary Discharge Summary: DISCHARGE SUMMARY FOLLOW-UP ITEMS: Repeat hemoglobin next Friday DATE OF ADMISSION: 06/29/2017 DATE OF DISCHARGE: 07/01/2017 DISCHARGE DIAGNOSES: 1. Acute blood-loss anemia 2. Chronic intermittent hematuria 3. Acute on chronic encephalopathy 4. Diabetes mellitus type 2 with hyperglycemia 5. Chronic pain with continuous opiate dependence 6. Chronic kidney disease stage 3 7. Acute metabolic acidosis 8. Paroxysmal atrial fibrillation 9. Possible hemorrhagic cystitis present on admission CONSULTATIONS: Curbside with Urology PROCEDURES / IMAGING: Continuous bladder irrigation CHIEF COMPLAINT: Acute hematuria and fatigue, confusion, disorientation SUBJECTIVE: Patient is feeling well at time discharge, she is fully oriented, she is less fatigued, she is feeling ready to go home PHYSICAL EXAM ON DISCHARGE: Systolic blood pressure is 120-140, heart rate 100, afebrile overnight, satting well on room air, alert awake oriented x3, following commands, interactive, flat affect, urine is clear, abdomen is soft nontender nondistended LABS ON DISCHARGE: Hemoglobin 8.6, creatinine 0.8, serum bicarbonate 19, C diff negative, glucose 132 HOSPITAL COURSE BY PROBLEM: The patient presented with symptomatic weakness, confusion, fatigue, disorientation, secondary to acute blood loss anemia secondary to chronic intermittent hematuria with a subsequent hemoglobin level of 5.8. Patient has been actively losing blood through her urinary tract and had been passing clots. She was placed on continuous bladder irrigation, received 3 units of packed red blood cells, and her hematuria abated. The exact etiology of her hematuria is unclear, and she underwent cystoscopy by Dr. Ian Magdaleno on 06/16. This was nondiagnostic. I discussed this with Dr. Magdaleno, and he has recommended general anesthesia operative biopsy, to be scheduled with the patient. His office has reportedly repeatedly tried to contact the patient to schedule this, and the patient has not been returning the phone calls. I suspect the reason the patient has not been return a phone causes because she was experiencing acute on chronic sent encephalopathy evidenced by global brain dysfunction characterized as disorientation, poor concentration, fatigue, repetitive speech, all of which were acute changes from her baseline mental status which is normally fully oriented with some baseline deficits in memory and insight. The the acute change in her mental status was secondary to the physical affects of blood loss as well as the metabolic effects of acidosis, and rendered the patient unable to appropriately arrange follow-up care. Now the patient is mentating at her baseline, I have highly encouraged her to schedule this follow-up procedure, the patient reports that she will do so. It is possible the patient may have experienced some hemorrhagic cystitis, as the patient does have a history of recurrent urinary tract infections, and Dr. Magdaleno recommended that the patient initiate Bactrim double strength twice daily until she follows up with him. Her diabetes was managed with her regular home medications during this hospitalization, and we utilize insulin sliding scale, which I have, in the past , repetitively recommended to the patient as more factive management strategy in addition to what she is already doing, which continues to render her chronically hyperglycemic with an A1c of 9.0%. The patient continues to express that she is unable to manage mealtime insulin at home. The patient will follow up with her primary care provider for her chronic medical issues including diabetes, chronic kidney disease stage 3, paroxysmal atrial fibrillation, chronic mild cognitive impairment. DISCHARGE MEDICATIONS: Please see official discharge medication reconciliation sheet in chart , continue home medications with the addition of Bactrim double strength twice daily until the patient sees Dr. Magdaleno. DISCHARGE INSTRUCTIONS: Please schedule follow-up with Urology, primary care. Patient has home care services arranged prior to discharge. TIME SPENT: Greater than 30 minutes were spent on direct patient care, as well as discharge planning and preparation.
--- NOTE | 2017-07-02 16:10 | ASDISCHSUM ---
Discharge Information Plan Status: Medically Cleared to Leave: Discharge Date:07/01/2017 03:30 PM CM D/C Disposition: ADT D/C Disposition:Home Health Service Projected Discharge Date:07/01/2017 11:00 AM Transportation at D/C: Discharge Delay Reason: Follow-Up Date:07/01/2017 11:00 AM Discharge Slot: Final Diagnosis: Placement Information Referral Type:*Home Health Care Services Referral ID:[id number] Provider Name:[facility] Address 1:[address] Address 2: City:[place] Selection Factors: State:[place] Patient Contact Information Contact Name:MANJEET Relationship: Address:[address] [facility] City:[facility] Phone: State/Zip Code:[place] [address] Email: Financial Information Financial Class:Medicare Primary Plan Desc:MEDICARE INPATIENT Primary Plan Number:[id number] Secondary Plan Desc:SHERMAN DUNNE ABDOULAYESHARASHA Secondary Plan Number:[id number] Assessment Information LACE LACE Length of stay for Answers: 2 days current admission Acuity / Level of Answers: Yes Care: Did the patient have an inpatient admission? Comorbidities - select Answers: Diabetes (uncontrolled or all that apply controlled) History of falls Opioid dependence / Chronic pain Other Notes: Chronic hematuria, CKD Stage 3, HTN # of Emergency department Answers: 1-2 visits in the last 6 months Score: 15 Date Signed: 07/02/2017 04:09 PM Electronically Signed By:Estephanie Herring LCSW Case Management Discharge Plan Note Case Management Discharge Discharge Order Complete? Answers: Yes Patient to Obtain Answers: Other Notes: [facility] Medications Transportation Arranged Answers: Family/Friends Faxed Final Orders Answers: Yes Family Notified Answers: Yes Discharge Comments Notes: Pt will dc home to [facility] where she resides w/her . She will be followed by [facility] (whom she was current w/) for PT/OT/RN. Met w/pt to discuss this and she was agreeable. Encouraged her not to cancel of her [facility] appts (her step dtr and son reported that she has canceled private duty home care several times in past). We also discussed the benefits of private duty HHC. She has used [facility] in past and will consider again. Spoke w/pt's step-daughter and step-son (both of whom she gave me permission to discuss with). They are aware of her dc poc and her f/u appt that needs to be made for bladder bx. Spoke w/Wendy at [facility] and they are ready to accept pt back, have received orders/info. Also spoke w/SHYANN Yuan, at [facility]. Orders and dc med list also sent to her as they manage pt's meds for her at [facility]. Discussed w/pt's RN and MD. Date Signed: 07/01/2017 02:42 PM Electronically Signed By:Jeanine Moya RN Intervention Information
== END 2017-07-01 15:30 | disposition home health service (06) | DRG 811 ==
LOC: EDUNIT# → F1N 18:30
PROVIDERS: ADMIT Internal Medicine; ATTEND Internal Medicine
PROC: 30233N1 Transfusion of Nonautologous Red Blood Cells into Peripheral Vein, Percutaneous Approach (ICD-10-PCS; principal; 2017-06-29)
DX: D62 Acute posthemorrhagic anemia (principal); G93.49 Other encephalopathy; F11.20 Opioid dependence, uncomplicated; E87.2 Acidosis; R31.9 Hematuria, unspecified; N30.91 Cystitis, unspecified with hematuria; E86.0 Dehydration; E11.65 Type 2 diabetes mellitus with hyperglycemia; G89.29 Other chronic pain; I12.9 Hypertensive chronic kidney disease with stage 1 through stage 4 chronic kidney disease, or unspecified chronic kidney disease; N18.3 Chronic kidney disease, stage 3 (moderate); I48.0 Paroxysmal atrial fibrillation; M10.9 Gout, unspecified; K74.60 Unspecified cirrhosis of liver; B19.20 Unspecified viral hepatitis C without hepatic coma; M81.0 Age-related osteoporosis without current pathological fracture
CPT/HCPCS: 97162-GP; 97166-GO; 97535-GO; G8978-GP-CK; G8979-GP-CJ; G8987-GO-CK; G8988-GO-CI; J1815; J3475; P9016

== ENCOUNTER 2017-07-02 21:20 | Emergency (ER) | payer OTHER ==
[2017-07-02 21:56] LABS: PLATELET COUNT 249 10^3/uL (150-400)
[2017-07-02 22:06] LABS: INR 1.14 (0.83-1.16); PROTIME(PATIENT) 14.8 SEC (12.0-15.0)
--- NOTE | 2017-07-02 23:07 | EDPHY ---
H & P Stated Complaint: fall today and vag bleeding just DC'd 07/01 Time Seen by Provider: 07/02/17 21:50 HPI/ROS: Chief Complaint: Hematuria, fall HPI: 76-year-old woman who was recently admitted to this hospital with hemorrhagic cystitis. She is discharged yesterday. Today patient states that she started having return of hematuria at about 1 p.m.. Patient states that 2: 00 p.m. She was ambulating without her walker when she lost her balance. She stepped backwards and fell back. She did hit her head but had no loss of consciousness. Denies headache or other complaints at this time. No fainting. No abdominal pain. No nausea or vomiting. Patient did require 3 units of blood transfusion when she was admitted. She needs to make an appoint with Dr. Macarena buck for a bladder biopsy under general anesthesia, she has not made this appointment as of yet. ROS: 10 point Review of Systems is negative except as noted in the HPI. Social History: No smoking, no alcohol Family History: non-contributory Physical Exam: Gen: Awake, Alert, No Distress HEENT: Scalp: No significant hematoma, no tenderness or deformity Nose: no rhinorrhea Eyes: PERRLA, EOMI Mouth: Moist mucosa Neck: Supple, no JVD Chest: nontender, lungs clear to auscultation Heart: S1, S2 normal, no murmur Abd: Soft, non-tender, no guarding Back: no CVA tenderness, no midline tenderness Ext: no edema, non-tender Skin: no rash Neuro: CN II-XII intact, Sensation grossly intact, Strength 5/5 in bilateral upper and lower extremities - Personal History Current Tetanus Diphtheria and Acellular Pertussis (TDAP): Yes Tetanus Vaccine Date: 2011 - Medical/Surgical History Hx Asthma: No Hx Chronic Respiratory Disease: No Hx Diabetes: Yes Hx Cardiac Disease: Yes Hx Renal Disease: Yes Hx Cirrhosis: No Hx Alcoholism: No Hx HIV/AIDS: No Hx Splenectomy or Spleen Trauma: No Other PMH: DM2, hypothyroid, pelvic fx, 5 surgeries on right leg, broken collar bones, Hepatitis B from blood transfusion, urinary leakage, rib fx's, chronic hematuria, Afib, Chronic Hep C, Pulm HTN, CKD, Hx neck and thoracic vertebrae Fx's - Social History Smoking Status: Never smoked Constitutional: Initial Vital Signs Temperature (C) 36.6 C 04/25/18 21:27 Heart Rate 89 07/02/17 21:27 Respiratory Rate 16 07/02/17 21:27 Blood Pressure 135/65 H 07/02/17 21:27 O2 Sat (%) 97 07/02/17 21:27 O2 Delivery Mode Room Air Allergies/Adverse Reactions: morphine Allergy (Mild, Verified 07/02/17 21:27) Vomiting nitrofurantoin Allergy (Mild, Verified 07/02/17 21:27) Rash Home Medications: Medication Instructions Recorded Allopurinol [Allopurinol 300 MG 450 mg PO DAILY 03/27/14 (RX)] Levothyroxine [Synthroid 75 mcg 75 mcg PO DAILY06 03/13/16 (*)] Colchicine [Colchicine (*)] 0.6 mg PO BID #60 ea 01/09/17 metFORMIN HCL [Glucophage 500 mg 500 mg PO DAILY@0800 02/10/17 (*)] oxyCODONE IR [Oxycodone Ir (*)] 5 mg PO Q4HRS PRN tab 02/14/17 Cholecalciferol Vit D3 [Vitamin D3 1,000 units PO BID 05/04/17 (*)] Omeprazole 40 mg PO DAILY 05/04/17 Ondansetron Odt [Zofran Odt 4 mg 4 mg PO Q4 PRN 05/04/17 (*)] Polyethylene Glycol 3350 [Miralax 1 pkt PO DAILY 05/04/17 17 gm (*)] Polyethylene Glycol 3350 [Miralax 17 gm PO DAILY PRN 05/04/17 17 gm (*)] Sennosides/Docusate Sodium 1 - 2 tab PO BID PRN 05/04/17 [Senokot-S] Sitagliptin Phos/Metformin HCl 1 tab PO DAILY@1700 05/04/17 [Janumet 50-500 mg Tablet] Insulin Detemir [Levemir] 35 unit SQ BID #100 ml 05/05/17 Metoprolol Tartrate [Lopressor 25 25 mg PO BID #60 tab 05/05/17 mg (*)] Acetaminophen [Tylenol 325mg (*)] 650 mg PO Q4HRS PRN tab 06/13/17 Sulfamethox/Tmp 800/160 mg 1 ea PO BID #60 tab 07/01/17 [Bactrim DS] Medical Decision Making ED Course/Re-evaluation: I have reviewed the patient's blood work. Is at her baseline from discharge. She does have some hematuria here but no urinary retention. Irrigated clear without any blood clots. Patient did ambulate in the emergency department with a walk without any difficulties. She is otherwise at her baseline. Vital signs are normal. Patient will be observed in the emergency department back suspect she will be appropriate for discharge to home with outpatient follow-up. - Data Points Laboratory Results: Laboratory Results 07/02/17 21:43 07/02/17 21:43 07/02/17 07/02/17 07/02/17 23:55 21:43 21:43 WBC RBC Hgb Hct MCV MCH MCHC RDW Plt Count MPV Neut % (Auto) Lymph % (Auto) [place] % (Auto) Eos % (Auto) Baso % (Auto) Nucleat RBC Rel Count Absolute Neuts (auto) Absolute Lymphs (auto) Absolute Monos (auto) Absolute Eos (auto) Absolute Basos (auto) Absolute Nucleated RBC Immature Gran % Immature Gran # PT INR APTT Sodium 135 mEq/L mEq/L (135-145) Potassium 4.0 mEq/L mEq/L (3.5-5.2) Chloride 102 mEq/L mEq/L (97-110) Carbon Dioxide 18 mEq/l L mEq/l (22-31) Anion Gap 15 mEq/L mEq/L (8-16) BUN 22 mg/dL mg/dL (7-23) Creatinine 1.2 mg/dL H mg/dL (0.6-1.0) Estimated GFR 44 Glucose 106 mg/dL H mg/dL (70-100) Calcium 8.7 mg/dL mg/dL (8.5-10.4) Urine Color YELLOW Urine Appearance TURBID Urine pH 6.0 (5.0-7.5) Ur Specific [place] 1.011 (1.002-1.030) Urine Protein 2+ H (NEGATIVE) Urine Ketones NEGATIVE (NEGATIVE) Urine Blood 2+ H (NEGATIVE) Urine Nitrate NEGATIVE (NEGATIVE) Urine Bilirubin NEGATIVE (NEGATIVE) Urine Urobilinogen NEGATIVE EU EU (0.2-1.0) Ur Leukocyte Esterase 2+ H (NEGATIVE) Urine RBC 50-182 /hpf H /hpf (0-3) Urine WBC 50-182 /hpf H /hpf (0-3) Ur Epithelial Cells NONE SEEN /lpf /lpf (NONE-1+) Urine Glucose NEGATIVE (NEGATIVE) Patient ABO/Rh O POSITIVE Antibody Screen NEGATIVE 07/02/17 07/02/17 21:43 21:43 WBC 9.57 10^3/uL H 10^3/uL (3.80-9.50) RBC 3.87 10^6/uL L 10^6/uL (4.18-5.33) Hgb 10.7 g/dL L g/dL (12.6-16.3) Hct 33.1 % L % (38.0-47.0) MCV 85.5 fL fL (81.5-99.8) MCH 27.6 pg L pg (27.9-34.1) MCHC 32.3 g/dL L g/dL (32.4-36.7) RDW 15.3 % H % (11.5-15.2) Plt Count 249 10^3/uL 10^3/uL (150-400) MPV 10.0 fL fL (8.7-11.7) Neut % (Auto) 83.3 % H % (39.3-74.2) Lymph % (Auto) 5.7 % L % (15.0-45.0) [place] % (Auto) 8.3 % % (4.5-13.0) Eos % (Auto) 1.8 % % (0.6-7.6) Baso % (Auto) 0.3 % % (0.3-1.7) Nucleat RBC Rel Count 0.0 % % (0.0-0.2) Absolute Neuts (auto) 7.97 10^3/uL H 10^3/uL (1.70-6.50) Absolute Lymphs (auto) 0.55 10^3/uL L 10^3/uL (1.00-3.00) Absolute Monos (auto) 0.79 10^3/uL 10^3/uL (0.30-0.80) Absolute Eos (auto) 0.17 10^3/uL 10^3/uL (0.03-0.40) Absolute Basos (auto) 0.03 10^3/uL 10^3/uL (0.02-0.10) Absolute Nucleated RBC 0.00 10^3/uL 10^3/uL (0-0.01) Immature Gran % 0.6 % % (0.0-1.1) Immature Gran # 0.06 10^3/uL 10^3/uL (0.00-0.10) PT 14.8 SEC SEC (12.0-15.0) INR 1.14 (0.83-1.16) APTT 28.9 SEC SEC (23.0-38.0) Sodium Potassium Chloride Carbon Dioxide Anion Gap BUN Creatinine Estimated GFR Glucose Calcium Urine Color Urine Appearance Urine pH Ur Specific [place] Urine Protein Urine Ketones Urine Blood Urine Nitrate Urine Bilirubin Urine Urobilinogen Ur Leukocyte Esterase Urine RBC Urine WBC Ur Epithelial Cells Urine Glucose Patient ABO/Rh Antibody Screen Departure - Departure Disposition: Home, Routine, Self-Care Clinical Impression: Cystitis, Fall Condition: Good Instructions: Fall Prevention for Older Adults (ED), Hematuria (ED) Additional Instructions: Follow up with Dr. Magdaleno, call to arrange for biopsy appointment. Please use your walker when walking at all times. Follow up with primary care physician in 2-3 days for further evaluation. Return to the emergency department for lightheadedness fainting, headache, nausea, vomiting, or any other concerns. Referrals: Jenny Garcia MD [Primary Care Provider] - As per Instructions
[2017-07-03 06:27] VITALS: BP 130/71
== END 2017-07-03 06:50 | disposition home or self-care (01) ==
LOC: EDUNIT#
PROC: 0T9B70Z Drainage of Bladder with Drainage Device, Via Natural or Artificial Opening (ICD-10-PCS; principal; 2017-07-02)
DX: N30.90 Cystitis, unspecified without hematuria (principal); E11.9 Type 2 diabetes mellitus without complications; I12.9 Hypertensive chronic kidney disease with stage 1 through stage 4 chronic kidney disease, or unspecified chronic kidney disease; N18.9 Chronic kidney disease, unspecified; Z79.4 Long term (current) use of insulin; W01.198A Fall on same level from slipping, tripping and stumbling with subsequent striking against other object, initial encounter

== ENCOUNTER 2017-07-05 20:12 | Emergency (ER) | payer OTHER ==
--- NOTE | 2017-07-05 20:32 | EDPHY ---
H & P Stated Complaint: vag bleeding, just DC'D 07/03/2017 Time Seen by Provider: 07/05/17 20:18 - Personal History Tetanus Vaccine Date: 2011 - Medical/Surgical History Hx Asthma: No Hx Chronic Respiratory Disease: No Hx Diabetes: Yes Hx Cardiac Disease: Yes Hx Renal Disease: Yes Hx Cirrhosis: No Hx Alcoholism: No Hx HIV/AIDS: No Hx Splenectomy or Spleen Trauma: No Other PMH: DM2, hypothyroid, pelvic fx, 5 surgeries on right leg, broken collar bones, Hepatitis B from blood transfusion, urinary leakage, rib fx's, chronic hematuria, Afib, Chronic Hep C, Pulm HTN, CKD, Hx neck and thoracic vertebrae Fx's - Social History Smoking Status: Never smoked Constitutional: Initial Vital Signs Temperature (C) 36.4 C 07/05/17 20:20 Heart Rate 82 07/05/17 20:20 Respiratory Rate 18 07/05/17 20:20 Blood Pressure 122/60 H 07/05/17 20:20 O2 Sat (%) 93 07/05/17 20:20 O2 Delivery Mode Room Air Allergies/Adverse Reactions: morphine Allergy (Mild, Verified 07/02/17 21:27) Vomiting nitrofurantoin Allergy (Mild, Verified 07/02/17 21:27) Rash Home Medications: Medication Instructions Recorded Allopurinol [Allopurinol 300 MG 450 mg PO DAILY 03/27/14 (RX)] Levothyroxine [Synthroid 75 mcg 75 mcg PO DAILY06 03/13/16 (*)] Colchicine [Colchicine (*)] 0.6 mg PO BID #60 ea 01/09/17 metFORMIN HCL [Glucophage 500 mg 500 mg PO DAILY@0800 02/10/17 (*)] oxyCODONE IR [Oxycodone Ir (*)] 5 mg PO Q4HRS PRN tab 02/14/17 Cholecalciferol Vit D3 [Vitamin D3 1,000 units PO BID 05/04/17 (*)] Omeprazole 40 mg PO DAILY 05/04/17 Ondansetron Odt [Zofran Odt 4 mg 4 mg PO Q4 PRN 05/04/17 (*)] Polyethylene Glycol 3350 [Miralax 1 pkt PO DAILY 05/04/17 17 gm (*)] Polyethylene Glycol 3350 [Miralax 17 gm PO DAILY PRN 05/04/17 17 gm (*)] Sennosides/Docusate Sodium 1 - 2 tab PO BID PRN 05/04/17 [Senokot-S] Sitagliptin Phos/Metformin HCl 1 tab PO DAILY@1700 05/04/17 [Janumet 50-500 mg Tablet] Insulin Detemir [Levemir] 35 unit SQ BID #100 ml 05/05/17 Metoprolol Tartrate [Lopressor 25 25 mg PO BID #60 tab 05/05/17 mg (*)] Acetaminophen [Tylenol 325mg (*)] 650 mg PO Q4HRS PRN tab 06/13/17 Sulfamethox/Tmp 800/160 mg 1 ea PO BID #60 tab 07/01/17 [Bactrim DS] Medical Decision Making ED Course/Re-evaluation: CHIEF COMPLAINT: Hematuria HISTORY OF PRESENT ILLNESS: The patient is a 76 y/o female arriving via EMS from her living facility on nurse's orders for evaluation of continued hematuria. She has been evaluated here twice in the last week for this and is also followed by urology. She did require a transfusion during her admission on 06/29/17 for blood-loss anemia. A cystoscopy earlier this month did not reveal an obvious cause and she is scheduled for a bladder biopsy. Her next urology appointment is scheduled for this Friday. She describes her urine color as transitioning "from lemonade, to watermelon-colored, to lemonade!" She does not feel she needs to be in the ED and denies any other complaints and states, " just let me sleep." REVIEW OF SYSTEMS: A 10 point review of systems was performed and is negative with the exception of the elements mentioned in the history of present illness. PHYSICAL EXAM: HR, BP, O2 Sat, RR. Temp noted General Appearance: Alert, well hydrated, appropriate, and non-toxic appearing. Head: Atraumatic without scalp tenderness or obvious injury Eyes: Pupils equal, round, reactive to light and accommodation, EOMI, no trauma , no injection. Nose: Atraumatic, no rhinorrhea, clear. Throat: Mucus membranes moist. Neck: Supple Respiratory: No retractions, no distress, no wheezes, and no accessory muscle use. Lungs are clear to auscultation bilaterally. Cardiovascular: Regular rate and rhythm, no murmurs, rubs, or gallops. Good capillary refill all extremities. Gastrointestinal: Abdomen is soft, non-tender, non-distended, no masses, no rebound, no guarding, no peritoneal signs. Musculoskeletal: Normal active ROM of all extremities, atraumatic. Neurological: Alert, appropriate, and interactive. The patient has non-focal cranial nerves, motor, sensory, and cerebellar exam. Skin: No rashes, good turgor, no nodules on palpation. PAST MEDICAL HISTORY: Diabetes type II, hypothyroidism, pelvic fracture, clavicle fracture, Hepatitis B from blood transfusion, incontinence, rib fractures, chronic hematuria, atrial fibrillation, chronic hepatitis C, pulmonary hypertension hypothyroid, chronic kidney disease, vertebral fractures. PAST SURGICAL HISTORY: Right leg surgeries SOCIAL HISTORY: Lives at the [facility]. Retired. DIFFERENTIAL DIAGNOSIS: The differential diagnosis for the patient's hematuria included but was not limited to bladder malignancy, hemorrhagic cystitis, medication side effect, neurologic causes, outflow obstruction, and infection. MEDICAL DECISION MAKING: This is a 76 y/o female who presents with continued chronic hematuria for which she is followed by urology. She does not want to be in the ED and is not requesting any additional treatment for this and would like to return home. She is scheduled to see her urologist in 4 days. She will be discharged home with standard precautions. She is comfortable with this plan. - Data Points Laboratory Results: 07/05/17 20:43 POC Hgb 9.9 gm/dL L gm/dL (12.6-16.3) POC Hct 29 % L % (38-47) POC Sodium 140 mEq/L mEq/L (135-145) POC Potassium 4.3 mEq/L mEq/L (3.3-5.0) POC Chloride 110 mEq/L mEq/L (97-110) POC BUN 29 mg/dL H mg/dL (7-23) POC Creatinine 1.9 mg/dL H mg/dL (0.6-1.0) POC Glucose 128 mg/dL H mg/dL (70-100) Point of Care Test Results: 07/05/17 20:43 POC Sodium 140 POC Potassium 4.3 POC Chloride 110 POC BUN 29 H POC Creatinine 1.9 H POC Glucose 128 H Departure - Departure Disposition: Home, Routine, Self-Care Clinical Impression: Hematuria Qualifiers: Hematuria type: gross Qualified Code(s): R31.0 - Gross hematuria Condition: Good Instructions: Hematuria (ED) Additional Instructions: Follow up with your urologist as planned this week for the blood in your urine. Referrals: Vasyl Magdaleno MD [Medical Doctor] - As per Instructions Report Scribed for: Jorge Luis Dailey Report Scribed by: Linn Ruiz Date of Report: 07/05/17 Time of Report: 21:38
[2017-07-05 21:58] VITALS: BP 118/72
== END 2017-07-05 22:22 | disposition home or self-care (01) ==
LOC: EDUNIT#
DX: R31.0 Gross hematuria (principal); E11.9 Type 2 diabetes mellitus without complications; I12.9 Hypertensive chronic kidney disease with stage 1 through stage 4 chronic kidney disease, or unspecified chronic kidney disease; N18.9 Chronic kidney disease, unspecified; Z79.4 Long term (current) use of insulin
CPT/HCPCS: 82947-QW

== ENCOUNTER 2017-07-07 08:03 | Inpatient (IN) | payer OTHER ==
[2017-07-07 08:38] LABS: PLATELET COUNT 285 10^3/uL (150-400)
--- NOTE | 2017-07-07 08:58 | EDPHY ---
H & P Stated Complaint: vaginal bleeding Time Seen by Provider: 07/07/17 08:56 HPI/ROS: HPI: This is a 76-year-old female who presents with Chief Complaint: Vaginal bleeding Location: Vaginal Quality: Bleeding Duration: Unknown Signs and Symptoms: no fever, no nausea, no vomiting, no hematemesis, no blood in stool, no abdominal bloating, no diarrhea, no back pain, no urinary symptoms , no indigestion, no chest pain, no shortness of breath Timing: Acute Severity: [id number] Context: Patient has a history of diabetes mellitus type 2, urinary leak good, atrial fibrillation, chronic hematuria, chronic encephalopathy, acute blood- loss anemia presents with complaints of vaginal bleeding for"a few days." Patient is a very difficult historian and denies abdominal pain/nausea/vomiting/ fever. She is unsure of whether she has blood in her urine or not. She does not know when the last time she urinated. Patient was admitted 06/27 2-424 to [facility] for acute blood-loss anemia and hemorrhagic cystitis. She required continuous bladder irrigation and received 3 units of packed red blood cells. Patient underwent cystoscopy by Dr. Gilbert Abdalla on 06/16 that was non diagnostic. She was started on Bactrim for urinary tract infection. Patient is not on any blood thinners. Modifying Factors: none Comment: ROS: Very difficult due to patient's encephalopathy MEDICAL/SURGICAL/SOCIAL HISTORY: Medical history: DM2, hypothyroid, pelvic fx, 5 surgeries on right leg, broken collar bones, Hepatitis B from blood transfusion, urinary leakage, rib fx's, chronic hematuria, Afib, Chronic Hep C, Pulm HTN, CKD, Hx neck and thoracic vertebrae Fx's Surgical history: Denies Social history: Family history noncontributory. CONSTITUTIONAL: Elderly chronically ill-appearing white female, awake and alert , no obvious distress HEENT: Atraumatic and normocephalic, PERRL, EOMI. Nares patent; no rhinorrhea; no nasal mucosal edema. Tympanic membranes clear. Oropharynx clear, no exudate and dry oral mucosa. Airway patent. No lymphadenopathy. No meningismus. Cardiovascular: Normal S1/S2, regular rate, regular rhythm, without murmur rub or gallop. PULMONARY/CHEST: Symmetrical and nontender. Clear to auscultation bilaterally. Good air movement. No accessory muscle usage. ABDOMEN: Soft, nondistended, nontender, no rebound, no guarding, no peritoneal signs, no masses or organomegaly. No CVAT. PELVIC: normal external genitalia, normal cervix, cervical os was closed, no cervical motion tenderness, no adnexal mass, no discharge, no bleeding. The exam was performed with a bag adjuster. EXTREMITIES: 2/2 pulses, strength 5/5, no deformities, no clubbing, no cyanosis or edema. NEUROLOGICAL: no focal neuro deficits. GCS 15. SKIN: Warm and dry, pallor, no erythema. no rash. Good capillary refill. Source: Patient Exam Limitations: Clinical condition - Personal History Tetanus Vaccine Date: 2011 - Medical/Surgical History Hx Asthma: No Hx Chronic Respiratory Disease: No Hx Diabetes: Yes Hx Cardiac Disease: Yes Hx Renal Disease: Yes Hx Cirrhosis: No Hx Alcoholism: No Hx HIV/AIDS: No Hx Splenectomy or Spleen Trauma: No Other PMH: DM2, hypothyroid, pelvic fx, 5 surgeries on right leg, broken collar bones, Hepatitis B from blood transfusion, urinary leakage, rib fx's, chronic hematuria, Afib, Chronic Hep C, Pulm HTN, CKD, Hx neck and thoracic vertebrae Fx's - Social History Smoking Status: Never smoked Constitutional: Initial Vital Signs Temperature (C) 36.7 C 07/07/17 08:20 Heart Rate 78 07/07/17 08:20 Respiratory Rate 18 07/07/17 08:20 Blood Pressure 134/98 H 07/07/17 08:20 O2 Sat (%) 97 07/07/17 08:20 O2 Delivery Mode Room Air Allergies/Adverse Reactions: morphine Allergy (Mild, Verified 07/02/17 21:27) Vomiting nitrofurantoin Allergy (Mild, Verified 07/02/17 21:27) Rash Home Medications: Medication Instructions Recorded Allopurinol [Allopurinol 300 MG 450 mg PO DAILY 03/27/14 (RX)] Levothyroxine [Synthroid 75 mcg 75 mcg PO DAILY06 03/13/16 (*)] Colchicine [Colchicine (*)] 0.6 mg PO BID #60 ea 01/09/17 metFORMIN HCL [Glucophage 500 mg 500 mg PO DAILY@0800 02/10/17 (*)] oxyCODONE IR [Oxycodone Ir (*)] 5 mg PO Q4HRS PRN tab 12/08/17 Cholecalciferol Vit D3 [Vitamin D3 1,000 units PO BID 05/04/17 (*)] Omeprazole 40 mg PO DAILY 05/04/17 Ondansetron Odt [Zofran Odt 4 mg 4 mg PO Q4 PRN 05/04/17 (*)] Polyethylene Glycol 3350 [Miralax 1 pkt PO DAILY 05/04/17 17 gm (*)] Polyethylene Glycol 3350 [Miralax 17 gm PO DAILY PRN 05/04/17 17 gm (*)] Sennosides/Docusate Sodium 1 - 2 tab PO BID PRN 05/04/17 [Senokot-S] Sitagliptin Phos/Metformin HCl 1 tab PO DAILY@1700 05/04/17 [Janumet 50-500 mg Tablet] Insulin Detemir [Levemir] 35 unit SQ BID #100 ml 05/05/17 Metoprolol Tartrate [Lopressor 25 25 mg PO BID #60 tab 05/05/17 mg (*)] Acetaminophen [Tylenol 325mg (*)] 650 mg PO Q4HRS PRN tab 06/13/17 Sulfamethox/Tmp 800/160 mg 1 ea PO BID #60 tab 07/01/17 [Bactrim DS] Medical Decision Making ED Course/Re-evaluation: Vital signs reviewed and stable upon arrival. Patient clearly has acute on chronic encephalopathy. Pelvic exam shows no radha vaginal bleeding. 0928: Labs reviewed and show a 1 point drop of hemoglobin/hematocrit; now 9.0/ 28.1, creatinine 1.1; acute renal insufficiency noted. Normal saline 100 cc/hour ordered Urine sample shows radha blood; sent for urinalysis. 0958: Notified by lab that not enough urine for urinalysis, but can still do culture ED decision to consult for admission for for acute anemia-normocytic type likely due to blood loss with 1 point drop since discharge, acute encephalopathy , acute renal insufficiency. Spoke with hospitalist, CHERELLE Bishop, who kindly agrees to admit patient to [facility] and provide further care. This patient was seen under the supervision of my secondary supervising physician. I evaluated care for this patient independently. Discussed this patient with Dr. Pillai who did not see the patient. Differential Diagnosis: Differential diagnosis includes but is not limited to vaginal bleeding, vaginal malignancy, hematuria, diverticulitis, lower GI bleeding. - Data Points Laboratory Results: Laboratory Results 07/07/17 08:15 07/07/17 08:15 07/07/17 07/07/17 07/07/17 10:25 09:30 08:15 WBC RBC Hgb Hct MCV MCH MCHC RDW Plt Count MPV Neut % (Auto) Lymph % (Auto) Davie % (Auto) Eos % (Auto) Baso % (Auto) Nucleat RBC Rel Count Absolute Neuts (auto) Absolute Lymphs (auto) Absolute Monos (auto) Absolute Eos (auto) Absolute Basos (auto) Absolute Nucleated RBC Immature Gran % Immature Gran # Sodium Potassium Chloride Carbon Dioxide Anion Gap BUN Creatinine Estimated GFR Glucose Calcium Urine Color Pending REJ Urine Appearance Pending REJ Urine pH Pending REJ Ur Specific Coyle Pending REJ Urine Protein Pending REJ Urine Ketones Pending REJ Urine Blood Pending REJ Urine Nitrate Pending REJ Urine Bilirubin Pending REJ Urine Urobilinogen Pending REJ Ur Leukocyte Esterase Pending REJ Urine Glucose Pending REJ Patient ABO/Rh O POSITIVE Antibody Screen NEGATIVE 07/07/17 07/07/17 08:15 08:15 WBC 8.57 10^3/uL 10^3/uL (3.80-9.50) RBC 3.33 10^6/uL L 10^6/uL (4.18-5.33) Hgb 9.0 g/dL L g/dL (12.6-16.3) Hct 28.1 % L % (38.0-47.0) MCV 84.4 fL fL (81.5-99.8) MCH 27.0 pg L pg (27.9-34.1) MCHC 32.0 g/dL L g/dL (32.4-36.7) RDW 15.5 % H % (11.5-15.2) Plt Count 285 10^3/uL 10^3/uL (150-400) MPV 9.8 fL fL (8.7-11.7) Neut % (Auto) 81.5 % H % (39.3-74.2) Lymph % (Auto) 8.4 % L % (15.0-45.0) Davie % (Auto) 6.4 % % (4.5-13.0) Eos % (Auto) 2.5 % % (0.6-7.6) Baso % (Auto) 0.6 % % (0.3-1.7) Nucleat RBC Rel Count 0.0 % % (0.0-0.2) Absolute Neuts (auto) 6.99 10^3/uL H 10^3/uL (1.70-6.50) Absolute Lymphs (auto) 0.72 10^3/uL L 10^3/uL (1.00-3.00) Absolute Monos (auto) 0.55 10^3/uL 10^3/uL (0.30-0.80) Absolute Eos (auto) 0.21 10^3/uL 10^3/uL (0.03-0.40) Absolute Basos (auto) 0.05 10^3/uL 10^3/uL (0.02-0.10) Absolute Nucleated RBC 0.00 10^3/uL 10^3/uL (0-0.01) Immature Gran % 0.6 % % (0.0-1.1) Immature Gran # 0.05 10^3/uL 10^3/uL (0.00-0.10) Sodium 137 mEq/L mEq/L (135-145) Potassium 4.9 mEq/L mEq/L (3.5-5.2) Chloride 107 mEq/L mEq/L (97-110) Carbon Dioxide 18 mEq/l L mEq/l (22-31) Anion Gap 12 mEq/L mEq/L (8-16) BUN 22 mg/dL mg/dL (7-23) Creatinine 1.1 mg/dL H mg/dL (0.6-1.0) Estimated GFR 48 Glucose 98 mg/dL mg/dL (70-100) Calcium 8.7 mg/dL mg/dL (8.5-10.4) Urine Color Urine Appearance Urine pH Ur Specific Coyle Urine Protein Urine Ketones Urine Blood Urine Nitrate Urine Bilirubin Urine Urobilinogen Ur Leukocyte Esterase Urine Glucose Patient ABO/Rh Antibody Screen Departure - Departure Disposition: [facility] Clinical Impression: Normocytic anemia due to blood loss, Encephalopathy acute, NICHELLE (acute kidney injury) Hematuria Qualifiers: Hematuria type: gross Qualified Code(s): R31.0 - Gross hematuria Condition: Fair
[2017-07-07] MEDS ORDERED: POLYETHYLENE GLYCOL 3350 17 GM PKT PO PRN (12:30)
[2017-07-07] MEDS ORDERED: ONDANSETRON DISINTEGRATING 4 MG TAB PO PRN (12:30)
[2017-07-07] MEDS ORDERED: oxyCODONE IR 5 MG TAB PO PRN (12:30)
[2017-07-07] MEDS ORDERED: SENNOSIDES/DOCUSATE SODIUM TAB PO PRN (12:30)
[2017-07-07] MEDS ORDERED: ONDANSETRON 4 MG/2 ML VIAL IVP PRN (12:33)
[2017-07-07] MEDS ORDERED: ACETAMINOPHEN 325 MG TAB PO PRN (12:33)
[2017-07-07] MEDS ORDERED: D50W 25 GM/50 ML SYR IVP PRN ×2 (12:33→13:47)
[2017-07-07] MEDS ORDERED: NS 1,000 ML IV SCH (12:45)
--- NOTE | 2017-07-07 13:16 | GHP ---
[f rep st] HISTORY AND PHYSICAL DATE OF ADMISSION: 07/07/2017 CHIEF COMPLAINT: Vaginal bleeding. HISTORY OF PRESENT ILLNESS: The patient was recently discharged on 07/01 for ongoing hematuria. She has a past medical history of diabetes type 2, possible hemorrhagic cystitis, anemia, chronic kidney disease, and chronic encephalopathy. Today, she tells me she came to the emergency room because she was losing approximately a tablespoon of blood every 2 hours. On her last admission, she was placed on continuous bladder irrigation and received 3 units of packed red blood cells, and her hematuria stopped. It was unclear the etiology. She had a cystoscopy performed by Dr. Magdaleno on June 16. This was nondiagnostic. His recommendation was for her to get general anesthesia operative biopsy, and this was to be scheduled by the patient. She has not been able to arrange followup care. She is very concerned that she continues to bleed and would like this addressed during this hospital stay. She had some pain when she was bleeding last night, but none now. She has no frequency, burning or urgency with urination. She has no dizziness, no passing out. No shortness of breath or any type of chest pain. During my interview, overall, she is feeling well. PAST MEDICAL HISTORY: 1. Hematuria. 2. Diabetes mellitus. 3. Chronic pain on continuous narcotics. 4. Suspected mild cognitive impairment. 5. C-spine fracture requiring a hard collar. 6. Atrial fibrillation. 7. Hepatitis C. 8. Cirrhosis noted on the CT scan. 9. Chronic kidney disease. 10. Gout. 11. Hysterectomy. 12. Multiple orthopedic surgeries. ALLERGIES: Morphine and possibly Macrobid. FAMILY HISTORY: Her father had type 2 diabetes. Her sister had breast cancer. She is unclear of what her parents from. SOCIAL HISTORY: She currently lives at the [facility]. 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 She drinks alcohol nightly. She quit smoking multiple years ago. HOME MEDICATIONS: Oxy IR 5 mg p.o. q. p.r.n., Glucophage 500 mg daily, Bactrim 1 tab b.i.d., Janumet 1 tab daily, Senokot S 1-2 tabs b.i.d. p.r.n., MiraLAX 1 packet daily and p.r.n., Zofran ODT 4 mg p.o. q.4 hours p.r.n., omeprazole 40 mg daily, metoprolol 25 mg b.i.d., Imodium 4 mg p.o. p.r.n., Synthroid 75 mcg daily, Levemir 35 units subcu b.i.d., colchicine 0.6 mg b.i.d., vitamin D3 1000 units b.i.d., allopurinol 450 mg daily, and Fosamax 70 mg on Mondays at 7 a.m. REVIEW OF SYSTEMS: A 10-point review was performed and was negative other than pertinent positives in the HPI and Past Medical History. PHYSICAL EXAM: GENERAL: The patient is a 76-year-old female who appears her stated years. VITAL SIGNS: Blood pressure is 109/53, heart rate is 82, respiratory rate is 12, O2 sats on room air 95%, temperature 36.6 Celsius. EYES : Pupils are equal and reactive. EOMs are intact. ENT: Normal. Ears: Hearing intact. NECK: Trachea is midline. CARDIOVASCULAR: She is in a regular rate and rhythm. No murmurs, rubs, or gallops noted. CHEST: Lungs normal respiratory effort. Clear without wheezing, rales. ABDOMEN: Soft, nontender. : A vaginal exam was performed. There is no bleeding. She is incontinent of yellow urine. SKIN: No rashes or ulcers noted. MUSCULOSKELETAL: Not evaluated, but she is moving her extremities without difficulty. PSYCHIATRIC: She is alert and oriented. Normal mood, affect. Normal insight. Appears to have some short-term memory loss. LABORATORY DATA: Data reviewed. Hemoglobin is 9, hematocrit is 28.1, platelet count is 285. Her white blood cell count is 8.57. Coags show a pro time of 14.8, INR of 1.14, PTT of 28.9. Chemistry: Sodium is 137, potassium 4.9, chloride of 107, CO2 of 18, creatinine 1.1. Urinalysis shows 1+ protein, 3+ blood, 3+ leukocyte esterase, 50-182 red blood cells and 50-182 white blood cells. IMAGING: No imaging was done on this admission. ASSESSMENT AND PLAN: 1. Hematuria. This is her third admission in the last several months for this. No clear etiology has been found despite cystoscopy. Will discuss with Dr. Magdaleno what the next steps may be. She likely needs a surgical consult for further evaluation. 2. Acute kidney injury. Her creatinine is slightly elevated. Will hydrate overnight and recheck labs in the morning. 3. Diabetes type 2. Will continue her home insulin as well as give her sliding scale. Will hold her metformin just in case we do any imaging. 4. Anemia due to acute blood loss. Hemoglobin and hematocrit have trended down. Will continue monitoring. 5. Cognitive impairment. She is alert and oriented during my interview. 6. Pyuria without symptoms. Will monitor and check a urine culture. 7. Chronic pain, on continuous opioids. Will continue these. 8. Deep venous thrombosis prophylaxis. Her risk is moderate. Will hold any type of pharmacologic prophylaxis in case she has any procedures and in the setting of hematuria. 9. Code status: Do not resuscitate. 10. Length of stay. I suspect she may require greater than a 2-midnight stay to evaluate the hematuria. She has returned to the emergency room multiple times for evaluation of this. /[id number]/MODL MTDD
--- NOTE | 2017-07-07 13:31 | PDMN ---
Medical Necessity Medical necessity: Pt meets IP criteria per [employer]; est los >2 mn for eval/tx of hematuria & acute kidney injury; admit for further workup/monitoring, Urology/ Surgery consults & IVFs; hx multiple recent admissions for hematuria, diabetes, C-spine fx requiring hard collar, AFIB, mild cognitive impairment, CKD; per H&P & order 07/07/17
--- NOTE | 2017-07-07 17:23 | ASMTCMCOM ---
CM Note CM Note Notes: Patient with multiple frequent admissions. Spoke to [place] from Renan Luciano's office. Patient norwood not been able to have outpatient cystoscopy due to frequent admissions, Dr. Magdaleno to see her here per hospital medicine. Plan of care not yet clear. CM to follow Plan: TBD Date Signed: 07/07/2017 05:22 PM Electronically Signed By:Britney Roper RN
[2017-07-07] MEDS: INSULIN LISPRO 100 UNIT/ML SC SCH (18:32)
--- NOTE | 2017-07-07 18:38 | SOAPPROG ---
SOAP Progress Note Assessment/Plan: Assessment: Recurrent gross hematuria of unclear etiology. Plan: 1. CT urogram this evening to re-evaluate upper urinary tracts. 2. Intraoperative cystoscopy and bladder biopsies tomorrow. See dictated consult note (# ). Objective: Vital Signs Temp Pulse Resp BP Pulse Ox 36.3 C 86 12 137/59 H 94 07/07/17 15:30 07/07/17 15:30 07/07/17 15:30 07/07/17 15:30 07/07/17 15:30 07/06/17 07/07/17 07/08/17 05:59 05:59 05:59 Intake Total 400 Balance 400 ICD10 Worksheet Patient Problems: Problems Problem Status Onset NICHELLE (acute kidney injury) Acute Encephalopathy acute Acute Hematuria Acute Normocytic anemia due to blood loss Acute Anemia Acute Atrial fibrillation Acute Cervical spine fracture Acute Dehydration Acute Diabetes Acute Elevated troponin Acute Fall at home Acute Frequent falls Acute Gait instability Acute Gastroenteritis Acute Hyperglycemia Acute Hypertension Acute Hyponatremia Acute Pain management Acute Palliative care encounter Acute Sepsis secondary to UTI Acute UTI (urinary tract infection) Acute
[2017-07-07] MEDS ORDERED: IOPAMIDOL (ISOVUE-300) 100 ML BTL ONE (19:29)
[2017-07-07] MEDS ORDERED: NON-FORMULARY NEW DRUG (Insulin Detemir [Levemir] 35 UNIT) SQ SCH (21:00)
[2017-07-07] MEDS: INSULIN GLARGINE 100 UNITS/ML UNIT SC SCH (22:34)
[2017-07-07] MEDS: METOPROLOL TARTRATE 25 MG TAB PO SCH (22:35)
[2017-07-07] MEDS: MELATONIN 3 MG TAB PO PRN (23:40)
[2017-07-08 04:55] LABS: PLATELET COUNT 265 10^3/uL (150-400)
[2017-07-08] MEDS: LEVOTHYROXINE 75 MCG TAB PO SCH (06:34)
[2017-07-08] MEDS ORDERED: levOFLOXACIN 500 MG/DEXTROSE 100 ML IV ONE (07:30)
[2017-07-08] MEDS: INSULIN LISPRO 100 UNIT/ML SC SCH ×3 (08:35→18:42)
[2017-07-08] MEDS ORDERED: NON-FORMULARY NEW DRUG (Omeprazole [Omeprazole] 40 MG) PO SCH (09:00)
[2017-07-08] MEDS: INSULIN GLARGINE 100 UNITS/ML UNIT SC SCH ×2 (09:29→20:42)
[2017-07-08] MEDS: METOPROLOL TARTRATE 25 MG TAB PO SCH ×2 (09:29→20:42)
[2017-07-08] MEDS: PANTOPRAZOLE SODIUM 40 MG TAB PO SCH (09:30)
[2017-07-08] MEDS: POLYETHYLENE GLYCOL 3350 17 GM PKT PO SCH (09:30)
[2017-07-08] MEDS ORDERED: LR 1,000 ML IV ONE (11:40)
--- NOTE | 2017-07-08 11:43 | PDANEPAE ---
ANE History of Present Illness 76 yo female with recurrent gross hematuria for cysto with bladder biopsies. ANE Past Medical History - Cardiovascular History Hx Hypertension: Yes Hx Arrhythmias: Yes Hx Coronary Artery / Peripheral Vascular Disease: No Hx CHF / Valvular Disease: No Cardiovascular History Comment: paroxysmal A-Fib, currently NSR - Pulmonary History Hx COPD: No Hx Asthma/Reactive Airway Disease: No Hx Recent Upper Respiratory Infection: No Hx Oxygen in Use at Home: No Hx Sleep Apnea: No Sleep Apnea Screening Result - Last Documented: Negative Pulmonary History Comment: GERD-related cough in the morning. - Neurologic History Hx Cerebrovascular Accident: No Hx Seizures: No Hx Dementia: No - Endocrine History Hx Diabetes: Yes Hypothyroid: Yes Hyperthyroid: No Obesity: no Endocrine History Comment: NIDDM.HYPOTHYROID - Renal History Hx Renal Disorders: Yes Renal History Comment: KIDNEY STONES PREV. USUALLY ONE UTI A YEAR. CKD - Cr 0.9 - Liver History Hx Hepatic Disorders: Yes Hepatic History Comment: cirrhosis, hep C - Neurological & Psychiatric Hx Hx Neurological and Psychiatric Disorders: Yes Neurological / Psychiatric History Comment: h/o encephalopathy - Cancer History Hx Cancer: Yes Cancer History Comment: SKIN - Congenital Disorder History Hx Congenital Disorders: No - GI History GERD: moderate Hx Gastrointestinal Disorders: Yes - Other Health History Other Health History: OSTEOPENIA - Chronic Pain History Chronic Pain: No - Surgical History Prior Surgeries: TOTAL ABDOMINAL HYSTERECTOMY ANE Review of Systems Review of Systems: - Systems Constitutional: Reports: weakness Respiratory: Reports: no symptoms Genitourinary: Reports: hematuria Hematologic/Lymphatic: Reports: anemia ANE Patient History - Allergies Allergies/Adverse Reactions: morphine Allergy (Mild, Verified 07/02/17 21:27) Vomiting nitrofurantoin Allergy (Mild, Verified 07/02/17 21:27) Rash - Home Medications Home Medications: Allopurinol [Allopurinol 300 MG (RX)] 450 mg PO DAILY 03/27/14 [Last Taken 06/12] Levothyroxine [Synthroid 75 mcg (*)] 75 mcg PO DAILY06 03/13/16 [Last Taken 07/25] metFORMIN HCL [Glucophage 500 mg (*)] 500 mg PO DAILY@0800 02/10/17 [Last Taken 06/12/17] Cholecalciferol Vit D3 [Vitamin D3 (*)] 1,000 units PO BID 05/04/17 [Last Taken 06/12/17] Omeprazole 40 mg PO DAILY 05/04/17 [Last Taken 06/12/17] Ondansetron Odt [Zofran Odt 4 mg (*)] 4 mg PO Q4 PRN 05/04/17 [Last Taken ] Polyethylene Glycol 3350 [Miralax 17 gm (*)] 1 pkt PO DAILY 05/04/17 [Last Taken 06/12/17] Polyethylene Glycol 3350 [Miralax 17 gm (*)] 17 gm PO DAILY PRN 05/04/17 [Last Taken 06/12/17] Sennosides/Docusate Sodium [Senokot-S] 1 - 2 tab PO BID PRN 05/04/17 [Last Taken 06/12/17] Sitagliptin Phos/Metformin HCl [Janumet 50-500 mg Tablet] 1 tab PO DAILY@1700 [Last Taken 06/12/17] Alendronate Sodium [Fosamax 70 MG (*)] 70 mg PO MO@0700 07/07/17 [Last Taken Unknown] Loperamide HCl [Imodium 2 mg (*)] 4 mg PO PRN PRN 07/07/17 [Last Taken Unknown] - NPO status NPO Since - Liquids (Date): 07/07/17 NPO Since - Liquids (Time): 20:00 NPO Since - Solids (Date): 07/07/17 NPO Since - Solids (Time): 20:00 - Anes Hx Anes Hx: no prior problems - Smoking Hx Smoking Status: Never smoked Marijuana use: No - Alcohol Use Alcohol Use: Occasionally (nightly) - Family Anes Hx Family Anes Hx: neg - N/A Family Hx Anesthesia Complications: NONE ANE Labs/Vital Signs - Labs Result Diagrams: 07/08/17 04:30 07/08/17 04:30 - Labs - BMP Glucose: 130 on FSBS - Vital Signs Blood Pressure: 121/74 Heart Rate: 71 Respiratory Rate: 14 O2 Sat (%): 96 Height: 177.8 cm Weight: 82.554 kg ANE Physical Exam - Airway Mallampati Score: Class 2 Mouth exam: normal dental/mouth exam - Pulmonary Pulmonary: clear to auscultation - Cardiovascular Cardiovascular: regular rate and rhythym - ASA Status ASA Status: III ANE Anesthesia Plan Anesthesia Plan: GA w LMA
[2017-07-08] MEDS ORDERED: IOPAMIDOL (ISOVUE-M 300) 15 ML VIAL ONE ×3 (12:06→13:22)
[2017-07-08] MEDS ORDERED: LIDOCAINE 2% JELLY 20 ML (UROJECT) ONE ×2 (12:06→12:22)
[2017-07-08] MEDS ORDERED: DEXAMETHASONE 4 MG/ML VIAL ONE (12:36)
[2017-07-08] MEDS ORDERED: LIDOCAINE 2% 100 MG/5 ML SYR ONE (12:36)
[2017-07-08] MEDS ORDERED: ETOMIDATE 20 MG/10 ML VIAL ONE (12:36)
[2017-07-08] MEDS ORDERED: ALBUTEROL HFA ANES ONLY 200 PUFFS/8.5 GM MDI IH ONE (12:36)
[2017-07-08] MEDS ORDERED: fentaNYL 100 MCG/2 ML INJ ONE (12:37)
[2017-07-08] MEDS ORDERED: PROPOFOL 200 MG/20 ML VIAL ONE (12:37)
[2017-07-08] MEDS ORDERED: METHYLENE BLUE 0.5% 50 MG/10 ML AMP ONE (13:12)
--- NOTE | 2017-07-08 13:34 | HOSPPROG ---
Hospitalist Progress Note Assessment/Plan: #Hematuria/acute blood loss anemia: H/H down some today. CT showed bladder mass. Undergoing cystoscopy today, CBI #DM2: glargine, SSI #Chronic pain with opioid dependency: #Atrial fibrillation: BB not on AC, bc chronic bleeding #NICHELLE: resolved with fluids #Pyuria: no sxs. culture pending #Hypothyroidism: LT4 #Hepatis C #Cirrhosis on CT: positive antibody 12/24. Rec outpatient FU #Suspected cognitive impairment: per [id number], more forgetful, agitated. Check ammonia #Deconditioning: PT #Diet: ADAT #DVT ppx: SCDs #Disp: cont inpatient admission for serial labs, CBI # Subjective: denies dizziness or lightheadedness Objective: Vital Signs Temp Pulse Resp BP Pulse Ox 36.4 C 71 14 121/74 H 96 07/08/17 12:05 07/08/17 12:05 07/08/17 12:05 07/08/17 12:05 07/08/17 12:05 Laboratory Results 07/08/17 04:30 07/08/17 04:30 07/07/17 07/08/17 07/09/17 05:59 05:59 05:59 Intake Total 400 Output Total 300 150 Balance 100 -150 - Time Spent With Patient Time Spent with Patient: greater than 35 minutes Time Spent with Patient: Greater than 35 minutes spent on this patients care, greater than 50% of time spent counseling, educating, and coordinating care regarding the above mentioned plan. - Physical Exam Constitutional: no apparent distress Eyes: PERRL Ears, Nose, Mouth, Throat: moist mucous membranes Cardiovascular: regular rate and rhythym Respiratory: no respiratory distress, no rales or rhonchi Gastrointestinal: normoactive bowel sounds, soft, non-tender abdomen Genitourinary: No no bladder fullness, No no bladder tenderness Skin: warm Musculoskeletal: full muscle strength Neurologic: CN II-XII Intact Psychiatric: interacting appropriately ICD10 Worksheet Patient Problems: Problems Problem Status Onset Fall at home Acute Diabetes Acute Gastroenteritis Acute Dehydration Acute Atrial fibrillation Acute Hyperglycemia Acute Hypertension Acute Elevated troponin Acute Hyponatremia Acute UTI (urinary tract infection) Acute Cervical spine fracture Acute Frequent falls Acute Gait instability Acute Pain management Acute Sepsis secondary to UTI Acute Palliative care encounter Acute Hematuria Acute Anemia Acute Normocytic anemia due to blood loss Acute Encephalopathy acute Acute NICHELLE (acute kidney injury) Acute
--- NOTE | 2017-07-08 14:10 | POSTOPPROG ---
Post Op Note Date of Operation: 07/08/17 Surgeon: Vasyl Magdaleno (# [id number]) Anesthesia: GET(General Endotracheal) Pre-op Diagnosis: Recurrent gross hematuria, bilateral hydronephrosis Post-op Diagnosis: 1. Bladder mucosal erythema 2. Bilateral hydro without obstruction Procedure: TURBT, bilateral RGP's Findings: See op note Inf/Abcess present in the surg proc area at time of surgery?: No EBL: Minimal Complications: None Specimen(s): Bladder biopsies Text Box - Additional Text Additional Text: Will continue CBI until AM, then maintain Cheng drainage for next ~ 4 days.
[2017-07-08] MEDS ORDERED: OPIUM/BELLADONNA ALKALO SUPP PR PRN (14:11)
[2017-07-08] MEDS ORDERED: ALBUTEROL 3 ML DEYVIAL IH PRN (14:12)
[2017-07-08] MEDS ORDERED: oxyCODONE IR 5 MG TAB PO PRN (14:12)
[2017-07-08] MEDS ORDERED: ONDANSETRON 4 MG/2 ML VIAL IVP PRN (14:12)
[2017-07-08] MEDS ORDERED: LR 500 ML IV PRN (14:12)
[2017-07-08] MEDS ORDERED: NALOXONE HCL 0.4 MG/ML INJ IVP PRN (14:12)
[2017-07-08] MEDS ORDERED: ACETAMINOPHEN 500 MG TAB PO PRN (14:12)
[2017-07-08] MEDS ORDERED: fentaNYL 100 MCG/2 ML INJ IVP PRN (14:12)
--- NOTE | 2017-07-08 14:13 | POSTANESTH ---
Post Anesthetic Evaluation Cardiovascular Status: Normal, Stable Respiratory Status: Normal, Stable Level of Consciousness/Mental Status: Can Participate in Eval, Mildly Sleepy, Arousable Pain Control: Adequate, Prn Tx Ordered Nausea/Vomiting Control: Adequate, Prn Tx Ordered Complications Possibly Related to Anesthesia: None Noted
--- NOTE | 2017-07-08 14:46 | GOP ---
[f rep st] OPERATIVE REPORT DATE OF OPERATION: 07/08/2017 SURGEON: Vasyl Magdaleno MD ANESTHESIA: General endotracheal. PREOPERATIVE DIAGNOSIS: 1. Recurrent gross hematuria. 2. Recurrent urinary tract infections. 3. Bilateral hydroureteronephrosis. 4. Posterior vaginal introital mucosal laceration. POSTOPERATIVE DIAGNOSIS: 1. Generalized bladder mucosal inflammation involving greater than 5 cm of bladder wall mucosa. 2. Mild bilateral hydroureteronephrosis without anatomical obstruction. 3. Posterior vaginal introital mucosal laceration. PROCEDURE PERFORMED: 1. Cystourethroscopy with transurethral resection and fulguration of bladder mucosa greater than 5 cm. 2. Bilateral retrograde pyelography. FINDINGS: 1. Diffuse bladder mucosal inflammation involving the anterior wall, dome, and upper posterior regions. Olive Picker biopsies and fulguration of these areas achieved successfully. 2. Diffuse mild bilateral hydroureteronephrosis without evidence of mechanical obstruction. There does appear to be lateral displacement of both ureteral orifices, so the possibility she has vesicoureteral reflux does exist. 3. Posterior vaginal introital mucosal laceration with associated bleeding. This is most likely due to severe atrophic vaginitis. SPECIMENS: Bladder biopsies. ESTIMATED BLOOD LOSS: Minimal. INDICATIONS: This woman has a recent history of recurrent gross painless hematuria of unclear etiology. Because of recurrence and need for multiple recent admissions, it was recommended that she undergo intraoperative evaluation of bladder with possible biopsies. Also, because she was noted to have bilateral hydroureteronephrosis on serial CT scans, evaluation of her upper tract anatomy was warranted as well. The indications for the procedures as well as potential risks and complications were discussed with the patient preoperatively. She appeared to understand, her questions were answered, and she wished to proceed. Written informed surgical consent was thereafter obtained. DESCRIPTION OF PROCEDURE: The patient was brought to the operating room and administered general endotracheal anesthesia. She was carefully placed in the dorsal lithotomy position on the cystoscopic table. The genital area was sterilely prepped with Betadine scrub and paint then draped in the usual sterile fashion. Examination of the perineum revealed a bleeding laceration involving the apex of the posterior vaginal introital mucosa. This laceration measured approximately 1-1.5 cm. The vaginal tissue was notable for generalized severe mucosal atrophy, consistent with atrophic vaginitis. The patient was also noted to freely leak urine from the urethral meatus while in the dorsal lithotomy position under anesthesia. No vaginal vault abnormalities were appreciated otherwise on bimanual exam. Cervix and uterus were absent. I then proceeded with cystourethroscopy. This was done with a 22-Sinhala sheath and the 30 and 70-degree lenses. Urethra revealed no abnormalities. Examination of the bladder revealed diffuse mucosal inflammation involving a large area of the bladder, and particularly the anterior region, dome, and upper posterior wall. There were no radha tumors identified. It was initially difficult to identify the location of the ureteral orifices due to their flat appearance. However, they were ultimately identified. The one on the right side appeared to be slightly laterally displaced than normal, while the one on the left side was even more laterally displaced. No visual obstruction of these ureteral orifices was identified. I then proceeded to perform bilateral retrograde pyelography with a 5-Sinhala open-ended ureteral catheter. Using active fluoroscopy, I was able to demonstrate mild diffuse hydroureteronephrosis without evidence of intraluminal filling defects. There was some J-hooking of both distal ureters. Otherwise, no other abnormalities were appreciated. There was also diffuse hydronephrosis and dilation of the calyceal system bilaterally. Again, no radha mechanical obstruction was appreciated. I then proceeded to perform bladder biopsies and fulguration of the abnormally erythematous mucosal areas. I initially used flexible biopsy forceps through the cystoscope to obtain several franchise sales representative biopsies from the regions of interest along the dome and anterior bladder. However, after taking about 2 or 3 of these, the bladder mucosa was extremely friable and bled easily after taking these biopsies. Therefore, I decided to take additional biopsies with the resecting loop. At this point, a 26-Sinhala resectoscopic sheath with [employer] resectoscope and a button electrode were inserted to fulgurate the previously biopsied regions. I then used a resecting loop to obtain additional franchise sales representative biopsies from the anterior region, dome, and posterior bladder. All these areas were thoroughly fulgurated with the button electrode. I then thoroughly fulgurated the remaining abnormal erythematous mucosal regions in the areas noted above. At the conclusion of the procedure, the bladder was hemostatic, the urine was essentially clear, and no perforation of the bladder had ensued as a result of the operative process. The instruments were removed and a 20-Sinhala 3-way Cheng catheter inserted with 15 cc of sterile fluid placed in the balloon. The catheter effluent was clear at this point. Continuous irrigation was started. The catheter was connected to a bag for drainage. The urine output was completely clear at this point. The patient was then awakened, extubated, transferred to her bed, then taken to the recovery room. She tolerated the procedure well overall. COMPLICATIONS: None. DISPOSITION: She was transferred to the recovery room in stable condition and will be maintained on continuous bladder irrigation today. /[id number]/MODL MTDD
--- NOTE | 2017-07-08 16:22 | ASMTCMCOM ---
CM Note CM Note Notes: This is patient's 9th hospital visit since 03/10/17. She has been complaining of chronic hematuria and fatigue. Her PCP is Dr Garcia and her publicity manager is Dr Magdaleno. Per chart review, she had been instructed to schedule an outpatient cystoscopy and biopsy but hadn't done so. This was finally done in the hospital today. Patient lives at the [facility] where she cares for her infirm . I question if this situation may be contributing to her frequent hospital visits, as well. She has skilled home health with [facility] but may need a higher level of care after this admission. I spoke with her sister in law Lynne Block (brother Vasquez Block is [facility]) and told her that a hospitalist would be calling her with a medical update and that Case Management would be in contact regarding discharge planning. PT/OT have been ordered. Date Signed: 07/08/2017 04:22 PM Electronically Signed By:Destiny Huber RN
[2017-07-09] MEDS: LEVOTHYROXINE 75 MCG TAB PO SCH (05:21)
[2017-07-09] MEDS: INSULIN GLARGINE 100 UNITS/ML UNIT SC SCH ×2 (10:14→20:39)
[2017-07-09] MEDS: PANTOPRAZOLE SODIUM 40 MG TAB PO SCH (10:15)
[2017-07-09] MEDS: METOPROLOL TARTRATE 25 MG TAB PO SCH ×2 (10:18→20:40)
[2017-07-09] MEDS: POLYETHYLENE GLYCOL 3350 17 GM PKT PO SCH (10:19)
[2017-07-09] MEDS: INSULIN LISPRO 100 UNIT/ML SC SCH ×3 (10:27→18:32)
--- NOTE | 2017-07-09 12:23 | SOAPPROG ---
SOAP Progress Note Assessment/Plan: Assessment: Recurrent gross hematuria Plan: Dr Sharp and RN do not feel patient will be able to remove her catheter due to dementia. Sounds like patient will go to a SNF-- recommend the SNF remove her catheter on Friday. Our office will call Maggy, daughter in law, at [phone] with bx results and to arrange f/u in 3 weeeks. 07/09/17 12:22 07/09/17 13:24 Subjective: Green urine. Objective: Vital Signs Temp Pulse Resp BP Pulse Ox 36.6 C 78 14 148/68 H 97 07/09/17 12:00 07/09/17 12:00 07/09/17 12:00 07/09/17 12:00 07/09/17 12:00 Laboratory Results 07/09/17 04:46 07/08/17 04:30 07/08/17 07/09/17 07/10/17 05:59 05:59 05:59 Intake Total 400 1900 150 Output Total 300 3450 Balance 100 -1550 150 Physical Exam - Physical Exam General Appearance: alert, no apparent distress Respiratory: normal breath sounds Abdomen: normal bowel sounds, other (green urine) Skin: normal color, warm/dry ICD10 Worksheet Patient Problems: Problems Problem Status Onset NICHELLE (acute kidney injury) Acute Encephalopathy acute Acute Hematuria Acute Normocytic anemia due to blood loss Acute Anemia Acute Atrial fibrillation Acute Cervical spine fracture Acute Dehydration Acute Diabetes Acute Elevated troponin Acute Fall at home Acute Frequent falls Acute Gait instability Acute Gastroenteritis Acute Hyperglycemia Acute Hypertension Acute Hyponatremia Acute Pain management Acute Palliative care encounter Acute Sepsis secondary to UTI Acute UTI (urinary tract infection) Acute
--- NOTE | 2017-07-09 14:18 | HOSPPROG ---
Hospitalist Progress Note Assessment/Plan: #Hematuria/acute blood loss anemia: s/p cystoscopy, biopsies 07/08. Urology recs schroeder removal on 07/12/17. Their office will call Lynne ([id number]) with biopsy results #Suspected cognitive impairment: has contributed to lack of follow-up and repeat admissions. Lynne will assist with outpatient FU with PCP. Urology. Normal ammonia. Check cognitive evaluation #DM2: glargine, SSI #Chronic pain with opioid dependency: #Atrial fibrillation: BB not on AC, bc chronic bleeding #NICHELLE: resolved with fluids #Pyuria: no sxs. culture pending #Hypothyroidism: LT4 #Cirrhosis on CT: positive HCV antibody 12/24. Rec outpatient F #Deconditioning: falls sometimes at home. PT eval #Social issues: concerned about patient returning home and follow-up. She is caring for blind #Diet: ADAT #DVT ppx: SCDs #Disp: cont inpatient admission for serial labs, PT, cognitive eval. High-risk for fall and subsequent harm. # Subjective: no hematuria overnight Objective: Vital Signs Temp Pulse Resp BP Pulse Ox 36.6 C 78 14 148/68 H 97 07/09/17 12:00 07/09/17 12:00 07/09/17 12:00 07/09/17 12:00 07/09/17 12:00 Laboratory Results 07/09/17 04:46 07/08/17 04:30 07/08/17 07/09/17 07/10/17 05:59 05:59 05:59 Intake Total 400 1900 150 Output Total 300 3450 Balance 100 -1550 150 - Time Spent With Patient Time Spent with Patient: greater than 35 minutes Time Spent with Patient: Greater than 35 minutes spent on this patients care, greater than 50% of time spent counseling, educating, and coordinating care regarding the above mentioned plan. - Physical Exam Constitutional: no apparent distress Eyes: PERRL Ears, Nose, Mouth, Throat: moist mucous membranes, hearing normal Cardiovascular: regular rate and rhythym Respiratory: no respiratory distress Gastrointestinal: normoactive bowel sounds Genitourinary: schroeder in urethra (with blue/green tinted urine. ) Skin: warm Musculoskeletal: full muscle strength Neurologic: AAOx3 (thinks that is here in ER looking for her), CN II- XII Intact Psychiatric: interacting appropriately, flat affect ICD10 Worksheet Patient Problems: Problems Problem Status Onset NICHELLE (acute kidney injury) Acute Encephalopathy acute Acute Hematuria Acute Normocytic anemia due to blood loss Acute Anemia Acute Atrial fibrillation Acute Cervical spine fracture Acute Dehydration Acute Diabetes Acute Elevated troponin Acute Fall at home Acute Frequent falls Acute Gait instability Acute Gastroenteritis Acute Hyperglycemia Acute Hypertension Acute Hyponatremia Acute Pain management Acute Palliative care encounter Acute Sepsis secondary to UTI Acute UTI (urinary tract infection) Acute
[2017-07-09] MEDS: MELATONIN 3 MG TAB PO PRN (20:39)
[2017-07-10] MEDS: LEVOTHYROXINE 75 MCG TAB PO SCH (06:09)
[2017-07-10] MEDS: POLYETHYLENE GLYCOL 3350 17 GM PKT PO SCH (09:52)
[2017-07-10] MEDS: PANTOPRAZOLE SODIUM 40 MG TAB PO SCH (09:52)
[2017-07-10] MEDS: METOPROLOL TARTRATE 25 MG TAB PO SCH ×2 (09:54→21:34)
[2017-07-10] MEDS: INSULIN LISPRO 100 UNIT/ML SC SCH ×3 (09:55→19:58)
[2017-07-10] MEDS: INSULIN GLARGINE 100 UNITS/ML UNIT SC SCH ×2 (09:56→21:35)
--- NOTE | 2017-07-10 13:33 | HOSPPROG ---
Hospitalist Progress Note Assessment/Plan: #Hematuria/acute blood loss anemia: resolved after cystoscopy, biopsies 07/08 negative for cancer. -schroeedr to be in place until Friday per Urology. FU in 3 weeks #Suspected cognitive impairment: -cognitive eval 02/06, showing severe impairment. This has contributed to lack of follow-up and repeat admissions. Lynne ([id number]) has spoken with all the kids. They want to respect she and and keep them at [facility] with private caregivers. CM arranging home care for schroeder #DM2: glargine, SSI #Chronic pain with opioid dependency: #Atrial fibrillation: BB not on AC, bc chronic bleeding #NICHELLE: resolved with fluids #Pyuria: no sxs. culture pending #Hypothyroidism: LT4 #Cirrhosis on CT: positive HCV antibody 12/24. Rec outpatient with GI #Deconditioning: falls sometimes at home. PT eval #Social issues: concerned about patient returning home and follow-up. She is caring for blind #Diet: ADAT #DVT ppx: SCDs #Disp: CM arranging home care with [facility]. Continue inpatient admission for PT. High-risk for fall and subsequent harm. # Subjective: no hematuria, no abd pain Objective: Vital Signs Temp Pulse Resp BP Pulse Ox 36.9 C 75 16 122/60 H 96 07/10/17 06:12 07/10/17 09:54 07/10/17 06:12 07/10/17 09:54 07/10/17 06:12 Laboratory Results 07/09/17 04:46 07/08/17 04:30 07/09/17 07/10/17 07/11/17 05:59 05:59 05:59 Intake Total 1900 150 400 Output Total 6640 200 6565 Balance -1550 -50 -1775 - Time Spent With Patient Time Spent with Patient: greater than 35 minutes Time Spent with Patient: Greater than 35 minutes spent on this patients care, greater than 50% of time spent counseling, educating, and coordinating care regarding the above mentioned plan. ICD10 Worksheet Patient Problems: Problems Problem Status Onset NICHELLE (acute kidney injury) Acute Encephalopathy acute Acute Hematuria Acute Normocytic anemia due to blood loss Acute Anemia Acute Atrial fibrillation Acute Cervical spine fracture Acute Dehydration Acute Diabetes Acute Elevated troponin Acute Fall at home Acute Frequent falls Acute Gait instability Acute Gastroenteritis Acute Hyperglycemia Acute Hypertension Acute Hyponatremia Acute Pain management Acute Palliative care encounter Acute Sepsis secondary to UTI Acute UTI (urinary tract infection) Acute
--- NOTE | 2017-07-10 15:20 | SOAPPROG ---
SOAP Progress Note Assessment/Plan: Assessmen/PLAN: Bladder bx negative for malignancy. I called and spoke with sister in law, Maggy. Pt to f.u in [address] Magdaleno. Objective: Vital Signs Temp Pulse Resp BP Pulse Ox 36.9 C 75 16 122/60 H 96 07/10/17 06:12 07/10/17 09:54 07/10/17 06:12 07/10/17 09:54 07/10/17 06:12 Laboratory Results 07/09/17 04:46 07/08/17 04:30 07/09/17 07/10/17 07/11/17 05:59 05:59 05:59 Intake Total 1900 150 400 Output Total 3450 200 2175 Balance -1550 -50 -1775 ICD10 Worksheet Patient Problems: Problems Problem Status Onset NICHELLE (acute kidney injury) Acute Encephalopathy acute Acute Hematuria Acute Normocytic anemia due to blood loss Acute Anemia Acute Atrial fibrillation Acute Cervical spine fracture Acute Dehydration Acute Diabetes Acute Elevated troponin Acute Fall at home Acute Frequent falls Acute Gait instability Acute Gastroenteritis Acute Hyperglycemia Acute Hypertension Acute Hyponatremia Acute Pain management Acute Palliative care encounter Acute Sepsis secondary to UTI Acute UTI (urinary tract infection) Acute
--- NOTE | 2017-07-10 16:34 | ASMTCMCOM ---
CM Note CM Note Notes: Pt ready for DC but [facility] is unablle to accomodate someone with a schroeder b/c per Meryl RN mgr at [facility] ([phone]) they have unskilled help in the evenings. Spoke with pt's [id number] Lynne ([phone]) and step dtr Joanne ([phone]) to determine DC plan. One or both of them will call pt and discuss [facility] vs [facility] for two nights (pt has been to both). Pt will DC in the morning to one of them. [facility] will start care after DC home from SNF. Spoke with 's dtr Joanne about getting him on [facility] too, to provide extra support for both. She will reach out to [facility]. CM to f/u tomorrow. Date Signed: 07/10/2017 04:34 PM Electronically Signed By:Estephanie Herring LCSW
[2017-07-10] MEDS: MELATONIN 3 MG TAB PO PRN (23:33)
[2017-07-11] MEDS: LEVOTHYROXINE 75 MCG TAB PO SCH (05:56)
[2017-07-11] MEDS: INSULIN LISPRO 100 UNIT/ML SC SCH ×3 (08:26→18:01)
[2017-07-11] MEDS: METOPROLOL TARTRATE 25 MG TAB PO SCH ×2 (08:50→21:17)
[2017-07-11] MEDS: PANTOPRAZOLE SODIUM 40 MG TAB PO SCH (08:50)
[2017-07-11] MEDS: POLYETHYLENE GLYCOL 3350 17 GM PKT PO SCH (08:51)
[2017-07-11] MEDS: INSULIN GLARGINE 100 UNITS/ML UNIT SC SCH ×2 (08:51→21:54)
--- NOTE | 2017-07-11 09:36 | HOSPPROG ---
Hospitalist Progress Note Assessment/Plan: # hematuria - likely d/t inflammatory d/o in bladder - hold AC and asa # bladder inflammation - s/p fulguration - may need alum infusion per Dr Magdaleno - d/c schroeder tomorrow - f/u Dr Magdaleno in 12-3 weeks # ABLA - stable # bilat hydronephrosis without obstruction - somewhat chronic # suspected cognitive impairment - will need more help at home; also takes care of her blind # DM2 - glargine + SSI; holding metformin # chronic pain with continuous narcotic dependency # a-fib - cont BB, holding all CVA ppx # NICHELLE - resolved with IVF # pyuria - cx negative, no abx # hypothyroid - synthroid # cirrhosis on CT - HCV ab positive - outpatient f/u with GI or ID # deconditioning - PT # dvt ppx - SCDs (no AC d/t hematuria) Subjective: no complaints; has schroeder; would like to go home; mentioned her Objective: Vital Signs Temp Pulse Resp BP Pulse Ox 36.6 C 77 16 103/77 94 07/11/17 08:00 07/11/17 08:50 07/11/17 08:00 07/11/17 08:50 07/11/17 08:00 Laboratory Results 07/11/17 08:20 07/11/17 08:20 07/10/17 07/11/17 07/12/17 05:59 05:59 05:59 Intake Total 150 1000 Output Total 200 2825 1100 Balance -41 -7195 -[address] reviwed discussed with Dr Magdaleno - Physical Exam Constitutional: no apparent distress, appears nourished Cardiovascular: no murmur, rub, or gallop, irregularly irregular, No tachycardia , No bradycardia Respiratory: no respiratory distress, no rales or rhonchi, clear to auscultation ICD10 Worksheet Patient Problems: Problems Problem Status Onset Fall at home Acute Diabetes Acute Gastroenteritis Acute Dehydration Acute Atrial fibrillation Acute Hyperglycemia Acute Hypertension Acute Elevated troponin Acute Hyponatremia Acute UTI (urinary tract infection) Acute Cervical spine fracture Acute Frequent falls Acute Gait instability Acute Pain management Acute Sepsis secondary to UTI Acute Palliative care encounter Acute Hematuria Acute Anemia Acute Normocytic anemia due to blood loss Acute Encephalopathy acute Acute NICHELLE (acute kidney injury) Acute
--- NOTE | 2017-07-11 11:23 | ASMTCMCOM ---
CM Note CM Note Notes: Pt will remain at [facility] until Friday and DC back to the [facility] with [facility]. Pt's family is also in the process of adding add'l services with [facility] that they currently use for pt's . Meyrl at [facility] notified of plan as well aspt's HOANG Batista. The [facility] cannot provide transport on Friday so pt will be given a taxi voucher b/c she has cognitive impairment and no local family to help with arrangements. The [facility] would like final orders and meds. They do not use [employer]. Their fax # is [phone]. Ph is [phone]. Date Signed: 07/11/2017 11:22 AM Electronically Signed By:Estephanie Herring LCSW
[2017-07-12] MEDS: MELATONIN 3 MG TAB PO PRN (00:51)
[2017-07-12] MEDS: LEVOTHYROXINE 75 MCG TAB PO SCH (05:07)
[2017-07-12 08:03] VITALS: BP 130/63
[2017-07-12] MEDS: PANTOPRAZOLE SODIUM 40 MG TAB PO SCH (08:11)
[2017-07-12] MEDS: METOPROLOL TARTRATE 25 MG TAB PO SCH (08:11)
[2017-07-12] MEDS: INSULIN GLARGINE 100 UNITS/ML UNIT SC SCH (08:14)
[2017-07-12] MEDS: INSULIN LISPRO 100 UNIT/ML SC SCH ×3 (08:14→13:29)
[2017-07-12] MEDS: POLYETHYLENE GLYCOL 3350 17 GM PKT PO SCH (08:15)
--- NOTE | 2017-07-12 11:42 | PDIAF ---
- Diagnosis Diagnosis: hematuria Code Status: Do Not Resuscitate - Medication Management Discharge Medications: Medications to Continue on Transfer Allopurinol [Allopurinol 300 MG (RX)] 450 mg PO DAILY 03/27/14 [Last Taken 06/12] Levothyroxine [Synthroid 75 mcg (*)] 75 mcg PO DAILY06 03/13/16 [Last Taken 07/25] Colchicine [Colchicine (*)] 0.6 mg PO BID #60 ea 01/09/17 [Last Taken 06/12/17] metFORMIN HCL [Glucophage 500 mg (*)] 500 mg PO DAILY@0800 02/10/17 [Last Taken 06/12/17] oxyCODONE IR [Oxycodone Ir (*)] 5 mg PO Q4HRS PRN tab 02/14/17 [Last Taken 07/25] Cholecalciferol Vit D3 [Vitamin D3 (*)] 1,000 units PO BID 05/04/17 [Last Taken 06/12/17] Omeprazole 40 mg PO DAILY 05/04/17 [Last Taken 06/12/17] Ondansetron Odt [Zofran Odt 4 mg (*)] 4 mg PO Q4 PRN 05/04/17 [Last Taken ] Polyethylene Glycol 3350 [Miralax 17 gm (*)] 17 gm PO DAILY PRN 05/04/17 [Last Taken 06/12/17] Sennosides/Docusate Sodium [Senokot-S] 1 - 2 tab PO BID PRN 05/04/17 [Last Taken 06/12/17] Sitagliptin Phos/Metformin HCl [Janumet 50-500 mg Tablet] 1 tab PO DAILY@1700 [Last Taken 06/12/17] Insulin Detemir [Levemir] 35 unit SQ BID #100 ml 05/05/17 [Last Taken 06/12/17] Metoprolol Tartrate [Lopressor 25 mg (*)] 25 mg PO BID #60 tab 05/05/17 [Last Taken 06/12/17] Alendronate Sodium [Fosamax 70 MG (*)] 70 mg PO MO@0700 07/07/17 [Last Taken Unknown] Loperamide HCl [Imodium 2 mg (*)] 4 mg PO PRN PRN 07/07/17 [Last Taken Unknown] Discharge Medications: Refer to the Discharge Home Medication list for PRN reason. - Orders Services needed: Home Care, Registered Nurse, Certified Bundle Person, Physical Therapy, Occupational Therapy, Speech Language Pathologist Home Care Face to Face: I certify that this patient was under my care and that I had the required [id number] encounter meeting the encounter requirements on the discharge day. My findings support the fact that the patient is homebound as defined in Home Care Face to Face Continued: CMS Chapter 7 Medicare Benefits Manual 30.1.1 , The condition of the patient is such that there exists a normal inability to leave home and consequently, leaving home would require a considerable and taxing effort. Isolation Type: None Diet Recommendation: no restrictions on diet - Follow Up Care Current Providers and Referrals: Jenny Garcia MD [Primary Care Provider] - As per Instructions Vasyl Magdaleno MD [Medical Doctor] - (follow up in 2-3 weeks)
--- NOTE | 2017-07-12 14:31 | ASMTLACE ---
LACE Length of stay for Answers: 4-6 days current admission Acuity / Level of Answers: Yes Care: Did the patient have an inpatient admission? Comorbidities - select Answers: Diabetes (uncontrolled or all that apply controlled) Mild liver or renal disease Opioid dependence / Chronic pain # of Emergency department Answers: 9-12 visits in the last 6 months Score: 19 Date Signed: 07/12/2017 02:31 PM Electronically Signed By:Pepper Cardenas LCSW
--- NOTE | 2017-07-12 14:54 | GDS ---
[f rep st] DISCHARGE SUMMARY IMAGING: Abdomen and pelvis CT on 07/07 showed [id number] bilateral hydronephrosis, cystitis versus infiltrative bladder wall mass, cirrhosis. ALL PROCEDURES: TURBT and bilateral RPGs by Dr. aMgdaleno on 07/08/2017. HOSPITAL COURSE BY PROBLEM: 1. Hematuria: This has been recurrent. She has been treated multiple times for bladder infections. All of her anticoagulation and antiplatelets have been held. Dr. Magdaleno's cystoscopy showed an inf lammatory lesion in her bladder, likely the source of her hematuria. Biopsy was negative for cancer, just showed abundant chronic inflammation and granulation tissue. She had a Cheng until the day of discharge. This has been discontinued. She is urinating okay. No persistent hematuria at this poin t. Notably, the inflammatory lesion was fulgurated extensively by Dr. Magdaleno. 2. Acute blood loss anemia: This has been stable. 3. Bilateral hydronephrosis without obstruction: This is clearly chronic. She will be followed by Dr. Magdaleno. 4. Suspected cognitive impairment: This may be the underlying cause of her recurrent admissions. S he will be given home care on discharge. Case Management is working extensively with family to get h er additional help at home which they will order. 5. Atrial fibrillation: Will continue her beta kimberly. Will hold her CVA prophylaxis in the setti ng of hematuria. 6. Cirrhosis seen on CT scan: She is hep C antibody positive. She could receive outpatient followu p with either ID or Gastroenterology for this. This is not decompensated. FOLLOWUP: 1. Dr. Magdaleno in 2-3 weeks. The patient's nghqmg-ey-kle is called and given this information. 2. Dr. Garcia as needed. 3. ID or Gastroenterology as needed for cirrhosis seen on CT scan with antibody positive for conside ration of treatment. BILLING: I spent more than 30 minutes on the day of discharge coordinating care. /[id number]/MODL
--- NOTE | 2017-07-12 17:09 | ASDISCHSUM ---
Discharge Information Plan Status:Home with Home Health Medically Cleared to Leave: Discharge Date:07/12/2017 02:04 PM D/C Disposition:Home Health Service ADT D/C Disposition:Home, Routine, Self-Care Projected Discharge Date:07/12/2017 11:00 AM Transportation at D/C:Family Discharge Delay Reason: Follow-Up Date:07/12/2017 11:00 AM Discharge Slot: Final Diagnosis: Placement Information Referral Type:*Home Health Care Services Referral ID:[id number] Provider Name:[facility] Address 1:[address] Address 2: City:[place] Selection Factors: State:[place] Referral Type:Assisted Living Residence Referral ID:[id number] Provider Name: Address 1: Phone Number: Address 2: Fax Number: City: Selection Factors: State: Patient Contact Information Contact Name:DORIS Relationship:Other Address:[address] City:[place] Alternate Phone: [facility]/Zip Code:[place] [address] Email: Financial Information Financial Class:Medicare Primary Plan Desc:MEDICARE INPATIENT Primary Plan Number:[id number] Secondary Plan Desc:SHERMAN HERNANDEZ Secondary Plan Number:[id number] Assessment Information LACE LACE Length of stay for Answers: 4-6 days current admission Acuity / Level of Answers: Yes Care: Did the patient have an inpatient admission? Comorbidities - select Answers: Diabetes (uncontrolled or all that apply controlled) Mild liver or renal disease Opioid dependence / Chronic pain # of Emergency department Answers: 9-12 visits in the last 6 months Score: 19 Date Signed: 07/12/2017 02:31 PM Electronically Signed By:Pepper Cardenas LCSW [facility] CM Progress Note CM Note CM Note Notes: Patient with multiple frequent admissions. Spoke to Chula from Renan Luciano's office. Patient enma not been able to have outpatient cystoscopy due to frequent admissions, Dr. Magdaleno to see her here per hospital medicine. Plan of care not yet clear. CM to follow Plan: TBD Date Signed: 07/07/2017 05:22 PM Electronically Signed By:Britney Roper RN [facility] CM Progress Note CM Note CM Note Notes: This is patient's 9th hospital visit since 03/10/17. She has been complaining of chronic hematuria and fatigue. Her PCP is Dr Garcia and her software installation engineer is Dr Magdaleno. Per chart review, she had been instructed to schedule an outpatient cystoscopy and biopsy but hadn't done so. This was finally done in the hospital today. Patient lives at the [facility] where she cares for her infirm . I question if this situation may be contributing to her frequent hospital visits, as well. She has skilled home health with [facility] but may need a higher level of care after this admission. I spoke with her sister in law Lynne Block (brother Vasquez Block is [facility]) and told her that a hospitalist would be calling her with a medical update and that Case Management would be in contact regarding discharge planning. PT/OT have been ordered. Date Signed: 07/08/2017 04:22 PM Electronically Signed By:Destiny Huber RN [facility] CM Progress Note CM Note CM Note Notes: Pt ready for DC but [facility] is unablle to accomodate someone with a schroeder b/c per Meryl RN mgr at [facility] ([phone]) they have unskilled help in the evenings. Spoke with pt's [id number] Lynne ([phone]) and step dtr Joanne ([phone]) to determine DC plan. One or both of them will call pt and discuss [facility] vs [facility] for two nights (pt has been to both). Pt will DC in the morning to one of them. [facility] will start care after DC home from SNF. Spoke with 's dtr Joanne about getting him on [facility] too, to provide extra support for both. She will reach out to [facility]. CM to f/u tomorrow. Date Signed: 07/10/2017 04:34 PM Electronically Signed By:Estephanie Herring LCSW [facility] Progress Note CM Note CM Note Notes: Pt will remain at [facility] until Friday and DC back to the [facility] with [facility]. Pt's family is also in the process of adding add'l services with [facility] that they currently use for pt's . Meryl at [facility] notified of plan as well aspt's HOANG Batista. The [facility] cannot provide transport on Friday so pt will be given a taxi voucher b/c she has cognitive impairment and no local family to help with arrangements. The [facility] would like final orders and meds. They do not use [employer]. Their fax # is [phone]. Ph is [phone]. Date Signed: 07/11/2017 11:22 AM Electronically Signed By:Estephanie Herring LCSW Case Management Discharge Plan Note Case Management Discharge Discharge Order Complete? Answers: Yes Patient to Obtain Answers: via Family Medications Transportation Arranged Answers: Family/Friends Faxed Final Orders Answers: Yes Notes: To [facility] and the [facility] [place] Agency/Facility Transfer Answers: Yes Report Printed & Faxed to Receiving Agency Family Notified Answers: Yes Discharge Comments Notes: Today Pt. d/c'ed home to the [facility] with homecare by [facility] - RN, PRODUCT DIRECTOR, PT, OT, and THEATRICAL TROUPER. Lesli coordinated with step daughter, Joanne about transport. In the end, per RN, a family member "Valerio" picked Pt. up and brought her home. Joanne states that they will have [facility] provide additional unskilled care to Pt. apparently also uses their services for unskilled care. D/c paperwork sent to [facility] via [employer] and [facility] via hard fax . Left msgs for [facility] and [facility] to make sure they received paperwork and all is fine. Date Signed: 07/12/2017 02:27 PM Electronically Signed By:Pepper Cardenas LCSW Intervention Information
== END 2017-07-12 14:04 | disposition home or self-care (01) | DRG 668 ==
LOC: EDUNIT# → F1N 11:36 → F3E 07-10 21:13
PROVIDERS: ADMIT Internal Medicine; ATTEND Internal Medicine
PROC: 0TBB8ZX Excision of Bladder, Via Natural or Artificial Opening Endoscopic, Diagnostic (ICD-10-PCS; principal; 2017-07-08 12:15)
DX: N30.21 Other chronic cystitis with hematuria (principal); G93.49 Other encephalopathy; N13.39 Other hydronephrosis; D62 Acute posthemorrhagic anemia; N95.2 Postmenopausal atrophic vaginitis; S31.41XA Laceration without foreign body of vagina and vulva, initial encounter; E11.9 Type 2 diabetes mellitus without complications; I12.9 Hypertensive chronic kidney disease with stage 1 through stage 4 chronic kidney disease, or unspecified chronic kidney disease; N18.9 Chronic kidney disease, unspecified; G89.29 Other chronic pain; G31.84 Mild cognitive impairment of uncertain or unknown etiology; I48.91 Unspecified atrial fibrillation; K74.60 Unspecified cirrhosis of liver; Z66 Do not resuscitate; Z87.440 Personal history of urinary (tract) infections
CPT/HCPCS: 82947-QW; 92523-GN; 97110-GP; 97116-GP; 97162-GP; C1758; G8978-GP-CI; G8978-GP-CJ; G8979-GP-CI; G8980-GP-CI; G9168-GN-CL; G9169-GN-CK; G9170-GN-CK; J1100; J1815; J1956; J2001; J2704; J3010; Q9967; Q9968

== ENCOUNTER 2017-07-13 18:56 | Emergency (ER) | payer OTHER ==
--- NOTE | 2017-07-13 18:59 | EDPHY ---
HPI/HX/ROS/PE/MDM Narrative: CHIEF COMPLAINT: HPI: The patient is a 76 y/o female with a history of frequent hematuria, bladder infections, bladder biopsies, and atrial fibrillation arriving via EMS for hematuria. On 07/07/17, 7 days ago, she was admitted to this hospital for hematuria. A cystoscopy revealed a lesion in her bladder, but no sign of cancer. At the time of discharge today, she did not have hematuria. However, she developed hematuria again tonight. The nurse at the [facility] became concerned and called 911. Patient denies pain while urinating. Denies chest pain , shortness of breath, abdominal pain, bowel complaints, paresthesias, numbness , fever. Prior medical records reviewed including discharge summary on 07/12/17. REVIEW OF SYSTEMS: Aside from elements discussed in the HPI, a comprehensive 10-point review of systems was reviewed and is negative. PMH: Hematuria, bladder infections, bladder biopsies, a-fib, cirrhosis, type 2 diabetes, hypertension, chronic kidney disease, osteoporosis, neck and thoracic vertebrae fractures SOCIAL HISTORY: Lives in [place] at the [facility], , retired PHYSICAL EXAM: General: Patient is alert, in no acute distress. ENT: Eyes are normal to inspection. ENT inspection normal. Neck: Normal inspection. Full range of motion. Respiratory: No respiratory distress. Breath sounds normal bilaterally. Cardiovascular: Regular rate and rhythm. Strong peripheral pulses. Normal cap refill. Abdomen: The abdomen is nontender to palpation. There are no peritoneal signs. There are normal bowel sounds. Back: Normal to inspection. No tenderness to palpation. Skin: Normal color. No rash. Warm and dry. Extremities: Normal appearance. Full range of motion. Neuro: No focal deficits noted. Normal motor function. Normal sensory function. ED Course: 1855: I met EMS upon arrival. 1919: Patient's nurse reports that the nurse at the [facility] thinks the patient needs more care than can be provided at the [facility]. The nurse at the [facility] also stated that the patient asked for a blood transfusion. 1930: Consulted with Dr. Sharp, hospitalist, regarding this patient. Dr. Sharp reports that the hospital tried to discharge this patient to [facility], however the patient's family wanted the patient to return to the [facility]. 1949: Patient's hematocrit is 31, which is improving from hematocrit 2 days ago which was 29. 2014: Patient's nurse reports that the [facility] is willing to take the patient back. Patient is medically stable to be transferred back home via EMS. Return precautions provided; patient is comfortable with this plan. MDM: This patient returns to the ED approximately 6 hours after discharge from the hospital after extensive workup for hematuria. She has numerous recent ED visits and admissions for this same complaint, and previous notes document that her cognitive decline is contributing to this pattern. On exam, she is comfortable and talkative, her abdomen is benign, her vitals are normal and her Hct is actually slighly improved from our last value. She tells me that a nurse from The [facility] made the decision to call 911. There are no new symptoms, and no signs of worsening of condition. I spoke to Dr. Sharp from the hospitalist service who agrees that there is no indication for admission and that family had declined transfer to SNF. I asked our ED charge nurse to contact the assistant project manager at the [facility] and they have agreed to take the patient back as there is no acute medical emergency at this time. - Data Points Laboratory Results: 07/13/17 19:42 POC Hgb 10.5 gm/dL L gm/dL (12.6-16.3) POC Hct 31 % L % (38-47) POC Sodium 139 mEq/L mEq/L (135-145) POC Potassium 4.1 mEq/L mEq/L (3.3-5.0) POC Chloride 104 mEq/L mEq/L (97-110) POC BUN 29 mg/dL H mg/dL (7-23) POC Creatinine 1.0 mg/dL mg/dL (0.6-1.0) POC Glucose 131 mg/dL H mg/dL (70-100) Point of Care Test Results: 07/13/17 19:42 POC Sodium 139 POC Potassium 4.1 POC Chloride 104 POC BUN 29 H POC Creatinine 1.0 POC Glucose 131 H General Time Seen by Provider: 07/13/17 18:58 Initial Vital Signs: Initial Vital Signs Temperature (C) 36.9 C 07/13/17 19:04 Heart Rate 82 07/13/17 19:04 Respiratory Rate 16 07/13/17 19:04 Blood Pressure 151/73 H 07/13/17 19:04 O2 Sat (%) 95 07/13/17 19:04 Allergies/Adverse Reactions: morphine Allergy (Mild, Verified 07/02/17 21:27) Vomiting nitrofurantoin Allergy (Mild, Verified 07/02/17 21:27) Rash Home Medications: Medication Instructions Recorded Allopurinol [Allopurinol 300 MG 450 mg PO DAILY 03/27/14 (RX)] Levothyroxine [Synthroid 75 mcg 75 mcg PO DAILY06 03/13/16 (*)] Colchicine [Colchicine (*)] 0.6 mg PO BID #60 ea 01/09/17 metFORMIN HCL [Glucophage 500 mg 500 mg PO DAILY@0800 02/10/17 (*)] oxyCODONE IR [Oxycodone Ir (*)] 5 mg PO Q4HRS PRN tab 02/14/17 Cholecalciferol Vit D3 [Vitamin D3 1,000 units PO BID 05/04/17 (*)] Omeprazole 40 mg PO DAILY 05/04/17 Ondansetron Odt [Zofran Odt 4 mg 4 mg PO Q4 PRN 05/04/17 (*)] Polyethylene Glycol 3350 [Miralax 17 gm PO DAILY PRN 05/04/17 17 gm (*)] Sennosides/Docusate Sodium 1 - 2 tab PO BID PRN 05/04/17 [Senokot-S] Sitagliptin Phos/Metformin HCl 1 tab PO DAILY@1700 05/04/17 [Janumet 50-500 mg Tablet] Insulin Detemir [Levemir] 35 unit SQ BID #100 ml 05/05/17 Metoprolol Tartrate [Lopressor 25 25 mg PO BID #60 tab 05/05/17 mg (*)] Alendronate Sodium [Fosamax 70 MG 70 mg PO MO@0700 07/07/17 (*)] Loperamide HCl [Imodium 2 mg (*)] 4 mg PO PRN PRN 07/07/17 Sulfamethox/Tmp 800/160 mg 07/13/17 Departure - Departure Disposition: Home, Routine, Self-Care Clinical Impression: Hematuria Qualifiers: Hematuria type: gross Qualified Code(s): R31.0 - Gross hematuria Condition: Good Instructions: Hematuria (ED) Additional Instructions: Follow-up with your primary doctor within 72 hours. Return to the Emergency Department for fever, worsening pain, flank pain or failure to improve within 72 hours. Referrals: Jenny Garcia MD [Primary Care Provider] - As per Instructions Report Scribed for: Trenton Genao Report Scribed by: Marisol Tirado Date of Report: 07/13/17 Time of Report: 18:59 Physician Review and Approval Statement: Portions of this note were transcribed by an ED scribe. I personally performed the history, physical exam, and medical decision making; and confirm the accuracy of the information in the transcribed note.
[2017-07-13 20:58] VITALS: BP 127/51
== END 2017-07-13 20:57 | disposition home or self-care (01) ==
LOC: EDUNIT#
DX: R31.0 Gross hematuria (principal); E11.9 Type 2 diabetes mellitus without complications; I12.9 Hypertensive chronic kidney disease with stage 1 through stage 4 chronic kidney disease, or unspecified chronic kidney disease; N18.9 Chronic kidney disease, unspecified; Z79.4 Long term (current) use of insulin
CPT/HCPCS: 82947-QW

== ENCOUNTER 2017-07-26 06:24 | Emergency (ER) | payer OTHER ==
--- NOTE | 2017-07-26 06:53 | EDPHY ---
H & P Time Seen by Provider: 07/26/17 06:39 HPI/ROS: CHIEF COMPLAINT: Hematuria HISTORY OF PRESENT ILLNESS: Patient is a 76-year-old female with recurrent hematuria. She has been seen here multiple times for the same. She has been worked up extensively including hospitalization 2 weeks ago. At that time she was scoped by Dr. Simmons and found to have an inflammatory lesion that was the source for hematuria. The biopsy was negative for cancer. She has a procedure scheduled in 2 days to have it cauterized. She became concerned however because she passed some clots today and was concerned about blood loss. She denies lightheadedness or dizziness. No fever or dysuria. She does have a history of atrial fibrillation but is not on a blood thinner because of this persistent hematuria. She has also been treated multiple times for urinary tract infections. REVIEW OF SYSTEMS: Constitutional: denies: chills, fever, recent illness, recent injury EENTM: denies: blurred vision, double vision, nose congestion Respiratory: denies: cough, shortness of breath Cardiac: denies: chest pain, irregular heart rate, lightheadedness, palpitations Gastrointestinal/Abdominal: denies: abdominal pain, diarrhea, nausea, vomiting, blood streaked stools Genitourinary: See HPI, denies dysuria or frequency Musculoskeletal: denies: joint pain, muscle pain Skin: denies: lesions, rash, jaundice, bruising Neurological: denies: headache, numbness, paresthesia, tingling, dizziness, weakness Hematologic/Lymphatic: denies: blood clots, easy bleeding, easy bruising Immunologic/allergic: denies: HIV/AIDS, transplant EXAM: GENERAL: Well-appearing, well-nourished and in no acute distress. HEAD: Atraumatic, normocephalic. EYES: Pupils equal round and reactive to light, extraocular movements intact, sclera anicteric, conjunctiva are normal. ENT: TMs normal, nares patent, oropharynx clear without exudates. Moist mucous membranes. NECK: Normal range of motion, supple without lymphadenopathy or JVD. LUNGS: Breath sounds clear to auscultation bilaterally and equal. No wheezes rales or rhonchi. HEART: Regular rate and rhythm without murmurs, rubs or gallops. ABDOMEN: Soft, nontender, normoactive bowel sounds. No guarding, no rebound. No masses appreciated. BACK: No CVA tenderness, no spinal tenderness, step-offs or deformities EXTREMITIES: Normal range of motion, no pitting or edema. No clubbing or cyanosis. NEUROLOGICAL: Cranial nerves II through XII grossly intact. Normal speech, normal gait. 5/5 strength, normal movement in all extremities, normal sensation PSYCH: Normal mood, normal affect. SKIN: Warm, dry, normal turgor, no visible rashes or lesions. Source: Patient Exam Limitations: No limitations - Personal History Tetanus Vaccine Date: 2011 - Medical/Surgical History Hx Asthma: No Hx Chronic Respiratory Disease: No Hx Diabetes: Yes Hx Cardiac Disease: Yes Hx Renal Disease: Yes Hx Cirrhosis: No Hx Alcoholism: No Hx HIV/AIDS: No Hx Splenectomy or Spleen Trauma: No Other PMH: DM2, hypothyroid, pelvic fx, 5 surgeries on right leg, broken collar bones, Hepatitis B from blood transfusion, urinary leakage, rib fx's, chronic hematuria, Afib, Chronic Hep C, Pulm HTN, CKD, Hx neck and thoracic vertebrae Fx's - Family History Significant Family History: No pertinent family hx - Social History Smoking Status: Never smoked Alcohol Use: Sober Drug Use: None Constitutional: Initial Vital Signs Temperature (C) 36.6 C 07/26/17 06:51 Heart Rate 87 07/26/17 06:51 Respiratory Rate 18 07/26/17 06:51 Blood Pressure 159/85 H 07/26/17 06:51 O2 Sat (%) 97 07/26/17 06:51 O2 Delivery Mode Room Air Allergies/Adverse Reactions: morphine Allergy (Mild, Verified 07/02/17 21:27) Vomiting nitrofurantoin Allergy (Mild, Verified 07/02/17 21:27) Rash Home Medications: Medication Instructions Recorded Allopurinol [Allopurinol 300 MG 450 mg PO DAILY 03/27/14 (RX)] Levothyroxine [Synthroid 75 mcg 75 mcg PO DAILY06 03/13/16 (*)] Colchicine [Colchicine (*)] 0.6 mg PO BID #60 ea 01/09/17 metFORMIN HCL [Glucophage 500 mg 500 mg PO DAILY@0800 02/10/17 (*)] oxyCODONE IR [Oxycodone Ir (*)] 5 mg PO Q4HRS PRN tab 12/08/17 Cholecalciferol Vit D3 [Vitamin D3 1,000 units PO BID 05/04/17 (*)] Omeprazole 40 mg PO DAILY 05/04/17 Ondansetron Odt [Zofran Odt 4 mg 4 mg PO Q4 PRN 05/04/17 (*)] Polyethylene Glycol 3350 [Miralax 17 gm PO DAILY PRN 05/04/17 17 gm (*)] Sennosides/Docusate Sodium 1 - 2 tab PO BID PRN 05/04/17 [Senokot-S] Sitagliptin Phos/Metformin HCl 1 tab PO DAILY@1700 05/04/17 [Janumet 50-500 mg Tablet] Insulin Detemir [Levemir] 35 unit SQ BID #100 ml 05/05/17 Metoprolol Tartrate [Lopressor 25 25 mg PO BID #60 tab 05/05/17 mg (*)] Alendronate Sodium [Fosamax 70 MG 70 mg PO MO@0700 07/07/17 (*)] Loperamide HCl [Imodium 2 mg (*)] 4 mg PO PRN PRN 07/07/17 Sulfamethox/Tmp 800/160 mg 07/13/17 Medical Decision Making ED Course/Re-evaluation: Will attempt to irrigate the patient's bladder clots. I will send for cultures but microscopic urine will not be beneficial because of the gross hematuria. She is not currently exhibiting symptoms of a bladder infection. She is however complaining of bladder spasms. I will treat her with Valium for this. She has her procedure planned on Friday with Dr. Simmons. She is anemic however this is about her baseline considering her chronic bleeding. 8:30 a.m. the patient is feeling much more comfortable. No more spasming after Valium. Her bladder is been irrigated and she is tolerating this well. 9:20 a.m. the patient is feeling much better. Several clots of an evacuated. She has normal or spasming. She is eager to go back to her care facility. She will follow up with Urology as recommended on Friday. We discussed her anemia. She is not lightheaded or hypotensive orthostatic. We discussed indications for returning. Differential Diagnosis: Partial list of the Differential diagnosis considered include but were not limited to; hematuria, infection, bladder cancer and although unlikely based on the history and physical exam, I also considered perforation, ischemia. - Data Points Laboratory Results: Laboratory Results 07/26/17 06:40 07/26/17 06:40 WBC 6.00 10^3/uL 10^3/uL (3.80-9.50) RBC 2.98 10^6/uL L 10^6/uL (4.18-5.33) Hgb 7.9 g/dL L g/dL (12.6-16.3) Hct 25.7 % L % (38.0-47.0) MCV 86.2 fL fL (81.5-99.8) MCH 26.5 pg L pg (27.9-34.1) MCHC 30.7 g/dL L g/dL (32.4-36.7) RDW 16.6 % H % (11.5-15.2) Plt Count 231 10^3/uL 10^3/uL (150-400) MPV 9.9 fL fL (8.7-11.7) Neut % (Auto) 71.8 % % (39.3-74.2) Lymph % (Auto) 15.2 % % (15.0-45.0) [place] % (Auto) 7.0 % % (4.5-13.0) Eos % (Auto) 5.0 % % (0.6-7.6) Baso % (Auto) 0.7 % % (0.3-1.7) Nucleat RBC Rel Count 0.0 % % (0.0-0.2) Absolute Neuts (auto) 4.31 10^3/uL 10^3/uL (1.70-6.50) Absolute Lymphs (auto) 0.91 10^3/uL L 10^3/uL (1.00-3.00) Absolute Monos (auto) 0.42 10^3/uL 10^3/uL (0.30-0.80) Absolute Eos (auto) 0.30 10^3/uL 10^3/uL (0.03-0.40) Absolute Basos (auto) 0.04 10^3/uL 10^3/uL (0.02-0.10) Absolute Nucleated RBC 0.00 10^3/uL 10^3/uL (0-0.01) Immature Gran % 0.3 % % (0.0-1.1) Immature Gran # 0.02 10^3/uL 10^3/uL (0.00-0.10) Medications Given: Discontinued Medications Diazepam (Valium) 2.5 mg IVP EDNOW ONE Stop: 07/26/17 06:59 Last Admin: 07/26/17 07:06 Dose: 2.5 mg Departure - Departure Disposition: Home, Routine, Self-Care Clinical Impression: Hematuria Qualifiers: Hematuria type: gross Qualified Code(s): R31.0 - Gross hematuria Condition: Fair Instructions: Hematuria (ED) Referrals: Jenny Garcia MD [Primary Care Provider] - As per Instructions Vasyl Magdaleno MD [Medical Doctor] - As per Instructions
[2017-07-26 06:55] LABS: PLATELET COUNT 231 10^3/uL (150-400)
[2017-07-26] MEDS ORDERED: DIAZEPAM 5 MG/ML 1 ML SYR IVP ONE (06:58)
[2017-07-26 09:55] VITALS: BP 118/55
--- NOTE | 2017-07-26 12:36 | ASDISCHSUM ---
Discharge Information Plan Status:Home with No Needs Medically Cleared to Leave: Discharge Date:07/26/2017 09:54 AM CM D/C Disposition:Home, Routine, Self-Care ADT D/C Disposition:Home, Routine, Self-Care Projected Discharge Date:07/26/2017 09:54 AM Transportation at D/C:Taxicab Discharge Delay Reason: Follow-Up Date:07/26/2017 09:54 AM Discharge Slot: Final Diagnosis: Placement Information Patient Contact Information Contact Name:DORIS Relationship:Other Address:[address] [facility] City:[facility] Phone: [facility]/Zip Code:[place] [address] Email: Financial Information Financial Class:Medicare Primary Plan Desc:MEDICARE OUTPATIENT Primary Plan Number:[id number] Secondary Plan Desc:SHERMAN JENSENNITY Secondary Plan Number:[id number] Assessment Information [facility] CM Progress Note CM Note CM Note Notes: Pt presented to the ED for hematuria via ambulance from her Independent Living apartment at [facility]. Requested to assist w/pt getting back home. Pt is able to go by cab (family members are either out of state or unavailable) and Yasmeen at [facility] arranged for an Uber ride for the patient. CM assisted in getting pt out to Uber ride and communicating to regional tanker truck driver and the [facility] staff that pt will need someone to meet her on arrival and assist her to her apt. Yasmeen aware and states she will have staff assist when pt arrives. CM available for further assistance if needed. Date Signed: 07/26/2017 12:34 PM Electronically Signed By:Pepper Garcia RN Intervention Information Intervention Type:Transportation Date of Service:07/26/2017 12:35 PM Patient Type:Emergency Room Staff Member:SHYANN Garcia [place] Hours:0.25 Discipline:Security Systems Technician Severity: Comment: Intervention Type:Post Acute Communication Date of Service:07/26/2017 12:35 PM Patient Type:Emergency Room Staff Member:SHYANN Garcia [place] Hours:0.25 Discipline:Security Systems Technician Severity: Comment:
== END 2017-07-26 09:54 | disposition home or self-care (01) ==
LOC: EDUNIT#
PROC: 0T9B70Z Drainage of Bladder with Drainage Device, Via Natural or Artificial Opening (ICD-10-PCS; principal; 2017-07-26)
DX: R31.0 Gross hematuria (principal); E11.9 Type 2 diabetes mellitus without complications; I12.9 Hypertensive chronic kidney disease with stage 1 through stage 4 chronic kidney disease, or unspecified chronic kidney disease; N18.9 Chronic kidney disease, unspecified; Z79.4 Long term (current) use of insulin
CPT/HCPCS: 51702; 96374; 99284; J3360

== ENCOUNTER 2017-07-31 07:22 | Observation (INO) | payer OTHER ==
[2017-07-31] MEDS ORDERED: SODIUM CL IRRIG IRR SCH (13:00)
[2017-07-31] MEDS ORDERED: AMMONIUM ALUM IRR SCH (13:00)
--- NOTE | 2017-07-31 13:27 | ASMTCMCOM ---
CM Note CM Note Notes: Chart reviewed. Patient reportedly direct admit from home. Recent discharge on 07/15/2017 Some confusion. Current with [facility] RN/PT/OT/ST/ and [employer]SIDE SAL[employer] PROFESSION[employer]. Admission H&P pending. Needs to be determined. CM to follow. Plan: TBD , likely to return home with [facility]. Date Signed: 07/31/2017 01:26 PM Electronically Signed By:Britney Roper RN
[2017-07-31] MEDS ORDERED: COLCHICINE 0.6 MG CAP/TAB PO PRN (18:15)
[2017-07-31] MEDS ORDERED: LOPERAMIDE HCL 2 MG CAP PO PRN (18:15)
--- NOTE | 2017-07-31 19:13 | PDGENHP ---
History & Physical Chief Complaint: Recurrent gross hematuria History of Present Illness: See dictated H&P (# [id number])
--- NOTE | 2017-07-31 19:40 | GHP ---
[f rep st] HISTORY AND PHYSICAL DATE OF ADMISSION: 07/31/2017 CHIEF COMPLAINT: Recurrent gross hematuria. HISTORY: This is a 76-year-old woman who has had an approximately 3-month history of recurrent gross hematuria with occasional clot retention and associated anemia. Her hematuria was initially thought to be related to acute cystitis; however, over the last several episodes, she has not had any evidence of infection. She was admitted in late June for an episode of hematuria and associated anemia. At that time, I had taken her to the operating room and performed complete cystoscopy under anesthesia. This revealed some diffuse inflammation of the dome and anterior aspects of the bladder which were thoroughly biopsied and fulgurated at that time. Biopsies were consistent with chronic benign cystitis. The bleeding temporarily ceased but then recurred soon afterwards, necessitating at least 2 more ER presentations since hospital discharge on 07/12. Because of her recurrent gross hematuria, it was recommended that she be admitted for 1% alum continuous bladder irrigation in hopes that this would more definitively stop the recurrent hematuria episodes. At the time of admission, the patient is doing well and has not had any gross hematuria for the last few days. Previous upper tract evaluation has been negative for any source of gross hematuria. PAST MEDICAL HISTORY: Notable for recurrent cystitis, recurrent gross hematuria with secondary anemia, cognitive impairment, atrial fibrillation, cirrhosis with hepatitis C antibody positivity, bilateral nonobstructing hydronephrosis, gout, diabetes mellitus. PAST SURGICAL HISTORY: Includes above-mentioned intraoperative cystoscopy with bladder biopsies in early July 2017, hysterectomy, multiple orthopedic procedures , appendectomy. ADMISSION MEDICATIONS: Include alendronate 70 mg daily, allopurinol 450 mg daily, vitamin D3 at 1000 units b.i.d., colchicine 0.6 mg b.i.d. p.r.n., Lantus insulin 35 units b.i.d. subcu, Synthroid 75 mcg p.o. daily, loperamide 4 mg p.o. p.r.n., metformin 500 mg daily, metoprolol 25 mg b.i.d., pantoprazole 40 mg daily. MEDICAL ALLERGIES: Morphine (unknown reaction). Macrobid previously caused a rash on legs. FAMILY HISTORY: Remarkable for kidney stones. SOCIAL HISTORY: The patient is and lives in [facility] in [place]. Her has significant dementia and requires [id number] care. She does not have any children. She has 2 [id number] who are involved in her care. She consumes approximately 2 ounces of alcohol daily and previously smoked less than 1 pack a day for approximately 15 years, ending in her early 40s. REVIEW OF SYSTEMS: Unremarkable, other than mentioned above in the HPI and Past Medical History. PHYSICAL EXAM: GENERAL: Elderly white female lying supine in bed, in no acute distress. VITAL SIGNS: Blood pressure 131/72, pulse 92, respirations 18, temperature 36.6 Celsius, oxygen saturation 96% on room air, height 178 cm, weight 71 kg, BMI 22.5. HEENT: Normocephalic, atraumatic. NECK: Supple. HEART: Regular rate. CHEST: Unlabored respiratory pattern. ABDOMEN: Soft without palpable masses. No obvious organomegaly. BACK: No CVA tenderness. GENITOURINARY: Bladder is not palpable in the lower midline. A 24-Uzbek Cheng catheter in place draining clear urine, currently running alum continuous irrigation. EXTREMITIES: Warm and dry. VASCULAR: Normal femoral, dorsalis pedis, and posterior tibial pulses bilaterally. NEUROLOGIC: She is alert and answers questions appropriately with normal mood and affect. ADMISSION LABORATORIES: Notable for hemoglobin 6.5, hematocrit 21.3, white blood cell count 5000. Basic metabolic panel notable for creatinine 1.4, glucose 177 (nonfasting), CO2 of 18. This compares to hemoglobin/hematocrit of 7.9 and 25.7 on 07/26; 8.0/26 on 07/09. 07/11, creatinine was 0.8, compared to 0.8 on July 11, and 1.1 on July 07 of this year. Coagulation parameters have not recently been checked. IMPRESSION: 1. Recurrent severe gross hematuria due to chronic inflammatory, non-bacterial , non-infectious cystitis. She is not actively bleeding at this time. 2. Significant anemia: Likely related to prior hematuria episodes, as well as anemia of chronic disease. 3. Mildly elevated creatinine. PLAN: 1. Admit for 1% alum continuous irrigation in an effort to reduce subsequent risk of future hematuria episodes. 2. She will receive 2 units of packed red blood cells this evening in light of her anemia. Lab work will be rechecked in the morning. /[id number]/MODL MTDD
[2017-07-31] MEDS: SULFAMETHOX/TMP 800/160 MG 1 TAB PO SCH (21:50)
[2017-07-31] MEDS: CHOLECALCIFEROL VIT D3 1,000 UNITS TAB PO SCH (21:51)
[2017-07-31] MEDS: INSULIN GLARGINE 100 UNITS/ML UNIT SC SCH (21:51)
[2017-07-31] MEDS: METOPROLOL TARTRATE 25 MG TAB PO SCH (21:51)
[2017-08-01] MEDS ORDERED: LEVOTHYROXINE 75 MCG TAB PO SCH (06:00)
[2017-08-01 07:53] LABS: INR 1.21 (0.83-1.16); PROTIME(PATIENT) 15.5 SEC (12.0-15.0)
[2017-08-01] MEDS ORDERED: metFORMIN HCL 500 MG TAB PO SCH ×2 (08:00→17:00)
[2017-08-01] MEDS: SULFAMETHOX/TMP 800/160 MG 1 TAB PO SCH (08:43)
[2017-08-01] MEDS: CHOLECALCIFEROL VIT D3 1,000 UNITS TAB PO SCH (08:43)
[2017-08-01] MEDS: METOPROLOL TARTRATE 25 MG TAB PO SCH (08:45)
[2017-08-01] MEDS ORDERED: PANTOPRAZOLE SODIUM 40 MG TAB PO SCH (09:00)
[2017-08-01] MEDS ORDERED: ALLOPURINOL 300 MG TAB PO SCH (09:00)
[2017-08-01] MEDS: INSULIN GLARGINE 100 UNITS/ML UNIT SC SCH (10:36)
--- NOTE | 2017-08-01 11:59 | SOAPPROG ---
SOAP Progress Note Assessment/Plan: Assessment: 1. Intermittently severe gross hematuria due to chronic cystitis - has tolerated Alum irrigation well. 2. Anemia - appropriately improved following 2 units PRBC's given yesterday. Plan: Discharge home. FU in 2 weeks. 08/01/17 11:58 Subjective: No complaints. Objective: Vital Signs Temp Pulse Resp BP Pulse Ox 36.9 C 85 16 134/85 H 96 08/01/17 11:44 08/01/17 11:44 08/01/17 11:44 08/01/17 11:44 08/01/17 11:44 Laboratory Results 08/01/17 07:25 08/01/17 07:25 07/31/17 08/01/17 08/02/17 05:59 05:59 05:59 Intake Total 800 Output Total 2700 2650 Balance -1900 -2650 PT 15.5 SEC (12.0-15.0) H 08/01/17 07:25 INR 1.21 (0.83-1.16) H 08/01/17 07:25 Physical Exam - Physical Exam General Appearance: WD/WN, alert, no apparent distress Abdomen: non-tender, soft Pelvic Exam: other (urine clear via Cheng w/ low-rate Alum CBI) Skin: warm/dry Neuro/Psych: alert, normal mood/affect ICD10 Worksheet Patient Problems: Problems Problem Status Onset Multiple drug resistant organism (MDRO) culture positive Acute NICHELLE (acute kidney injury) Acute Anemia Acute Atrial fibrillation Acute Cervical spine fracture Acute Dehydration Acute Diabetes Acute Elevated troponin Acute Encephalopathy acute Acute Fall at home Acute Frequent falls Acute Gait instability Acute Gastroenteritis Acute Hematuria Acute Hyperglycemia Acute Hypertension Acute Hyponatremia Acute Normocytic anemia due to blood loss Acute Pain management Acute Palliative care encounter Acute Sepsis secondary to UTI Acute UTI (urinary tract infection) Acute
[2017-08-01 14:19] VITALS: BP 121/60
--- NOTE | 2017-08-01 14:22 | PDIAF ---
- Diagnosis Diagnosis: Chronic hemorrhagic cystitis Code Status: Full Code - Medication Management Discharge Medications: Medications to Continue on Transfer Allopurinol [Allopurinol 300 MG (RX)] 450 mg PO DAILY 03/27/14 [Last Taken 07/30] Levothyroxine [Synthroid 75 mcg (*)] 75 mcg PO DAILY06 03/13/16 [Last Taken ] metFORMIN HCL [Glucophage 500 mg (*)] 500 mg PO DAILY@0800 02/10/17 [Last Taken 07/30/17] Cholecalciferol Vit D3 [Vitamin D3 (*)] 1,000 units PO BID 05/04/17 [Last Taken 07/30/17 21:00] Omeprazole 40 mg PO DAILY 05/04/17 [Last Taken 07/30/17] Sitagliptin Phos/Metformin HCl [Janumet 50-500 mg Tablet] 1 tab PO DAILY@1700 [Last Taken 07/30/17] Insulin Detemir [Levemir] 35 unit SQ BID #100 ml 05/05/17 [Last Taken 07/30/17 21:00] Metoprolol Tartrate [Lopressor 25 mg (*)] 25 mg PO BID #60 tab 05/05/17 [Last Taken 07/30/17 21:00] Alendronate Sodium [Fosamax 70 MG (*)] 70 mg PO MO@0700 07/07/17 [Last Taken ] Loperamide HCl [Imodium 2 mg (*)] 4 mg PO PRN PRN 07/07/17 [Last Taken Unknown] Colchicine [Colchicine (*)] 0.6 mg PO BID PRN 07/31/17 [Last Taken Unknown] sitaGLIPtin PHOSPHATE [Januvia 25 MG (*)] 50 mg PO DAILY@1700 tab 08/01/17 [ Last Taken Unknown] Discharge Medications: Refer to the Discharge Home Medication list for PRN reason. PICC Care - Routine: N/A - Orders Services needed: Home Care, Physical Therapy, Occupational Therapy Home Care Face to Face: I certify that this patient was under my care and that I had the required [id number] encounter meeting the encounter requirements on the discharge day. My findings support the fact that the patient is homebound as defined in Home Care Face to Face Continued: CMS Chapter 7 Medicare Benefits Manual 30.1.1 , The condition of the patient is such that there exists a normal inability to leave home and consequently, leaving home would require a considerable and taxing effort. Isolation Type: Contact Isolation Diet Recommendation: ADA 2000 consistent carb Diet Texture: Regular Texture Diet Cheng: No Additional Instructions: Follow-up w/ Dr. Magdaleno in about 2 weeks -- call office to schedule. - Follow Up Care Current Providers and Referrals: Jenny Garcia MD [Primary Care Provider] -
--- NOTE | 2017-08-01 14:33 | ASMTCMCOM ---
CM Note CM Note Notes: Chart reviewed. Medically cleared for discharge to home with [facility] . [facility]. Patient to arrange transportation through [facility] available should other needs arise. Plan:Home with [facility] Date Signed: 08/01/2017 02:33 PM Electronically Signed By:Britney Roper RN
--- NOTE | 2017-08-01 14:34 | ASMTLACE ---
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
[2017-08-04] MEDS ORDERED: ALENDRONATE SODIUM 70 MG TAB PO SCH (07:00)
== END 2017-08-01 15:43 | disposition home or self-care (01) ==
LOC: F1N 07:41 → INTOOBSV 07:41
PROVIDERS: ADMIT Specialist; ATTEND Specialist
DX: N30.21 Other chronic cystitis with hematuria (principal); D64.9 Anemia, unspecified; R79.89 Other specified abnormal findings of blood chemistry; G31.84 Mild cognitive impairment of uncertain or unknown etiology; I48.91 Unspecified atrial fibrillation; E11.9 Type 2 diabetes mellitus without complications; K74.60 Unspecified cirrhosis of liver; B19.20 Unspecified viral hepatitis C without hepatic coma
CPT/HCPCS: J1815; P9016

== ENCOUNTER 2017-08-04 10:54 | Emergency (ER) | payer OTHER ==
[2017-08-04 13:29] LABS: PLATELET COUNT 239 10^3/uL (150-400)
--- NOTE | 2017-08-04 13:30 | EDPHY ---
H & P Stated Complaint: vag bleeding Time Seen by Provider: 08/04/17 12:46 HPI/ROS: CHIEF COMPLAINT: Gross hematuria HISTORY OF PRESENT ILLNESS: 76-year-old female with chronic cystitis presents with gross hematuria. She was admitted last week for gross hematuria and received 2 units of packed red blood cells. She was discharged home 2 days ago. This morning she awoke in a pool of blood. She has been incontinent of urine and is wearing a pad. No subsequent episodes of gross hematuria today. She called the on-call urologist who told her to come to the emergency department. REVIEW OF SYSTEMS: complete 10 point ROS negative except at noted in the HPI - Personal History Current Tetanus/Diphtheria Vaccine: Yes Current Tetanus Diphtheria and Acellular Pertussis (TDAP): Yes Tetanus Vaccine Date: 2011 - Medical/Surgical History Hx Asthma: No Hx Chronic Respiratory Disease: No Hx Diabetes: Yes Hx Cardiac Disease: Yes Hx Renal Disease: Yes Hx Cirrhosis: No Hx Alcoholism: No Hx HIV/AIDS: No Hx Splenectomy or Spleen Trauma: No Other PMH: DM2, hypothyroid, pelvic fx, 5 surgeries on right leg, broken collar bones, Hepatitis B from blood transfusion, urinary leakage, rib fx's, chronic hematuria, Afib, Chronic Hep B & C, Pulm HTN, CKD, Hx neck and thoracic vertebrae Fx's - Social History Smoking Status: Never smoked - Physical Exam Exam: General Appearance: Alert, pleasant, pale Eyes: Pupils equal and round, conjunctival pallor or ENT, Mouth: Mucous membranes moist Neck: Normal inspection Respiratory: Lungs are clear to auscultation Cardiovascular: Regular rate and rhythm Gastrointestinal: Abdomen is soft and nontender Genitourinary: Erythema of the vulva, no blood present; diaper is full of urine , non-bloody Neurological: A&O, nonfocal, normal gait Skin: Warm and dry Extremities: Nontender, no pedal edema Psychiatric: Mood and affect normal Constitutional: Initial Vital Signs Temperature (C) 36.7 C 08/04/17 11:01 Heart Rate 84 08/04/17 11:01 Respiratory Rate 16 08/04/17 11:01 Blood Pressure 120/60 08/04/17 11:01 O2 Sat (%) 95 08/04/17 11:01 O2 Delivery Mode Room Air Allergies/Adverse Reactions: morphine Allergy (Mild, Verified 08/04/17 10:59) Vomiting nitrofurantoin Allergy (Mild, Verified 08/04/17 10:59) Rash Home Medications: Medication Instructions Recorded Levothyroxine [Synthroid 75 mcg 75 mcg PO DAILY06 03/13/16 (*)] metFORMIN HCL [Glucophage 500 mg 500 mg PO DAILY@0800 02/10/17 (*)] Cholecalciferol Vit D3 [Vitamin D3 1,000 units PO BID 05/04/17 (*)] Omeprazole 40 mg PO DAILY 05/04/17 Sitagliptin Phos/Metformin HCl 1 tab PO DAILY@1700 05/04/17 [Janumet 50-500 mg Tablet] Insulin Detemir [Levemir] 35 unit SQ BID #100 ml 05/05/17 Metoprolol Tartrate [Lopressor 25 25 mg PO BID #60 tab 05/05/17 mg (*)] Alendronate Sodium [Fosamax 70 MG 70 mg PO MO@0700 07/07/17 (*)] sitaGLIPtin PHOSPHATE [Januvia 25 50 mg PO DAILY@1700 tab 08/01/17 MG (*)] Cephalexin [Keflex (*)] 500 mg PO BID #10 cap 08/04/17 Medical Decision Making ED Course/Re-evaluation: I consulted Dr. Surjit Liang. If Hgb is normal and pt has no subsequent episodes of gross hematuria, will plan to discharge home and f/u office. 13 30: Hematocrit 27.6, which is higher than on discharge home. Urinalysis pending. 14 20: Urinalysis consistent with urinary tract infection, though this may be secondary to chronic cystitis. Urine culture sent. She is already on Bactrim, will continue Bactrim pending urine cx. There is no evidence of gross hematuria during this emergency department visit. Will f/u with Dr. Magdaleno. Differential Diagnosis: includes though not limited to UTI, severe hemorrhage, severe anemia - Data Points Laboratory Results: Laboratory Results 08/04/17 13:22 Microbiology Results: MICROBIOLOGY 08/04/17 13:50 Urine,Clean Catch Urine Culture - Preliminary Gram Neg Anderson Lactose Plywood Layup Line Core Feeder One [place] Type Departure - Departure Disposition: Home, Routine, Self-Care Clinical Impression: Gross hematuria, Chronic cystitis Condition: Good Instructions: Interstitial Cystitis (ED) Additional Instructions: Return for worsening symptoms or any concerns. Referrals: Jenny Garcia MD [Primary Care Provider] - As per Instructions Prescriptions: Cephalexin [Keflex (*)] 500 mg PO BID #10 cap
[2017-08-04 14:33] VITALS: BP 145/77
== END 2017-08-04 14:43 | disposition home or self-care (01) ==
DX: N30.21 Other chronic cystitis with hematuria (principal); E11.9 Type 2 diabetes mellitus without complications; I12.9 Hypertensive chronic kidney disease with stage 1 through stage 4 chronic kidney disease, or unspecified chronic kidney disease; N18.9 Chronic kidney disease, unspecified; B96.89 Other specified bacterial agents as the cause of diseases classified elsewhere; Z79.4 Long term (current) use of insulin

== ENCOUNTER 2017-08-10 03:25 | Emergency (ER) | payer OTHER ==
--- NOTE | 2017-08-10 03:59 | EDPHY ---
H & P Stated Complaint: hematuria Time Seen by Provider: 08/10/17 03:31 HPI/ROS: Chief Complaint: Blood in urine HPI: 76-year-old woman who has a history of recurrent cystitis and hematuria. Patient has had multiple presentations to this hospital last several months. She had a uterine biopsy on July 10 which showed a chronic cystitis with inflammatory lesion which was cancer negative on biopsy. Patient continued to have recurrent hematuria. She is under the care of Dr. Magdaleno. She has required blood transfusions in the past. She was admitted approximately 1/2 weeks ago and required 2 units packed red blood cells at that time. She was seen here 1 week ago after waking up in a pool of blood. At that time her hematocrit was 27. She had no hematuria at that time. She states she went to the bathroom this evening and noted once again blood in her urine. She is passing some clots. She does not feel that she is obstructed. Does not have the urge to void. She called the on-call nurse at [facility] and was instructed to come to the hospital for further care. She is also have a history of chronic urinary tract infections and just completed a course of cephalexin. She had been on Bactrim prior to this. No fevers or chills. No nausea or vomiting. No abdominal pain. No back pain. ROS: 10 point Review of Systems is negative except as noted in the HPI. Social History: No smoking, no alcohol, no recreational drug use Family History: non-contributory Physical Exam: Gen: Awake, Alert, No Distress HEENT: Nose: no rhinorrhea Eyes: PERRLA, EOMI Mouth: Moist mucosa Neck: Supple, no JVD Chest: nontender, lungs clear to auscultation Heart: S1, S2 normal, no murmur Abd: Soft, non-tender, no guarding Back: no CVA tenderness, no midline tenderness Ext: no edema, non-tender Skin: no rash Neuro: CN II-XII intact, Sensation grossly intact, Strength 5/5 in bilateral upper and lower extremities - Personal History Current Tetanus/Diphtheria Vaccine: Unsure Current Tetanus Diphtheria and Acellular Pertussis (TDAP): Unsure Tetanus Vaccine Date: 2011 - Medical/Surgical History Hx Asthma: No Hx Chronic Respiratory Disease: No Hx Diabetes: No Hx Cardiac Disease: No Hx Renal Disease: No Hx Cirrhosis: No Hx Alcoholism: No Hx HIV/AIDS: No Hx Splenectomy or Spleen Trauma: No Other PMH: DM2, hypothyroid, pelvic fx, 5 surgeries on right leg, broken collar bones, Hepatitis B from blood transfusion, urinary leakage, rib fx's, chronic hematuria, Afib, Chronic Hep B & C, Pulm HTN, CKD, Hx neck and thoracic vertebrae Fx's - Social History Smoking Status: Never smoked Constitutional: Initial Vital Signs Temperature (C) 36.7 C 08/10/17 03:26 Heart Rate 71 08/10/17 03:26 Respiratory Rate 16 08/10/17 03:26 Blood Pressure 135/67 H 08/10/17 03:26 O2 Sat (%) 95 08/10/17 03:26 O2 Delivery Mode Room Air Allergies/Adverse Reactions: morphine Allergy (Mild, Verified 08/04/17 10:59) Vomiting nitrofurantoin Allergy (Mild, Verified 08/04/17 10:59) Rash Home Medications: Medication Instructions Recorded Levothyroxine [Synthroid 75 mcg 75 mcg PO DAILY06 03/13/16 (*)] metFORMIN HCL [Glucophage 500 mg 500 mg PO DAILY@0800 02/10/17 (*)] Cholecalciferol Vit D3 [Vitamin D3 1,000 units PO BID 05/04/17 (*)] Omeprazole 40 mg PO DAILY 05/04/17 Sitagliptin Phos/Metformin HCl 1 tab PO DAILY@1700 05/04/17 [Janumet 50-500 mg Tablet] Insulin Detemir [Levemir] 35 unit SQ BID #100 ml 05/05/17 Metoprolol Tartrate [Lopressor 25 25 mg PO BID #60 tab 05/05/17 mg (*)] Alendronate Sodium [Fosamax 70 MG 70 mg PO MO@0700 07/07/17 (*)] sitaGLIPtin PHOSPHATE [Januvia 25 50 mg PO DAILY@1700 tab 08/01/17 MG (*)] Cephalexin [Keflex (*)] 500 mg PO BID #10 cap 08/04/17 Cephalexin [Keflex (*)] 500 mg PO Q6H #28 cap 08/10/17 Medical Decision Making ED Course/Re-evaluation: Have reviewed the patient's records. She was here on 08/04 had an H&H of 8.7 and 27.6. Today her counts are down to 8.0 and 25.7. She is continuing to complain of gross hematuria. I am awaiting urinalysis. Last urine culture was negative. Anticipate discussing with Urology. Urinalysis shows blood leuk esterase and bacteria white cells. I have discussed with Dr. Mendoza [facility], on-call Urology. She is recommended that as the H& H are only minimally lower than a week ago, the patient is not in urinary retention. She is not passing clot. She does not have radha hematuria. She would continue the patient on antibiotics. Given the patient recently finished Bactrim I will start her on Keflex. Urine cultures have been sent. Patient go home and follow up with her urologist, Dr. Magdaleno. - Data Points Laboratory Results: Laboratory Results 08/10/17 04:00 08/10/17 04:00 08/10/17 08/10/17 08/10/17 05:16 04:15 04:00 WBC RBC Hgb Hct MCV MCH MCHC RDW Plt Count MPV Neut % (Auto) Lymph % (Auto) [place] % (Auto) Eos % (Auto) Baso % (Auto) Nucleat RBC Rel Count Absolute Neuts (auto) Absolute Lymphs (auto) Absolute Monos (auto) Absolute Eos (auto) Absolute Basos (auto) Absolute Nucleated RBC Immature Gran % Immature Gran # Sodium 141 mEq/L mEq/L (135-145) Potassium 4.5 mEq/L mEq/L (3.3-5.0) Chloride 111 mEq/L H mEq/L (97-110) Carbon Dioxide 21 mEq/l L mEq/l (22-31) Anion Gap 9 mEq/L mEq/L (8-16) BUN 33 mg/dL H mg/dL (7-23) Creatinine 0.9 mg/dL mg/dL (0.6-1.0) Estimated GFR > 60 Glucose 122 mg/dL H mg/dL (70-100) Calcium 8.7 mg/dL mg/dL (8.5-10.4) Urine Color RED YELLOW Urine Appearance MODERATELY TURBID TURBID Urine pH 6.0 6.0 (5.0-7.5) (5.0-7.5) Ur Specific [place] 1.011 1.010 (1.002-1.030) (1.002-1.030) Urine Protein 2+ H 2+ H (NEGATIVE) (NEGATIVE) Urine Ketones NEGATIVE NEGATIVE (NEGATIVE) (NEGATIVE) Urine Blood 3+ H 3+ H (NEGATIVE) (NEGATIVE) Urine Nitrate NEGATIVE NEGATIVE (NEGATIVE) (NEGATIVE) Urine Bilirubin NEGATIVE NEGATIVE (NEGATIVE) (NEGATIVE) Urine Urobilinogen NEGATIVE EU EU NEGATIVE EU EU (0.2-1.0) (0.2-1.0) Ur Leukocyte Esterase 2+ H 3+ H (NEGATIVE) (NEGATIVE) Urine RBC >182 /hpf H /hpf 50-182 /hpf H /hpf (0-3) (0-3) Urine WBC >182 /hpf H /hpf >182 /hpf H /hpf (0-3) (0-3) Ur Epithelial Cells TRACE /lpf /lpf NONE SEEN /lpf /lpf (NONE-1+) (NONE-1+) Urine Bacteria 2+ /hpf H /hpf 2+ /hpf H /hpf (NONE SEEN) (NONE SEEN) Urine Glucose NEGATIVE NEGATIVE (NEGATIVE) (NEGATIVE) 08/10/17 04:00 WBC 5.38 10^3/uL 10^3/uL (3.80-9.50) RBC 3.00 10^6/uL L 10^6/uL (4.18-5.33) Hgb 8.0 g/dL L g/dL (12.6-16.3) Hct 25.7 % L % (38.0-47.0) MCV 85.7 fL fL (81.5-99.8) MCH 26.7 pg L pg (27.9-34.1) MCHC 31.1 g/dL L g/dL (32.4-36.7) RDW 17.6 % H % (11.5-15.2) Plt Count 215 10^3/uL 10^3/uL (150-400) MPV 9.8 fL fL (8.7-11.7) Neut % (Auto) 70.5 % % (39.3-74.2) Lymph % (Auto) 15.4 % % (15.0-45.0) [place] % (Auto) 9.1 % % (4.5-13.0) Eos % (Auto) 3.9 % % (0.6-7.6) Baso % (Auto) 0.7 % % (0.3-1.7) Nucleat RBC Rel Count 0.0 % % (0.0-0.2) Absolute Neuts (auto) 3.79 10^3/uL 10^3/uL (1.70-6.50) Absolute Lymphs (auto) 0.83 10^3/uL L 10^3/uL (1.00-3.00) Absolute Monos (auto) 0.49 10^3/uL 10^3/uL (0.30-0.80) Absolute Eos (auto) 0.21 10^3/uL 10^3/uL (0.03-0.40) Absolute Basos (auto) 0.04 10^3/uL 10^3/uL (0.02-0.10) Absolute Nucleated RBC 0.00 10^3/uL 10^3/uL (0-0.01) Immature Gran % 0.4 % % (0.0-1.1) Immature Gran # 0.02 10^3/uL 10^3/uL (0.00-0.10) Sodium Potassium Chloride Carbon Dioxide Anion Gap BUN Creatinine Estimated GFR Glucose Calcium Urine Color Urine Appearance Urine pH Ur Specific [place] Urine Protein Urine Ketones Urine Blood Urine Nitrate Urine Bilirubin Urine Urobilinogen Ur Leukocyte Esterase Urine RBC Urine WBC Ur Epithelial Cells Urine Bacteria Urine Glucose Departure - Departure Disposition: Home, Routine, Self-Care Clinical Impression: Anemia, Hematuria Condition: Good Instructions: Anemia (ED), Hematuria (ED) Additional Instructions: Follow up with Dr. Magdaleno in 1-2 days. Please take your full course of antibiotics. Return to the emergency department for lightheadedness, fainting, difficulty urinating, fevers, chills, or any other concerns. Referrals: Vasyl Magdaleno MD [Medical Doctor] - As per Instructions Prescriptions: Cephalexin [Keflex (*)] 500 mg PO Q6H #28 cap
[2017-08-10 04:12] LABS: PLATELET COUNT 215 10^3/uL (150-400)
[2017-08-10] MEDS ORDERED: CEPHALEXIN 500MG PREPACK#4 BTL TAKEHOME ONE (06:16)
[2017-08-10 07:12] VITALS: BP 145/78
== END 2017-08-10 07:12 | disposition home or self-care (01) ==
LOC: EDUNIT#
DX: R31.9 Hematuria, unspecified (principal); D64.9 Anemia, unspecified; E11.9 Type 2 diabetes mellitus without complications; I12.9 Hypertensive chronic kidney disease with stage 1 through stage 4 chronic kidney disease, or unspecified chronic kidney disease; N18.9 Chronic kidney disease, unspecified; Z79.4 Long term (current) use of insulin; Z79.84 Long term (current) use of oral hypoglycemic drugs

== ENCOUNTER 2017-08-13 04:28 | Observation (INO) | payer OTHER ==
--- NOTE | 2017-08-13 05:03 | EDPHY ---
H & P Stated Complaint: AMS Time Seen by Provider: 08/13/17 04:35 HPI/ROS: Chief Complaint: Altered mental status HPI: 76-year-old woman being brought in for altered mental status. EMS was called by the who is blind. He states that his had fallen and was confused. On arrival EMS found the patient lying on the floor of the residence , not wearing any clothes. Patient states she does not recall how she got there. She has a history of a recent diagnosis of mild dementia. She also has a significant history of chronic hematuria. She had a bladder biopsy done in early July which showed a noncancerous lesion. This was treated by Dr. Magdaleno. Patient has had persistent hematuria since that time. She has required several transfusions, the most recent being 2 weeks ago. I saw her 2 days ago with the recurrence of her hematuria. At that time her hemoglobin had dropped slightly from her prior but not significantly. Patient has also been treated for recurrent urinary tract infections however her urine cultures have been negative so far. She is now awake and alert. She is disoriented to year. She does remember being here in the emergency department 2 days ago but cannot really account for why she was on the ground. At 1 point she says she was lying on the self I and hold off. Another point she says she fell and could not get up. Prior case management notes had noted some dementia and recommendations were that she be placed in a sniff however family insisted that she remain at [facility]. ROS: 10 point Review of Systems is negative except as noted in the HPI. Social History: No smoking, no alcohol, no recreational drug use Family History: non-contributory Physical Exam: Gen: Awake, Alert, mildly confused HEENT: Nose: no rhinorrhea Eyes: PERRLA, EOMI Mouth: Moist mucosa Neck: Supple, no JVD Chest: nontender, lungs clear to auscultation Heart: S1, S2 normal, no murmur Abd: Soft, non-tender, no guarding Back: no CVA tenderness, no midline tenderness Ext: no edema, non-tender Skin: no rash Neuro: CN II-XII intact, Sensation grossly intact, Strength 5/5 in bilateral upper and lower extremities - Personal History Current Tetanus/Diphtheria Vaccine: Yes Tetanus Vaccine Date: 2011 - Medical/Surgical History Hx Asthma: No Hx Chronic Respiratory Disease: No Hx Diabetes: Yes Hx Cardiac Disease: Yes Hx Renal Disease: Yes Hx Cirrhosis: No Hx Alcoholism: No Hx HIV/AIDS: No Hx Splenectomy or Spleen Trauma: No Other PMH: DM2, hypothyroid, pelvic fx, 5 surgeries on right leg, broken collar bones, Hepatitis B from blood transfusion, urinary leakage, rib fx's, chronic hematuria, Afib, Chronic Hep B & C, Pulm HTN, CKD, Hx neck and thoracic vertebrae Fx's - Social History Smoking Status: Never smoked Constitutional: Initial Vital Signs Temperature (C) 37.2 C 08/13/17 04:46 Heart Rate 88 08/13/17 04:46 Respiratory Rate 16 08/13/17 04:46 Blood Pressure 105/62 08/13/17 04:46 O2 Sat (%) 94 08/13/17 04:46 O2 Delivery Mode Room Air Allergies/Adverse Reactions: morphine Allergy (Mild, Verified 08/04/17 10:59) Vomiting nitrofurantoin Allergy (Mild, Verified 08/04/17 10:59) Rash Home Medications: Medication Instructions Recorded Levothyroxine [Synthroid 75 mcg 75 mcg PO DAILY06 03/13/16 (*)] metFORMIN HCL [Glucophage 500 mg 500 mg PO DAILY@0800 02/10/17 (*)] Cholecalciferol Vit D3 [Vitamin D3 1,000 units PO BID 05/04/17 (*)] Omeprazole 40 mg PO DAILY 05/04/17 Sitagliptin Phos/Metformin HCl 1 tab PO DAILY@1700 05/04/17 [Janumet 50-500 mg Tablet] Insulin Detemir [Levemir] 35 unit SQ BID #100 ml 05/05/17 Metoprolol Tartrate [Lopressor 25 25 mg PO BID #60 tab 05/05/17 mg (*)] Alendronate Sodium [Fosamax 70 MG 70 mg PO MO@0700 07/07/17 (*)] sitaGLIPtin PHOSPHATE [Januvia 25 50 mg PO DAILY@1700 tab 08/01/17 MG (*)] Cephalexin [Keflex (*)] 500 mg PO BID #10 cap 08/04/17 Cephalexin [Keflex (*)] 500 mg PO Q6H #28 cap 08/10/17 Medical Decision Making ED Course/Re-evaluation: 76-year-old woman with chronic hematuria found down and confused. H&H are actually improved from 2 days ago when I saw her. She has chronic leuk esterase in her urine. Urine cultures to date have not grown out any infections most recently. She has not have a white count or any other findings suggestive of infection. She does have a recent diagnosis of dementia also has a history of some cirrhosis in the past. Explanations for confusion could be acute infection, blood loss anemia, encephalopathy is some sore which I think is the most likely. This could also be secondary to her dementia. I discussed with Dr. Ibarra, hospitalist. He will admit to his service for further evaluation. - Data Points Laboratory Results: Laboratory Results 08/13/17 04:55 08/13/17 04:55 08/13/17 08/13/17 08/13/17 05:03 04:55 04:55 WBC 7.98 10^3/uL 10^3/uL (3.80-9.50) RBC 3.22 10^6/uL L 10^6/uL (4.18-5.33) Hgb 8.6 g/dL L g/dL (12.6-16.3) Hct 27.1 % L % (38.0-47.0) MCV 84.2 fL fL (81.5-99.8) MCH 26.7 pg L pg (27.9-34.1) MCHC 31.7 g/dL L g/dL (32.4-36.7) RDW 17.5 % H % (11.5-15.2) Plt Count 247 10^3/uL 10^3/uL (150-400) MPV 9.7 fL fL (8.7-11.7) Neut % (Auto) Pending Lymph % (Auto) Pending [place] % (Auto) Pending Eos % (Auto) Pending Baso % (Auto) Pending Nucleat RBC Rel Count Pending Absolute Neuts (auto) Pending Absolute Lymphs (auto) Pending Absolute Monos (auto) Pending Absolute Eos (auto) Pending Absolute Basos (auto) Pending Absolute Nucleated RBC Pending Immature Gran % Pending Immature Gran # Pending Platelet Estimate Pending Sodium 138 mEq/L mEq/L (135-145) Potassium 4.1 mEq/L mEq/L (3.3-5.0) Chloride 106 mEq/L mEq/L (97-110) Carbon Dioxide 18 mEq/l L mEq/l (22-31) Anion Gap 14 mEq/L mEq/L (8-16) BUN 22 mg/dL mg/dL (7-23) Creatinine 0.9 mg/dL mg/dL (0.6-1.0) Estimated GFR > 60 Glucose 94 mg/dL mg/dL (70-100) Calcium 8.9 mg/dL mg/dL (8.5-10.4) Urine Color YELLOW Urine Appearance TURBID Urine pH 6.0 (5.0-7.5) Ur Specific [place] 1.009 (1.002-1.030) Urine Protein 2+ H (NEGATIVE) Urine Ketones NEGATIVE (NEGATIVE) Urine Blood 3+ H (NEGATIVE) Urine Nitrate NEGATIVE (NEGATIVE) Urine Bilirubin NEGATIVE (NEGATIVE) Urine Urobilinogen NEGATIVE EU EU (0.2-1.0) Ur Leukocyte Esterase 3+ H (NEGATIVE) Urine RBC 50-182 /hpf H /hpf (0-3) Urine WBC 50-182 /hpf H /hpf (0-3) Ur Epithelial Cells NONE SEEN /lpf /lpf (NONE-1+) Urine Yeast PRESENT /hpf /hpf (NONE SEEN) Urine Glucose NEGATIVE (NEGATIVE) Departure - Departure Disposition: Home, Routine, Self-Care Clinical Impression: Altered mental status Condition: Fair Referrals: Jenny Garcia MD [Primary Care Provider] - As per Instructions
[2017-08-13 05:04] LABS: PLATELET COUNT 247 10^3/uL (150-400)
[2017-08-13] MEDS ORDERED: ONDANSETRON 4 MG/2 ML VIAL IVP PRN (05:41)
[2017-08-13] MEDS ORDERED: ONDANSETRON DISINTEGRATING 4 MG TAB PO PRN (05:41)
[2017-08-13] MEDS ORDERED: ACETAMINOPHEN 325 MG TAB PO PRN (05:41)
[2017-08-13] MEDS ORDERED: HEPARIN 5,000 UNIT/0.5 ML INJ SC SCH (06:00)
--- NOTE | 2017-08-13 06:27 | PDGENHP ---
History and Physical - Chief Complaint Found down - History of Present Illness 76 yo F w/ AF, Hep C cirrhosis, suspected cognitive impairment, and known hematuria was brought to ED today after being found down at her living facility. Her called EMS and stated she fell and was confused. Upon arrival EMS found her on the floor without clothes on. The patient herself does not recall why she was on the floor. She denies any complaints to me including weakness, confusion, and urinary symptoms. She is A&Ox2 on my evaluation, which seems to be near baseline from review of prior documentation. Work-up in the ED is notable mostly for a chronically dirty UA and known, stable anemia. History Information - Allergies/Home Medication List Allergies/Adverse Reactions: morphine Allergy (Mild, Verified 08/04/17 10:59) Vomiting nitrofurantoin Allergy (Mild, Verified 08/04/17 10:59) Rash Home Medications: Levothyroxine [Synthroid 75 mcg (*)] 75 mcg PO DAILY06 03/13/16 [Last Taken ] metFORMIN HCL [Glucophage 500 mg (*)] 500 mg PO DAILY@0800 02/10/17 [Last Taken 07/30/17] Cholecalciferol Vit D3 [Vitamin D3 (*)] 1,000 units PO BID 05/04/17 [Last Taken 07/30/17 21:00] Omeprazole 40 mg PO DAILY 05/04/17 [Last Taken 07/30/17] Sitagliptin Phos/Metformin HCl [Janumet 50-500 mg Tablet] 1 tab PO DAILY@1700 [Last Taken 07/30/17] Alendronate Sodium [Fosamax 70 MG (*)] 70 mg PO MO@0700 07/07/17 [Last Taken ] I have personally reviewed and updated: family history, medical history - Past Medical History Additional medical history: DM2 with most recent hemoglobin A1c 9%. Mild cognitive impairment. C-spine injury. Osteoporosis. Chronic pain with continuous opiate dependency. HTN. Gout. HCV. Chronic hematuria and urinary frequency, unclear cause, has resulted in hydronephrosis in past as well as acute kidney injury. Chronic kidney disease stage 3. Possible cirrhosis on abdominal CT. Paroxysmal atrial fibrillation - Surgical History Additional surgical history: several R leg orthopedic surgeries. Hysterectomy. multiple abd surgeries for fibroids/adhesions. Cystoscopy 06/16 - Family History Additional family history: Father with diabetes, sister with breast cancer - Social History Smoking Status: Never smoked Additional social history: Pt lives with her , and is his primary caregiver, currently living at [facility], is usually independent in ADLs, does not use an assistive device with walking Review of Systems Review of Systems: ROS: 10pt was reviewed & negative except for what was stated in HPI & below Physical Exam Physical Exam: Temp Pulse Resp BP Pulse Ox 37.2 C 77 16 137/54 H 96 08/13/17 04:46 08/13/17 06:00 08/13/17 06:00 08/13/17 06:00 08/13/17 06:00 Constitutional: no apparent distress, not in pain Eyes: PERRL, EOMI Ears, Nose, Mouth, Throat: moist mucous membranes, no oral mucosal ulcers Cardiovascular: regular rate and rhythym, no murmur, rub, or gallop Respiratory: no respiratory distress, clear to auscultation Gastrointestinal: normoactive bowel sounds, soft, non-tender abdomen Skin: warm, normal color Musculoskeletal: full muscle strength, no muscle tenderness Neurologic: CN II-XII Intact, other (A&Ox2) Psychiatric: interacting appropriately, not anxious Lab Data & Imaging Review 08/13/17 04:55 08/13/17 04:55 WBC 7.98 10^3/uL (3.80-9.50) 08/13/17 04:55 RBC 3.22 10^6/uL (4.18-5.33) L 08/13/17 04:55 Hgb 8.6 g/dL (12.6-16.3) L 08/13/17 04:55 Hct 27.1 % (38.0-47.0) L 08/13/17 04:55 MCV 84.2 fL (81.5-99.8) 08/13/17 04:55 MCH 26.7 pg (27.9-34.1) L 08/13/17 04:55 MCHC 31.7 g/dL (32.4-36.7) L 08/13/17 04:55 RDW 17.5 % (11.5-15.2) H 08/13/17 04:55 Plt Count 247 10^3/uL (150-400) 08/13/17 04:55 MPV 9.7 fL (8.7-11.7) 08/13/17 04:55 Neut % (Auto) Not Reported 08/13/17 04:55 Lymph % (Auto) Not Reported 08/13/17 04:55 [place] % (Auto) Not Reported 08/13/17 04:55 Eos % (Auto) Not Reported 08/13/17 04:55 Baso % (Auto) Not Reported 08/13/17 04:55 Nucleat RBC Rel Count Not Reported 08/13/17 04:55 Absolute Neuts (auto) Not Reported 08/13/17 04:55 Absolute Lymphs (auto) Not Reported 08/13/17 04:55 Absolute Monos (auto) Not Reported 08/13/17 04:55 Absolute Eos (auto) Not Reported 08/13/17 04:55 Absolute Basos (auto) Not Reported 08/13/17 04:55 Absolute Nucleated RBC Not Reported 08/13/17 04:55 Immature Gran % Not Reported 08/13/17 04:55 Seg Neutrophils % 76.0 % 08/13/17 04:55 Band Neutrophils % 4.0 % 08/13/17 04:55 Lymphocytes % 13.0 % 08/13/17 04:55 Monocytes % 6.0 % 08/13/17 04:55 Eosinophils % 1.0 % 08/13/17 04:55 Basophils % 0 % 08/13/17 04:55 Metamyelocytes % 0 % 08/13/17 04:55 Myelocytes % 0 % 08/13/17 04:55 Promyelocytes % 0 % 08/13/17 04:55 Blast Cells % 0 % 08/13/17 04:55 Immature Gran # Not Reported 08/13/17 04:55 Absolute Seg Neuts 6.06 10^/uL (1.70-6.50) 08/13/17 04:55 Absolute Band Neuts 0.32 10^3/uL (0.00-0.70) 08/13/17 04:55 Absolute Lymphocytes 1.04 10^3/uL (1.00-3.00) 08/13/17 04:55 Absolute Monocytes 0.48 10^3/uL (0.30-0.80) 08/13/17 04:55 Absolute Eosinophils 0.08 10^3/uL (0.03-0.40) 08/13/17 04:55 Absolute Basophils 0.00 10^3/uL (0.02-0.10) L 08/13/17 04:55 Absolute Metamyelocyte 0.00 10^3/mL (0.00-0.00) 08/13/17 04:55 Absolute Myelocytes 0.00 10^3/mL (0.00-0.00) 08/13/17 04:55 Absolute Promyelocytes 0.00 10^3/uL (0.00-0.00) 08/13/17 04:55 Absolute Plasma Cells 0.00 10^3/uL (0.00-0.00) 08/13/17 04:55 Absolute Blast Cells 0.00 10^3/uL (0.00-0.00) 08/13/17 04:55 Plasma Cells % 0 % 08/13/17 04:55 Platelet Estimate ADEQUATE (ADEQ) 08/13/17 04:55 Hypochromasia 1+ H 08/13/17 04:55 Microcytic Cells 1+ H 08/13/17 04:55 Sodium 138 mEq/L (135-145) 08/13/17 04:55 Potassium 4.1 mEq/L (3.3-5.0) 08/13/17 04:55 Chloride 106 mEq/L (97-110) 08/13/17 04:55 Carbon Dioxide 18 mEq/l (22-31) L 08/13/17 04:55 Anion Gap 14 mEq/L (8-16) 08/13/17 04:55 BUN 22 mg/dL (7-23) 08/13/17 04:55 Creatinine 0.9 mg/dL (0.6-1.0) 08/13/17 04:55 Estimated GFR > 60 08/13/17 04:55 Glucose 94 mg/dL (70-100) 08/13/17 04:55 Calcium 8.9 mg/dL (8.5-10.4) 08/13/17 04:55 Urine Color YELLOW 08/13/17 05:03 Urine Appearance TURBID 08/13/17 05:03 Urine pH 6.0 (5.0-7.5) 08/13/17 05:03 Ur Specific [place] 1.009 (1.002-1.030) 08/13/17 05:03 Urine Protein 2+ (NEGATIVE) H 08/13/17 05:03 Urine Ketones NEGATIVE (NEGATIVE) 08/13/17 05:03 Urine Blood 3+ (NEGATIVE) H 08/13/17 05:03 Urine Nitrate NEGATIVE (NEGATIVE) 08/13/17 05:03 Urine Bilirubin NEGATIVE (NEGATIVE) 08/13/17 05:03 Urine Urobilinogen NEGATIVE EU (0.2-1.0) 08/13/17 05:03 Ur Leukocyte Esterase 3+ (NEGATIVE) H 08/13/17 05:03 Urine RBC 50-182 /hpf (0-3) H 08/13/17 05:03 Urine WBC 50-182 /hpf (0-3) H 08/13/17 05:03 Ur Epithelial Cells NONE SEEN /lpf (NONE-1+) 08/13/17 05:03 Urine Yeast PRESENT /hpf (NONE SEEN) 08/13/17 05:03 Urine Glucose NEGATIVE (NEGATIVE) 08/13/17 05:03 Assessment & Plan Assessment: 76 yo F w/ AF, Hep C cirrhosis, suspected cognitive impairment, and known hematuria was brought to ED today after being found down at her living facility. Plan: 1. Altered mental status - Patient found down at home with reports of confusion. She is now alert, oriented to person and place, and denying complaints. Work-up notable for dirty UA but this is similar to prior. She has been on antibiotics for at least a week but her cultures have not proved to be convincingly infectious. Previous documentation notes that SNF was recommended at last discharge but patient refused. She does have cirrhosis on imaging so HE is a possibility but she does not have asterixis. - Admit for observation - Repeat urine culture, observe off of further antibiotics for now - PT/OT evaluations - Consider lactulose if not improving - Discussed case with Dr. Sibley 2 Chronic blood loss anemia - Hgb 8.6 on admission, which is near recent baseline. She has recurrent hematuria due to inflammatory lesion on her bladder , which has been recently biopsied. - Monitor H/H - Transfuse for Hgb<7 3. Suspected cognitive impairment - Per review of Dr. Vee's last d/c summary , there is concern that this may be the underlying cause of her recurrent admissions. - PT/OT evaluations 4. AF - Continue BB, off of AC due to hematuria. 5. Cirrhosis - noted on imaging, most likely 2/2 Hep C. No asterixis present on admission. Diet - Regular Code - Full Ppx - SCDs Dispo - Admit under observation status
[2017-08-13] MEDS ORDERED: NON-FORMULARY NEW DRUG (Insulin Detemir [Levemir] 35 UNIT) SQ SCH (09:45)
[2017-08-13] MEDS ORDERED: NON-FORMULARY NEW DRUG (Omeprazole [Omeprazole] 40 MG) PO SCH (09:45)
--- NOTE | 2017-08-13 11:42 | ASMTCASEMG ---
Living Arrangements What is your living Answers: With Spouse arrangement? Who do you live with? Type Of Residence What kind of residence do Answers: Assisted Living you live in? Type of Residence Facility Name Notes: [facility] Discharge Plan Comments Coordination Status Comments Notes: CM spoke to Dr. Weber regarding d/c POC. Dr. Weber is hoping that therapies can work w/ pt today. Pt is a 76 y/o female admitted after being found down at home. Pt has AF, hep c cirrhosis and suspected cognitive impairment. Pt is well known to [facility] and has had multiple hospitalizations. The last time pt discharged from [facility] she left with [facility]; RN, [employer], PT, OT, SPL along with [facility] to provide additional unskilled care. Needs are TBD at this time. CM to follow. Plan: TBD Date Signed: 08/13/2017 11:42 AM Electronically Signed By:ELAYNE Mills
[2017-08-13] MEDS: metFORMIN HCL 500 MG TAB PO SCH (12:15)
[2017-08-13] MEDS: METOPROLOL TARTRATE 25 MG TAB PO SCH ×2 (12:16→21:42)
[2017-08-13] MEDS: CEPHALEXIN 500 MG CAP PO SCH ×3 (12:16→21:42)
[2017-08-13] MEDS: INSULIN GLARGINE 100 UNITS/ML SYRINGE SC SCH ×2 (15:16→21:45)
[2017-08-13] MEDS ORDERED: SITAGLIPTIN PHOS PO SCH (17:00)
[2017-08-13] MEDS ORDERED: [UNRECOGNIZED DRUG - OTHER] PO SCH (17:00)
[2017-08-13] MEDS ORDERED: METFORMIN HCL PO SCH (17:00)
[2017-08-13] MEDS ORDERED: metFORMIN HCL 500 MG TAB PO SCH (17:00)
--- NOTE | 2017-08-13 18:42 | HOSPPROG ---
Hospitalist Progress Note Assessment/Plan: Prolonged service in addition to the time spent with the initial history and physical by Dr. Ibarra on 08/13, direct patient care, [id number] with patient at bedside for 30 min from 11:15 until 11:45 a.m., addressing the following: -physical exam demonstrates that the patient is alert awake oriented x3, lethargic but arousable to verbal stimuli, flat affect, concentration is 7/7, heart rhythm is irregularly irregular and not tachycardic, no lower extremity edema, poor inspiratory effort but no inspiratory crackles, abdomen is soft, nondistended, motor strength is 5/5 bilateral upper and lower extremities, she has facial symmetry -discussed the patient's labs with her, informed her that her renal function is normal with creatinine 0.9, white blood cell count is normal with 8000, hemoglobin is low but at her chronic baseline at 8.6, urinalysis demonstrates 50 -180 white blood cells, 3+ leukocyte esterase, positive protein and blood, cultures currently pending, glucose normal at 94 -I have seen this patient numerous times during numerous hospitalizations and her mentation is currently at her baseline, somewhat more lethargic than normal but the patient did sustain her fall last night during the middle of the night and was brought to the hospital, most likely interrupting her sleep and resulting in daytime lethargy -the patient is able to recount the fall that she sustained, and reports that it was mechanical, occurring at night, when she was sleepy and imbalance, getting up from bed -does not appear that something more insidious was involved, and I do not believe that further radiographic or laboratory workup is indicated -if patient develops diarrhea, check C diff PCR as she is chronically on suppressive antibiotics given her chronic urinary tract infections, continue home dosage of Keflex -assured with the patient it is my assessment that she continues to experience cognitive decline and debility secondary to chronic illness and likely evolving dementia, and she requires physical, occupational, cognitive therapy assessments prior to determining a safe level of care moving forward -discussed with the patient's nurse these impressions, and ensured that the patient was on the cognitive therapy evaluation work list Objective: Vital Signs Temp Pulse Resp BP Pulse Ox 36.9 C 96 16 139/77 H 99 08/13/17 16:00 08/13/17 16:00 08/13/17 16:00 08/13/17 16:00 08/13/17 16:00 ICD10 Worksheet Patient Problems: Problems Problem Status Onset Altered mental status Acute Multiple drug resistant organism (MDRO) culture positive Chronic Fall at home Acute Diabetes Acute Gastroenteritis Acute Dehydration Acute Atrial fibrillation Acute Hyperglycemia Acute Hypertension Acute Elevated troponin Acute Hyponatremia Acute UTI (urinary tract infection) Acute Cervical spine fracture Acute Frequent falls Acute Gait instability Acute Pain management Acute Sepsis secondary to UTI Acute Palliative care encounter Acute Hematuria Acute Anemia Acute Normocytic anemia due to blood loss Acute Encephalopathy acute Acute NICHELLE (acute kidney injury) Acute
[2017-08-13] MEDS: CHOLECALCIFEROL VIT D3 1,000 UNITS TAB PO SCH (21:42)
[2017-08-14] MEDS: CEPHALEXIN 500 MG CAP PO SCH ×2 (03:53→09:40)
[2017-08-14] MEDS ORDERED: LEVOTHYROXINE 75 MCG TAB PO SCH (06:00)
[2017-08-14] MEDS ORDERED: PANTOPRAZOLE SODIUM 40 MG TAB PO SCH (09:00)
[2017-08-14] MEDS: metFORMIN HCL 500 MG TAB PO SCH (09:40)
[2017-08-14] MEDS: METOPROLOL TARTRATE 25 MG TAB PO SCH (09:59)
[2017-08-14] MEDS: CHOLECALCIFEROL VIT D3 1,000 UNITS TAB PO SCH (09:59)
[2017-08-14] MEDS: INSULIN GLARGINE 100 UNITS/ML SYRINGE SC SCH (10:22)
[2017-08-14 11:32] VITALS: BP 110/63
--- NOTE | 2017-08-14 13:58 | ASDISCHSUM ---
Discharge Information Plan Status:Home with Home Health Medically Cleared to Leave:08/14/2017 Discharge Date:08/14/2017 CM D/C Disposition:Home Health Service ADT D/C Disposition: Projected Discharge Date:08/14/2017 11:00 AM Transportation at D/C:Friend Discharge Delay Reason: Follow-Up Date:08/14/2017 11:00 AM Discharge Slot: Final Diagnosis: Placement Information Referral Type:*Home Health Care Services Referral ID:[id number] Provider Name:[facility] Address 1:[address] Address 2: City:[place] Selection Factors: State:[place] Referral Type:Palliative Care Referral ID:[id number] Provider Name:[facility] Address 1:[address] Phone Number: Address 2: Fax Number: [facility]:[place] Selection Factors: State:[place] Referral Type:*Home Health Care Services Referral ID:[id number] Provider Name:[facility] [address] 1[address] Address 2: City:[place] Selection Factors: State:[place] Patient Contact Information Contact Name:DORIS Relationship:Other Address:[address] City:[facility] Phone: [facility]/Zip Code:[place] [address] Email: Financial Information Financial Class:Medicare Primary Plan Desc:MEDICARE OUTPATIENT Primary Plan Number:[id number] [facility] Secondary Plan Number:[id number] Assessment Information [facility] Initial CM Assessment Living Arrangements What is your living Answers: With Spouse arrangement? Who do you live with? Type Of Residence What kind of residence do Answers: Assisted Living you live in? Type of Residence Facility Name Notes: [facility] Discharge Plan Comments Coordination Status Comments Notes: CM spoke to Dr. Weber regarding d/c POC. Dr. Weber is hoping that therapies can work w/ pt today. Pt is a 76 y/o female admitted after being found down at home. Pt has AF, hep c cirrhosis and suspected cognitive impairment. Pt is well known to [facility] and has had multiple hospitalizations. The last time pt discharged from [facility] she left with [facility]; RN, HEAD OF ADVERTISING, PT, OT, SPL along with of the [facility] to provide additional unskilled care. Needs are TBD at this time. CM to follow. Plan: TBD Date Signed: 08/13/2017 11:42 AM Electronically Signed By:ELAYNE Mills [facility] CM Progress Note CM Note CM Note Notes: Spoke with Meryl BOOTHE at the [facility] [phone]. She said they provide pt with her meds and DM2 support but otherwise, pt refuses other services. The [facility] is almost at the point of asking family to find a safer place for pt and her . Pt has had multiple falls and hospitalizations (she refuses help in the shower and often falls) and her calls 911 instead of asking the [facility] staff for assistance. Also spoke with [facility] re the services they are contracted to provide RN/PT/OT/SLT/HEAD OF ADVERTISING/PLASTIC FRAME INSERTER and they said all those services are being accepted. Another CM spoke with Joanne, pt's stepdaughter, re a palliative care consult to take place back at the [facility] and to Jim [phone] of [facility] as they provide private duty care to the couple. Per Jim, pt often refuses the private duty caregivers. A referral was made to [facility] via [employer] and they will contact Joanne directly to set up a meeting with family and the [facility]. D/C paperwork faxed to the [facility]. Date Signed: 08/14/2017 02:34 PM Electronically Signed By:STARR Christensen Intervention Information Intervention Type:*JANIE-Signed Date of Service:08/14/2017 02:08 PM Patient Type:Observation Staff Member:Anika Gilliland Hours: Discipline: Severity: Comment:
--- NOTE | 2017-08-14 14:00 | PDIAF ---
- Diagnosis Diagnosis: Mechanical Fall, Cognitive Impairment Code Status: Full Code - Medication Management Discharge Medications: Medications to Continue on Transfer Levothyroxine [Synthroid 75 mcg (*)] 75 mcg PO DAILY06 03/13/16 [Last Taken 07/25] metFORMIN HCL [Glucophage 500 mg (*)] 500 mg PO DAILY@0800 02/10/17 [Last Taken 08/12/17] Cholecalciferol Vit D3 [Vitamin D3 (*)] 1,000 units PO BID 05/04/17 [Last Taken 08/12/17 21:00] Omeprazole 40 mg PO DAILY 05/04/17 [Last Taken 08/12/17] Sitagliptin Phos/Metformin HCl [Janumet 50-500 mg Tablet] 1 tab PO DAILY@1700 [Last Taken 08/12/17] Insulin Detemir [Levemir] 35 unit SQ BID #100 ml 05/05/17 [Last Taken 08/12/17 21:00] Metoprolol Tartrate [Lopressor 25 mg (*)] 25 mg PO BID #60 tab 05/05/17 [Last Taken 08/12/17 21:00] Alendronate Sodium [Fosamax 70 MG (*)] 70 mg PO MO@0700 07/07/17 [Last Taken 06/25] sitaGLIPtin PHOSPHATE [Januvia 25 MG (*)] 50 mg PO DAILY@1700 tab 08/01/17 [ Last Taken 08/12/17] Cephalexin [Keflex (*)] 500 mg PO Q6H #28 cap 08/10/17 [Last Taken 08/12/17] Shelter Antibiotics: Keflex 500mg qid PO Shelter Antibiotic Stop Date: 08/20/17 Discharge Medications: Refer to the Discharge Home Medication list for PRN reason. PICC Care - Routine: N/A - Orders Services needed: Home Care, Registered Nurse, Certified Mid Level Project Manager, Master Quality Assurance Advisor, Physical Therapy, Occupational Therapy, Speech Language Pathologist (Cognitive Therapy) Home Care Face to Face: I certify that this patient was under my care and that I had the required [id number] encounter meeting the encounter requirements on the discharge day. My findings support the fact that the patient is homebound as defined in Home Care Face to Face Continued: CMS Chapter 7 Medicare Benefits Manual 30.1.1 , The condition of the patient is such that there exists a normal inability to leave home and consequently, leaving home would require a considerable and taxing effort. Isolation Type: None Diet Recommendation: ADA 2000 consistent carb Weigh Patient: weekly Cheng: Not applicable Additional Instructions: Please have palliative care consultation within patient's home w/ her and [facility] RN/staff. - Follow Up Care Current Providers and Referrals: Jenny Garcia MD [Primary Care Provider] - follow up in 1 week
--- NOTE | 2017-08-14 14:35 | ASMTCMCOM ---
CM Note CM Note Notes: Spoke with Meryl RN at the [facility] [phone]. She said they provide pt with her meds and DM2 support but otherwise, pt refuses other services. The [facility] is almost at the point of asking family to find a safer place for pt and her . Pt has had multiple falls and hospitalizations (she refuses help in the shower and often falls) and her calls 911 instead of asking the [facility] staff for assistance. Also spoke with [facility] re the services they are contracted to provide RN/PT/OT/SLT/SEWER BRICKLAYER/CLEANING MACHINE OPERATOR and they said all those services are being accepted. Another CM spoke with Joanne, pt's stepdaughter, re a palliative care consult to take place back at the [facility] and to Jim [phone] of [facility] as they provide private duty care to the couple. Per Jim, pt often refuses the private duty caregivers. A referral was made to [facility] via [employer] and they will contact Joanne directly to set up a meeting with family and the [facility]. D/C paperwork faxed to the [facility]. Date Signed: 08/14/2017 02:34 PM Electronically Signed By:STARR Christensen
--- NOTE | 2017-08-14 14:40 | ASMTLACE ---
LACE Length of stay for Answers: 1 day current admission Acuity / Level of Answers: No Care: Did the patient have an inpatient admission? Comorbidities - select Answers: Dementia all that apply Diabetes (uncontrolled or controlled) History of falls Other Notes: CKD; HTN # of Emergency department Answers: 12+ visits in the last 6 months Score: 15 Date Signed: 08/14/2017 02:39 PM Electronically Signed By:STARR Christensen
--- NOTE | 2017-08-14 18:28 | PDDCSUM ---
Discharge Summary Discharge Summary: DISCHARGE SUMMARY FOLLOW-UP ITEMS: Outpatient palliative care consultation Urine culture pending at time discharge DATE OF ADMISSION: 08/13/2017 DATE OF DISCHARGE: 08/14/2017 DISCHARGE DIAGNOSES: 1. Acute mechanical fall 2. Mild cognitive impairment 3. Recurrent urinary tract infections 4. Diabetes mellitus type 2 with hyperglycemia 5. 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 SUBJECTIVE: Patient is feeling well at time discharge, she feels safe going home, she has no pain PHYSICAL EXAM ON DISCHARGE: Systolic blood pressure 110-130, heart rate 100, afebrile overnight, satting well on room air, alert awake oriented x3, no apparent distress, concentration , she has some limited insight into her condition, but she is able to fall conversation, she is able to verbally express herself comma motor strength 5/5 bilateral upper and lower extremities, sensation intact bilaterally, no suprapubic tenderness palpation LABS ON DISCHARGE: Ammonia normal, urine culture pending HOSPITAL COURSE BY PROBLEM: 1. Fall. The patient presented with an acute mechanical fall and acute encephalopathy. The patient's fall occurred at night, when she was getting up from bed, and most likely occurred when she lost her balance and fell backwards , striking her head. This is a an unfortunate but very common scenario for the patient. She was seen consultation by Physical and Occupational therapy, who noted that the patient does have significant imbalance and gait instability when she is moving backwards, but that she is able to ambulate safely moving forward. The patient's assisted living facility has significant concerns regarding the patient's fall risk as well as her and her 's ability to perform self-care. They are also concerned that the patient and her are resistant to receiving care at their assisted living facility. I have discussed this with the patient, and she does have insight into the limitations in the care that she and her are requesting to receive in their apartment, and she knows that she needs to make important care decisions with her moving forward. The patient is also considering relocating to a geographic location where they have family nearby, as the patient and her now have no family [place]. The patient and her do benefit from assistance with palliative care facilitate these discussions, as they have received palliative care consultations in the hospital in the past. Palliative Care assisted the patient and her making the transition from their home into assisted living, and the patient is open to having palliative care consult with them at [facility] with the care on staff, to facilitate the best decision moving forward. 2. Acute encephalopathy. Evidenced by global brain dysfunction characterized as confusion, disorientation, somnolence, all of which are acute changes from her baseline, most likely secondary to interrupted sleep, as the patient experienced her fall in the middle the night and was brought to the hospital, interrupting her natural sleep pattern. The patient slept most of the day on , and when she awoke, her mental status did improve. The patient does have underlying mild cognitive impairment and I would recommend ongoing cognitive therapy with the patient in her home setting. 1 of the hallmarks of cognitive impairment and development of dementia is limited insight, and the patient's primary care provider as well as palliative disabilities caregiver will have to monitor the patient and her regularly to determine whether the patient is demonstrating the capacity to make safe decisions, in regards to her own health as well as her medication administration. 3. Recurrent urinary tract infections. The patient is on Keflex, she will continue for an additional week. DISCHARGE MEDICATIONS: Please see official discharge medication reconciliation sheet in chart , continue home medications diet changes. DISCHARGE INSTRUCTIONS: Please follow up with primary care provider and have an in-home palliative care consultation with the [facility] staff.
[2017-08-18] MEDS ORDERED: ALENDRONATE SODIUM 70 MG TAB PO SCH (07:00)
== END 2017-08-14 16:47 | disposition home health service (06) ==
LOC: EDUNIT# → F3E 07:57
PROVIDERS: ADMIT Student in an Organized Health Care Education/Training Program; ATTEND Internal Medicine
DX: Z04.3 Encounter for examination and observation following other accident (principal); G93.40 Encephalopathy, unspecified; G31.84 Mild cognitive impairment of uncertain or unknown etiology; E11.65 Type 2 diabetes mellitus with hyperglycemia; E11.22 Type 2 diabetes mellitus with diabetic chronic kidney disease; R26.89 Other abnormalities of gait and mobility; W19.XXXA Unspecified fall, initial encounter; E03.9 Hypothyroidism, unspecified; B19.20 Unspecified viral hepatitis C without hepatic coma; B19.10 Unspecified viral hepatitis B without hepatic coma; R31.0 Gross hematuria; I48.91 Unspecified atrial fibrillation; I27.20 Pulmonary hypertension, unspecified; D50.9 Iron deficiency anemia, unspecified; N18.9 Chronic kidney disease, unspecified; Z79.4 Long term (current) use of insulin; Z79.84 Long term (current) use of oral hypoglycemic drugs; Z87.440 Personal history of urinary (tract) infections; Z91.81 History of falling
CPT/HCPCS: 92523; 97116; 97161; 97165; 99285; G0378; G8978; G8979; G8987; G8988; G9168; G9169; J1815

== ENCOUNTER 2017-08-23 01:21 | Inpatient (IN) | payer OTHER ==
[2017-08-23] MEDS ORDERED: NS 1,000 ML IV ONE (01:26)
--- NOTE | 2017-08-23 01:29 | EDPHY ---
H & P Stated Complaint: Fall with assist, AMS (dx UTI 1 wk ago) Time Seen by Provider: 08/23/17 01:28 HPI/ROS: HPI CHIEF COMPLAINT: Mechanical fall guided down, confusion HISTORY OF PRESENT ILLNESS: Patient is a 76-year-old female she lives at the [facility], she presents emergency room by EMS if she had a guided mechanical fall. According to EMS she was using a walker and she has 2 aids at her home she started to fall and guided her to the ground no significant injury. No trauma reported. Patient denies any traumatic complaints. She has a history of diabetes, recurring urinary tract infections, mechanical falls, cognitive impairment. She presents emergency room and has no specific complaints. Past Medical History: history of diabetes, recurring urinary tract infections, mechanical falls, cognitive impairment Past Surgical History: No recent surgery Social History: Lives at the [facility] Family History: Noncontributory ROS REVIEW OF SYSTEMS: A comprehensive 10 point review of systems is otherwise negative aside from elements mentioned in the history of present illness. Exam Constitutional elderly, triage nursing summary reviewed, vital signs reviewed, awake/alert. Eyes normal conjunctivae and sclera, EOMI, PERRLA. HENT normal inspection, atraumatic, moist mucus membranes, no epistaxis, neck supple/ no meningismus, no raccoon eyes. Respiratory clear to auscultation bilaterally, normal breath sounds, no respiratory distress, no wheezing. Cardiovascular rate normal, regular rhythm, no murmur, no edema, distal pulses normal. Gastrointestinal soft, non-tender, no rebound, no guarding, normal bowel sounds, no distension, no pulsatile mass. Genitourinary no CVA tenderness. Musculoskeletal no midline vertebral tenderness, full range of motion, no calf swelling, no tenderness of extremities, no meningismus, good pulses, neurovascularly intact. Skin small skin tear to the right lateral aspect of her knee. Neurologic awake and alert or x2, moves all 4 extremities equally, motor intact, sensory intact, CN II-XII intact, normal cerebellar, normal vision, normal speech. Psychiatric normal mood/affect. Heme/Lymph/Immune no lymphadenopathy. Differential Diagnosis: Includes but is not limited to in a particular order dehydration, electrolyte disturbance, infection, mechanical trip and fall, time to thrive, generalized weakness Medical Decision Making: Plan for this patient IV establishment gentle IV fluids, check basic electrolytes, check vital signs, re-evaluate. Re-evaluation: 0255: Patient re-evaluated her urinalysis indicates she has a UTI. This was a cath urine. I have ordered her 1 g IV Rocephin. She distally appears dry on exam and dry on her blood work I have given her 1 L normal saline IV fluid bolus. Nursing staff reports that she has extensive skin excoriations to her genital region and perineum when they performed a cath urine. Given her elevated BUN and creatinine, given her age, given her cognitive dysfunction, and active UTI and dehydration and mechanical fall with a right knee skin tear I do think it is appropriate to admit her for further care. I question if living at the [facility], is to correct location for her. Spoke with the hospitalist service Dr. Sanchez. Agrees to admit. 0301: Patient's x-ray of the right knee reviewed extensive hardware visualized. However I do not appreciate acute fracture or hardware malalignment. Reason for this x-ray she had a skin tear right lateral knee. This has been addressed appropriately in the emergency room. Source: Patient, EMS, RN notes reviewed, Old records - Personal History Current Tetanus Diphtheria and Acellular Pertussis (TDAP): Yes Tetanus Vaccine Date: 2011 - Medical/Surgical History Hx Asthma: No Hx Chronic Respiratory Disease: No Hx Diabetes: Yes Hx Cardiac Disease: Yes Hx Renal Disease: Yes Hx Cirrhosis: No Hx Alcoholism: No Hx HIV/AIDS: No Hx Splenectomy or Spleen Trauma: No Other PMH: DM2, hypothyroid, pelvic fx, 5 surgeries on right leg, broken collar bones, Hepatitis B from blood transfusion, urinary leakage, rib fx's, chronic hematuria, Afib, Chronic Hep B & C, Pulm HTN, CKD, Hx neck and thoracic vertebrae Fx's - Social History Smoking Status: Never smoked Constitutional: Initial Vital Signs Temperature (C) 37.2 C 08/23/17 01:23 Heart Rate 88 08/23/17 01:23 Respiratory Rate 18 08/23/17 01:23 Blood Pressure 106/60 08/23/17 01:23 O2 Sat (%) 95 08/23/17 01:23 O2 Delivery Mode Room Air Allergies/Adverse Reactions: morphine Allergy (Mild, Verified 08/04/17 10:59) Vomiting nitrofurantoin Allergy (Mild, Verified 08/04/17 10:59) Rash Home Medications: Medication Instructions Recorded Levothyroxine [Synthroid 75 mcg 75 mcg PO DAILY06 03/13/16 (*)] metFORMIN HCL [Glucophage 500 mg 500 mg PO DAILY@0800 02/10/17 (*)] Cholecalciferol Vit D3 [Vitamin D3 1,000 units PO BID 05/04/17 (*)] Omeprazole 40 mg PO DAILY 05/04/17 Sitagliptin Phos/Metformin HCl 1 tab PO DAILY@1700 05/04/17 [Janumet 50-500 mg Tablet] Insulin Detemir [Levemir] 35 unit SQ BID #100 ml 05/05/17 Metoprolol Tartrate [Lopressor 25 25 mg PO BID #60 tab 05/05/17 mg (*)] Alendronate Sodium [Fosamax 70 MG 70 mg PO MO@0700 07/07/17 (*)] sitaGLIPtin PHOSPHATE [Januvia 25 50 mg PO DAILY@1700 tab 08/01/17 MG (*)] Cephalexin [Keflex (*)] 500 mg PO Q6H #28 cap 08/10/17 Medical Decision Making - Data Points Laboratory Results: Laboratory Results 08/23/17 01:40 08/23/17 01:40 08/23/17 08/23/17 08/23/17 02:10 01:46 01:40 WBC RBC Hgb Hct MCV MCH MCHC RDW Plt Count MPV Neut % (Auto) Lymph % (Auto) [place]henry % (Auto) Eos % (Auto) Baso % (Auto) Nucleat RBC Rel Count Absolute Neuts (auto) Absolute Lymphs (auto) Absolute Monos (auto) Absolute Eos (auto) Absolute Basos (auto) Absolute Nucleated RBC Immature Gran % Immature Gran # RBC/WBC/PLT Morphology Platelet Estimate Sodium 137 mEq/L mEq/L (135-145) Potassium 4.4 mEq/L mEq/L (3.3-5.0) Chloride 110 mEq/L mEq/L (97-110) Carbon Dioxide 14 mEq/l L mEq/l (22-31) Anion Gap 13 mEq/L mEq/L (8-16) BUN 41 mg/dL H mg/dL (7-23) Creatinine 1.6 mg/dL H mg/dL (0.6-1.0) Estimated GFR 31 Glucose 125 mg/dL H mg/dL (70-100) Calcium 8.5 mg/dL mg/dL (8.5-10.4) POC Troponin I 0.01 ng/mL ng/mL (0.00-0.08) Urine Color YELLOW Urine Appearance TURBID Urine pH 6.0 (5.0-7.5) Ur Specific [place] 1.010 (1.002-1.030) Urine Protein 2+ H (NEGATIVE) Urine Ketones NEGATIVE (NEGATIVE) Urine Blood 3+ H (NEGATIVE) Urine Nitrate NEGATIVE (NEGATIVE) Urine Bilirubin NEGATIVE (NEGATIVE) Urine Urobilinogen NEGATIVE EU EU (0.2-1.0) Ur Leukocyte Esterase 3+ H (NEGATIVE) Urine RBC 50-182 /hpf H /hpf (0-3) Urine WBC 50-182 /hpf H /hpf (0-3) Ur Epithelial Cells NONE SEEN /lpf /lpf (NONE-1+) Urine Glucose NEGATIVE (NEGATIVE) 08/23/17 01:40 WBC 13.98 10^3/uL H 10^3/uL (3.80-9.50) RBC 2.93 10^6/uL L 10^6/uL (4.18-5.33) Hgb 7.8 g/dL L g/dL (12.6-16.3) Hct 24.7 % L % (38.0-47.0) MCV 84.3 fL fL (81.5-99.8) MCH 26.6 pg L pg (27.9-34.1) MCHC 31.6 g/dL L g/dL (32.4-36.7) RDW 17.2 % H % (11.5-15.2) Plt Count 249 10^3/uL 10^3/uL (150-400) MPV 10.7 fL fL (8.7-11.7) Neut % (Auto) 85.7 % H % (39.3-74.2) Lymph % (Auto) 2.6 % L % (15.0-45.0) Mchenry % (Auto) 8.9 % % (4.5-13.0) Eos % (Auto) 1.9 % % (0.6-7.6) Baso % (Auto) 0.4 % % (0.3-1.7) Nucleat RBC Rel Count 0.0 % % (0.0-0.2) Absolute Neuts (auto) 11.98 10^3/uL H 10^3/uL (1.70-6.50) Absolute Lymphs (auto) 0.36 10^3/uL L 10^3/uL (1.00-3.00) Absolute Monos (auto) 1.24 10^3/uL H 10^3/uL (0.30-0.80) Absolute Eos (auto) 0.27 10^3/uL 10^3/uL (0.03-0.40) Absolute Basos (auto) 0.06 10^3/uL 10^3/uL (0.02-0.10) Absolute Nucleated RBC 0.00 10^3/uL 10^3/uL (0-0.01) Immature Gran % 0.5 % % (0.0-1.1) Immature Gran # 0.07 10^3/uL 10^3/uL (0.00-0.10) RBC/WBC/PLT Morphology TNP Platelet Estimate TNP Sodium Potassium Chloride Carbon Dioxide Anion Gap BUN Creatinine Estimated GFR Glucose Calcium POC Troponin I Urine Color Urine Appearance Urine pH Ur Specific Franklin Urine Protein Urine Ketones Urine Blood Urine Nitrate Urine Bilirubin Urine Urobilinogen Ur Leukocyte Esterase Urine RBC Urine WBC Ur Epithelial Cells Urine Glucose Medications Given: Discontinued Medications Sodium Chloride (Ns) 1,000 mls @ 0 mls/hr IV EDNOW ONE; Wide Open PRN Reason: Protocol Stop: 08/23/17 01:27 Last Admin: 08/23/17 01:41 Dose: 1,000 mls Point of Care Test Results: Chemistry 08/23/17 01:46 POC Troponin I 0.01 ng/mL ng/mL (0.00-0.08) Departure - Departure Disposition: [facility] Inpatient Acute Clinical Impression: Dehydration Noninfected skin tear of leg Qualifiers: Encounter type: initial encounter Laterality: right Qualified Code(s): S81.811A - Laceration without foreign body, right lower leg, initial encounter Fall Qualifiers: Encounter type: initial encounter Qualified Code(s): W19.XXXA - Unspecified fall, initial encounter UTI (urinary tract infection) Qualifiers: Urinary tract infection type: acute cystitis Hematuria presence: with hematuria Qualified Code(s): N30.01 - Acute cystitis with hematuria Anemia Qualifiers: Anemia type: other cause Other causes of anemia: other cause, not classified Qualified Code(s): D64.89 - Other specified anemias Condition: Good
[2017-08-23 01:50] LABS: PLATELET COUNT 249 10^3/uL (150-400)
[2017-08-23] MEDS ORDERED: ONDANSETRON 4 MG/2 ML VIAL IVP PRN (03:07)
[2017-08-23] MEDS: NS 1,000 ML IV SCH ×2 (04:05→10:50)
[2017-08-23] MEDS ORDERED: D50W 25 GM/50 ML VIAL IVP PRN (04:38)
--- NOTE | 2017-08-23 06:17 | PDGENHP ---
History and Physical - Chief Complaint Fall, confusion, generalized weakness. - History of Present Illness Source-patient is able to provide some history. She has only fair historian she does have a history of cognitive impairment appears to be slightly worse from baseline. EMR was reviewed and case discussed with ED provider. HPI-this is a pleasant 76-year-old female with past medical history significant for DM 2, hypothyroidism, GERD, osteoporosis, recurrent UTIs, anemia with history of hematuria and recent bladder biopsy, history AFib off of AC due to anemia and falls as well as some mild cognitive impairment who presents to the emergency department today from her home at the [facility] where she has home health and assistance from aids. Patient was walking with her walker on when she had a mechanical fall. She was to the floor per report. At time of my interview patient is reporting that she did hit her head fell on her right lower leg and opened and old slow healing wound on her right side that does appear to be a fresh skin tear. Reports received that patient had aids at her side and was assisted to the floor. Patient is currently denying any fevers, chills, chest pain, cough, sore throat, shortness of breath, nausea vomiting or diarrhea, dysuria hematuria. She was also noted to be slightly more confused from her baseline. Patient is well-known to the hospital as she has had multiple hospitalizations and even more so ED visits in the last year. Patient is complaining of some perineal and on gluteal skin pain due to irritation. Patient is currently having urinary incontinence. Do not see listed in the most recent hospital stay that there is notation that this was an ongoing issue for the patient. I am not sure if this is new but patient appears to be distressed by this. Patient was most recently just admitted on 08/13/2017 for similar episode where she woke in the middle of the night and had a fall. She developed an acute encephalopathy as well as was treated for UTI. Patient has a history of recurrent abnormal U waves which generally have grown on multiple normal urologic malaika. Patient was discharged with Keflex. Her UA which was a catheterized specimen again was similarly turbid and abnormal. Differing today however is that patient has a leukocytosis. Patient is denying any subjective fevers chills and she has not had none recorded in the emergency department. At time of her discharge last week extensive discussions occurred with the patient and care team regarding significant concerns for her safety if she is discharged home and recommended that patient be transferred to a SNF at discharge. Patient denied and accepted home health care however presents again today with similar episode of fall weakness and confusion. History Information - Allergies/Home Medication List Allergies/Adverse Reactions: morphine Allergy (Mild, Verified 08/04/17 10:59) Vomiting nitrofurantoin Allergy (Mild, Verified 08/04/17 10:59) Rash Home Medications: Levothyroxine [Synthroid 75 mcg (*)] 75 mcg PO DAILY06 03/13/16 [Last Taken 07/25] metFORMIN HCL [Glucophage 500 mg (*)] 500 mg PO DAILY@0800 02/10/17 [Last Taken 08/12/17] Cholecalciferol Vit D3 [Vitamin D3 (*)] 1,000 units PO BID 05/04/17 [Last Taken 08/12/17 21:00] Omeprazole 40 mg PO DAILY 05/04/17 [Last Taken 08/12/17] Sitagliptin Phos/Metformin HCl [Janumet 50-500 mg Tablet] 1 tab PO DAILY@1700 [Last Taken 08/12/17] Alendronate Sodium [Fosamax 70 MG (*)] 70 mg PO MO@0700 07/07/17 [Last Taken 06/25] I have personally reviewed and updated: family history, medical history, social history, surgical history - Past Medical History Additional medical history: DM2 with most recent hemoglobin A1c 9%. Mild cognitive impairment. C-spine injury. Osteoporosis. Chronic pain with continuous opiate dependency. HTN. Gout. 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 Chronic hematuria and urinary frequency, unclear cause, has resulted in hydronephrosis in past as well as acute kidney injury. Bladder biopsies have revealed chronic inflammatory changes. Chronic blood-loss anemia. Recurrent UTIs with associated encephalopathic changes. Chronic kidney disease stage 3. Possible cirrhosis on abdominal CT. Paroxysmal atrial fibrillation patient is not on anticoagulation secondary to her history of bleeding and falls. Hypothyroidism. GERD. Osteoporosis. Recurrent mechanical falls - Surgical History Additional surgical history: several R leg orthopedic surgeries - right femur fracture repair and distal right lower extremity. Hysterectomy. multiple abd surgeries for fibroids/adhesions. Cystoscopy 06/16 with a biopsy revealing chronic inflammatory changes - Family History Positive for: non-pertinent Additional family history: Father with diabetes, sister with breast cancer - Social History Smoking Status: Never smoked Additional social history: Pt lives with her in the assisted living facility [facility]. 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 She does require use of a walker and is quite unsteady gait particularly with movement backwards. Cor status-will need to verify with most form submitted with [facility]. will leave as full pending verification (08/23/17) Review of Systems Review of Systems: ROS: 10pt was reviewed & negative except for what was stated in HPI & below Constitutional: Reports: weakness (Generalized). Denies: chills, fever EENMT: Reports: no symptoms Cardiac: Reports: no symptoms Respiratory: Reports: no symptoms Gastrointestinal: Reports: no symptoms, other (Urinary incontinence). Denies: abdominal pain Genitourinary: Reports: other (Perineal skin abrasions, itching and pain with urination.) Muscolosketal: Reports: other (Chronic right leg pain) Skin: Reports: other (Peroneal abrasions and excoriations that extend posteriorly to the buttock) Neurological: Reports: weakness (Generalized), other (Cognitive impairment at baseline mild.). Denies: emotional problems, headache, numbness, tingling Hematologic/Lymphatic: Reports: anemia Physical Exam Physical Exam: Selected Entries 08/23/17 01:23 Blood Pressure Automatic Method Heart Rate 88 Respiratory 18 Rate O2 Sat (%) 95 Temperature (C) 37.2 C Blood Pressure 106/60 Mean Arterial 75 Pressure (MAP) O2 Delivery Room Air Mode Temperature Oral Source Temp Pulse Resp BP Pulse Ox 36.5 C 71 16 109/55 L 95 08/23/17 04:06 08/23/17 04:06 08/23/17 04:06 08/23/17 04:06 08/23/17 04:06 Constitutional: no apparent distress, appears nourished, chronically ill appearing, other (NAD. Frail elderly adult female is sitting on edge of bed. Generalized weakness requiring minimal assistance with position but adamantly refusing it at insisting that she can mobilize herself but clearly has significant difficulty and requires assistance.) Eyes: PERRL, anicteric sclera, EOMI, No scleral injection Ears, Nose, Mouth, Throat: no oral mucosal ulcers, dry mucous membranes, other ( No nasal discharge) Cardiovascular: regular rate and rhythym, diastolic murmur (2/6), pulses symmetric bilaterally, edema (Trace lower extremity edema), other Peripheral Pulses: 1+: dorsalis-pedis (R), dorsalis-pedis (L) Respiratory: no respiratory distress, no rales or rhonchi, clear to auscultation , reduced air movement (Diminished at the bases.), No inspiratory crackles, No respiratory distress Gastrointestinal: normoactive bowel sounds, soft, non-tender abdomen, no palpable masses, other (Obese abdomen with a well-healed midline abdominal surgical scar.), No distension Genitourinary: no bladder tenderness, other (Patient with urinary incontinence) , No schroeder in urethra Skin: warm, normal color, no rashes or abrasions, other (Pallor) Musculoskeletal: no joint effusions, joint tenderness (Right leg), generalized weakness, other (Unsteady gait) Neurologic: No AAOx3 (Patient with some slight disorientation and memory deficits.) Psychiatric: interacting appropriately, not anxious, thought process linear, poor insight, poor memory, other (Patient is pleasant and cooperative. She admits to having memory deficits when asked certain questions she cannot recall details.), No not encephalopathic, No anxious, No depressed, No suicidal ideation, No agitated Lab Data & Imaging Review 08/23/17 01:40 08/23/17 01:40 WBC 13.98 10^3/uL (3.80-9.50) H 08/23/17 01:40 RBC 2.93 10^6/uL (4.18-5.33) L 08/23/17 01:40 Hgb 7.8 g/dL (12.6-16.3) L 08/23/17 01:40 Hct 24.7 % (38.0-47.0) L 08/23/17 01:40 MCV 84.3 fL (81.5-99.8) 08/23/17 01:40 MCH 26.6 pg (27.9-34.1) L 08/23/17 01:40 MCHC 31.6 g/dL (32.4-36.7) L 08/23/17 01:40 RDW 17.2 % (11.5-15.2) H 08/23/17 01:40 Plt Count 249 10^3/uL (150-400) 08/23/17 01:40 MPV 10.7 fL (8.7-11.7) 08/23/17 01:40 Neut % (Auto) 85.7 % (39.3-74.2) H 08/23/17 01:40 Lymph % (Auto) 2.6 % (15.0-45.0) L 08/23/17 01:40 [place] % (Auto) 8.9 % (4.5-13.0) 08/23/17 01:40 Eos % (Auto) 1.9 % (0.6-7.6) 08/23/17 01:40 Baso % (Auto) 0.4 % (0.3-1.7) 08/23/17 01:40 Nucleat RBC Rel Count 0.0 % (0.0-0.2) 08/23/17 01:40 Absolute Neuts (auto) 11.98 10^3/uL (1.70-6.50) H 08/23/17 01:40 Absolute Lymphs (auto) 0.36 10^3/uL (1.00-3.00) L 08/23/17 01:40 Absolute Monos (auto) 1.24 10^3/uL (0.30-0.80) H 08/23/17 01:40 Absolute Eos (auto) 0.27 10^3/uL (0.03-0.40) 08/23/17 01:40 Absolute Basos (auto) 0.06 10^3/uL (0.02-0.10) 08/23/17 01:40 Absolute Nucleated RBC 0.00 10^3/uL (0-0.01) 08/23/17 01:40 Immature Gran % 0.5 % (0.0-1.1) 08/23/17 01:40 Immature Gran # 0.07 10^3/uL (0.00-0.10) 08/23/17 01:40 RBC/WBC/PLT Morphology TNP 08/23/17 01:40 Platelet Estimate TNP 08/23/17 01:40 Sodium 137 mEq/L (135-145) 08/23/17 01:40 Potassium 4.4 mEq/L (3.3-5.0) 08/23/17 01:40 Chloride 110 mEq/L (97-110) 08/23/17 01:40 Carbon Dioxide 14 mEq/l (22-31) L 08/23/17 01:40 Anion Gap 13 mEq/L (8-16) 08/23/17 01:40 BUN 41 mg/dL (7-23) H 08/23/17 01:40 Creatinine 1.6 mg/dL (0.6-1.0) H 08/23/17 01:40 Estimated GFR 31 08/23/17 01:40 Glucose 125 mg/dL (70-100) H 08/23/17 01:40 Calcium 8.5 mg/dL (8.5-10.4) 08/23/17 01:40 POC Troponin I 0.01 ng/mL (0.00-0.08) 08/23/17 01:46 Urine Color YELLOW 08/23/17 02:10 Urine Appearance TURBID 08/23/17 02:10 Urine pH 6.0 (5.0-7.5) 08/23/17 02:10 Ur Specific [place] 1.010 (1.002-1.030) 08/23/17 02:10 Urine Protein 2+ (NEGATIVE) H 08/23/17 02:10 Urine Ketones NEGATIVE (NEGATIVE) 08/23/17 02:10 Urine Blood 3+ (NEGATIVE) H 08/23/17 02:10 Urine Nitrate NEGATIVE (NEGATIVE) 08/23/17 02:10 Urine Bilirubin NEGATIVE (NEGATIVE) 08/23/17 02:10 Urine Urobilinogen NEGATIVE EU (0.2-1.0) 08/23/17 02:10 Ur Leukocyte Esterase 3+ (NEGATIVE) H 08/23/17 02:10 Urine RBC 50-182 /hpf (0-3) H 08/23/17 02:10 Urine WBC 50-182 /hpf (0-3) H 08/23/17 02:10 Ur Epithelial Cells NONE SEEN /lpf (NONE-1+) 08/23/17 02:10 Urine Glucose NEGATIVE (NEGATIVE) 08/23/17 02:10 Assessment & Plan Assessment: 76-year-old lady with the history multiple medical issues and recurrent hospital and ER visits for falls, encephalopathy, recurrent UTI who presents with fall confusion and weakness. UTI (urinary tract infection) (Acute) - patient with history of recurrent UTIs. She is currently with a urinary incontinence am not sure if this is chronic in nature more acute. She has history of polymicrobial on cultures consistent with urologic malaika however patient has developed mild encephalopathy again and this time has a leukocytosis. She is afebrile. She does not meet SIRS criteria. Patient has been started on Rocephin while awaiting cultures. Acute on CKD stage 3 - patient does appear slightly dry. IV fluids for gentle hydration overnight and repeat BMP in the morning. Encephalopathy - patient not currently agitated but she is a little bit more disoriented than her baseline with a history of some mild cognitive impairment. Leukocytosis - concerning for infectious source versus reactive in recent with recent fall. Repeat CBC in the morning. Monitor for fevers as noted above. Generalized weakness - ongoing issues patient has been using a walker at her assisted living facility. PT OT will be consulted. Patient is quite resistant to any assistance with her mobility. Anemia (Acute) - patient's H&H is slightly decline. She has chronic blood-loss anemia due to chronic inflammatory changes in her bladder. She has no evidence of other sources of bleeding. Will monitor H&H and vital signs. Blood pressures intermittently low normal which appears to be patient's baseline based on review vitals from previous hospital stay. Dehydration (Acute) - patient does appear slightly dry. She has acute kidney insufficiency on her chronic baseline. Normal saline supplementation encourage oral hydration. Repeat BMP in the morning. Fall (Acute) - bed alarm fall precautions. PT OT as noted above. Noninfected skin tear of leg (Acute) - patient reports that she has a chronic wound at this site and on with her recent fall was opened. I looked at the wound in a does appear to be new however. There is no surrounding erythema or purulence. Wound Care consulted. Perineal excoriations - on consulting pharmacy to see what we have available for barrier creams and ointments at this time. Likely exacerbation on with ongoing urinary incontinence. Will avoid Schroeder catheter placement at this time. Suspect this is likely chronic but there is no documentation stating this. Urinary incontinence - as noted above. Chronic medical issues Dm 2 - resume patient's insulin. Add sliding scale. Hold off on metformin and Januvia in setting of acute renal insufficiency. Hypothyroidism - continue levothyroxine supplementation when med rec available. Cognitive impairment - as noted above patient is slightly more confused than her baseline based on her recent hospital stay and nursing continuity.. HCV cirrhosis on imaging - do not suspect hepatic encephalopathy at this time. If patient does not show any improvement after antibiotics and IV fluids consider checking an ammonia. GERD - continue PPI Osteoporosis - patient takes Fosamax on Mondays Paroxysmal atrial fibrillation off anticoagulation due to anemia bleeding and falls - patient's rate is currently controlled. Consider telemetry monitoring if changes in heart rate. FEN - IV fluids with normal saline for gentle hydration as patient does appear dry. Electrolyte monitoring and replacement p.r.n.. ADA diet ordered. PPX-SCDs. Holding anticoagulation secondary to history of anemia bleeding. Cor status-given patient's encephalopathy unable to further discuss code status. Listed are in her accompanying paperwork from [facility] on her documentation states that she does have a most form on file however this did not accompany the patient. Will need to further verify and will leave patient is a full code at this time. Was not listed in previous H&P for review.
[2017-08-23] MEDS: INSULIN LISPRO 100 UNIT/ML SC SCH ×4 (08:38→21:36)
[2017-08-23] MEDS ORDERED: ENOXAPARIN 30 MG/0.3 ML SYR SC SCH (09:00)
--- NOTE | 2017-08-23 10:16 | ASMTCMCOM ---
CM Note CM Note Notes: Pt is a 76 y/o female who lives with her in assisted living at the [facility]. Pt has had recurrent hospital and ER visits for falls, encephalopathy, and recurrent UTI's. Currently, PT is reporting that she was using her walker when she fell and hit her head: she opened a slow healing wound on her right side. Pt had aides at her side and was assisted to the floor. She was noted to be slightly more confused than at her baseline. Pt is reportedly also distressed over ongoing incontinence. She was most recently at at [facility] on 08/13/2017 for a similar episode where she woke in the middle of the night and had a fall. SNF was recommended at that time but, Pt refused, but did agree to continuing home services already being provided. These services were provided by [facility]. [facility] provides private duty caregivers. Her previous D/C plan included a referral to [facility] and they intended to contact FRANCA, Joanne #[phone], to set up a mtg with family and the [facility]. CM will continue to follow in order to assess D/C needs. D/C Plan: TBD Date Signed: 08/23/2017 10:15 AM Electronically Signed By:Jess Dior
--- NOTE | 2017-08-23 10:27 | HOSPPROG ---
Hospitalist Progress Note Assessment/Plan: #S/P mechanical fall, trauma #UTI -cultures pending -Rocephin #Dehydration and acute on chronic renal insufficiency -cont IVF #Right patellar fracture, acute per radiology read -Ortho to evaluate, I will contact them #Encephalopathy, multifactorial in etiology #Perineal Excoriations -Wound care to see -Barrier cream -place schroeder #anemia -no E/o acute bleed -transfuse PRN #Weakness -multifactorial -PT to eval #DM: cont Lantus Dispo: inpatient. no safe for discharge. High fall risk. this patient can likely benefit from SNF placement SCD's, stop Lovenox pending ortho eval Subjective: somewhat confused. looks dry. denies pain currently. Objective: Vital Signs Temp Pulse Resp BP Pulse Ox 36.7 C 75 15 100/48 L 96 08/23/17 07:49 08/23/17 07:49 08/23/17 07:49 08/23/17 07:49 08/23/17 07:49 08/22/17 08/23/17 08/24/17 05:59 05:59 05:59 Intake Total 1350 Balance 1350 - Physical Exam Constitutional: no apparent distress Eyes: PERRL Ears, Nose, Mouth, Throat: dry mucous membranes Cardiovascular: regular rate and rhythym, No edema Respiratory: no respiratory distress, no rales or rhonchi, clear to auscultation Gastrointestinal: normoactive bowel sounds, soft, non-tender abdomen Skin: warm Musculoskeletal: generalized weakness Neurologic: No AAOx3 Psychiatric: interacting appropriately, not anxious Lymph, Heme, Immunologic: No petechiae ICD10 Worksheet Patient Problems: Problems Problem Status Onset Anemia Acute Dehydration Acute Fall Acute Noninfected skin tear of leg Acute UTI (urinary tract infection) Acute NICHELLE (acute kidney injury) Acute Altered mental status Acute Atrial fibrillation Acute Cervical spine fracture Acute Diabetes Acute Elevated troponin Acute Encephalopathy acute Acute Fall at home Acute Frequent falls Acute Gait instability Acute Gastroenteritis Acute Hematuria Acute Hyperglycemia Acute Hypertension Acute Hyponatremia Acute Normocytic anemia due to blood loss Acute Pain management Acute Palliative care encounter Acute Sepsis secondary to UTI Acute Multiple drug resistant organism (MDRO) culture positive Chronic
[2017-08-23] MEDS ORDERED: POLYETHYLENE GLYCOL 3350 17 GM PKT PO PRN (10:29)
--- NOTE | 2017-08-23 10:48 | PDMN ---
Medical Necessity Medical necessity: C/M review: est. > 2 MN LOS for eval and TX of acute - urinary tract infection, dehydration, right patellar fracture, encephalopathy ( multifactorial in etiology), anemia, acute on chronic renal insufficiency, acute and persistent weakness, cultures pending, patient is medically unsafe for discharge, requiring IV fluids, planned Orthopedic consult, Wound care consult, Cheng catheter placement, ongoing IV Rocephin, stop Lovenox pending Orthopedic evaluation, Barrier cream to perineal excoriations, acute inpt PT, comorbid perineal excoriations present on admission, history or mechanical fall , trauma prior to this admission per 08/23/2017 Hospitalist progress note.
[2017-08-23] MEDS: INSULIN GLARGINE 100 UNITS/ML UNIT SC SCH ×2 (10:49→21:41)
[2017-08-23] MEDS: COLCHICINE 0.6 MG CAP/TAB PO SCH ×2 (16:05→16:10)
[2017-08-23] MEDS: oxyCODONE IR 5 MG TAB PO PRN (16:08)
--- NOTE | 2017-08-23 18:56 | GCON ---
[f rep st] CONSULTATION DATE OF CONSULTATION: 08/23/2017 HISTORY OF PRESENT ILLNESS: The patient is a pleasant 76-year-old female who presents today to the ED for a fall to her right lower extremity, confusion, and generalized weakness. She was at the [facility] where she has home health and assistance from aids and was walking with her walker today when she had a mechanical fall. She reported no loss of consciousness or hitting her head, but she did experience a laceration to her right knee and, per the patient , states it is an old and slow healing wound on the right side which opened after her fall. She had aids at her side who were able to assist her off the floor following her injury. She experienced right knee pain over area of laceration but denies difficulty attempting ROM. She denies abnormal numbness/ tingling, claudication, abnormal bleeding/oozing/discharge, change in heat or color of extremity. She currently is able to respond appropriately to questions. In no acute distress. The patient was most recently admitted on 08/13/2017 for a similar episode where she had awakened in the middle of the night and experienced a fall. She does have previous history of extensive hardware and ORIF to her right lower extremity as well, she is unable to recall the dates of surgery. She has a past medical history pertinent for DM2, hypothyroidism, GERD, osteoporosis, recurrent UTIs, anemia with a history of hematuria and recent bladder biopsy, history of AFib as well as mild cognitive impairment. REVIEW OF SYSTEMS: Otherwise, a 10-point review of systems is negative except for as stated above. ALLERGIES: Morphine allergy causes vomiting. Nitrofurantoin causes a rash. HOME MEDICATIONS: Levothyroxine, metformin, cholecalciferol, omeprazole, sitagliptin, alendronate. PAST MEDICAL HISTORY: DM2 with most recent hemoglobin A1c 9%, mild cognitive impairment, C-spine injury, osteoporosis, chronic pain with continuous opiate dependency, hypertension, gout, HCV with cirrhosis on imaging, chronic hematuria and urinary frequency of unclear cause, bladder biopsies, chronic blood-loss anemia, recurrent UTIs with associated encephalopathic changes, CKD stage 3, possible cirrhosis, paroxysmal atrial fibrillation not currently on anticoagulation due to a history of bleeding and falls, hypothyroidism, GERD, recurrent mechanical falls. PAST SURGICAL HISTORY: Pertinent for several right leg orthopedic procedures including a right femur fracture repair and distal right lower extremity (she is unsure of the dates when these surgeries were performed), hysterectomy, multiple abdominal surgeries for fibroids and adhesions, and cystoscopy with a biopsy revealing chronic inflammatory changes. FAMILY HISTORY: Pertinent for a father with diabetes and a sister with breast cancer. SOCIAL HISTORY: The patient lives with her , and they used to live in the [facility]. She requires the use of a walker and has an unsteady gait, particularly with movement backwards, history of numerous falls. PHYSICAL EXAMINATION: GENERAL: She is alert and oriented, able to respond appropriately to questions/commands, in no acute distress. HEENT: Normocephalic, atraumatic. EOMs intact. Moist buccal mucosa. Patent nares. Hearing intact. LYMPH NODES: No lymphadenopathy. NECK: NTTP. Full AROM. Negative Lhermitte. Negative Spurling. RESPIRATORY: Nonlabored breathing. No diaphoresis. CV: Regular rate and rhythm. GI: Nontender. No distention noted. MUSCULOSKELETAL: Focalized exam of b/l UE: Full AROM 5/5 strength. No effusion, erythema, edema , ecchymosis or calor. NTTP. Gross sensation intact with brisk cap refill present b/l. Focalized exam of the lower extremities: Right knee with a 1 cm abrasion located over the anterolateral aspect of her distal knee with no abnormal bleeding, oozing, edema, erythema, ecchymosis or calor noted. No effusion noted. TTP over medial and lateral joint line, however, NTTP over the infrapatellar pole of the patella. Able to actively extend her knee and flex the knee during physical exam today against gravity. ROM 0-75 deg's limited by pain. Unable to fully assess strength of right knee due to pain over laceration , however, 5/5 strength present distally and during exam she attempts to want to stand and ambulate, which is not recommended at this time. Ligaments stable. Negative anterior or posterior valgus/varus stress tests, although limited by the patient's pain during physical exam. Calves soft, supple, and nontender to palpation B/L with negative bilateral Jonathan and brisk cap refill. DNVI b/l in lower extremities with gross sensation intact and no focal deficits. NEURO: Alert and oriented. Slight disorientation and memory deficits. Gross sensation is intact B/L in her bilateral lower extremities with DNVI B/L and no focal deficits noted. PSYCH: Not anxious. Interacts appropriately. Pleasant and cooperative. X-RAYS: 3-views of her right knee were examined which show non-displaced, transverse inferior pole of patella fracture. There are extensive postoperative changes with healed distal femoral and proximal tibial fractures ORIF. The hardware appears intact with no evidence of fracture, malalignment, or deformity around the hardware. ASSESSMENT: Right knee closed, stable and nondisplaced inferior pole patella fracture with intact extensor mechanism following a fall. PLAN: At this time, the patient's physical exam findings and x-rays were reviewed at length. She will be managed non-op for this non-displaced R inferior pole patella fx, with WBAT in knee immobilizer, PT/OT, RICE. Avoid NSAIDs and smoking. PO analgesics prn. She would be a high risk surgical patient due to her positive UTIs and h/o numerous comorbidities. Recommend DVT prophylaxis with SCDs and JOSE ROBERTO hose and IS. Follow up in the clinic in 7 days for repeat evaluation and to confirm no instability. The patient's physical exam findings and x-rays were explained at length to her, and recommend to watch for any worsening pain, abnormal numbness, change in heat or color of the extremity, claudication, and to seek immediate medical attention if seen. The patient's physical exam findings and x-rays were seen and examined with conjunction with Dr. Cabrera. /[id number]/MODL MTDNeil
[2017-08-23] MEDS: ACETAMINOPHEN 325 MG TAB PO PRN (23:52)
[2017-08-24 04:42] LABS: PLATELET COUNT 204 10^3/uL (150-400)
[2017-08-24] MEDS: LEVOTHYROXINE 75 MCG TAB PO SCH (05:17)
[2017-08-24] MEDS: ACETAMINOPHEN 325 MG TAB PO PRN ×2 (05:22→22:52)
--- NOTE | 2017-08-24 08:59 | SOAPPROG ---
SOAP Progress Note Assessment/Plan: Assessment: Stable, nondisplaced R inf pole patella fx with intact ext mechanism. Plan: Will treat non-op with R knee immobilizer, WBAT, RICE and ice massage. Avoid NSAIDs and smoking. Rec TEDs/SCDs at a minimum. PO analgesics prn. PT/ OT for ambulation. F/u with me in clinic in 1 week for repeat XRs. Please call with any questions. 08/24/17 08:57 Subjective: Denies any problems overnight, no pain at rest. No N/T RLE. Objective: Vital Signs Temp Pulse Resp BP Pulse Ox 36.6 C 88 17 137/74 H 94 08/24/17 07:26 08/24/17 07:26 08/24/17 07:26 08/24/17 07:26 08/24/17 07:26 Laboratory Results 08/24/17 04:10 08/24/17 04:10 08/23/17 08/24/17 08/25/17 05:59 05:59 05:59 Intake Total 1893 Output Total 1610 Balance 283 R knee w/o effusion, ecchy, calor or erythema, trace edema. TTP at IPP. Ext mech intact, able to maintain full ext against gravity R knee. ROM 0-80 deg's. Knee o/w stable. Calves NT, no edema, neg Homans. ICD10 Worksheet Patient Problems: Problems Problem Status Onset Anemia Acute Dehydration Acute Fall Acute Noninfected skin tear of leg Acute UTI (urinary tract infection) Acute NICHELLE (acute kidney injury) Acute Altered mental status Acute Atrial fibrillation Acute Cervical spine fracture Acute Diabetes Acute Elevated troponin Acute Encephalopathy acute Acute Fall at home Acute Frequent falls Acute Gait instability Acute Gastroenteritis Acute Hematuria Acute Hyperglycemia Acute Hypertension Acute Hyponatremia Acute Normocytic anemia due to blood loss Acute Pain management Acute Palliative care encounter Acute Sepsis secondary to UTI Acute Multiple drug resistant organism (MDRO) culture positive Chronic
[2017-08-24] MEDS: PANTOPRAZOLE SODIUM 40 MG TAB PO SCH (09:23)
[2017-08-24] MEDS: ALLOPURINOL 300 MG TAB PO SCH (09:23)
[2017-08-24] MEDS: COLCHICINE 0.6 MG CAP/TAB PO SCH ×2 (09:24→16:46)
[2017-08-24] MEDS: CHOLECALCIFEROL VIT D3 1,000 UNITS TAB PO SCH ×3 (09:25→21:54)
[2017-08-24] MEDS: INSULIN GLARGINE 100 UNITS/ML UNIT SC SCH ×2 (09:35→21:13)
[2017-08-24] MEDS: INSULIN LISPRO 100 UNIT/ML SC SCH ×4 (09:36→21:12)
--- NOTE | 2017-08-24 10:37 | WOCRNPDOC ---
WOCRN Advanced Assessment Note - Skin Integrity Problem, Advanced Assess Buttock Dressing Type: Open to Air Closure Description: Not Approximated Exudate Amount: Scant Exudate Color: Reddish/Yellow Exudate Characteristic(s): Serosanguinous Integumentary Issue Intervention: Barrier Cream Applied Lorenza Wound Tissue: Blanching, Erythema, Dry, Crusted, Painful/Tender Wound Bed Color: [place] Wound Bed Constitution: Smooth Tissue Wound Edges: Irregular Skin Integrity Problem Comment: Patient rolled to her left side with assistance from SHYANN Bhat. Bilateral gluteal clefts with apparent moisture related dermatitis. Patient currently with Cheng catheter in place. SHYANN Bhat cleaned with a moistened wash cloth and calazime paste applied. Orders placed to avoid further breakdown. Wound care will not continue to follow.
--- NOTE | 2017-08-24 13:28 | HOSPPROG ---
Hospitalist Progress Note Assessment/Plan: #S/P mechanical fall, trauma #UTI -cultures pending -Rocephin #Dehydration and acute on chronic renal insufficiency -Cr much improved -Trial off IVF #Right patellar fracture -no operative mgmt -right knee immobilizer -WBAT -Avoid NSAIDS -f/u with Dr. Yvon Cabrera in one week #Encephalopathy, multifactorial in etiology -will get a cognitive eval #Perineal Excoriations -Wound care to see -Barrier cream -cont schroeder #anemia -no E/o acute bleed -transfuse now #Weakness -multifactorial -PT to eval #DM: cont Lantus Dispo: inpatient. no safe for discharge. High fall risk. this patient can likely benefit from SNF placement SCD's for DVT prophl Subjective: Hgb is down. No cp or SOB. No n/V. More alert today. Objective: Vital Signs Temp Pulse Resp BP Pulse Ox 36.6 C 88 17 137/74 H 94 08/24/17 07:26 08/24/17 07:26 08/24/17 07:26 08/24/17 07:26 08/24/17 07:26 Laboratory Results 08/24/17 04:10 08/24/17 04:10 08/23/17 08/24/17 08/25/17 05:59 05:59 05:59 Intake Total 1893 Output Total 1610 Balance 283 - Physical Exam Constitutional: no apparent distress, not in pain Eyes: PERRL, EOMI Ears, Nose, Mouth, Throat: moist mucous membranes, hearing normal Cardiovascular: regular rate and rhythym, No edema Respiratory: no respiratory distress, no rales or rhonchi Gastrointestinal: normoactive bowel sounds, soft, non-tender abdomen Skin: warm Neurologic: AAOx3 Psychiatric: interacting appropriately, not anxious, not encephalopathic Lymph, Heme, Immunologic: No petechiae ICD10 Worksheet Patient Problems: Problems Problem Status Onset Anemia Acute Dehydration Acute Fall Acute Noninfected skin tear of leg Acute UTI (urinary tract infection) Acute NICHELLE (acute kidney injury) Acute Altered mental status Acute Atrial fibrillation Acute Cervical spine fracture Acute Diabetes Acute Elevated troponin Acute Encephalopathy acute Acute Fall at home Acute Frequent falls Acute Gait instability Acute Gastroenteritis Acute Hematuria Acute Hyperglycemia Acute Hypertension Acute Hyponatremia Acute Normocytic anemia due to blood loss Acute Pain management Acute Palliative care encounter Acute Sepsis secondary to UTI Acute Multiple drug resistant organism (MDRO) culture positive Chronic
[2017-08-24] MEDS ORDERED: FAMOTIDINE 20 MG/NACL/50 ML BAG IV ONE (19:31)
[2017-08-24] MEDS ORDERED: MEPERIDINE 25 MG/ML SYR IVP ONE (19:35)
[2017-08-24] MEDS ORDERED: MEPERIDINE 25 MG/ML SYR ONE (19:37)
[2017-08-24] MEDS ORDERED: FAMOTIDINE 20 MG/NACL 50 ML IV ONE (19:48)
--- NOTE | 2017-08-24 21:27 | HOSPPROG ---
Hospitalist Progress Note Assessment/Plan: STAT team call. Right after blood transfusion - tachy, rigors, tachypnea. normal to high BP, sinus tach on EKG. no wheezes. Benadryl and Demerol given - improvement in vitals. transfer to SDU overnight Objective: Vital Signs Temp Pulse Resp BP Pulse Ox 37.5 C 119 H 20 122/65 H 98 08/24/17 20:52 08/24/17 20:52 08/24/17 20:52 08/24/17 20:52 08/24/17 20:52 Laboratory Results 08/24/17 04:10 08/24/17 04:10 08/23/17 08/24/17 08/25/17 05:59 05:59 05:59 Intake Total 1893 Output Total 1610 1300 Balance 283 -1300 ICD10 Worksheet Patient Problems: Problems Problem Status Onset Anemia Acute Dehydration Acute Fall Acute Noninfected skin tear of leg Acute UTI (urinary tract infection) Acute NICHELLE (acute kidney injury) Acute Altered mental status Acute Atrial fibrillation Acute Cervical spine fracture Acute Diabetes Acute Elevated troponin Acute Encephalopathy acute Acute Fall at home Acute Frequent falls Acute Gait instability Acute Gastroenteritis Acute Hematuria Acute Hyperglycemia Acute Hypertension Acute Hyponatremia Acute Normocytic anemia due to blood loss Acute Pain management Acute Palliative care encounter Acute Sepsis secondary to UTI Acute Multiple drug resistant organism (MDRO) culture positive Chronic
[2017-08-25] MEDS: LEVOTHYROXINE 75 MCG TAB PO SCH (05:13)
[2017-08-25 05:32] LABS: PLATELET COUNT 212 10^3/uL (150-400)
[2017-08-25] MEDS ORDERED: ALENDRONATE SODIUM 70 MG TAB PO SCH (07:00)
[2017-08-25] MEDS: INSULIN LISPRO 100 UNIT/ML SC SCH ×4 (07:21→21:16)
[2017-08-25] MEDS: INSULIN GLARGINE 100 UNITS/ML UNIT SC SCH ×2 (08:24→21:00)
[2017-08-25] MEDS: PANTOPRAZOLE SODIUM 40 MG TAB PO SCH (08:24)
[2017-08-25] MEDS: CHOLECALCIFEROL VIT D3 1,000 UNITS TAB PO SCH ×2 (08:24→21:00)
[2017-08-25] MEDS: COLCHICINE 0.6 MG CAP/TAB PO SCH ×2 (08:25→16:53)
[2017-08-25] MEDS: ALLOPURINOL 300 MG TAB PO SCH (08:25)
--- NOTE | 2017-08-25 10:53 | PDIAF ---
- Diagnosis Diagnosis: patellar fracture Code Status: Do Not Resuscitate - Medication Management Discharge Medications: Medications to Continue on Transfer Alendronate Sodium [Fosamax 70 MG (*)] 70 mg PO MO@0700 08/23/17 [Last Taken ] Allopurinol [Allopurinol 300 MG (RX)] 450 mg PO DAILY 08/23/17 [Last Taken 08/22] Cholecalciferol (Vitamin D3) [Vitamin D3] 1,000 unit PO BID 08/23/17 [Last Taken 08/22/17] Colchicine [Colchicine (*)] 0.6 mg PO BID@,08/23/17 [Last Taken 08/22/17] Insulin Detemir [Levemir] 35 unit SQ BID@,08/23/17 [Last Taken 08/22/17] Levothyroxine [Synthroid 75 mcg (*)] 75 mcg PO DAILY06 08/23/17 [Last Taken ] Metoprolol Tartrate 25 mg PO BID 08/23/17 [Last Taken 08/22/17] Omeprazole 40 mg PO DAILY 08/23/17 [Last Taken 08/22/17] Ondansetron Odt [Zofran Odt 4 mg (*)] 4 mg PO Q4 PRN 08/23/17 [Last Taken ] Polyethylene Glycol 3350 [Miralax 17 gm (*)] 17 gm PO DAILY 08/23/17 [Last Taken 08/22/17] Polyethylene Glycol 3350 [Miralax 17 gm (*)] 17 gm PO DAILY PRN 08/23/17 [Last Taken 08/22/17] Sennosides/Docusate Sodium [Senokot-S] 1 - 2 each PO BID PRN 08/23/17 [Last Taken 08/22/17] Sitagliptin Phos/Metformin HCl [Janumet 50-500 mg Tablet] 1 each PO DAILY@1700 08/23/17 [Last Taken 08/22/17] celeCOXIB [Celecoxib] 200 mg PO DAILY 08/23/17 [Last Taken 08/22/17] metFORMIN HCL [Metformin HCl] 500 mg PO DAILY 08/23/17 [Last Taken 08/22/17] oxyCODONE HCL [Oxycodone HCl] 5 mg PO Q4 PRN 08/23/17 [Last Taken 08/22/17] Cephalexin [Keflex (*)] 500 mg PO BID #10 cap 08/25/17 [Last Taken Unknown] Discharge Medications: Refer to the Discharge Home Medication list for PRN reason. - Orders Services needed: Home Care, Registered Nurse, Physical Therapy Home Care Face to Face: I certify that this patient was under my care and that I had the required [id number] encounter meeting the encounter requirements on the discharge day. My findings support the fact that the patient is homebound as defined in Home Care Face to Face Continued: [facility] Chapter 7 Medicare Benefits Manual 30.1.1 , The condition of the patient is such that there exists a normal inability to leave home and consequently, leaving home would require a considerable and taxing effort. Isolation Type: Contact Isolation Diet Recommendation: no restrictions on diet Diet Texture: Regular Texture Diet Dang Stockings Discontinue Date: when need immobilizer is dc'ed Additional Instructions: followup with Dr. Cabrera 1 week for xrays. dang hose right leg for dvt prophylaxis - Follow Up Care Current Providers and Referrals: Patient,NotPresent [Unknown] - As per Instructions
--- NOTE | 2017-08-25 11:07 | GDS ---
[f rep st] DISCHARGE SUMMARY DISCHARGE DIAGNOSES: 1. Status post mechanical fall with right patellar fracture. 2. Urinary tract infection. 3. Dehydration, secondary to acute and chronic dehydration. 4. Acute on chronic renal insufficiency. 5. Anemia without evidence of bleed status post transfusion. 6. Weakness and deconditioning, likely multifactorial. CONSULTANTS: Dr. Cabrera, Orthopedic. HOSPITAL COURSE: 1. Status post mechanical fall with stable nondisplaced right inferior pole patellar fracture: Aleshia ent was seen by Ortho who recommended nonoperative treatment with a knee immobilizer. He recommended against using NSAIDs. He asks for followup in 1 week for repeat x-rays. During the patient's hospi mane stay, she was offered group home facility placement, but has opted to be discharge home with her daughter, as well as home care. 2. Anemia: The patient has not been noted to be bleeding during this hospital stay. Her initial he moglobin was 7.8, but dropped to 6.6 on 08/24/2017. She was subsequently transfused 1 unit of packed red blood cells. During the transfusion, she became hypotensive and was subsequently transferred to the unit. On day of discharge, her hemoglobin is 7.2 and she feels well. Iron studies done this ho spitalization revealed a ferritin of 32 with iron of 22 and TIBC of 303. 3. Urinary tract infection: Initial UA shows 3+ leukocyte esterase, 2+ ketones, and 3+ blood. Urin e culture has not grown any organisms after 24 hours. She has been on Rocephin and will be discharge d to complete a 7-day course of cephalexin. PHYSICAL EXAMINATION: VITAL SIGNS: On day of discharge, blood pressure 121/83, pulse of 80, respira tory rate 14, O2 saturation 99% on room air. Temperature afebrile. GENERAL: In no acute distress. HEART: S1, S2. LUNGS: Clear. ABDOMEN: Soft. Right knee is in an immobilizer. DISCHARGE MEDICATIONS: Please refer to discharge medication reconciliation in [facility] for full deta ils. Below is a preliminary list: New medications on hospital discharge, cephalexin 500 mg p.o. b.i.d. for 5 days. Other home medicati ons were continued at her usual home dosages. DISCHARGE INSTRUCTIONS: The patient will be discharged home with daycare manager and PT. She should fo llow up with Dr. Cabrera in 1 week. She should wear JOSE ROBERTO hose on her right leg for DVT prophylaxis. /[id number]/MODL
--- NOTE | 2017-08-25 12:28 | HOSPPROG ---
Hospitalist Progress Note Assessment/Plan: #S/P mechanical fall, trauma #UTI -cultures pending -Rocephin #Dehydration and acute on chronic renal insufficiency -Cr much improved -Trial off IVF #Right patellar fracture -no operative mgmt -right knee immobilizer -WBAT -Avoid NSAIDS -f/u with Dr. Yvon Cabrera in one week #Encephalopathy, multifactorial in etiology -will get a cognitive eval #Perineal Excoriations -Wound care to see -Barrier cream -cont schroeder #anemia -no E/o acute bleed -transfuse now #Weakness -multifactorial -PT to eval #DM: cont Lantus Dispo: initially planned for dc with home care today, but pt will need SNF. Transfer to med/surg. repeat h/h in am Subjective: no complaints. feeling stronger today Objective: Vital Signs Temp Pulse Resp BP Pulse Ox 36.5 C 97 14 121/83 H 99 08/25/17 07:24 08/25/17 09:02 08/25/17 07:24 08/25/17 07:24 08/25/17 07:24 Laboratory Results 08/25/17 05:10 08/25/17 05:10 08/24/17 08/25/17 08/26/17 05:59 05:59 05:59 Intake Total 1893 800 Output Total 1610 2450 450 Balance 283 -8230 450 - Physical Exam Constitutional: no apparent distress, appears nourished, not in pain Cardiovascular: regular rate and rhythym, no murmur, rub, or gallop Respiratory: no respiratory distress, no rales or rhonchi, clear to auscultation Gastrointestinal: normoactive bowel sounds, soft, non-tender abdomen, no palpable masses Neurologic: AAOx3, sensation intact bilaterally ICD10 Worksheet Patient Problems: Problems Problem Status Onset Noninfected skin tear of leg Acute Fall Acute Altered mental status Acute Multiple drug resistant organism (MDRO) culture positive Chronic Fall at home Acute Diabetes Acute Gastroenteritis Acute Dehydration Acute Atrial fibrillation Acute Hyperglycemia Acute Hypertension Acute Elevated troponin Acute Hyponatremia Acute UTI (urinary tract infection) Acute Cervical spine fracture Acute Frequent falls Acute Gait instability Acute Pain management Acute Sepsis secondary to UTI Acute Palliative care encounter Acute Hematuria Acute Anemia Acute Normocytic anemia due to blood loss Acute Encephalopathy acute Acute NICHELLE (acute kidney injury) Acute
[2017-08-25] MEDS: ACETAMINOPHEN 325 MG TAB PO PRN (21:17)
[2017-08-26] MEDS: LEVOTHYROXINE 75 MCG TAB PO SCH (05:26)
[2017-08-26] MEDS: INSULIN LISPRO 100 UNIT/ML SC SCH ×4 (07:47→21:49)
[2017-08-26] MEDS: COLCHICINE 0.6 MG CAP/TAB PO SCH ×2 (07:48→17:08)
[2017-08-26] MEDS: ALLOPURINOL 300 MG TAB PO SCH (07:48)
[2017-08-26] MEDS: PANTOPRAZOLE SODIUM 40 MG TAB PO SCH (07:48)
[2017-08-26] MEDS: CHOLECALCIFEROL VIT D3 1,000 UNITS TAB PO SCH ×2 (08:16→21:50)
[2017-08-26] MEDS: INSULIN GLARGINE 100 UNITS/ML UNIT SC SCH ×2 (08:16→21:49)
[2017-08-26] MEDS: ACETAMINOPHEN 325 MG TAB PO PRN (08:53)
--- NOTE | 2017-08-26 14:30 | HOSPPROG ---
Hospitalist Progress Note Assessment/Plan: #S/P mechanical fall, trauma #UTI with culture growing scant 3 organisms -dc rocephin and monitor off antibiotics #Dehydration and acute on chronic renal insufficiency -Cr much improved -Trial off IVF #Right patellar fracture -no operative mgmt -right knee immobilizer -WBAT -Avoid NSAIDS -f/u with Dr. Yvon Cabrera in one week #Encephalopathy, multifactorial in etiology (resolving) #Perineal Excoriations -Wound care to see -Barrier cream #anemia with reported vaginal bleeding unsure if it is coming from the bladder or vagina -Case discussed with Dr. Cedeno who has graciously agree to examine the patient and has requested a pelvic u/s. Pt does report a h/o hysterectomy -send coags -repeat cbc in am -consider ct urogram and out patient cysto if vaginal exam negative #Weakness -multifactorial -PT to eval #DM: cont Lantus Dispo: Dc to SNF once bleeding has stopped and h/h stable Subjective: Pt still feels weak and unable to care for her debilitated . reports vaginal bleeding. Objective: Vital Signs Temp Pulse Resp BP Pulse Ox 36.8 C 100 16 148/67 H 95 08/26/17 07:43 08/26/17 07:43 08/26/17 07:43 08/26/17 07:43 08/26/17 07:43 Laboratory Results 08/26/17 05:27 08/25/17 05:10 08/25/17 08/26/17 08/27/17 05:59 05:59 05:59 Intake Total 800 1439 720 Output Total 2450 900 475 Balance -1650 539 245 - Physical Exam Constitutional: no apparent distress, appears nourished, not in pain Cardiovascular: regular rate and rhythym, no murmur, rub, or gallop Respiratory: no respiratory distress, no rales or rhonchi, clear to auscultation Gastrointestinal: normoactive bowel sounds, soft, non-tender abdomen, no palpable masses Neurologic: AAOx3 ICD10 Worksheet Patient Problems: Problems Problem Status Onset Noninfected skin tear of leg Acute Fall Acute Altered mental status Acute Multiple drug resistant organism (MDRO) culture positive Chronic Fall at home Acute Diabetes Acute Gastroenteritis Acute Dehydration Acute Atrial fibrillation Acute Hyperglycemia Acute Hypertension Acute Elevated troponin Acute Hyponatremia Acute UTI (urinary tract infection) Acute Cervical spine fracture Acute Frequent falls Acute Gait instability Acute Pain management Acute Sepsis secondary to UTI Acute Palliative care encounter Acute Hematuria Acute Anemia Acute Normocytic anemia due to blood loss Acute Encephalopathy acute Acute NICHELLE (acute kidney injury) Acute
--- NOTE | 2017-08-26 14:49 | ASMTCMCOM ---
CM Note CM Note Notes: Pt's d/c today was put on hold yesterday and then again today to evaluate pt's vaginal bleeding. After PT/OT recommendations for a SNF d/c, a referral was sent to [facility] per family request. She was accepted there. Spoke with Joanne, pt's stepdaughter [phone] who is here to assist her father and pt. She said the family (including the MPONikhil Ovalle) are in agreement that the pt is not safe in her current living situation and that she and her need more assistance. Per the Kandis BOOTHE, pt continues to refuse skilled PT/OT from [facility] and in their opinion would benefit from a higher LOC. They are discussing other ELIF options with Joanne (Brijesh Cordoba) that offer more assistance, or LTC at a SNF and Joanne is touring facilities. Pt has a patellar fx sustained in her most recent fall. Pt is transferring to [facility] today and hopefully d/c tomorrow to [facility]. CM will continue to follow. Date Signed: 08/26/2017 02:48 PM Electronically Signed By:STARR Christensen
--- NOTE | 2017-08-26 19:04 | SOAPPROG ---
SOAP Progress Note Assessment/Plan: Assessment: Recurrent gross hematuria due to nonbacterial chronic cystitis - appears to have clot in her bladder on u/s. Intraoperative cystoscopy & bladder biopsies < 2 mos. ago were negative for bladder cancer. Plan: 1. Place 3-way Cheng & begin 1% Alum CBI. 2. Reassess tomorrow. Subjective: No complaints, is having gross hematuria. Objective: Vital Signs Temp Pulse Resp BP Pulse Ox 36.6 C 88 18 123/53 H 97 08/26/17 15:24 08/26/17 15:24 08/26/17 15:24 08/26/17 15:24 08/26/17 15:24 Laboratory Results 08/26/17 05:27 08/25/17 05:10 08/25/17 08/26/17 08/27/17 05:59 05:59 05:59 Intake Total 800 1439 720 Output Total 2450 900 475 Balance -1650 539 245 ICD10 Worksheet Patient Problems: Problems Problem Status Onset Anemia Acute Dehydration Acute Fall Acute Noninfected skin tear of leg Acute UTI (urinary tract infection) Acute NICHELLE (acute kidney injury) Acute Altered mental status Acute Atrial fibrillation Acute Cervical spine fracture Acute Diabetes Acute Elevated troponin Acute Encephalopathy acute Acute Fall at home Acute Frequent falls Acute Gait instability Acute Gastroenteritis Acute Hematuria Acute Hyperglycemia Acute Hypertension Acute Hyponatremia Acute Normocytic anemia due to blood loss Acute Pain management Acute Palliative care encounter Acute Sepsis secondary to UTI Acute Multiple drug resistant organism (MDRO) culture positive Chronic
--- NOTE | 2017-08-26 21:22 | GCON ---
[f rep st] CONSULTATION DATE OF CONSULTATION: 08/26/2017 REASON FOR CONSULTATION: Anemia and bleeding, wanted to rule out REPACKER etiology. HISTORY OF PRESENT ILLNESS: The patient is a 76-year-old, 0, with a significant medical hist ory. Please see full admission H and P for the patient's extensive medical history. Patient is a 76-year-old female with extensive medical history, who was admitted after a fall and con fusion and generalized weakness and found to be anemic. Patient has had bleeding with voiding over t he last couple weeks. She had an evaluation by Urology, which did a cystoscopy and a biopsy within t he bladder and, although the cystoscopy was normal, she has continued to have bleeding. We were cons ulted to see if the bleeding was from her vagina or uterus. The patient has a history of a hysterect lili at the age of 31 for symptomatic and recurrent fibroids. She has not had a gynecological exam in many years. She denies any cramping. Pelvic ultrasound was obtained, which showed an absent uterus and unremarkable adnexa and vaginal cuff. An exam was performed, which was somewhat limited, as sharlene beltrán is postmenopausal and was in a regular hospital bed, and her right leg is in a brace and is not able to be bent. After spreading the labia, no obvious masses or lacerations or bleeding was noted. A Q-tip with lubricant on it was inserted into the vagina and a scant amount of blood was noted on t he side of the Q-tip, possibly from the urethra, as the patient had recently voided and had blood in the toilet following voiding. I then placed a small speculum in the patient's vagina. No pooling of blood was noted. No obvious bleeding was noted. However, the exam was somewhat limited. My finger was then inserted following the speculum exam and no obvious masses were palpated. ASSESSMENT AND PLAN: A 76-year-old with blood in the toilet. This bleeding is most likely related t o either her bladder or her renal system. If the patient undergoes an additional cystoscopy, or furt her concerns develop, to continue to evaluate her for any gynecological bleeding etiology, and we can take patient to the operating room for an exam, or patient is taken back to the operating room for a cystoscopy. We can perform a pelvic exam at that time when patient would be more comfortable and we would have more access. Thank you for this consultation of this very pleasant female. /[id number]/MODL
[2017-08-26] MEDS: AMMONIUM ALUM IRR SCH (21:51)
[2017-08-26] MEDS: SODIUM CL IRRIG IRR SCH (21:51)
[2017-08-27] MEDS: ACETAMINOPHEN 325 MG TAB PO PRN (00:19)
[2017-08-27] MEDS: oxyCODONE IR 5 MG TAB PO PRN (01:12)
[2017-08-27] MEDS: LEVOTHYROXINE 75 MCG TAB PO SCH (04:51)
[2017-08-27 05:13] LABS: PLATELET COUNT 250 10^3/uL (150-400)
[2017-08-27 05:19] LABS: INR 1.23 (0.83-1.16); PROTIME(PATIENT) 15.7 SEC (12.0-15.0)
[2017-08-27] MEDS: INSULIN LISPRO 100 UNIT/ML SC SCH ×4 (10:25→20:39)
--- NOTE | 2017-08-27 10:49 | HOSPPROG ---
Hospitalist Progress Note Assessment/Plan: Patient is a 76 y/o female who was admitted after a fall and confusion. She was noted to be anemic. Today is my first encounter w the patient, chart reviewed. #S/P mechanical fall, trauma #UTI with culture growing scant 3 organisms -was treated w Rocephin (no on abx) #Dehydration and acute on chronic renal insufficiency -Cr much improved -Trial off IVF #Right patellar fracture -no operative mgmt -right knee immobilizer -WBAT -Avoid NSAIDS -f/u with Dr. Yvon Cabrera in one week #Encephalopathy, multifactorial in etiology (resolving) #Perineal Excoriations -Wound care to see -Barrier cream #anemia - was evaluated by urology and gynecology -no indication for transfusion today-no significant drop and she is asymptomatic #recurrent gross hematuria due to nonbacterial chronic cystitis -3 way [address] in [address] (reviewed w Dr Magdaleno and this will be stopped tomorrow) -had a intraoperative cystoscopy and bladder biopsies 2 mo ago/ negative for bladder ca -was evaluated by Dr Pao haro gynecology-appreciate her involvement, likely not a [employer] etiology but will evaluate if she goes to the OR #Weakness -multifactorial -PT to eval #DM: cont Lantus Dispo: Dc to SNF likely tomorrow Subjective: Kati has no complaints. Just wants to get better. Objective: Vital Signs Temp Pulse Resp BP Pulse Ox 36.9 C 106 H 18 106/67 96 08/27/17 10:46 08/27/17 10:46 08/27/17 10:46 08/27/17 10:46 08/27/17 10:46 Laboratory Results 08/27/17 04:45 08/25/17 05:10 08/26/17 08/27/17 08/28/17 05:59 05:59 05:59 Intake Total 1439 720 Output Total 900 925 Balance 539 -205 PT 15.7 SEC (12.0-15.0) H 08/27/17 04:45 INR 1.23 (0.83-1.16) H 08/27/17 04:45 - Physical Exam Constitutional: not in pain, chronically ill appearing Eyes: PERRL Ears, Nose, Mouth, Throat: hearing normal Cardiovascular: regular rate and rhythym Respiratory: no respiratory distress Gastrointestinal: normoactive bowel sounds Genitourinary: schroeder in urethra Skin: warm, No normal color (pale) Musculoskeletal: generalized weakness Neurologic: AAOx3 Psychiatric: interacting appropriately, poor memory ICD10 Worksheet Patient Problems: Problems Problem Status Onset Anemia Acute Dehydration Acute Fall Acute Noninfected skin tear of leg Acute UTI (urinary tract infection) Acute NICHELLE (acute kidney injury) Acute Altered mental status Acute Atrial fibrillation Acute Cervical spine fracture Acute Diabetes Acute Elevated troponin Acute Encephalopathy acute Acute Fall at home Acute Frequent falls Acute Gait instability Acute Gastroenteritis Acute Hematuria Acute Hyperglycemia Acute Hypertension Acute Hyponatremia Acute Normocytic anemia due to blood loss Acute Pain management Acute Palliative care encounter Acute Sepsis secondary to UTI Acute Multiple drug resistant organism (MDRO) culture positive Chronic
[2017-08-27] MEDS: ALLOPURINOL 300 MG TAB PO SCH (11:01)
[2017-08-27] MEDS: CHOLECALCIFEROL VIT D3 1,000 UNITS TAB PO SCH ×2 (11:01→20:40)
[2017-08-27] MEDS: PANTOPRAZOLE SODIUM 40 MG TAB PO SCH (11:02)
[2017-08-27] MEDS: COLCHICINE 0.6 MG CAP/TAB PO SCH ×2 (11:07→18:26)
[2017-08-27] MEDS: INSULIN GLARGINE 100 UNITS/ML UNIT SC SCH ×2 (11:24→20:39)
--- NOTE | 2017-08-27 13:38 | SOAPPROG ---
SOAP Progress Note Assessment/Plan: Assessment: Recurrent gross hematuria due to nonbacterial chronic cystitis - resolved on Alum CBI. Intraoperative cystoscopy & bladder biopsies < 2 mos. ago were negative for bladder cancer. Plan: 1. Continue 1% Alum CBI until tomorrow AM, then D/C CBI and Cheng. 2. May be discharged after removing Cheng tomorrow AM. 3. For treatment of chronic nonbacterial cystitis, continue Celebrex 200 mg q.day after discharge (will restart now, was started in my office about 1 week ago). Subjective: No complaints. Objective: Vital Signs Temp Pulse Resp BP Pulse Ox 36.9 C 106 H 18 106/67 96 08/27/17 10:46 08/27/17 10:46 08/27/17 10:46 08/27/17 10:46 08/27/17 10:46 Laboratory Results 08/27/17 04:45 08/25/17 05:10 08/26/17 08/27/17 08/28/17 05:59 05:59 05:59 Intake Total 1439 720 Output Total 900 925 Balance 539 -205 PT 15.7 SEC (12.0-15.0) H 08/27/17 04:45 INR 1.23 (0.83-1.16) H 08/27/17 04:45 Physical Exam - Physical Exam General Appearance: alert, no apparent distress Abdomen: soft, other (urine clear on low-rate CBI) ICD10 Worksheet Patient Problems: Problems Problem Status Onset Anemia Acute Dehydration Acute Fall Acute Noninfected skin tear of leg Acute UTI (urinary tract infection) Acute NICHELLE (acute kidney injury) Acute Altered mental status Acute Atrial fibrillation Acute Cervical spine fracture Acute Diabetes Acute Elevated troponin Acute Encephalopathy acute Acute Fall at home Acute Frequent falls Acute Gait instability Acute Gastroenteritis Acute Hematuria Acute Hyperglycemia Acute Hypertension Acute Hyponatremia Acute Normocytic anemia due to blood loss Acute Pain management Acute Palliative care encounter Acute Sepsis secondary to UTI Acute Multiple drug resistant organism (MDRO) culture positive Chronic
--- NOTE | 2017-08-27 14:24 | ASMTCMCOM ---
CM Note CM Note Notes: Spoke w/CREMATOR, pt will stay another night. No vaginal bleeding found but will continue with continuous bladder irrigation. Marychuy at [facility] notified and pepper picker cancelled. DC Plan: [facility] Date Signed: 08/27/2017 02:24 PM Electronically Signed By:Eve Fletcher RN
--- NOTE | 2017-08-27 14:26 | WOCRNPDOC ---
WOCRN Advanced Assessment Note - Skin Integrity Problem, Advanced Assess Buttock Dressing Type: Open to Air Other Dressing Type: calazime Exudate Amount: None Integumentary Issue Intervention: Dressing Reinforced (calazime reapplied) Lorenza Wound Tissue: Blanching, Erythema, Raw, Swollen, Denuded Lorenza Wound Swelling: Mild Wound Bed Color: Lindr[place], Red Wound Bed Constitution: Red/Lindrith - Non Granular Tissue Wound Edges: Epithelizing, Irregular Site Odor: None Site Measurement - Head-to-Toe Length X Width X Depth (cm): diffuse openings over bilateral buttocks, up to approximately 0.5x0.5cm in size Skin Integrity Problem Comment: Patient able to roll up on to right side easily. Patient's bilateral buttocks are raw and red with diffuse small partial thickness openings, but blanching and improving since last assessment. No pressure injury noted. Wound care will sign off on this patient. Please reconsult PRN.
[2017-08-27] MEDS: AMMONIUM ALUM IRR SCH ×2 (15:21→23:53)
[2017-08-27] MEDS: SODIUM CL IRRIG IRR SCH ×2 (15:21→23:53)
[2017-08-28] MEDS: LEVOTHYROXINE 75 MCG TAB PO SCH (04:47)
[2017-08-28 05:08] LABS: PLATELET COUNT 248 10^3/uL (150-400)
[2017-08-28 07:39] VITALS: BP 132/69
[2017-08-28] MEDS: INSULIN LISPRO 100 UNIT/ML SC SCH ×2 (07:56→12:39)
[2017-08-28] MEDS: CHOLECALCIFEROL VIT D3 1,000 UNITS TAB PO SCH (08:20)
[2017-08-28] MEDS: COLCHICINE 0.6 MG CAP/TAB PO SCH (08:20)
[2017-08-28] MEDS: ALLOPURINOL 300 MG TAB PO SCH (08:20)
[2017-08-28] MEDS: PANTOPRAZOLE SODIUM 40 MG TAB PO SCH (08:20)
[2017-08-28] MEDS: INSULIN GLARGINE 100 UNITS/ML UNIT SC SCH (08:25)
[2017-08-28] MEDS ORDERED: ONDANSETRON DISINTEGRATING 4 MG TAB PO PRN (09:16)
[2017-08-28] MEDS ORDERED: SENNOSIDES/DOCUSATE SODIUM TAB PO PRN (09:16)
--- NOTE | 2017-08-28 15:04 | PDIAF ---
- Diagnosis Diagnosis: patellar fracture Code Status: Do Not Resuscitate - Medication Management Discharge Medications: Medications to Continue on Transfer Alendronate Sodium [Fosamax 70 MG (*)] 70 mg PO MO@0700 08/23/17 [Last Taken ] Allopurinol [Allopurinol 300 MG (RX)] 450 mg PO DAILY 08/23/17 [Last Taken 08/22] Cholecalciferol (Vitamin D3) [Vitamin D3] 1,000 unit PO BID 08/23/17 [Last Taken 08/22/17] Colchicine [Colchicine (*)] 0.6 mg PO BID@,08/23/17 [Last Taken 08/22/17] Insulin Detemir [Levemir] 35 unit SQ BID@,08/23/17 [Last Taken 08/22/17] Levothyroxine [Synthroid 75 mcg (*)] 75 mcg PO DAILY06 08/23/17 [Last Taken ] Metoprolol Tartrate 25 mg PO BID 08/23/17 [Last Taken 08/22/17] Omeprazole 40 mg PO DAILY 08/23/17 [Last Taken 08/22/17] Ondansetron Odt [Zofran Odt 4 mg (*)] 4 mg PO Q4 PRN 08/23/17 [Last Taken ] Polyethylene Glycol 3350 [Miralax 17 gm (*)] 17 gm PO DAILY 08/23/17 [Last Taken 08/22/17] Polyethylene Glycol 3350 [Miralax 17 gm (*)] 17 gm PO DAILY PRN 08/23/17 [Last Taken 08/22/17] Sennosides/Docusate Sodium [Senokot-S] 1 - 2 each PO BID PRN 08/23/17 [Last Taken 08/22/17] Sitagliptin Phos/Metformin HCl [Janumet 50-500 mg Tablet] 1 each PO DAILY@1700 08/23/17 [Last Taken 08/22/17] celeCOXIB [Celecoxib] 200 mg PO DAILY 08/23/17 [Last Taken 08/22/17] metFORMIN HCL [Metformin HCl] 500 mg PO DAILY 08/23/17 [Last Taken 08/22/17] oxyCODONE HCL [Oxycodone HCl] 5 mg PO Q4 PRN 08/23/17 [Last Taken 08/22/17] Cephalexin [Keflex (*)] 500 mg PO BID #10 cap 08/25/17 [Last Taken Unknown] Acetaminophen [Tylenol 325mg (*)] 650 mg PO Q4HRS PRN tab 08/28/17 [Last Taken Unknown] Insulin Glargine [Lantus Syringe] 35 units SC BID unit 08/28/17 [Last Taken Unknown] Insulin Lispro [HumaLOG LISPRO] 0 unit SC ACHS unit 08/28/17 [Last Taken Unknown] Discharge Medications: Refer to the Discharge Home Medication list for PRN reason. - Orders Services needed: Registered Nurse, Physical Therapy, Occupational Therapy Isolation Type: Contact Isolation Diet Recommendation: no restrictions on diet Diet Texture: Regular Texture Diet Dang Stockings Discontinue Date: when need immobilizer is dc'ed Additional Instructions: followup with Dr. Cabrera 1 week for xrays. dang hose right leg for dvt prophylaxis Wound Care: As needed, you may use Calazime, dimethicone moisture barrier cream, or any over -the-counter diaper rash cream to help prevent or treat a moisture-related rash to your bottom area and buttocks. Please follow up within 3- 4 weeks of discharge with outpatient [facility] if you continue to have issues with your wounds: You may reach them at [phone] for an appointment and continued management of your wounds. Please call them scarlet to schedule your appointment as they fill up quickly. If before that time you have any issues please follow up with your PCP. Janel Rock RN Wound Care Team - Follow Up Care Current Providers and Referrals: Yvon Cabrera MD [Medical Doctor] - Vasyl Magdaleno MD [Medical Doctor] - Patient,NotPresent [Unknown] - As per Instructions
--- NOTE | 2017-08-28 15:36 | GDS ---
[f rep st] DISCHARGE SUMMARY DISCHARGE DIAGNOSES: 1. Mechanical fall. 2. Patellar fracture. 3. Urinary tract infection. 4. Dehydration. 5. Acute on chronic renal insufficiency. 6. Encephalopathy. 7. Anemia. 8. Gross hematuria. 9. Chronic cystitis. 10. Weakness. 11. Diabetes mellitus. STUDIES AND PROCEDURES: 1. Knee x-ray. 2. Wound care. 3. Transvaginal ultrasound. 4. Continues bladder irrigation. CONSULTATIONS: 1. Urology. 2. Gynecology. PHYSICAL EXAM: GENERAL: The patient is alert. VITAL SIGNS: Afebrile at 37.1. Pulse is 100, respi ratory rate 17. Blood pressure is 132/69. She is saturating 95% on room air. I have seen and evalu ated the patient on the day of discharge. HOSPITAL COURSE: The patient is a 77-year-old female who presented to the emergency room after compl aints of a fall. She was evaluated and diagnosed with: 1. Mechanical fall. This is in the setting of acute weakness. She requires rehabilitation. 2. Right patellar fracture. She did receive a consultation from Dr. Cabrera of Orthopedics. The p atleigh ann has been placed in a knee immobilizer and will continue this and follow up with Dr. Rick cassidy the outpatient setting. 3. Dehydration. This has resolved with IV fluids. 4. Acute on chronic renal insufficiency. She has returned to her baseline. 5. Urinary tract infection. This has been treated with Rocephin. 6. Encephalopathy. This is multifactorial and has resolved. 7. Anemia. This is in the setting of acute blood loss secondary to gross hematuria. This is stable . 8. Recurrent gross hematuria in the setting of nonbacterial chronic cystitis. The patient received a continuous bladder irrigation during this hospitalization. She was also consulted on by Urology an d Gynecology. Her urine has cleared. She has no further signs of hematuria and is urinating well. 9. Diabetes mellitus. Will continue her Lantus. DISPOSITION: The patient is significantly weak. She requires care home facility rehabilitatio n and management for conditioning. There are no pending studies. DISCHARGE MEDICATIONS: Please refer to EMR form. I have not adjusted the patient's previously presc ribed home medications to the best of my knowledge. FOLLOWUP: Followup will be with Dr. Cabrera of Orthopedics, as well as Dr. Magdaleno, her urologist, a nd her primary care physician. I spent greater than 35 minutes in the care, coordination, and management of this patient's dispositi on. /[id number]/MODL
--- NOTE | 2017-08-28 15:41 | ASMTCMCOM ---
CM Note CM Note Notes: patient has been medically cleared for discharge to [facility]. Family is working on AL post discharge form [facility]. Final orders via allscripts. Wheel chair van arranged for 4:30pm. RN calling report. CM available should other needs arise. Plan: To [facility] rehab. Date Signed: 08/28/2017 03:40 PM Electronically Signed By:Britney Roper RN
--- NOTE | 2017-08-28 15:45 | ASMTLACE ---
LACE Length of stay for Answers: 4-6 days current admission Acuity / Level of Answers: Yes Care: Did the patient have an inpatient admission? Comorbidities - select Answers: Other Notes: mild cognitive all that apply impairment, chronic sherrie n with opiate dependency, recurrent UTI's , chronic blood loss anemia # of Emergency department Answers: 5-8 visits in the last 6 months Score: 12 Date Signed: 08/28/2017 03:44 PM Electronically Signed By:Britney Roper RN
[2017-08-28] MEDS ORDERED: METFORMIN HCL PO SCH (17:00)
[2017-08-28] MEDS ORDERED: [UNRECOGNIZED DRUG - OTHER] PO SCH (17:00)
[2017-08-28] MEDS ORDERED: INSULIN DETEMIR 35 UNIT SQ SCH (17:00)
[2017-08-28] MEDS ORDERED: SITAGLIPTIN PHOS PO SCH (17:00)
[2017-08-28] MEDS ORDERED: METOPROLOL TARTRATE 25 MG TAB PO SCH (21:00)
[2017-08-29] MEDS ORDERED: POLYETHYLENE GLYCOL 3350 17 GM PKT PO SCH (09:00)
[2017-08-29] MEDS ORDERED: metFORMIN HCL 500 MG TAB PO SCH (09:00)
--- NOTE | 2017-08-29 15:04 | ASDISCHSUM ---
Discharge Information Plan Status:SNF Medically Cleared to Leave:08/28/2017 Discharge Date:08/28/2017 05:47 PM CM D/C Disposition:[facility] Facility ADT D/C Disposition:[facility] Facility Projected Discharge Date:08/28/2017 11:00 AM Transportation at D/C:Wheelchair Van Discharge Delay Reason: Follow-Up Date:08/28/2017 11:00 AM Discharge Slot: Final Diagnosis: Placement Information Referral Type:*Mcfp/SNF Referral ID:[id number] Provider Name:[facility] Address 1:[address] Address 2: City:[place] Selection Factors: State:[place] Patient Contact Information Contact Name:DORIS Relationship:Other Address:[address] City:[place] Alternate Phone: State/Zip Code:[place] [address] Email: Financial Information Financial Class:Medicare Primary Plan Desc:MEDICARE INPATIENT Primary Plan Number:[id number] Secondary Plan Desc:[employer] Secondary Plan Number:[id number] Assessment Information LACE LACE Length of stay for Answers: 4-6 days current admission Acuity / Level of Answers: Yes Care: Did the patient have an inpatient admission? Comorbidities - select Answers: Other Notes: mild cognitive all that apply impairment, chronic sherrie n with opiate dependency, recurrent UTI's , chronic blood loss anemia # of Emergency department Answers: 5-8 visits in the last 6 months Score: 12 Date Signed: 08/28/2017 03:44 PM Electronically Signed By:Britney Roper RN [facility] CM Progress Note CM Note CM Note Notes: Pt is a 76 y/o female who lives with her in assisted living at the [facility]. Pt has had recurrent hospital and ER visits for falls, encephalopathy, and recurrent UTI's. Currently, PT is reporting that she was using her walker when she fell and hit her head: she opened a slow healing wound on her right side. Pt had aides at her side and was assisted to the floor. She was noted to be slightly more confused than at her baseline. Pt is reportedly also distressed over ongoing incontinence. She was most recently at at [facility] on 08/13/2017 for a similar episode where she woke in the middle of the night and had a fall. SNF was recommended at that time but, Pt refused, but did agree to continuing home services already being provided. These services were provided by [facility]. [facility] provides private duty caregivers. Her previous D/C plan included a referral to [facility] and they intended to contact FRANCA, Joanne #[phone], to set up a mtg with family and the [facility]. CM will continue to follow in order to assess D/C needs. D/C Plan: TBD Date Signed: 08/23/2017 10:15 AM Electronically Signed By:Jess Dior [facility] CM Progress Note CM Note CM Note Notes: Pt's d/c today was put on hold yesterday and then again today to evaluate pt's vaginal bleeding. After PT/OT recommendations for a SNF d/c, a referral was sent to [facility] per family request. She was accepted there. Spoke with Joanne, pt's stepdaughter [phone] who is here to assist her father and pt. She said the family (including the MPONikhil Ovalle) are in agreement that the pt is not safe in her current living situation and that she and her need more assistance. Per the [facility], pt continues to refuse skilled PT/OT from [facility] and in their opinion would benefit from a higher LOC. They are discussing other JAIL options with Joanne (Brijesh Cordoba) that offer more assistance, or LTC at a SNF and Joanne is touring facilities. Pt has a patellar fx sustained in her most recent fall. Pt is transferring to [facility] today and hopefully d/c tomorrow to [facility]. CM will continue to follow. Date Signed: 08/26/2017 02:48 PM Electronically Signed By:STARR Christensen [facility] CM Progress Note CM Note CM Note Notes: Spoke w/SOURCING INTERN, pt will stay another night. No vaginal bleeding found but will continue with continuous bladder irrigation. Marychuy at [facility] notified and molded goods spot picker cancelled. DC Plan: [facility] Date Signed: 08/27/2017 02:24 PM Electronically Signed By:Eve Fletcher RN [facility] CM Progress Note CM Note CM Note Notes: patient has been medically cleared for discharge to [facility]. Family is working on AL post discharge form [facility]. Final orders via [employer] Wheel chair van arranged for 4:30pm. RN calling report. CM available should other needs arise. Plan: To [facility] rehab. Date Signed: 08/28/2017 03:40 PM Electronically Signed By:Britney Roper RN Intervention Information Intervention Type:*IM-Signed Date of Service:08/28/2017 03:53 PM Patient Type:Inpatient Staff Member:Anika Gilliland Hours: Discipline: Severity: Comment:
== END 2017-08-28 17:47 | DRG 562 ==
LOC: EDUNIT# → F1N 03:38 → OBSVTOIN 10:28 → F2N 08-24 21:46 → F3E 08-26 16:56
PROVIDERS: ADMIT Family Medicine; ATTEND Family Medicine
PROC: 30233P1 Transfusion of Nonautologous Frozen Red Cells into Peripheral Vein, Percutaneous Approach (ICD-10-PCS; principal; 2017-08-24)
DX: S82.091A Other fracture of right patella, initial encounter for closed fracture (principal); G93.40 Encephalopathy, unspecified; N39.0 Urinary tract infection, site not specified; E86.0 Dehydration; W18.39XA Other fall on same level, initial encounter; N28.9 Disorder of kidney and ureter, unspecified; N18.3 Chronic kidney disease, stage 3 (moderate); D64.9 Anemia, unspecified; E11.9 Type 2 diabetes mellitus without complications; E03.9 Hypothyroidism, unspecified; M81.0 Age-related osteoporosis without current pathological fracture; R32 Unspecified urinary incontinence; I48.0 Paroxysmal atrial fibrillation; K21.9 Gastro-esophageal reflux disease without esophagitis; K74.60 Unspecified cirrhosis of liver; B19.20 Unspecified viral hepatitis C without hepatic coma; R29.6 Repeated falls
CPT/HCPCS: 82607-90; 84484-PO; 97116-GP; 97161-GP; 97166-GO; 97530-GP; 97535-GO; G8978-GP-CJ; G8979-GP-CI; G8987-GO-CJ; G8988-GO-CI; J0696; J1200; J1650; J1815; J2175; P9016

== ENCOUNTER 2017-10-06 20:46 | Inpatient (IN) | payer OTHER ==
[2017-10-06] MEDS ORDERED: NS 250 ML IV ONE (21:32)
--- NOTE | 2017-10-06 21:37 | EDPHY ---
H & P Time Seen by Provider: 10/06/17 21:12 HPI/ROS: CHIEF COMPLAINT: Hematuria HISTORY OF PRESENT ILLNESS: The patient is a 77-year-old female with multiple medical problems including recurrent hematuria. Patient has been seen in the emergency department and admitted to the hospital previously for hematuria. Patient reports that she has had increased urinary frequency for the past 5 days. No dysuria. No fevers or chills. Over the past 5-6 hours she has had radha hematuria. Patient denies abdominal pain at rest. No lightheadedness or dizziness. Patient states that 5 days ago she fell into an air conditioning unit striking her midline back. This caused her to have significant bruising and back pain. Patient is still able ambulate. No numbness or tingling. REVIEW OF SYSTEMS: My complete review of systems is negative except as mentioned in the HPI. Past Medical/Surgical History: Includes recurrent falls, patella fracture, urinary tract infection, renal insufficiency, cephalopathy, anemia, hematuria, cystitis, diabetes, osteoporosis , opioid dependence, gout, cirrhosis, paroxysmal atrial fibrillation, hypothyroidism, GERD Smoking Status: Never smoked Physical Exam: Vitals noted GENERAL: No acute distress, alert. HEENT: Eyes normal to inspection, normal pharynx, no signs of dehydration. NECK: No thyromegaly, no lymphadenopathy, supple. RESPIRATORY: Clear to auscultation bilaterally, no rales, rhonchi or wheezing. CVS: Regular rate and rhythm, no rubs, murmurs, or gallops. ABDOMEN: Soft, mild suprapubic tenderness to palpation with no rebound or guarding, nondistended, no organomegaly. BACK: Patient has notable bruising to the right side of her spine in the lower thoracic and lumbar region. There is a small hematoma. Mild upper lumbar spine tenderness palpation with no step-off. No CVA tenderness. SKIN: Normal color, no rash, warm, dry. No pallor. EXTREMITIES: No pedal edema. Knee immobilizer in place on the right lower extremity NEURO/PSYCH: Alert and oriented x3, normal mood and affect, normal motor sensory exam. Constitutional: Initial Vital Signs Temperature (C) 36.5 C 10/06/17 20:52 Heart Rate 81 10/06/17 20:52 Respiratory Rate 18 10/06/17 20:52 Blood Pressure 175/73 H 10/06/17 20:52 O2 Sat (%) 97 07/30/18 20:52 O2 Delivery Mode Room Air Allergies/Adverse Reactions: morphine Allergy (Mild, Verified 10/06/17 20:58) Vomiting nitrofurantoin Allergy (Mild, Verified 10/06/17 20:58) Rash Home Medications: Medication Instructions Recorded Alendronate Sodium [Fosamax 70 MG 70 mg PO MO@0700 08/23/17 (*)] Allopurinol [Allopurinol 300 MG 450 mg PO DAILY 08/23/17 (RX)] Cholecalciferol (Vitamin D3) 1,000 unit PO BID 08/23/17 [Vitamin D3] Colchicine [Colchicine (*)] 0.6 mg PO BID@,17 08/23/17 Insulin Detemir [Levemir] 35 unit SQ BID@,08/23/17 Levothyroxine [Synthroid 75 mcg 75 mcg PO DAILY06 08/23/17 (*)] Metoprolol Tartrate 25 mg PO BID 08/23/17 Omeprazole 40 mg PO DAILY 08/23/17 Ondansetron Odt [Zofran Odt 4 mg 4 mg PO Q4 PRN 08/23/17 (*)] Polyethylene Glycol 3350 [Miralax 17 gm PO DAILY 08/23/17 17 gm (*)] Polyethylene Glycol 3350 [Miralax 17 gm PO DAILY PRN 08/23/17 17 gm (*)] Sennosides/Docusate Sodium 1 - 2 each PO BID PRN 08/23/17 [Senokot-S] Sitagliptin Phos/Metformin HCl 1 each PO DAILY@1700 08/23/17 [Janumet 50-500 mg Tablet] celeCOXIB [Celecoxib] 200 mg PO DAILY 08/23/17 metFORMIN HCL [Metformin HCl] 500 mg PO DAILY 08/23/17 oxyCODONE HCL [Oxycodone HCl] 5 mg PO Q4 PRN 08/23/17 Cephalexin [Keflex (*)] 500 mg PO BID #10 cap 08/25/17 Acetaminophen [Tylenol 325mg (*)] 650 mg PO Q4HRS PRN tab 08/28/17 Insulin Glargine [Lantus Syringe] 35 units SC BID unit 08/28/17 Insulin Lispro [HumaLOG LISPRO] 0 unit SC ACHS unit 08/28/17 Medical Decision Making - Diagnostics Imaging Results: Imaging Impressions Chest X-Ray 10/06/17 21:34 Impression: 1. Old healed fractures associated with right ribs. 2. No active cardiopulmonary disease identified. Abdomen/Pelvis CT 10/06/17 21:38 Impression: 1. Moderate to severe bilateral hydronephrosis once again identified. This could potentially be related to vesicoureteral reflux. 2. Large blood clot present within the bladder. Consider underlying chronic cystitis. 3. Lobulated contour of the liver suggestive of underlying cirrhosis similar to the prior study. 4. No evidence of acute fracture about the lumbar spine or pelvis. Chronic fractures identified as detailed above. Findings discussed with Melissa Clarke at 22:45 hour, 10/06/2017. Lumbar Spine CT 10/06/17 21:38 Impression: 1. Moderate to severe bilateral hydronephrosis once again identified. This could potentially be related to vesicoureteral reflux. 2. Large blood clot present within the bladder. Consider underlying chronic cystitis. 3. Lobulated contour of the liver suggestive of underlying cirrhosis similar to the prior study. 4. No evidence of acute fracture about the lumbar spine or pelvis. Chronic fractures identified as detailed above. Findings discussed with Melissa Clarke at 22:45 hour, 10/06/2017. ED Course/Re-evaluation: In the emergency department I discussed possible etiologies with the patient. I answered all her questions. IV was placed. Laboratory studies were obtained. Because the patient had a recent fall and now has hematuria a CT of the abdomen pelvis was ordered. She also has significant bruising and discomfort over her lower thoracic and lumbar spine. These images will be reconstructed. I discussed plan with the patient. Patient's white count is mildly elevated at 10. Hematocrit is low at 24.5. This is comparable to previous values. Platelet count is 317. Patient's chemistry panel shows a low sodium 133. Potassium is mildly high 5.4. Creatinine is elevated 1.7. Glucose is elevated at 189. The CT scan was changed to a noncontrast. I discussed with the coal gasification technician. Patient was given Vicodin 1 tablet orally for her back pain and her suprapubic pain. I discussed the case with Dr. Reynolds CT of the abdomen pelvis: Reconstruction of the spine: Please refer the dictated report. I reviewed the images personally with Dr. Ford. Patient has significant clot in her bladder. Of note, there appears to be clot in the distal ureters bilaterally. Patient has moderate hydro bilaterally. There is thickened bladder wall. No kidney injury noted. There is old compression fracture in her spine. No new fracture noted. I reviewed the patient's previous medical record. Of note she had a cystoscopy in July 2017. This showed no cancer cells. Dr. Abdalla was paged. Awaiting callback. Differential Diagnosis: My differential includes but not limited to hematuria, gross hematuria, urinary tract infection, cystitis, mass, malignancy, anemia, spinal injury, renal hematoma, ureteral injury - Data Points Laboratory Results: Laboratory Results 10/06/17 21:30 10/06/17 21:30 10/06/17 10/06/17 21: 21:30 WBC 10.10 10^3/uL H 10^3/uL (3.80-9.50) RBC 3.04 10^6/uL L 10^6/uL (4.18-5.33) Hgb 7.7 g/dL L g/dL (12.6-16.3) Hct 24.5 % L % (38.0-47.0) MCV 80.6 fL L fL (81.5-99.8) MCH 25.3 pg L pg (27.9-34.1) MCHC 31.4 g/dL L g/dL (32.4-36.7) RDW 15.9 % H % (11.5-15.2) Plt Count 317 10^3/uL 10^3/uL (150-400) MPV 10.4 fL fL (8.7-11.7) Neut % (Auto) 83.7 % H % (39.3-74.2) Lymph % (Auto) 6.3 % L % (15.0-45.0) Clare % (Auto) 7.4 % % (4.5-13.0) Eos % (Auto) 1.8 % % (0.6-7.6) Baso % (Auto) 0.4 % % (0.3-1.7) Nucleat RBC Rel Count 0.0 % % (0.0-0.2) Absolute Neuts (auto) 8.45 10^3/uL H 10^3/uL (1.70-6.50) Absolute Lymphs (auto) 0.64 10^3/uL L 10^3/uL (1.00-3.00) Absolute Monos (auto) 0.75 10^3/uL 10^3/uL (0.30-0.80) Absolute Eos (auto) 0.18 10^3/uL 10^3/uL (0.03-0.40) Absolute Basos (auto) 0.04 10^3/uL 10^3/uL (0.02-0.10) Absolute Nucleated RBC 0.00 10^3/uL 10^3/uL (0-0.01) Immature Gran % 0.4 % % (0.0-1.1) Immature Gran # 0.04 10^3/uL 10^3/uL (0.00-0.10) Sodium 133 mEq/L L mEq/L (135-145) Potassium 5.4 mEq/L H mEq/L (3.3-5.0) Chloride 97 mEq/L mEq/L (97-110) Carbon Dioxide 20 mEq/l L mEq/l (22-31) Anion Gap 16 mEq/L mEq/L (8-16) BUN 55 mg/dL H mg/dL (7-23) Creatinine 1.7 mg/dL H mg/dL (0.6-1.0) Estimated GFR 29 Glucose 189 mg/dL H mg/dL (70-100) Calcium 9.1 mg/dL mg/dL (8.5-10.4) Medications Given: Discontinued Medications Hydrocodone Bitart/Acetaminophen ([place] 5/325) 1 tab PO EDNOW ONE Stop: 10/06/17 22:08 Last Admin: 10/06/17 22:09 Dose: 1 tab Sodium Chloride (Ns) 250 mls @ 0 mls/hr IV ONCE ONE; Wide Open PRN Reason: Protocol Stop: 10/06/17 21:33 Last Admin: 10/06/17 21:55 Dose: 250 mls Departure - Departure Disposition: [facility] Acute Clinical Impression: Blood clot in bladder Hematuria Qualifiers: Hematuria type: unspecified type Qualified Code(s): R31.9 - Hematuria, unspecified Back pain Qualifiers: Back pain location: back pain in unspecified location Chronicity: acute Back pain laterality: unspecified Qualified Code(s): M54.9 - Dorsalgia, unspecified Condition: Good
[2017-10-06 21:42] LABS: PLATELET COUNT 317 10^3/uL (150-400)
[2017-10-06] MEDS ORDERED: HYDROCODONE/APAP 5/325 TAB PO ONE (22:07)
[2017-10-06] MEDS ORDERED: ONDANSETRON DISINTEGRATING 4 MG TAB PO PRN (23:33)
[2017-10-06] MEDS ORDERED: ONDANSETRON 4 MG/2 ML VIAL IVP PRN (23:33)
[2017-10-06] MEDS ORDERED: D50W 25 GM/50 ML VIAL IVP PRN (23:37)
--- NOTE | 2017-10-07 00:42 | PDGENHP ---
History and Physical - Chief Complaint Hematuria - History of Present Illness 77 yo F w/ IDDM, nonbacterial cystitis, chronic anemia, and frequent falls presents with hematuria. Patient tells me she noted red urine and clots today. She denies other symptoms including dysuria, fever, and malodorous urine. She also had a fall 4 days ago and hurt her back. She is not particularly concerned about it, however. She tells me she falls a couple of times per month. She feels much better now after placement of 24 Fr Schroeder catheter. Per review of records this has been a chronic issue for this patient; during a August admission she was treated with continuous bladder irrigation as treatment. Urology was consulted in the ED and requested admission. She will be evaluated by Dr. Magdaleno tomorrow. Case discussed with ED physician Dr. Clarke; previous records reviewed including D/C summary dated 08/23/17 by Deirdre Carter NP. History Information - Allergies/Home Medication List Allergies/Adverse Reactions: morphine Allergy (Mild, Verified 10/06/17 20:58) Vomiting nitrofurantoin Allergy (Mild, Verified 10/06/17 20:58) Rash Home Medications: Alendronate Sodium [Fosamax 70 MG (*)] 70 mg PO MO@0700 08/23/17 [Last Taken ] Allopurinol [Allopurinol 300 MG (RX)] 450 mg PO DAILY 08/23/17 [Last Taken 08/22] Cholecalciferol (Vitamin D3) [Vitamin D3] 1,000 unit PO BID 08/23/17 [Last Taken 08/22/17] Colchicine [Colchicine (*)] 0.6 mg PO BID@,08/23/17 [Last Taken 08/22/17] Insulin Detemir [Levemir] 35 unit SQ BID@,08/23/17 [Last Taken 08/22/17] Levothyroxine [Synthroid 75 mcg (*)] 75 mcg PO DAILY06 08/23/17 [Last Taken ] Metoprolol Tartrate 25 mg PO BID 08/23/17 [Last Taken 08/22/17] Omeprazole 40 mg PO DAILY 08/23/17 [Last Taken 08/22/17] Ondansetron Odt [Zofran Odt 4 mg (*)] 4 mg PO Q4 PRN 08/23/17 [Last Taken ] Polyethylene Glycol 3350 [Miralax 17 gm (*)] 17 gm PO DAILY 08/23/17 [Last Taken 08/22/17] Polyethylene Glycol 3350 [Miralax 17 gm (*)] 17 gm PO DAILY PRN 08/23/17 [Last Taken 08/22/17] Sennosides/Docusate Sodium [Senokot-S] 1 - 2 each PO BID PRN 08/23/17 [Last Taken 08/22/17] Sitagliptin Phos/Metformin HCl [Janumet 50-500 mg Tablet] 1 each PO DAILY@1700 08/23/17 [Last Taken 08/22/17] celeCOXIB [Celecoxib] 200 mg PO DAILY 08/23/17 [Last Taken 08/22/17] metFORMIN HCL [Metformin HCl] 500 mg PO DAILY 08/23/17 [Last Taken 08/22/17] oxyCODONE HCL [Oxycodone HCl] 5 mg PO Q4 PRN 08/23/17 [Last Taken 08/22/17] I have personally reviewed and updated: family history, medical history - Past Medical History Additional medical history: DM2 with most recent hemoglobin A1c 9%. Mild cognitive impairment. C-spine injury. Osteoporosis. Chronic pain with continuous opiate dependency. HTN. Gout. 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 Chronic hematuria and urinary frequency, unclear cause, has resulted in hydronephrosis in past as well as acute kidney injury. Bladder biopsies have revealed chronic inflammatory changes. Chronic blood-loss anemia. Recurrent UTIs with associated encephalopathic changes. Chronic kidney disease stage 3. Possible cirrhosis on abdominal CT. Paroxysmal atrial fibrillation patient is not on anticoagulation secondary to her history of bleeding and falls. Hypothyroidism. GERD. Osteoporosis. Recurrent mechanical falls - Surgical History Additional surgical history: several R leg orthopedic surgeries - right femur fracture repair and distal right lower extremity. Hysterectomy. multiple abd surgeries for fibroids/adhesions. Cystoscopy 06/16 with a biopsy revealing chronic inflammatory changes - Family History Positive for: non-pertinent Additional family history: Father with diabetes, sister with breast cancer - Social History Smoking Status: Never smoked Additional social history: Pt lives with her in the assisted living facility [facility]. 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 She does require use of a walker and is quite unsteady gait particularly with movement backwards. Cor status-will need to verify with most form submitted with [facility]. will leave as full pending verification (08/23/17) Review of Systems Review of Systems: ROS: 10pt was reviewed & negative except for what was stated in HPI & below Physical Exam Physical Exam: Temp Pulse Resp BP Pulse Ox 36.9 C 74 16 126/78 H 96 10/07/17 00:04 10/07/17 00:04 10/07/17 00:04 10/07/17 00:04 10/07/17 00:04 Constitutional: no apparent distress, not in pain Eyes: PERRL, EOMI Ears, Nose, Mouth, Throat: moist mucous membranes, no oral mucosal ulcers Cardiovascular: regular rate and rhythym, no murmur, rub, or gallop Respiratory: no respiratory distress, clear to auscultation Gastrointestinal: normoactive bowel sounds, soft, non-tender abdomen Genitourinary: no bladder tenderness, schroeder in urethra, other (Sesar blood in schroeder bag) Skin: warm, normal color Musculoskeletal: full muscle strength, no muscle tenderness Neurologic: AAOx3, CN II-XII Intact Psychiatric: interacting appropriately, not anxious Lab Data & Imaging Review 10/06/17 21:30 10/06/17 21:30 WBC 10.10 10^3/uL (3.80-9.50) H 10/06/17 21:30 RBC 3.04 10^6/uL (4.18-5.33) L 10/06/17 21:30 Hgb 7.7 g/dL (12.6-16.3) L 10/06/17 21:30 Hct 24.5 % (38.0-47.0) L 10/06/17 21:30 MCV 80.6 fL (81.5-99.8) L 10/06/17 21:30 MCH 25.3 pg (27.9-34.1) L 10/06/17 21:30 MCHC 31.4 g/dL (32.4-36.7) L 10/06/17 21:30 RDW 15.9 % (11.5-15.2) H 10/06/17 21:30 Plt Count 317 10^3/uL (150-400) 10/06/17 21:30 MPV 10.4 fL (8.7-11.7) 10/06/17 21:30 Neut % (Auto) 83.7 % (39.3-74.2) H 10/06/17 21:30 Lymph % (Auto) 6.3 % (15.0-45.0) L 10/06/17 21:30 [place] % (Auto) 7.4 % (4.5-13.0) 10/06/17 21:30 Eos % (Auto) 1.8 % (0.6-7.6) 10/06/17 21: Baso % (Auto) 0.4 % (0.3-1.7) 10/06/17 21: Nucleat RBC Rel Count 0.0 % (0.0-0.2) 10/06/17 21:30 Absolute Neuts (auto) 8.45 10^3/uL (1.70-6.50) H 10/06/17 21:30 Absolute Lymphs (auto) 0.64 10^3/uL (1.00-3.00) L 10/06/17 21:30 Absolute Monos (auto) 0.75 10^3/uL (0.30-0.80) 10/06/17 21:30 Absolute Eos (auto) 0.18 10^3/uL (0.03-0.40) 10/06/17 21:30 Absolute Basos (auto) 0.04 10^3/uL (0.02-0.10) 10/06/17 21:30 Absolute Nucleated RBC 0.00 10^3/uL (0-0.01) 10/06/17 21:30 Immature Gran % 0.4 % (0.0-1.1) 10/06/17 21: Immature Gran # 0.04 10^3/uL (0.00-0.10) 10/06/17 21:30 Sodium 133 mEq/L (135-145) L 10/06/17 21:30 Potassium 5.4 mEq/L (3.3-5.0) H 10/06/17 21:30 Chloride 97 mEq/L (97-110) 10/06/17 21:30 Carbon Dioxide 20 mEq/l (22-31) L 10/06/17 21:30 Anion Gap 16 mEq/L (8-16) 10/06/17 21:30 BUN 55 mg/dL (7-23) H 10/06/17 21:30 Creatinine 1.7 mg/dL (0.6-1.0) H 10/06/17 21:30 Estimated GFR 29 10/06/17 21:30 Glucose 189 mg/dL (70-100) H 10/06/17 21:30 Calcium 9.1 mg/dL (8.5-10.4) 10/06/17 21:30 Urine Color YELLOW 10/07/17 00:00 Urine Appearance TURBID 10/07/17 00:00 Urine pH 6.0 (5.0-7.5) 10/07/17 00:00 Ur Specific [place] 1.017 (1.002-1.030) 10/07/17 00:00 Urine Protein 2+ (NEGATIVE) H 10/07/17 00:00 Urine Ketones NEGATIVE (NEGATIVE) 10/07/17 00:00 Urine Blood 3+ (NEGATIVE) H 10/07/17 00:00 Urine Nitrate NEGATIVE (NEGATIVE) 10/07/17 00:00 Urine Bilirubin NEGATIVE (NEGATIVE) 10/07/17 00:00 Urine Urobilinogen NEGATIVE EU (0.2-1.0) 10/07/17 00:00 Ur Leukocyte Esterase NEGATIVE (NEGATIVE) 10/07/17 00:00 Urine RBC 50-182 /hpf (0-3) H 10/07/17 00:00 Urine WBC 50-182 /hpf (0-3) H 10/07/17 00:00 Ur Epithelial Cells NONE SEEN /lpf (NONE-1+) 10/07/17 00:00 Urine Glucose 1+ (NEGATIVE) H 10/07/17 00:00 Imaging Review: Imaging Impressions Chest X-Ray 10/06/17 21:34 Impression: 1. Old healed fractures associated with right ribs. 2. No active cardiopulmonary disease identified. Abdomen/Pelvis CT 10/06/17 21:38 Impression: 1. Moderate to severe bilateral hydronephrosis once again identified. This could potentially be related to vesicoureteral reflux. 2. Large blood clot present within the bladder. Consider underlying chronic cystitis. 3. Lobulated contour of the liver suggestive of underlying cirrhosis similar to the prior study. 4. No evidence of acute fracture about the lumbar spine or pelvis. Chronic fractures identified as detailed above. Findings discussed with Melissa Clarke at 22:45 hour, 10/06/2017. Lumbar Spine CT 10/06/17 21:38 Impression: 1. Moderate to severe bilateral hydronephrosis once again identified. This could potentially be related to vesicoureteral reflux. 2. Large blood clot present within the bladder. Consider underlying chronic cystitis. 3. Lobulated contour of the liver suggestive of underlying cirrhosis similar to the prior study. 4. No evidence of acute fracture about the lumbar spine or pelvis. Chronic fractures identified as detailed above. Findings discussed with Melissa Clarke at 22:45 hour, 10/06/2017. Assessment & Plan Assessment: 77 yo F w/ IDDM, nonbacterial cystitis, chronic anemia, and frequent falls presents with hematuria. Plan: 1. Hematuria - Most likely 2/2 chronic, nonbacterial cystitis. This is a chronic issue for this patient and she is followed by Dr. Magdaleno. This is her first recurrence since August when she was treated with continuous bladder irrigation. She denies any symptoms of infection at this time. - Admit for observation - Urology consulted, will evaluate patient tomorrow - Patient feels better after placement of 24 Fr Schroeder catheter 2. Hydronephrosis - Moderate to severe bilateral hydronephrosis once again identified. This could potentially be related to vesicoureteral reflux. - Monitor urine output and renal function - Urology consulted as above 3. NICHELLE - I suspect some element of post-renal etiology noting obstruction from large blood clots. - S/p Schroeder catheter placement - Monitor BMP 4. IDDM - Manages BG at home with insulin glargine 25 u BID. - Insulin glargine 20 u BID + insulin lispro SSI while inpatient - D50 IV PRN hypoglycemia, BG ACHS ordered 5. Frequent falls - With most recent fall 4 days ago resulting in some back pain. Imaging on this admission did not reval any acute fractures. - PT/OT/CM evaluations Diet - Regular Code - Full Ppx - SCDs noting hematuria Dispo - Admit under observation status
[2017-10-07 04:52] LABS: PLATELET COUNT 285 10^3/uL (150-400)
--- NOTE | 2017-10-07 10:12 | ASMTCMCOM ---
CM Note CM Note Notes: Pt's chart reviewed for D/C planning. Pt is a 77 y/o female w/ type 1 diabetes, nonbacterial csytitis, chronic anemia and frequent falls presents with hematuria. This has been a chronic issue and was last treated in August 2017. Pt lives with her in assisted living at [facility]. 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 She requires the use of a walker and is quite unsteady in her gait particularly with moving backwards. PT and OT have been ordered. CM will follow. D/C Plan: TBD Date Signed: 10/07/2017 10:10 AM Electronically Signed By:Jess Dior
--- NOTE | 2017-10-07 10:15 | HOSPPROG ---
Hospitalist Progress Note Assessment/Plan: #Sepsis: fever this morning, +UA, mild leukocytosis. Blood cultures, lactate. IV CTX. Normal CXR. BP stable #Acute blood loss anemia: transfuse 1 unit now #Hematuria: CBI, repeat H/H. Hold ASA #Acute on chronic encephalopathy: cog eval in July 18. Treat infection, hold central-acting medications #Cirrhosis, HCV-related: cirrhosis on CT #GERD #Hypothyroidism: LT4 #Paroxysmal a fib: BB, hold ASA #h/o pericardial effusion: reviewed TTE 12/24, normal EF, mod effusion, no tamponade. #DM: reduced home glargine dose #Falls: suspect multifactorial. PT/OT. No fracture on CT #Diet: DM #DVT ppx: SCDs Time spent on visit 45 min reviewing records, medications, evaluating pt for sepsis Subjective: no pain, N/V Objective: Vital Signs Temp Pulse Resp BP Pulse Ox 38.6 C H 94 20 122/65 H 92 10/07/17 09:48 10/07/17 09:48 10/07/17 09:48 10/07/17 09:48 10/07/17 09:48 Laboratory Results 10/07/17 04:22 10/07/17 04:22 10/06/17 10/07/17 10/08/17 05:59 05:59 05:59 Intake Total 550 Output Total 500 Balance 50 - Time Spent With Patient Time Spent with Patient: greater than 35 minutes Time Spent with Patient: Greater than 35 minutes spent on this patients care, greater than 50% of time spent counseling, educating, and coordinating care regarding the above mentioned plan. - Physical Exam Constitutional: other (restless) Eyes: pale conjunctiva Ears, Nose, Mouth, Throat: dry mucous membranes Cardiovascular: regular rate and rhythym Respiratory: no respiratory distress Gastrointestinal: normoactive bowel sounds Genitourinary: schroeder in urethra (bloody urine) Musculoskeletal: full muscle strength Neurologic: CN II-XII Intact, other (alert to date, not place) Psychiatric: encephalopathic ICD10 Worksheet Patient Problems: Problems Problem Status Onset Back pain Acute Blood clot in bladder Acute Hematuria Acute Multiple drug resistant organism (MDRO) culture positive Acute NICHELLE (acute kidney injury) Acute Altered mental status Acute Anemia Acute Atrial fibrillation Acute Cervical spine fracture Acute Dehydration Acute Diabetes Acute Elevated troponin Acute Encephalopathy acute Acute Fall Acute Fall at home Acute Frequent falls Acute Gait instability Acute Gastroenteritis Acute Hyperglycemia Acute Hypertension Acute Hyponatremia Acute Noninfected skin tear of leg Acute Normocytic anemia due to blood loss Acute Pain management Acute Palliative care encounter Acute Sepsis secondary to UTI Acute UTI (urinary tract infection) Acute
[2017-10-07] MEDS: NS 1,000 ML IV SCH (10:39)
[2017-10-07] MEDS: LEVOTHYROXINE 75 MCG TAB PO SCH (10:39)
[2017-10-07] MEDS: INSULIN GLARGINE 100 UNITS/ML UNIT SC SCH (10:39)
[2017-10-07] MEDS: INSULIN LISPRO 100 UNIT/ML SC SCH ×3 (10:44→18:40)
[2017-10-07] MEDS: PANTOPRAZOLE SODIUM 40 MG TAB PO SCH (11:00)
--- NOTE | 2017-10-07 12:11 | PDMN ---
Medical Necessity Medical necessity: Change to inpt status as of 10/07/17 @ 10:20. Pt meets inpt criteria per MD order and MCG M-160, Sepsis and other Febril Illness, est LOS> 2MN for ongoing management of sepsis (mild leukocytosis WBC 11.04, +UA, following bl cultures), hematuria, chronic anemia (H&H 7.1, 23.2) , acute on chronic encephalopathy, electrolyte abnormalities- K 5.5, CO2 21), elev BUN and creat- 55, 1.7. IVF, IV ABX's, PT/OT evals pending. Comorbidities including adv age>75, IDDM, freq falls, chronic pain w/opiate dep, hx of hydronephrosis and NICHELLE, chronic hematuria and urinary frequency. Anticipate >2MN for med nec eval and treatment.
[2017-10-07] MEDS: METOPROLOL TARTRATE 25 MG TAB PO SCH (20:37)
[2017-10-07] MEDS ORDERED: INSULIN GLARGINE 100 UNITS/ML UNIT SC SCH (21:00)
[2017-10-08] MEDS: LEVOTHYROXINE 75 MCG TAB PO SCH (06:01)
[2017-10-08] MEDS: INSULIN LISPRO 100 UNIT/ML SC SCH ×3 (08:24→17:21)
[2017-10-08] MEDS ORDERED: Herbals/Supplements -Info Only PO SCH (09:00)
[2017-10-08] MEDS: SERTRALINE HCL 25 MG TAB PO SCH (09:13)
[2017-10-08] MEDS: PANTOPRAZOLE SODIUM 40 MG TAB PO SCH (09:13)
[2017-10-08] MEDS: CHOLECALCIFEROL VIT D3 1,000 UNITS TAB PO SCH ×2 (09:13→20:20)
[2017-10-08] MEDS: METOPROLOL TARTRATE 25 MG TAB PO SCH ×2 (09:14→20:22)
[2017-10-08] MEDS: INSULIN GLARGINE 100 UNITS/ML UNIT SC SCH ×2 (09:24→20:26)
[2017-10-08] MEDS ORDERED: NS 1,000 ML IV SCH (10:30)
[2017-10-08] MEDS: NS 1,000 ML IV SCH (10:55)
[2017-10-08] MEDS: AMMONIUM ALUM IRR SCH ×3 (11:25→18:19)
[2017-10-08] MEDS: SODIUM CL IRRIG IRR SCH ×3 (11:25→18:19)
--- NOTE | 2017-10-08 11:40 | HOSPPROG ---
Hospitalist Progress Note Assessment/Plan: #Sepsis: +UA, mild leukocytosis. Blood cultures, lactate. IV CTX. Normal CXR. BP stable #Acute blood loss anemia: -s/p PRBC 1 unit on 10/07 -additional unit today #Hematuria: CBI, repeat H/H. Hold ASA #Acute on chronic encephalopathy: cog eval in July 18. 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 #DM: reduced home glargine dose -slight hypoglycemia, Lantus decreased #Falls: suspect multifactorial. PT/OT. No fracture on CT #Diet: DM #DVT ppx: SCDs Plan: Still looks dry will give IVF plus PRBC 1 unit cont ABX per above f/u culture Subjective: still weak. feels slightly better. VS are stable. no hypotension. good urine output. urine is starting to clear Objective: Vital Signs Temp Pulse Resp BP Pulse Ox 36.8 C 78 18 127/59 H 95 10/08/17 08:06 10/08/17 09:14 10/08/17 08:06 10/08/17 09:14 10/08/17 08:06 Laboratory Results 10/08/17 03:38 10/08/17 03:38 10/07/17 10/08/17 10/09/17 05:59 05:59 05:59 Intake Total 1478 Output Total 2365 Balance -887 - Physical Exam Constitutional: no apparent distress Eyes: PERRL, EOMI Ears, Nose, Mouth, Throat: moist mucous membranes, hearing normal Cardiovascular: regular rate and rhythym, No edema Respiratory: no respiratory distress, no rales or rhonchi, clear to auscultation Gastrointestinal: normoactive bowel sounds Genitourinary: no bladder fullness Skin: warm Musculoskeletal: generalized weakness Neurologic: AAOx3 Psychiatric: interacting appropriately, not anxious, not encephalopathic ICD10 Worksheet Patient Problems: Problems Problem Status Onset Back pain Acute Blood clot in bladder Acute Hematuria Acute Multiple drug resistant organism (MDRO) culture positive Acute NICHELLE (acute kidney injury) Acute Altered mental status Acute Anemia Acute Atrial fibrillation Acute Cervical spine fracture Acute Dehydration Acute Diabetes Acute Elevated troponin Acute Encephalopathy acute Acute Fall Acute Fall at home Acute Frequent falls Acute Gait instability Acute Gastroenteritis Acute Hyperglycemia Acute Hypertension Acute Hyponatremia Acute Noninfected skin tear of leg Acute Normocytic anemia due to blood loss Acute Pain management Acute Palliative care encounter Acute Sepsis secondary to UTI Acute UTI (urinary tract infection) Acute
[2017-10-08] MEDS: ACETAMINOPHEN 325 MG TAB PO PRN (12:32)
--- NOTE | 2017-10-08 16:15 | ASMTCMCOM ---
CM Note CM Note Notes: This is a correction to the last CM note. Pt currently lives at [facility]. CM spoke to mcfarlan and they are anticipating her return. CM to follow. D/C Plan: [facility]. Date Signed: 10/08/2017 04:15 PM Electronically Signed By:Jess Dior
--- NOTE | 2017-10-08 18:24 | SOAPPROG ---
SOAP Progress Note Assessment/Plan: Assessment: 1. Recurrent hemorrhagic cystitis - improved on 1% Alum CBI. Urine culture negative thus far. 2. Elevated creatinine w/ bilateral hydro on CT - probably due to clot retention. Creatinine significantly better today, as expected. Plan: 1. Continue Alum CBI until tomorrow AM. 2. Begin oral Elmiron -- limited studies have shown effectiveness w/ this medication in the setting of chronic hemorrhagic cystitis. Subjective: No complaints. Objective: Vital Signs Temp Pulse Resp BP Pulse Ox 36.4 C 75 16 113/53 L 96 10/08/17 15:39 10/08/17 15:39 10/08/17 15:39 10/08/17 15:39 10/08/17 15:39 Laboratory Results 10/08/17 03:38 10/08/17 03:38 10/07/17 10/08/17 10/09/17 05:59 05:59 05:59 Intake Total 1478 887 Output Total 2365 Balance -887 887 Physical Exam - Physical Exam General Appearance: WD/WN, alert, no apparent distress Pelvic Exam: other (urine clear via Cheng on CBI) Extremities: normal inspection Neuro/Psych: alert, normal mood/affect ICD10 Worksheet Patient Problems: Problems Problem Status Onset Back pain Acute Blood clot in bladder Acute Hematuria Acute Multiple drug resistant organism (MDRO) culture positive Acute NICHELLE (acute kidney injury) Acute Altered mental status Acute Anemia Acute Atrial fibrillation Acute Cervical spine fracture Acute Dehydration Acute Diabetes Acute Elevated troponin Acute Encephalopathy acute Acute Fall Acute Fall at home Acute Frequent falls Acute Gait instability Acute Gastroenteritis Acute Hyperglycemia Acute Hypertension Acute Hyponatremia Acute Noninfected skin tear of leg Acute Normocytic anemia due to blood loss Acute Pain management Acute Palliative care encounter Acute Sepsis secondary to UTI Acute UTI (urinary tract infection) Acute
[2017-10-09] MEDS: SODIUM CL IRRIG IRR SCH (03:11)
[2017-10-09] MEDS: AMMONIUM ALUM IRR SCH (03:11)
[2017-10-09] MEDS: ACETAMINOPHEN 325 MG TAB PO PRN (03:49)
[2017-10-09 04:42] LABS: PLATELET COUNT 178 10^3/uL (150-400)
[2017-10-09] MEDS: LEVOTHYROXINE 75 MCG TAB PO SCH (04:46)
[2017-10-09] MEDS: INSULIN LISPRO 100 UNIT/ML SC SCH ×3 (07:44→19:25)
[2017-10-09] MEDS: PANTOPRAZOLE SODIUM 40 MG TAB PO SCH (09:01)
[2017-10-09] MEDS: SERTRALINE HCL 25 MG TAB PO SCH (09:03)
[2017-10-09] MEDS: METOPROLOL TARTRATE 25 MG TAB PO SCH ×2 (09:03→22:06)
[2017-10-09] MEDS: CHOLECALCIFEROL VIT D3 1,000 UNITS TAB PO SCH ×2 (09:03→22:05)
[2017-10-09] MEDS: INSULIN GLARGINE 100 UNITS/ML UNIT SC SCH ×2 (09:09→22:07)
--- NOTE | 2017-10-09 12:48 | HOSPPROG ---
Hospitalist Progress Note Assessment/Plan: #Sepsis: +UA, mild leukocytosis. Blood cultures, lactate. IV CTX. Normal CXR. BP stable #Acute blood loss anemia: -s/p PRBC 1 unit on 10/07 -additional unit today #Hematuria: CBI, repeat H/H. Hold ASA #Acute on chronic encephalopathy: cog eval in July 18. 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 #DM: reduced home glargine dose -slight hypoglycemia, Lantus decreased #Falls: suspect multifactorial. PT/OT. No fracture on CT #Diet: DM #DVT ppx: SCDs Plan: Still looks dry will give IVF plus PRBC 1 unit cont ABX per above f/u culture Subjective: still feels weak. still with hematuria. no resp sx's Objective: Vital Signs Temp Pulse Resp BP Pulse Ox 36.7 C 99 15 108/56 L 903 H 10/09/17 11:17 10/09/17 11:17 10/09/17 11:17 10/09/17 11:17 10/09/17 11:17 Laboratory Results 10/09/17 04:09 10/09/17 04:09 10/08/17 10/09/17 10/10/17 05:59 05:59 05:59 Intake Total 1478 2735 400 Output Total 2365 1600 Balance -887 2735 -1200 - Physical Exam Constitutional: chronically ill appearing Eyes: PERRL Ears, Nose, Mouth, Throat: dry mucous membranes Cardiovascular: regular rate and rhythym, No edema Respiratory: no respiratory distress, no rales or rhonchi, clear to auscultation Gastrointestinal: normoactive bowel sounds Genitourinary: schroeder in urethra Skin: warm Musculoskeletal: generalized weakness Neurologic: AAOx3 Psychiatric: interacting appropriately, not anxious, not encephalopathic ICD10 Worksheet Patient Problems: Problems Problem Status Onset Back pain Acute Blood clot in bladder Acute Hematuria Acute Multiple drug resistant organism (MDRO) culture positive Acute NICHELLE (acute kidney injury) Acute Altered mental status Acute Anemia Acute Atrial fibrillation Acute Cervical spine fracture Acute Dehydration Acute Diabetes Acute Elevated troponin Acute Encephalopathy acute Acute Fall Acute Fall at home Acute Frequent falls Acute Gait instability Acute Gastroenteritis Acute Hyperglycemia Acute Hypertension Acute Hyponatremia Acute Noninfected skin tear of leg Acute Normocytic anemia due to blood loss Acute Pain management Acute Palliative care encounter Acute Sepsis secondary to UTI Acute UTI (urinary tract infection) Acute
--- NOTE | 2017-10-09 12:56 | HOSPPROG ---
Hospitalist Progress Note Assessment/Plan: #possible early Sepsis: Leukocytosis, fever, NICHELLE -Source is unclear. CXR negative, UA negative -Mild leukocytosis and fever present on the morning of admission. -Has improved since starting Rocephin. Will cont for now. Obtain PC to help with decision regarding duration of abx #Acute blood loss anemia: -s/p PRBC 2 unit transfusion -no indication for another at this time #Hematuria: -CBI, stopped this morning -start Elmiron at discharge, not on formulary here -consider restarting ASA tomorrow #NICHELLE, resolved with volume #Acute on chronic encephalopathy: cog eval in July 18. 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 #DM: reduced home glargine dose -slight hypoglycemia, Lantus decreased. -monitoring #Falls: suspect multifactorial. PT/OT. No fracture on CT #Diet: DM #DVT ppx: SCDs Plan: Looks improving. plan per above. possible d/c tomorrow to [facility] Subjective: CBI stopped today. no cp or sob. feels better Objective: Vital Signs Temp Pulse Resp BP Pulse Ox 36.7 C 99 15 108/56 L 903 H 10/09/17 11:17 10/09/17 11:17 10/09/17 11:17 10/09/17 11:17 10/09/17 11:17 Laboratory Results 10/09/17 04:09 10/09/17 04:09 10/08/17 10/09/17 10/10/17 05:59 05:59 05:59 Intake Total 1478 2735 400 Output Total 2365 1600 Balance -887 2735 -1200 - Physical Exam Constitutional: chronically ill appearing Eyes: PERRL Ears, Nose, Mouth, Throat: moist mucous membranes, hearing normal Cardiovascular: regular rate and rhythym, No edema Respiratory: no respiratory distress, no rales or rhonchi, clear to auscultation Gastrointestinal: normoactive bowel sounds, soft, non-tender abdomen, no palpable masses Skin: warm Musculoskeletal: generalized weakness Neurologic: AAOx3 Psychiatric: interacting appropriately, not anxious, not encephalopathic Lymph, Heme, Immunologic: No petechiae ICD10 Worksheet Patient Problems: Problems Problem Status Onset Back pain Acute Blood clot in bladder Acute Hematuria Acute Multiple drug resistant organism (MDRO) culture positive Acute NICHELLE (acute kidney injury) Acute Altered mental status Acute Anemia Acute Atrial fibrillation Acute Cervical spine fracture Acute Dehydration Acute Diabetes Acute Elevated troponin Acute Encephalopathy acute Acute Fall Acute Fall at home Acute Frequent falls Acute Gait instability Acute Gastroenteritis Acute Hyperglycemia Acute Hypertension Acute Hyponatremia Acute Noninfected skin tear of leg Acute Normocytic anemia due to blood loss Acute Pain management Acute Palliative care encounter Acute Sepsis secondary to UTI Acute UTI (urinary tract infection) Acute
--- NOTE | 2017-10-09 14:06 | ASMTCMCOM ---
CM Note CM Note Notes: Spoke with Namrata from [facility]; transportation from hospital scheduled for 1530 tomorrow, 10/10. Case Management will call [facility] in AM to confirm. Date Signed: 10/09/2017 02:05 PM Electronically Signed By:Destiny Huber RN
[2017-10-10] MEDS: ACETAMINOPHEN 325 MG TAB PO PRN (00:24)
--- NOTE | 2017-10-10 00:31 | SOAPPROG ---
SOAP Progress Note Assessment/Plan: Assessment: 1. Recurrent hemorrhagic cystitis - essentially resolved with 1% Alum CBI, stopped this AM. Urine culture negative. 2. Elevated creatinine w/ bilateral hydro on CT - probably due to clot retention. Creatinine has normalized with resolution of clot retention. Plan: 1. D/C [facility] in AM. Can be dischared thereafter, whenever deemed appropriate by hospitalist service. 2. Begin oral Elmiron after discharge -- limited studies have shown effectiveness w/ this medication in the setting of chronic hemorrhagic cystitis. Rx. on chart. 3. Follow-up in my office in 4 weeks. 4. Hold ASA until FU in my office --- risk of recurrent bleeding too high to restart at this time. Subjective: No complaints. Objective: Vital Signs Temp Pulse Resp BP Pulse Ox 37.2 C 112 H 16 119/50 L 93 10/09/17 20:02 10/09/17 22:06 10/09/17 20:02 10/09/17 22:06 10/09/17 20:02 Laboratory Results 10/09/17 04:09 10/09/17 04:09 10/08/17 10/09/17 10/10/17 05:59 05:59 05:59 Intake Total 1478 2735 1200 Output Total 2365 1900 Balance -887 2735 -700 Physical Exam - Physical Exam General Appearance: alert, no apparent distress Pelvic Exam: other (urine essentially clear (w/ sediment) off CBI) Neuro/Psych: alert ICD10 Worksheet Patient Problems: Problems Problem Status Onset Back pain Acute Blood clot in bladder Acute Hematuria Acute Multiple drug resistant organism (MDRO) culture positive Acute NICHELLE (acute kidney injury) Acute Altered mental status Acute Anemia Acute Atrial fibrillation Acute Cervical spine fracture Acute Dehydration Acute Diabetes Acute Elevated troponin Acute Encephalopathy acute Acute Fall Acute Fall at home Acute Frequent falls Acute Gait instability Acute Gastroenteritis Acute Hyperglycemia Acute Hypertension Acute Hyponatremia Acute Noninfected skin tear of leg Acute Normocytic anemia due to blood loss Acute Pain management Acute Palliative care encounter Acute Sepsis secondary to UTI Acute UTI (urinary tract infection) Acute
[2017-10-10] MEDS: LEVOTHYROXINE 75 MCG TAB PO SCH (05:00)
[2017-10-10] MEDS: INSULIN LISPRO 100 UNIT/ML SC SCH ×2 (08:22→13:17)
[2017-10-10] MEDS: CHOLECALCIFEROL VIT D3 1,000 UNITS TAB PO SCH (09:32)
[2017-10-10] MEDS: PANTOPRAZOLE SODIUM 40 MG TAB PO SCH (09:32)
[2017-10-10] MEDS: SERTRALINE HCL 25 MG TAB PO SCH (09:32)
[2017-10-10] MEDS: METOPROLOL TARTRATE 25 MG TAB PO SCH (09:32)
[2017-10-10] MEDS: INSULIN GLARGINE 100 UNITS/ML UNIT SC SCH (09:33)
[2017-10-10 11:29] VITALS: BP 104/55
--- NOTE | 2017-10-10 12:31 | PDDCSUM ---
Discharge Summary Discharge Summary: This is a 77 yo female who was admitted with Hematuria and possible early sepsis. She had ABLA and was transfused 2 units. She had a CBI and hematuria has resolved. She is now ready for discharge back to [facility]. Please see below for details per problem list. DDX: #possible early Sepsis: Leukocytosis, fever, NICHELLE -Source is unclear. CXR negative, UA negative -Mild leukocytosis and fever present on the morning of admission. -Was treated with Rocephin and this has been stopped. No need for additional abx #Acute blood loss anemia: -s/p PRBC 2 unit transfusion -no indication for another at this time #Hematuria: -CBI, stopped -start Elmiron at discharge, not on formulary here #NICHELLE, resolved with volume #Acute on chronic encephalopathy: cog eval in July 18. 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 #DM: reduced home glargine dose -slight hypoglycemia, Lantus decreased. #Falls: suspect multifactorial. PT/OT. No fracture on CT Exam: VSS NAD AAOX3 RRR CTA B S/NT/ND MEDS: SEE MED REC F/U: WITH PCP IN 1-2 WEEKS TOTAL TIME SPENT ON DISCHARGE IS 35 MINS
--- NOTE | 2017-10-10 13:55 | PDIAF ---
- Diagnosis Diagnosis: hematuria Code Status: Do Not Resuscitate - Medication Management Discharge Medications: Medications to Continue on Transfer Alendronate Sodium [Fosamax 70 MG (*)] 70 mg PO MO@0700 08/23/17 [Last Taken ] Allopurinol [Allopurinol 300 MG (RX)] 450 mg PO DAILY 08/23/17 [Last Taken 08/22] Cholecalciferol (Vitamin D3) [Vitamin D3] 1,000 unit PO BID 08/23/17 [Last Taken 08/22/17] Levothyroxine [Synthroid 75 mcg (*)] 75 mcg PO DAILY06 08/23/17 [Last Taken ] Omeprazole 40 mg PO DAILY 08/23/17 [Last Taken 08/22/17] Ondansetron Odt [Zofran Odt 4 mg (*)] 4 mg PO Q4 PRN 08/23/17 [Last Taken ] Polyethylene Glycol 3350 [Miralax 17 gm (*)] 17 gm PO DAILY 08/23/17 [Last Taken 08/22/17] Polyethylene Glycol 3350 [Miralax 17 gm (*)] 17 gm PO DAILY PRN 08/23/17 [Last Taken 08/22/17] Sennosides/Docusate Sodium [Senokot-S] 1 each PO BID PRN 08/23/17 [Last Taken ] Acetaminophen [Tylenol 325mg (*)] 650 mg PO Q4HRS PRN tab 08/28/17 [Last Taken Unknown] Herbals/Supplements -Info Only 1 ea PO DAILY 10/07/17 [Last Taken Unknown] Metoprolol Tartrate [Lopressor 25 mg (*)] 12.5 mg PO BID 10/07/17 [Last Taken Unknown] SITAGLIPTIN PHOSPHATE [Januvia 50 mg] 50 mg PO DAILY 10/07/17 [Last Taken Unknown] Sertraline HCl [Zoloft 25mg (*)] 25 mg PO DAILY 10/07/17 [Last Taken Unknown] oxyCODONE IR [Oxycodone Ir (*)] 5 mg PO Q4HRS PRN 10/07/17 [Last Taken Unknown] Pentosan Polysulfate Sodium [Elmiron] 100 mg PO TID #100 capsule 10/08/17 [Last Taken Unknown] Aspirin 81 mg PO DAILY #30 tab.chew 10/10/17 [Last Taken Unknown] Insulin Glargine [Lantus Syringe] 19 units SC DAILY unit 10/10/17 [Last Taken Unknown] Insulin Glargine [Lantus Syringe] 19 units SC HS unit 10/10/17 [Last Taken Unknown] Discharge Medications: Refer to the Discharge Home Medication list for PRN reason. - Orders Services needed: Registered Nurse, Physical Therapy, Occupational Therapy Isolation Type: Contact Isolation Diet Recommendation: no restrictions on diet Diet Texture: Regular Texture Diet Additional Instructions: Activity: As tolerated F/U: with PCP in 1-2 weeks - Follow Up Care Current Providers and Referrals: Laverne Brumfield MD [Primary Care Provider] - As per Instructions
--- NOTE | 2017-10-10 14:55 | ASMTDCNOTE ---
Case Management Discharge Discharge Order Complete? Answers: Yes Patient to Obtain Answers: Other Notes: [place] [facility] Transportation Arranged Answers: Other Notes: [facility] will Pick (Date 10/10/2017 03:30 PM & Time) Faxed Final Orders Answers: Yes Discharge Comments Notes: Patient discharged back to [facility]. Transport arranged by [facility]. SHYANN Avalos to call report. Date Signed: 10/10/2017 02:54 PM Electronically Signed By:Destiny Huber RN
--- NOTE | 2017-10-12 13:04 | ASDISCHSUM ---
Discharge Information Plan Status: Medically Cleared to Leave: Discharge Date:10/10/2017 03:48 PM CM D/C Disposition: ADT D/C Disposition:[facility] Facility Projected Discharge Date:10/10/2017 11:00 AM Transportation at D/C: Discharge Delay Reason: Follow-Up Date:10/10/2017 11:00 AM Discharge Slot: Final Diagnosis: Placement Information Referral Type:*[facility]/SNF Referral ID:[id number] Provider Name:[facility] Address 1:[address] Address 2: City:[place] Selection Factors: State:[place] Patient Contact Information Contact Name:DORIS Relationship:Other Address:[address] [facility] City:[facility] Phone: State/Zip Code:[place] [address] Email: Financial Information Financial Class:Medicare Primary Plan Desc:MEDICARE INPATIENT Primary Plan Number:[id number] Secondary Plan Desc:KEISHAR INDEMNI Secondary Plan Number:[id number] Assessment Information [facility] CM Progress Note CM Note CM Note Notes: Pt's chart reviewed for D/C planning. Pt is a 77 y/o female w/ type 1 diabetes, nonbacterial csytitis, chronic anemia and frequent falls presents with hematuria. This has been a chronic issue and was last treated in August 2017. Pt lives with her in assisted living at [facility]. 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 She requires the use of a walker and is quite unsteady in her gait particularly with moving backwards. PT and OT have been ordered. CM will follow. D/C Plan: TBD Date Signed: 10/07/2017 10:10 AM Electronically Signed By:Jess Dior [facility] Progress Note CM Note CM Note Notes: This is a correction to the last CM note. Pt currently lives at [facility]. CM spoke to kerman and they are anticipating her return. CM to follow. [facility] Date Signed: 10/08/2017 04:15 PM Electronically Signed By:Jess Dior [facility] Progress Note CM Note CM Note Notes: Spoke with Namrata from [facility]; transportation from hospital scheduled for 1530 tomorrow, 10/10. Case Management will call [facility] in AM to confirm. Date Signed: 10/09/2017 02:05 PM Electronically Signed By:Destiny Huber RN Case Management Discharge Plan Note Case Management Discharge Discharge Order Complete? Answers: Yes Patient to Obtain Answers: Other Notes: [place] [facility] Transportation Arranged Answers: Other Notes: [place] [facility] will Pick (Date 10/10/2017 03:30 PM & Time) Faxed Final Orders Answers: Yes Discharge Comments Notes: Patient discharged back to [facility]. Transport arranged by [facility]. SHYANN Avalos to call report. Date Signed: 10/10/2017 02:54 PM Electronically Signed By:Destiny Huber, RN Intervention Information
== END 2017-10-10 15:48 | DRG 871 ==
LOC: EDUNIT# → F1N 10-07 00:30 → OBSVTOIN 10-07 10:20
PROVIDERS: ADMIT Student in an Organized Health Care Education/Training Program; ATTEND Student in an Organized Health Care Education/Training Program
PROC: 30233N1 Transfusion of Nonautologous Red Blood Cells into Peripheral Vein, Percutaneous Approach (ICD-10-PCS; principal; 2017-10-08)
DX: A41.9 Sepsis, unspecified organism (principal); G93.49 Other encephalopathy; D62 Acute posthemorrhagic anemia; N17.9 Acute kidney failure, unspecified; N02.9 Recurrent and persistent hematuria with unspecified morphologic changes; F11.20 Opioid dependence, uncomplicated; E86.9 Volume depletion, unspecified; E87.5 Hyperkalemia; R29.6 Repeated falls; K74.60 Unspecified cirrhosis of liver; G89.29 Other chronic pain; K21.9 Gastro-esophageal reflux disease without esophagitis; E03.9 Hypothyroidism, unspecified; I48.0 Paroxysmal atrial fibrillation; E11.649 Type 2 diabetes mellitus with hypoglycemia without coma; M81.0 Age-related osteoporosis without current pathological fracture; I10 Essential (primary) hypertension; M10.9 Gout, unspecified; B19.20 Unspecified viral hepatitis C without hepatic coma
CPT/HCPCS: 97116-GP; 97162-GP; 97166-GO; 97530-GP; G8978-GP-CL; G8979-GP-CJ; G8987-GO-CL; G8988-GO-CJ; J0696; J1200; J1815; P9016

== ENCOUNTER 2017-11-08 16:51 | Inpatient (IN) | payer OTHER ==
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
[2017-11-08 18:14] LABS: PLATELET COUNT 266 10^3/uL (150-400)
[2017-11-08 18:19] LABS: INR 1.16 (0.83-1.16)
[2017-11-08] MEDS ORDERED: NS 1,000 ML IV ONE (19:04)
[2017-11-08] MEDS ORDERED: ONDANSETRON 4 MG/2 ML VIAL IVP PRN (20:36)
[2017-11-08] MEDS ORDERED: ONDANSETRON DISINTEGRATING 4 MG TAB PO PRN (20:36)
[2017-11-08] MEDS ORDERED: NS 1,000 ML IV SCH (21:00)
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
[2017-11-08] MEDS: INSULIN GLARGINE 100 UNITS/ML UNIT SC SCH (21:41)
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
[2017-11-09] MEDS: ACETAMINOPHEN 325 MG TAB PO PRN ×3 (01:21→12:49)
[2017-11-09 04:50] LABS: PLATELET COUNT 236 10^3/uL (150-400)
--- NOTE | 2017-11-09 07:07 | SOAPPROG ---
[facility]MA Progress Note Assessment/Plan: Assessment: 77 y/o female with ground level fall and Type II/II odontoid fracture, non- displaced, treated with rigid cervical collar immobilization. She is doing better this morning with overall pain control. Plan: - treatment options over surgery and bracing reviewed and we will continue with rigid cervical collar immobilization. Collar to be worn at all times. Length of time for collar is about 8-12 weeks to allow fracture healing - okay to dc when cleared by Medicine - f/u in outpatient Neurosurgery clinic in 6 weeks with cervical spine xrays: AP /lateral and open mouth odontoid views - pain control - therapies - we will sign off the patient this morning. please reconsult of any other questions/concerns arise or she develops any new neurologic changes. - all of the patient's questions were answered this morning and she was in agreement with the plan. 11/09/17 07:03 Subjective: neck pain and headaches well-controlled this morning; no new complaints; tolerating rigid cervical collar Objective: Vital Signs Temp Pulse Resp BP Pulse Ox 36.8 C 73 16 105/61 96 11/09/17 04:00 11/09/17 04:00 11/09/17 04:00 11/09/17 04:00 11/09/17 04:00 Laboratory Results 11/09/17 04:19 11/09/17 04:19 11/08/17 11/09/17 11/10/17 05:59 05:59 05:59 Intake Total 1500 Output Total 350 Balance 1150 PT 15.0 SEC (12.0-15.0) 11/08/17 18:00 INR 1.16 (0.83-1.16) 11/08/17 18:[address] in place Awake and alert; oriented Appears comfortable Good strength 5/5 throughout the B UE/LE throughout with no deficits Sensation intact to LT throughout ICD10 Worksheet Patient Problems: Problems Problem Status Onset Acute prerenal azotemia Acute C2 cervical fracture Acute Fall at home Acute NICHELLE (acute kidney injury) Acute Altered mental status Acute Anemia Acute Atrial fibrillation Acute Back pain Acute Blood clot in bladder Acute Cervical spine fracture Acute Dehydration Acute Diabetes Acute Elevated troponin Acute Encephalopathy acute Acute Fall Acute Frequent falls Acute Gait instability Acute Gastroenteritis Acute Hematuria Acute Hyperglycemia Acute Hypertension Acute Hyponatremia Acute Multiple drug resistant organism (MDRO) culture positive Acute Noninfected skin tear of leg Acute Normocytic anemia due to blood loss Acute Pain management Acute Palliative care encounter Acute Sepsis secondary to UTI Acute UTI (urinary tract infection) Acute
[2017-11-09] MEDS: ENOXAPARIN 40 MG/0.4 ML SYR SC SCH (08:30)
[2017-11-09] MEDS: INSULIN GLARGINE 100 UNITS/ML UNIT SC SCH ×2 (08:30→20:40)
--- NOTE | 2017-11-09 11:05 | CPEKG ---
Test Reason : OPEN Blood Pressure : / mmHG Vent. Rate : 078 BPM Atrial Rate : 078 BPM P-R Int : 202 ms QRS Dur : 147 ms QT Int : 423 ms P-R-T Axes : -24 005 022 degrees QTc Int : 482 ms Sinus rhythm Multiple ventricular premature complexes Right bundle branch block Confirmed by Jorge Luis Dailey ([id number]) on 11/09/2017 11:05:36 AM Referred By: Confirmed By:Jorge Luis Dailey
--- NOTE | 2017-11-09 11:57 | PDMN ---
Medical Necessity Medical necessity: Pt meets IP criteria per MD; est los >2 mn for eval/tx of cervical spine fx s/p mechanical fall; admit for further monitoring, Neuro consult, pain management & therapies; comorbid advanced age, falls, diabetes, CKD, hematuria & hep C w/cirrhosis; per H&P & order 11/08/17
--- NOTE | 2017-11-09 14:39 | ASMTCMCOM ---
CM Note CM Note Notes: 77yr old female admitted for fall: C2 fx. Has had numerous ER and hospital visits this year. Multiple falls, Hematuria, DM, Mild cog Impairment, C spine inj-chronic pain/narc dependence, HTN, Gout, Hep C, Anemia, Cirrhosis, UTI's, CKD-stage 3, GERD, OP , Afib, Hypothyroid. Patient lives at the [facility] where she could have skilled therapy, but [facility] does not accept Medicare payments. Talking to her son and , patient has been to [facility] in the past and may want to return there when discharged. Son and to confir with other family to determine discharge. CM to follow for discharge needs. Date Signed: 11/09/2017 02:39 PM Electronically Signed By:Deanne Sargent LCSW
--- NOTE | 2017-11-09 14:58 | HOSPPROG ---
Hospitalist Progress Note Assessment/Plan: 77yo F with mechanical fall and cervical spine fracture. This is her 9th admission since March for similar. #C2 fracture with ligamentous injury: No focal neuro deficits. - Neurosurgery consulted; no surgical intervention. Recommend rigid c-collar to be worn at all times for 8-12 weeks. NSGY will follow up in 6 weeks with repeat x-rays - Pain control with prn oxycodone #Mechanical fall: - PT/OT recommending SNF for ongoing therapy. She has been to [facility] in the past and agreeable to going again. - Fall precautions #CKD: Improving with IVF. Baseline Cr 1.0. #Diabetes: Continue lantus. #Cirrhosis: By imaging. Has h/o hep C. She is compensated. #H/o hematuria: No issues currently. #Social: Lives at [facility] assisted living with VTE ppx: Code: DNR, per discussion with patient Dispo: Remain inpatient as unsafe for discharge back home. Given her frequent re -admissions, it would be reasonable to approach palliative care. She has previously seen them when transitioning from independent to assisted living. Subjective: Having numbness and mild pain in head but this seems improved. No arm numbness/weakness. Objective: Vital Signs Temp Pulse Resp BP Pulse Ox 36.4 C 72 16 110/55 L 94 11/09/17 12:00 11/09/17 12:00 11/09/17 12:00 11/09/17 12:00 11/09/17 12:00 Laboratory Results 11/09/17 04:19 11/09/17 04:19 11/08/17 11/09/17 11/10/17 05:59 05:59 05:59 Intake Total 500 Output Total 350 Balance 150 PT 15.0 SEC (12.0-15.0) 11/08/17 18:00 INR 1.16 (0.83-1.16) 11/08/17 18:00 - Physical Exam Constitutional: no apparent distress, not in pain, other (frail, elderly, lying in c-collar) Eyes: PERRL, anicteric sclera, EOMI Ears, Nose, Mouth, Throat: moist mucous membranes, hearing normal, ears appear normal, no oral mucosal ulcers Cardiovascular: regular rate and rhythym, no murmur, rub, or gallop Respiratory: no respiratory distress, no rales or rhonchi, clear to auscultation , other (clear anterolaterally) Gastrointestinal: normoactive bowel sounds, soft, non-tender abdomen, no palpable masses Skin: no rashes or abrasions, no fluctuance, no induration Neurologic: AAOx3, sensation intact bilaterally, CN II-XII Intact, No weakness, No numbness ICD10 Worksheet Patient Problems: Problems Problem Status Onset Acute prerenal azotemia Acute C2 cervical fracture Acute Fall at home Acute NICHELLE (acute kidney injury) Acute Altered mental status Acute Anemia Acute Atrial fibrillation Acute Back pain Acute Blood clot in bladder Acute Cervical spine fracture Acute Dehydration Acute Diabetes Acute Elevated troponin Acute Encephalopathy acute Acute Fall Acute Frequent falls Acute Gait instability Acute Gastroenteritis Acute Hematuria Acute Hyperglycemia Acute Hypertension Acute Hyponatremia Acute Multiple drug resistant organism (MDRO) culture positive Acute Noninfected skin tear of leg Acute Normocytic anemia due to blood loss Acute Pain management Acute Palliative care encounter Acute Sepsis secondary to UTI Acute UTI (urinary tract infection) Acute
[2017-11-09] MEDS: oxyCODONE IR 5 MG TAB PO PRN (20:40)
[2017-11-10] MEDS: oxyCODONE IR 5 MG TAB PO PRN ×3 (08:12→16:28)
[2017-11-10] MEDS: INSULIN GLARGINE 100 UNITS/ML UNIT SC SCH ×3 (08:12→21:54)
[2017-11-10] MEDS: ENOXAPARIN 40 MG/0.4 ML SYR SC SCH (08:14)
--- NOTE | 2017-11-10 09:24 | WOCRNPDOC ---
WOCRN Advanced Assessment Note - Skin Integrity Problem, Advanced Assess Coccyx Dressing Type: Open to Air Lorenza Wound Tissue: Blanching, Erythema, Painful/Tender Site Measurement - Head-to-Toe Length X Width X Depth (cm): 0.1x1.3x0.1 Skin Integrity Problem Comment: Moisture related intertrigenous dermatitis in gluteal cleft with partial thickness loss. May use calazime. Continue Q2 turns. Wound care will sign off. Yu BOOTHE in room for assessment. 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 Mainly non blanching erythema with small areas of partial thickness loss. May leave [facility]. Patient does not recollect cause and denies sitting on a bed navarro. Wound care will sign off.
[2017-11-10] MEDS ORDERED: POLYETHYLENE GLYCOL 3350 17 GM PKT PO PRN (12:05)
[2017-11-10] MEDS ORDERED: SENNOSIDES/DOCUSATE SODIUM TAB PO PRN (12:05)
[2017-11-10] MEDS: ALLOPURINOL 300 MG TAB PO SCH (12:46)
[2017-11-10] MEDS: LEVOTHYROXINE 75 MCG TAB PO SCH (12:46)
--- NOTE | 2017-11-10 15:02 | HOSPPROG ---
Hospitalist Progress Note Assessment/Plan: DIAGNOSES: #C2 fracture with ligamentous injury: No focal neuro deficits. - Neurosurgery consulted; no surgical intervention. Recommend rigid c-collar to be worn at all times for 8-12 weeks. NSGY will follow up in 6 weeks with repeat x-rays - Pain control with prn tramadol #Mechanical fall: - PT/OT recommending SNF for ongoing therapy. She has been to [facility] in the past and agreeable to going again. - Fall precautions # encephalopathy, acute on chronic (newly identified issue today) * History of cognitive impairment called mild, but does not appear at her baseline present * Suspect pain, pain medicines, renal failure, change in location and situation , as well as other causative factors * Discontinue narcotic for now and replace with milder medication for pain follow closely; avoid other sedating meds as able * Follow renal function closely * Follow her food and fluid intake, sleep patterns etc and treat as necessary # acute on chronic renal failure: * Improving with IVF. Near her baseline Cr 1.0. * Presume related to dehydration #Diabetes: * Some hyperglycemia; goals can be relatively modest given her age in overall status * Continue lantus, but would add low-dose oral medication to improve postprandial sugars at this time * Will add finger checks to help monitor and guide therapy #Cirrhosis: By imaging. * Has h/o hep C. She is compensated. #H/o hematuria: No issues currently. #Social: Lives at [facility] assisted living with VTE ppx: Lovenox and compression Code: DNR, per discussion with patient Dispo: Remain inpatient as unsafe for discharge back home. Given her frequent re -admissions, it would be reasonable to approach palliative care. She has previously seen them when transitioning from independent to assisted living. 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: Exam: -alert somewhat disoriented, some obvious memory deficit, does not answer some of my questions and other conversation notable for her stopping mid sentence and unable to continue with what she was trying to say; appears mildly anxious, no tremor -rigid cervical collar in place, properly adjusted -no evidence weakness of limbs or hyper reflexia -skin warm dry color ok -resps appear adequate and not labored -lungs clear BSs -heart regular -abd soft nondistended nontender, bowel sounds present -limbs warm, no edema iv site ok Laboratory data: Sugars remain somewhat elevated the highest 242 postprandial so far today Continued improvement in renal function with creatinine down to 1.1 and also decrease in BUN today TSH is normal today Objective: Vital Signs Temp Pulse Resp BP Pulse Ox 36.9 C 99 20 131/77 H 92 11/10/17 07:03 11/10/17 07:03 11/10/17 07:03 11/10/17 07:03 11/10/17 07:03 Laboratory Results 11/09/17 04:19 11/10/17 04:20 11/09/17 11/10/17 11/11/17 06:59 06:59 06:59 Intake Total 500 1450 Output Total 350 1100 500 Balance 150 350 -500 PT 15.0 SEC (12.0-15.0) 11/08/17 18:00 INR 1.16 (0.83-1.16) 11/08/17 18:00 - Time Spent With Patient Time Spent with Patient: greater than 35 minutes Time Spent with Patient: Greater than 35 minutes spent on this patients care, greater than 50% of time spent counseling, educating, and coordinating care regarding the above mentioned plan. ICD10 Worksheet Patient Problems: Problems Problem Status Onset Acute prerenal azotemia Acute C2 cervical fracture Acute Fall at home Acute NICHELLE (acute kidney injury) Acute Altered mental status Acute Anemia Acute Atrial fibrillation Acute Back pain Acute Blood clot in bladder Acute Cervical spine fracture Acute Dehydration Acute Diabetes Acute Elevated troponin Acute Encephalopathy acute Acute Fall Acute Frequent falls Acute Gait instability Acute Gastroenteritis Acute Hematuria Acute Hyperglycemia Acute Hypertension Acute Hyponatremia Acute Multiple drug resistant organism (MDRO) culture positive Acute Noninfected skin tear of leg Acute Normocytic anemia due to blood loss Acute Pain management Acute Palliative care encounter Acute Sepsis secondary to UTI Acute UTI (urinary tract infection) Acute
[2017-11-10] MEDS: Pentosan Polysulfate Sodium [Elmiron] 100 MG PO SCH ×2 (15:32→21:41)
[2017-11-10] MEDS: CHOLECALCIFEROL VIT D3 1,000 UNITS TAB PO SCH (21:09)
[2017-11-10] MEDS: METOPROLOL TARTRATE 25 MG TAB PO SCH (21:10)
[2017-11-10] MEDS: DICLOFENAC SODIUM 1% 100 GM GEL TP PRN (21:12)
[2017-11-11] MEDS: LEVOTHYROXINE 75 MCG TAB PO SCH (06:01)
[2017-11-11] MEDS: INSULIN GLARGINE 100 UNITS/ML UNIT SC SCH ×2 (08:37→21:19)
[2017-11-11] MEDS: ENOXAPARIN 40 MG/0.4 ML SYR SC SCH (08:37)
[2017-11-11] MEDS: ALLOPURINOL 300 MG TAB PO SCH (08:37)
[2017-11-11] MEDS: ACETAMINOPHEN 325 MG TAB PO PRN ×2 (08:38→13:32)
[2017-11-11] MEDS: PANTOPRAZOLE SODIUM 40 MG TAB PO SCH (08:39)
[2017-11-11] MEDS: METOPROLOL TARTRATE 25 MG TAB PO SCH ×2 (08:39→21:15)
[2017-11-11] MEDS: SERTRALINE HCL 25 MG TAB PO SCH (08:40)
[2017-11-11] MEDS: CHOLECALCIFEROL VIT D3 1,000 UNITS TAB PO SCH ×2 (08:40→21:16)
[2017-11-11] MEDS: Pentosan Polysulfate Sodium [Elmiron] 100 MG PO SCH ×3 (08:41→21:21)
[2017-11-11] MEDS: oxyCODONE IR 5 MG TAB PO PRN ×2 (08:48→13:32)
--- NOTE | 2017-11-11 13:22 | HOSPPROG ---
Hospitalist Progress Note Assessment/Plan: DIAGNOSES: #C2 fracture with ligamentous injury: No focal neuro deficits. - Neurosurgery consulted; no surgical intervention. Recommend rigid c-collar to be worn at all times for 8-12 weeks. NSGY will follow up in 6 weeks with repeat x-rays - Pain control with prn tramadol #Mechanical fall: - PT/OT recommending SNF for ongoing therapy. She has been to [facility] in the past and agreeable to going again. - Fall precautions # encephalopathy, acute on chronic (newly identified issue today) * History of cognitive impairment called mild, but does not appear at her baseline present * Suspect pain, pain medicines, renal failure, change in location and situation , as well as other causative factors * Discontinue narcotic for now and replace with milder medication for pain follow closely; avoid other sedating meds as able * Follow renal function closely * Follow her food and fluid intake, sleep patterns etc and treat as necessary # acute on chronic renal failure: * Improving with IVF. Near her baseline Cr 1.0. * Presume related to dehydration #Diabetes: * Some hyperglycemia; goals can be relatively modest given her age in overall status * Continue lantus, but would add low-dose oral medication to improve postprandial sugars at this time * Will add finger checks to help monitor and guide therapy # chronic iron deficiency anemia; in past has been diagnosed with chronic hematuria as the cause * Both the iron deficiency and the anemia are fairly severe by numbers, may be contributing significantly to her fall risk * As I do not in our current records here have evidence of what ever GI workup she has had will order Hemoccult studies * Will begin IV iron replacement hearing continue oral outpatient replacement on discharge; will recheck hemoglobin in a.m. #Cirrhosis: By imaging. * Has h/o hep C. She is compensated. #H/o hematuria: No issues currently. #Social: Lives at [facility] assisted living with VTE ppx: Lovenox and compression Code: DNR, per discussion with patient Dispo: Remain inpatient as unsafe for discharge back home. At this point there are no notes in the record from case management and I will need to contact them about what progress is being made at looking for placement for her. 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: Exam: -alert more interactive today does better in conversation, some hypophonia -rigid cervical collar in place, properly adjusted -no evidence weakness of limbs or hyper reflexia -skin warm dry color ok -resps appear adequate and not labored -lungs clear BSs -heart regular -abd soft nondistended nontender, bowel sounds present -limbs warm, no edema iv site ok Laboratory data: Sugars overall better with addition of glipizide so far Iron studies demonstrating significant iron deficiency Objective: Vital Signs Temp Pulse Resp BP Pulse Ox 37.0 C 95 16 141/77 H 94 11/11/17 08:00 11/11/17 08:00 11/11/17 08:00 11/11/17 08:00 11/11/17 08:00 Laboratory Results 11/09/17 04:19 11/10/17 04:20 11/10/17 11/11/17 11/12/17 06:59 06:59 06:59 Intake Total 1450 490 Output Total 1100 1100 Balance 350 -610 PT 15.0 SEC (12.0-15.0) 11/08/17 18:00 INR 1.16 (0.83-1.16) 11/08/17 18:00 ICD10 Worksheet Patient Problems: Problems Problem Status Onset Acute prerenal azotemia Acute C2 cervical fracture Acute Fall at home Acute NICHELLE (acute kidney injury) Acute Altered mental status Acute Anemia Acute Atrial fibrillation Acute Back pain Acute Blood clot in bladder Acute Cervical spine fracture Acute Dehydration Acute Diabetes Acute Elevated troponin Acute Encephalopathy acute Acute Fall Acute Frequent falls Acute Gait instability Acute Gastroenteritis Acute Hematuria Acute Hyperglycemia Acute Hypertension Acute Hyponatremia Acute Multiple drug resistant organism (MDRO) culture positive Acute Noninfected skin tear of leg Acute Normocytic anemia due to blood loss Acute Pain management Acute Palliative care encounter Acute Sepsis secondary to UTI Acute UTI (urinary tract infection) Acute
[2017-11-11] MEDS: SODIUM FERRIC GLUCONAT/SUCROSE 125 MG in NS 100 ML IV SCH (13:23)
[2017-11-11] MEDS: METHOCARBAMOL 750 MG TAB PO PRN (14:54)
--- NOTE | 2017-11-11 16:59 | ASMTCMCOM ---
CM Note CM Note Notes: Unable to reach pt's all day, but spoke with Joanne, pt's daughter in law. MDPOA is brother who is out of town and referred us to Joanne the daughter in law who just arrived in town. . Family prefers pt to DC back to [facility] with PT/OT through Medicare Part B. Referral sent to [facility]. Pt ready to discharge once discharge plans settled. Plan: Home to [facility] with PT/OT through medicare Part B Date Signed: 11/11/2017 04:58 PM Electronically Signed By:Meena Marrero
[2017-11-12] MEDS: ACETAMINOPHEN 325 MG TAB PO PRN ×2 (06:37→08:24)
[2017-11-12] MEDS: LEVOTHYROXINE 75 MCG TAB PO SCH (06:46)
[2017-11-12] MEDS: METHOCARBAMOL 750 MG TAB PO PRN ×2 (08:23→15:01)
[2017-11-12] MEDS: oxyCODONE IR 5 MG TAB PO PRN (08:23)
[2017-11-12] MEDS: ALLOPURINOL 300 MG TAB PO SCH (08:29)
[2017-11-12] MEDS: PANTOPRAZOLE SODIUM 40 MG TAB PO SCH (08:29)
[2017-11-12] MEDS: METOPROLOL TARTRATE 25 MG TAB PO SCH (08:32)
[2017-11-12] MEDS: CHOLECALCIFEROL VIT D3 1,000 UNITS TAB PO SCH (08:32)
[2017-11-12] MEDS: INSULIN GLARGINE 100 UNITS/ML UNIT SC SCH (08:36)
[2017-11-12] MEDS: ENOXAPARIN 40 MG/0.4 ML SYR SC SCH (08:36)
[2017-11-12] MEDS: DICLOFENAC SODIUM 1% 100 GM GEL TP PRN (08:41)
[2017-11-12 09:37] VITALS: BP 94/48
[2017-11-12] MEDS: Pentosan Polysulfate Sodium [Elmiron] 100 MG PO SCH (09:57)
--- NOTE | 2017-11-12 12:07 | PDIAF ---
- Diagnosis Code Status: Do Not Resuscitate - Medication Management Discharge Medications: Medications to Continue on Transfer Alendronate Sodium [Fosamax 70 MG (*)] 70 mg PO MO@0700 08/23/17 [Last Taken ] Allopurinol [Allopurinol 300 MG (RX)] 450 mg PO DAILY 08/23/17 [Last Taken 11/08] Cholecalciferol (Vitamin D3) [Vitamin D3] 1,000 unit PO BID 08/23/17 [Last Taken 11/08/17 08:00] Levothyroxine [Synthroid 75 mcg (*)] 75 mcg PO DAILY06 08/23/17 [Last Taken 03/27] Omeprazole 40 mg PO DAILY 08/23/17 [Last Taken 11/08/17] Ondansetron Odt [Zofran Odt 4 mg (*)] 4 mg PO Q4 PRN 08/23/17 [Last Taken ] Polyethylene Glycol 3350 [Miralax 17 gm (*)] 17 gm PO DAILY 08/23/17 [Last Taken 08/22/17] Polyethylene Glycol 3350 [Miralax 17 gm (*)] 17 gm PO DAILY PRN 08/23/17 [Last Taken 08/22/17] Sennosides/Docusate Sodium [Senokot-S] 1 each PO BID PRN 08/23/17 [Last Taken ] Acetaminophen [Tylenol 325mg (*)] 650 mg PO Q4HRS PRN tab 08/28/17 [Last Taken Unknown] Metoprolol Tartrate [Lopressor 25 mg (*)] 12.5 mg PO BID 10/07/17 [Last Taken 08:00] SITAGLIPTIN PHOSPHATE [Januvia 50 mg] 50 mg PO DAILY 10/07/17 [Last Taken ] Sertraline HCl [Zoloft 25mg (*)] 25 mg PO DAILY 10/07/17 [Last Taken 11/08/17] Pentosan Polysulfate Sodium [ELMIRON] 100 mg PO TID #100 capsule 10/08/17 [Last Taken 11/08/17] Insulin Glargine [Lantus Syringe] 19 units SC DAILY unit 10/10/17 [Last Taken Unknown] Diclofenac Sodium 1% [Voltaren Gel (*)] 1 ondina TP BID PRN 11/08/17 [Last Taken Unknown] Enoxaparin [Lovenox 40 MG (*)] 40 mg SC DAILY syr 11/12/17 [Last Taken Unknown] Insulin Glargine [Lantus Syringe] 17 units SC HS #0 unit 11/12/17 [Last Taken ] Iron/Vit C/Docusate [Marina-Sequels 65 mg (*)] 1 each PO DAILY #1 tab.er [Last Taken Unknown] Methocarbamol [Robaxin 750 mg (*)] 750 mg PO TID PRN tab 11/12/17 [Last Taken Unknown] oxyCODONE IR [Oxycodone Ir (*)] 5 mg PO Q3HRS PRN tab 11/12/17 [Last Taken Unknown] Discharge Medications: Refer to the Discharge Home Medication list for PRN reason. PICC Care - Routine: N/A - Orders Services needed: Registered Nurse, Certified Photo Equipment Technician, Master Glass Blowing Instructor , Physical Therapy, Occupational Therapy Isolation Type: None Diet Recommendation: no restrictions on diet Diet Texture: Dysphagia 2 - Mechanically Altered - Chopped, Ground, Cook Thick Liquids, Meds Whole in Puree Equipment: Rigid cervical collar to be worn at all times until cleared by Dr Olsen Additional Instructions: Rigid cervical collar to be worn at all times for 8-12 weeks. Follow-up in Neurosurgery clinic ([phone]) with Dr Olsen in 6 weeks with cervical spine xrays (Ap/lateral and open mouth odontoid views). No lifting more than 5- 10 pounds. Ambulate. - Follow Up Care Current Providers and Referrals: Patient,NotPresent [Unknown] - As per Instructions Moises Olsen MD [Medical Doctor] -
--- NOTE | 2017-11-12 12:17 | PDDCSUM ---
Discharge Summary Discharge Summary: DISCHARGE DIAGNOSES: * C2 fracture, comminuted with ligamentous injury, without neurologic deficits * fall at home * gait instability * acute encephalopathy, now resolved * Iron deficiency anemia, Chronic, not on therapy at time of admission ( previous evaluations have led to conclusion this is due to ongoing hemnaturia) * Diabetes Mellitus * Acute Kidney Injury, likely due to dehydraton, now resolved CONSULTANTS: Dr Moises Olsen PROCEDURES: CT scan cervical spine MRI of cervical spine CT scan of head HOSPITAL COURSE SUMMARY: This patient apparently was at home at her assisted living a complex where she encountered friend who startled her leading to the patient losing balance and falling backward landing on her head. She had headache and neck pain and presented to the ER. There is no evidence of cranial or intracranial injury but she has a comminuted C2 fracture with some ligamentous injury. There been no findings of neurologic deficits related to this other than some mild encephalopathy that may have been caused by dehydration at the time of presentation. The patient was seen in consultation by neurosurgeon who felt that nonsurgical therapy would be optimal for her in this case as long as it remains stable. She was placed in rigid cervical collar and has recommends to keep that for 8-12 weeks depending on her symptoms and radiologic recovery. So far here in the hospital her neck pain and headache have persisted better gradually getting somewhat better. She continues to have a unremarkable neurologic exam for any spine related issues. She had mild encephalopathy as she arrived here and this has improved significantly. Likely factors include her fall and head injury, dehydration which is felt to be present at the time of admission, some acute renal insufficiency due to the above, and anemia. She was rehydrated with good resolution of her renal dysfunction, and resolution of her encephalopathy. Regarding the anemia looking back through her chart she has a long history of iron deficiency anemia, and has been on replacement therapy in the past. Her hemoglobin hears running in the 8-9 range which is fairly similar to when we have seen her earlier this year. All of our past records here indicate that this was felt to be due to chronic persistent hematuria. However I was unable to find specific records detailing any gastroenterologic workup. There are 2 stool samples that were tested for blood in the past most recently June of this year, a both these tests have been negative. Notably the patient has not been taking any iron supplements recently according to our pharmacy medication reconciliation. Here she was given 2 doses of intravenous iron sucrose, and is now prescribed oral iron therapy which she should continue to take likely indefinitely. You would be reasonable for her primary physician staff to trying get any older records that might indicate previous gastroenterologic workup for iron deficiency. PENDING TEST RESULTS: None MEDICATION CHANGES: P.r.n. Analgesic is added Iron sulfate daily supplements added FOLLOW-UP PLAN: At this time she is transferred to custodial care at [facility] in [place] Greater than 35 minutes bedside and care coordination time today
[2017-11-12] MEDS: SERTRALINE HCL 25 MG TAB PO SCH (12:23)
[2017-11-12] MEDS: SODIUM FERRIC GLUCONAT/SUCROSE 125 MG in NS 100 ML IV SCH (13:13)
--- NOTE | 2017-11-12 15:06 | ASMTLACE ---
ALESHA Length of stay for Answers: 4-6 days current admission Acuity / Level of Answers: Yes Care: Did the patient have an inpatient admission? Comorbidities - select Answers: Diabetes (uncontrolled or all that apply controlled) History of falls Mild liver or renal disease Opioid dependence / Chronic pain Other Notes: Anemia, UTI's, Cog impairment # of Emergency department Answers: 9-12 visits in the last 6 months Social determinants Answers: History of substance abuse (ETOH, street drugs, prescription drugs, etc.) Score: 26 Date Signed: 11/12/2017 03:05 PM Electronically Signed By:STARR Snell
--- NOTE | 2017-11-12 15:08 | ASMTCMCOM ---
CM Note CM Note Notes: Pt medically stable for d/c back to [facility], spoke with pt DIL Joanne [phone] about where to d/c. Orders sent in [employer], notified Lexi [phone] at [facility]. Lexi scheduled [facility] transport for 1500. Date Signed: 11/12/2017 03:08 PM Electronically Signed By:STARR Snell
--- NOTE | 2017-11-12 16:47 | ASDISCHSUM ---
Discharge Information Plan Status:SNF Medically Cleared to Leave: Discharge Date:11/12/2017 04:26 PM CM D/C Disposition:Group Home Facility ADT D/C Disposition:Group Home Facility Projected Discharge Date:11/12/2017 11:00 AM Transportation at D/C:Wheelchair Van Discharge Delay Reason: Follow-Up Date:11/12/2017 11:00 AM Discharge Slot: Final Diagnosis:Fall: C2 fx Placement Information Referral Type:*Care Home/SNF Referral ID:[id number] Provider Name:[facility] Address 1:[address] Address 2: City:[place] Selection Factors: State:[place] Patient Contact Information Contact Name:STEF Relationship: Address:[address] [facility] City:[place] Alternate Phone: [facility]/Zip Code:[place] [address] Email: Financial Information Financial Class:Medicare Primary Plan Desc:MEDICARE INPATIENT Primary Plan Number:[id number] Secondary Plan Desc:[facility] Secondary Plan Number:[id number] Assessment Information LACE LACE Length of stay for Answers: 4-6 days current admission Acuity / Level of Answers: Yes Care: Did the patient have an inpatient admission? Comorbidities - select Answers: Diabetes (uncontrolled or all that apply controlled) History of falls Mild liver or renal disease Opioid dependence / Chronic pain Other Notes: Anemia, UTI's, Cog impairment # of Emergency department Answers: 9-12 visits in the last 6 months Social determinants Answers: History of substance abuse (ETOH, street drugs, prescription drugs, etc.) Score: 26 Date Signed: 11/12/2017 03:05 PM Electronically Signed By:STARR Snell [facility] CM Progress Note CM Note CM Note Notes: 77yr old female admitted for fall: C2 fx. Has had numerous ER and hospital visits this year. Multiple falls, Hematuria, DM, Mild cog Impairment, C spine inj-chronic pain/narc dependence, HTN, Gout, Hep C, Anemia, Cirrhosis, UTI's, CKD-stage 3, GERD, OP , Afib, Hypothyroid. Patient lives at the [facility] where she could have skilled therapy, but [facility] does not accept Medicare payments. Talking to her son and , patient has been to [facility] in the past and may want to return there when discharged. Son and to confir with other family to determine discharge. CM to follow for discharge needs. Date Signed: 11/09/2017 02:39 PM Electronically Signed By:Deanne Sargent LCSW [facility] CM Progress Note CM Note CM Note Notes: Unable to reach pt's all day, but spoke with Joanne, pt's daughter in law. MARTY is brother who is out of town and referred us to Joanne the daughter in law who just arrived in town. . Family prefers pt to DC back to [facility] with PT/OT through Medicare Part B. Referral sent to [facility]. Pt ready to discharge once discharge plans settled. Plan: Home to [facility] with PT/OT through medicare Part B Date Signed: 11/11/2017 04:58 PM Electronically Signed By:Meena Marrero [facility] CM Progress Note CM Note CM Note Notes: Pt medically stable for d/c back to [facility], spoke with pt CHIKI Rubio [phone] about where to d/c. Orders sent in [employer]scripts, notified Lexi [phone] at [facility]. Lexi scheduled [facility] transport for 1500. Date Signed: 11/12/2017 03:08 PM Electronically Signed By:STARR Snell Intervention Information Intervention Type:*Incorrect Registration Date of Service:11/08/2017 10:35 AM Patient Type:Observation Staff Member:SHYANN Pyle Courtney Hours: Discipline: Severity: Comment: Intervention Type:*IM-Signed Date of Service:11/12/2017 01:58 PM Patient Type:Inpatient Staff Member:Anika Gilliland Hours: Discipline: Severity: Comment:
[2017-11-17] MEDS ORDERED: ALENDRONATE SODIUM 70 MG TAB PO SCH (07:00)
== END 2017-11-12 16:26 | DRG 551 ==
LOC: EDUNIT# → F3N 19:55 → OBSVTOIN 20:38
PROVIDERS: ADMIT Internal Medicine; ATTEND Internal Medicine
PROC: 2W32X3Z Immobilization of Neck using Brace (ICD-10-PCS; principal; 2017-11-08)
DX: S12.101A Unspecified nondisplaced fracture of second cervical vertebra, initial encounter for closed fracture (principal); W01.0XXA Fall on same level from slipping, tripping and stumbling without subsequent striking against object, initial encounter; Y92.098 Other place in other non-institutional residence as the place of occurrence of the external cause; G93.40 Encephalopathy, unspecified; R26.81 Unsteadiness on feet; D50.0 Iron deficiency anemia secondary to blood loss (chronic); E11.22 Type 2 diabetes mellitus with diabetic chronic kidney disease; E11.65 Type 2 diabetes mellitus with hyperglycemia; N17.9 Acute kidney failure, unspecified; E86.0 Dehydration; Z66 Do not resuscitate; I48.0 Paroxysmal atrial fibrillation; K74.60 Unspecified cirrhosis of liver; B18.1 Chronic viral hepatitis B without delta-agent; B18.2 Chronic viral hepatitis C; I27.20 Pulmonary hypertension, unspecified; N18.3 Chronic kidney disease, stage 3 (moderate); E03.9 Hypothyroidism, unspecified; K21.9 Gastro-esophageal reflux disease without esophagitis; M81.0 Age-related osteoporosis without current pathological fracture; Z91.81 History of falling; L89.312 Pressure ulcer of right buttock, stage 2; G31.84 Mild cognitive impairment of uncertain or unknown etiology
CPT/HCPCS: 92526-GN; 92610-GN; 97116-GP; 97161-GP; 97166-GO; 97530-GO; 97530-GP; 97535-GO; G8978-GP-CK; G8979-GP-CJ; G8987-GO-CK; G8988-GO-CJ; G8996-GN-CJ; G8997-GN-CI; J1650; J1815; J2916; L0174